=== PATIENT | male | born 1950 | race Caucasian/White ===

== ENCOUNTER 2017-09-21 16:38 | Inpatient (IN) | payer MEDICARE ==
[2017-09-21] MEDS ORDERED: SODIUM CHLORIDE 0.9% 1,000 ML IV STA (17:08)
[2017-09-21 17:43] LABS: Basophils # (A) 0.1 k/uL (0-0.2); Basophils % (A) 1 %; CH 36.4; CHCM 35.6; Eosinophils # (A) 0.1 k/uL (0-0.7); Eosinophils % (A) 1 %; HCT 42.2 % (39.0-53.0); HDW 2.39; HGB 14.6 gm/dL (13.0-17.5); Luc # (Auto) 0.16; Luc % (Auto) 2; Lymphocytes # (A) 1.5 k/uL (1.0-4.8); Lymphocytes % (A) 18 %; MCH 35.5 pg (25.0-35.0); MCHC 34.6 g/dL (31.0-37.0); MCV 102.5 fL (80.0-100.0); Mean Platelet Volume 8.5; Monocytes # (A) 0.8 k/uL (0-1.0); Monocytes % (A) 10 %; Neutrophils # (A) 5.5 k/uL (1.3-7.7); Neutrophils % (A) 69 %; RBC 4.12 m/uL (4.30-5.90); RDW 11.9 % (11.5-15.5); WBC 8.1 k/uL (3.8-10.6); WBC (Perox) 7.83
[2017-09-21 17:51] LABS: Partial Thromboplastin Time 24.6 sec (22.0-30.0); Prothrombin Time 10.4 sec (9.0-12.0)
[2017-09-21 18:00] LABS: ALT 139 U/L (21-72); AST 189 U/L (17-59); Alkaline Phosphatase 96 U/L (38-126); Amylase 67 U/L (30-110); Anion Gap 13 mmol/L; Blood Urea Nitrogen 14 mg/dL (9-20); Calcium 9.7 mg/dL (8.4-10.2); Carbon Dioxide 24 mmol/L (22-30); Chloride 91 mmol/L (98-107); Glucose 116 mg/dL (74-99); Magnesium 1.7 mg/dL (1.6-2.3); Non-African American GFR(MDRD) 50 (>60 ml/min/1.73 sqM); Potassium 4.2 mmol/L (3.5-5.1); Sodium 128 mmol/L (137-145); Total Bilirubin 1.6 mg/dL (0.2-1.3); Total Protein 6.7 g/dL (6.3-8.2)
[2017-09-21 18:03] LABS: Creatine Kinase 61 U/L (55-170)
--- NOTE | 2017-09-21 18:10 | XR ---
EXAMINATION TYPE: XR chest 2V DATE OF EXAM: 09/21/2017 COMPARISON: 05/09/2016 HISTORY: Weakness TECHNIQUE: Frontal and lateral views of the chest are obtained. FINDINGS: Heart and mediastinum are normal. Lungs are clear of consolidation. There are no hilar mas ses. There is spurring in the thoracic spine. There are sternal wires. IMPRESSION: No active cardiopulmonary disease. No change.
[2017-09-21 18:15] LABS: Creatine Kinase MB 1.7 ng/mL (0.0-2.4); Troponin I <0.012 ng/mL (0.000-0.034)
[2017-09-21] MEDS ORDERED: SODIUM CHLORIDE 0.9% 500 ML IV ONE (18:55)
--- NOTE | 2017-09-21 19:44 | ED ---
URI HPI - General Source: patient, RN notes reviewed Mode of arrival: wheelchair Limitations: no limitations <Jarrett Ahmadi - Last Filed: 09/21/17 20:23> <Arun Bernal - Last Filed: 09/21/17 21:17> - General Chief Complaint: Upper Respiratory Infection Stated Complaint: SOB Time Seen by Provider: 09/21/17 16:50 - History of Present Illness Initial Comments: 67-year-old male present emergency department with chief complaint of generalized weakness. Patient states he has not felt well over the last week. Patient states he has been sick with sinus congestion and slight cough. Patient states he's had a big decrease in appetite states that he has not been eating much other than drinking and sure today. Patient does admit to some alcohol drinking. Patient denies chest pain or shortness of breath at this time he does have some shortness breath other day. Patient states he's had prior cardiac history including triple bypass a few years ago by Dr. Schneider. Patient denies any headache, dizziness, focal weakness. He states that he can previous and he feels so weak. Patient denies any fever or chills. Patient is brought in by family secondary to his weakness. (Jarrett Ahmadi) - Related Data Home Medications Medication Instructions Recorded Confirmed Clopidogrel Bisulfate [Plavix] 75 mg PO Q48H 07/05/16 09/21/17 Aspirin EC [Ecotrin Low Dose] 81 mg PO DAILY 11/07/16 09/21/17 Atorvastatin [Lipitor] 40 mg PO HS 11/07/16 09/21/17 Lisinopril 40 mg PO DAILY 11/07/16 09/21/17 Allergies Allergy/AdvReac Type Severity Reaction Status Date / Time No Known Allergies Allergy Verified 09/21/17 16:54 Review of Systems ROS Other: All systems not noted in ROS Statement are negative. <Jarrett Ahmadi - Last Filed: 09/21/17 20:23> ROS Other: All systems not noted in ROS Statement are negative. <Arun Bernal - Last Filed: 09/21/17 21:17> ROS Statement: Those systems with pertinent positive or pertinent negative responses have been documented in the HPI. Past Medical History Past Medical History: Coronary Artery Disease (CAD), Deep Vein Thrombosis (DVT) , Hyperlipidemia, Hypertension, Vascular Disorder Additional Past Medical History / Comment(s): right leg DVT, PVD, sore on left leg, SIDE OF JIM History of Any Multi-Drug Resistant Organisms: None Reported Past Surgical History: Coronary Bypass/CABG, Heart Catheterization, Joint Replacement, Orthopedic Surgery Additional Past Surgical History / Comment(s): left knee replacement, left foot surgery, stent to right leg, CABG 12/2014, 4 bypass, aortogram, [facility] Past Anesthesia/Blood Transfusion Reactions: No Reported Reaction Past Psychological History: No Psychological Hx Reported, Depression Smoking Status: Current every day smoker Past Alcohol Use History: Daily Past Drug Use History: None Reported - Past Family History Father Family Medical History: Myocardial Infarction ([place]) Mother Family Medical History: No Reported History <Jarrett Ahmadi - Last Filed: 09/21/17 20:23> General Exam Limitations: no limitations General appearance: alert, in no apparent distress Head exam: Present: atraumatic, normocephalic, normal inspection Eye exam: Present: normal appearance, PERRL, EOMI. Absent: scleral icterus, conjunctival injection, periorbital swelling ENT exam: Present: normal exam, normal oropharynx, mucous membranes moist, TM's normal bilaterally, normal external ear exam Neck exam: Present: normal inspection, full ROM. Absent: tenderness, meningismus, lymphadenopathy Respiratory exam: Present: normal lung sounds bilaterally. Absent: respiratory distress, wheezes, rales, rhonchi, stridor Cardiovascular Exam: Present: regular rate, normal rhythm, normal heart sounds. Absent: systolic murmur, diastolic murmur, rubs, gallop, clicks GI/Abdominal exam: Present: soft, normal bowel sounds. Absent: distended, tenderness, guarding, rebound, rigid Neurological exam: Present: alert, oriented X3, CN II-XII intact, reflexes normal. Absent: motor sensory deficit Skin exam: Present: warm, dry, intact, normal color. Absent: rash <Jarrett Ahmadi - Last Filed: 09/21/17 20:23> Vital Signs 09/21/17 09/21/17 09/21/17 16:42 17:10 18:17 Temperature 98 F Pulse Rate 98 80 Respiratory 18 18 16 Rate Blood Pressure 113/76 139/74 O2 Sat by Pulse 100 100 Oximetry Medical Decision Making - Lab Data Result diagrams: 09/21/17 17:30 09/21/17 17:30 <Jarrett Ahmadi - Last Filed: 09/21/17 20:23> - Lab Data Result diagrams: 09/21/17 17:30 09/21/17 17:30 <Arun Bernal - Last Filed: 09/21/17 21:17> - Medical Decision Making 67-year-old male present emergency from for generalized weakness. Patient is dehydrated, has acute renal failure and is unsteady on his gait at this time. Patient needs to be admitted for IV hydration, recheck labs in the morning and reassessment of his gait. (Jarrett Ahmadi) 67 yo male admitted for generalized weakness, dehydration, acute kidney injury and hyponatremia. Multiple attempts are made to contact the patient's admitting physician, messages left on voicemail. Patient will be admitted to the service of Dr. Tan, currently awaiting callback.. (Arun Bernal) - Lab Data Lab Results 09/21/17 09/21/17 09/21/17 Range/Units 17:30 17:30 17:30 WBC 8.1 (3.8-10.6) k/uL RBC 4.12 L (4.30-5.90) m/uL Hgb 14.6 (13.0-17.5) gm/dL Hct 42.2 (39.0-53.0) % MCV 102.5 H (80.0-100.0) fL MCH 35.5 H (25.0-35.0) pg MCHC 34.6 (31.0-37.0) g/dL RDW 11.9 (11.5-15.5) % Plt Count 172 (150-450) k/uL Neutrophils % 69 % Lymphocytes % 18 % Monocytes % 10 % Eosinophils % 1 % Basophils % 1 % Neutrophils # 5.5 (1.3-7.7) k/uL Lymphocytes # 1.5 (1.0-4.8) k/uL Monocytes # 0.8 (0-1.0) k/uL Eosinophils # 0.1 (0-0.7) k/uL Basophils # 0.1 (0-0.2) k/uL PT (9.0-12.0) sec INR (<1.2) APTT (22.0-30.0) sec Sodium 128 L (137-145) mmol/L Potassium 4.2 (3.5-5.1) mmol/L Chloride 91 L (98-107) mmol/L Carbon Dioxide 24 (22-30) mmol/L Anion Gap 13 mmol/L BUN 14 (9-20) mg/dL Creatinine 1.42 H (0.66-1.25) mg/dL Est GFR (MDRD) Af Amer >60 (>60 ml/min/1.73 sqM) Est GFR (MDRD) Non-Af 50 (>60 ml/min/1.73 sqM) Glucose 116 H (74-99) mg/dL Calcium 9.7 (8.4-10.2) mg/dL Magnesium 1.7 (1.6-2.3) mg/dL Total Bilirubin 1.6 H (0.2-1.3) mg/dL AST 189 H (17-59) U/L ALT 139 H (21-72) U/L Alkaline Phosphatase 96 (38-126) U/L Total Creatine Kinase 61 (55-170) U/L CK-MB (CK-2) 1.7 (0.0-2.4) ng/mL CK-MB (CK-2) Rel Index 2.8 Troponin I <0.012 (0.000-0.034) ng/mL NT-Pro-B Natriuret Pep pg/mL Total Protein 6.7 (6.3-8.2) g/dL Albumin 3.9 (3.5-5.0) g/dL Amylase 67 (30-110) U/L Lipase 238 (23-300) U/L Urine Color Urine Appearance (Clear) Urine pH (5.0-8.0) Ur Specific [place] (1.001-1.035) Urine Protein (Negative) Urine Glucose (UA) (Negative) Urine Ketones (Negative) Urine Blood (Negative) Urine Nitrite (Negative) Urine Bilirubin (Negative) Urine Urobilinogen (<2.0) mg/dL Ur Leukocyte Esterase (Negative) 09/21/17 09/21/17 09/21/17 Range/Units 17:30 17:30 19:00 WBC (3.8-10.6) k/uL RBC (4.30-5.90) m/uL Hgb (13.0-17.5) gm/dL Hct (39.0-53.0) % MCV (80.0-100.0) fL MCH (25.0-35.0) pg MCHC (31.0-37.0) g/dL RDW (11.5-15.5) % Plt Count (150-450) k/uL Neutrophils % % Lymphocytes % % Monocytes % % Eosinophils % % Basophils % % Neutrophils # (1.3-7.7) k/uL Lymphocytes # (1.0-4.8) k/uL Monocytes # (0-1.0) k/uL Eosinophils # (0-0.7) k/uL Basophils # (0-0.2) k/uL PT 10.4 (9.0-12.0) sec INR 1.0 (<1.2) APTT 24.6 (22.0-30.0) sec Sodium (137-145) mmol/L Potassium (3.5-5.1) mmol/L Chloride (98-107) mmol/L Carbon Dioxide (22-30) mmol/L Anion Gap mmol/L BUN (9-20) mg/dL Creatinine (0.66-1.25) mg/dL Est GFR (MDRD) Af Amer (>60 ml/min/1.73 sqM) Est GFR (MDRD) Non-Af (>60 ml/min/1.73 sqM) Glucose (74-99) mg/dL Calcium (8.4-10.2) mg/dL Magnesium (1.6-2.3) mg/dL Total Bilirubin (0.2-1.3) mg/dL AST (17-59) U/L ALT (21-72) U/L Alkaline Phosphatase (38-126) U/L Total Creatine Kinase (55-170) U/L CK-MB (CK-2) (0.0-2.4) ng/mL CK-MB (CK-2) Rel Index Troponin I (0.000-0.034) ng/mL NT-Pro-B Natriuret Pep 174 pg/mL Total Protein (6.3-8.2) g/dL Albumin (3.5-5.0) g/dL Amylase (30-110) U/L Lipase (23-300) U/L Urine Color Yellow Urine Appearance Clear (Clear) Urine pH 5.5 (5.0-8.0) Ur Specific [place] 1.006 (1.001-1.035) Urine Protein Negative (Negative) Urine Glucose (UA) Negative (Negative) Urine Ketones Trace H (Negative) Urine Blood Negative (Negative) Urine Nitrite Negative (Negative) Urine Bilirubin Negative (Negative) Urine Urobilinogen 3.0 (<2.0) mg/dL Ur Leukocyte Esterase Negative (Negative) 09/21/17 19:43 EKG performed at 16:57 normal sinus rhythm with a rate of 83 MN interval 146 QRS 86 QT/QTC 394/462 (Jarrett Ahmadi) Disposition <Jarrett Ahmadi - Last Filed: 09/21/17 20:23> <Arun Bernal - Last Filed: 09/21/17 21:17> Clinical Impression: Weakness, Dehydration, Acute kidney injury, Unsteady gait Disposition: ADMITTED IP TO THIS [facility] Condition: Fair Referrals: Nolberto Tan MD [Primary Care Provider] - 1-2 days
[2017-09-21 19:52] LABS: Appearance,Urine Clear (Clear); Bilirubin,Urine Negative (Negative); Glucose,Urine (UA) Negative (Negative); Ketones,Urine Trace (Negative); Leukocyte Esterase,Urine Negative (Negative); Nitrite,Urine Negative (Negative); PH, Urine 5.5 (5.0-8.0); Protein,Urine Negative (Negative); Specific Gravity,Urine 1.006 (1.001-1.035); UA Billing (MACRO vs. MICRO) CHEM
[2017-09-21] MEDS ORDERED: LORazepam 2 MG/ML INJ IV PRN ×4 (20:25→20:26)
[2017-09-21] MEDS ORDERED: NALOXONE 0.4 MG/ML 1 ML VIAL IV PRN (20:25)
[2017-09-21] MEDS ORDERED: ONDANSETRON 4 MG/2 ML VIAL IVP PRN (20:25)
[2017-09-21] MEDS: SODIUM CHLORIDE 0.9% 1,000 ML IV SCH (20:57)
[2017-09-21] MEDS: THIAMINE 100 MG TAB PO SCH (22:04)
[2017-09-22 12:58] VITALS: BMI 25.0
[2017-09-22] MEDS: THIAMINE 100 MG TAB PO SCH ×2 (13:28→17:11)
[2017-09-22] MEDS: SODIUM CHLORIDE 0.9% 1,000 ML IV SCH ×2 (13:29→17:12)
--- NOTE | 2017-09-22 15:07 | HP ---
HISTORY AND PHYSICAL CHIEF COMPLAINT: Dehydration and prerenal azotemia with ataxia. HISTORY OF PRESENT ILLNESS: This is another admission for this 67-year-old white male. He presented to the emergency room with dehydration and unsteadiness. He does drink a significant amount of alcohol, and this is probably his problem. His liver enzymes are elevated. REVIEW OF SYSTEMS: He denies any chest pain, palpitations, focal neurologic deficits, syncope, etc. Past medical history, family history and personal and social histories reveal that he is on: 1. Hydralazine 25 mg twice a day. 2. Lisinopril 40 once a day. 3. Atorvastatin 40 mg at bedtime. 4. Aspirin 81 mg. The remainder of his history is unremarkable. He has not been in the office since the spring. PHYSICAL EXAMINATION: Blood pressure 152/80 with a pulse of 94, respirations of 46, and he is afebrile. In general, he appeared to be flushed. He did appear to be dehydrated. Head, ears, eyes, nose, mouth and throat were otherwise normal. Neck veins were not distended. The chest was clear. Breath sounds were diminished. Cardiac exam demonstrated sinus tachycardia. No murmurs or extra sounds. There was no S3 or S4. ABDOMEN: Soft, nontender, without any visceromegaly or masses. Bowel sounds are present. Extremities were normal. Neurologically he was intact. He was not tremulous. IMPRESSION: 1. Dehydration and ataxia. 2. Alcoholism. 3. Chronic obstructive pulmonary disease. 4. History of hypertension. PLAN: 1. Bed rest. 2. IV fluids. 3. Monitor vital signs and neurologic status. Closely watch for DTs. MMLADONNAL / NEMESION: [id number] /
--- NOTE | 2017-09-22 15:10 | PN ---
PROGRESS NOTE CHIEF COMPLAINT: Dehydration and alcoholism. HISTORY OF PRESENT ILLNESS: This gentleman is stable and he has had no further problems. He has had no headaches, dizziness, focal neurologic deficits, diplopia, etc. PHYSICAL EXAMINATION: CHEST: Clear. Cardiac exam is normal. The abdomen is soft, nontender. EXTREMITIES: Normal. IMPRESSION: 1. Dehydration. 2. Alcoholism. 3. Ataxia. PLAN: Continue with rehydration. He has not gone into DTs as of this time. MMODL / IJN: [id number] /
[2017-09-23] MEDS: SODIUM CHLORIDE 0.9% 1,000 ML IV SCH ×3 (03:51→21:30)
[2017-09-23 09:46] LABS: Basophils % (A) 1 %; CH 36.1; CHCM 34.2; Eosinophils # (A) 0.1 k/uL (0-0.7); Eosinophils % (A) 1 %; HCT 37.3 % (39.0-53.0); HDW 2.44; HGB 12.4 gm/dL (13.0-17.5); Luc # (Auto) 0.15; Luc % (Auto) 2; Lymphocytes # (A) 1.2 k/uL (1.0-4.8); Lymphocytes % (A) 17 %; MCH 35.2 pg (25.0-35.0); MCHC 33.2 g/dL (31.0-37.0); MCV 106.1 fL (80.0-100.0); Macrocytosis Slight; Mean Platelet Volume 8.9; Monocytes # (A) 0.7 k/uL (0-1.0); Monocytes % (A) 10 %; Neutrophils # (A) 4.7 k/uL (1.3-7.7); Neutrophils % (A) 69 %; RBC 3.52 m/uL (4.30-5.90); RDW 11.8 % (11.5-15.5); WBC 6.8 k/uL (3.8-10.6); WBC (Perox) 6.77
[2017-09-23 10:10] LABS: ALT 119 U/L (21-72); AST 140 U/L (17-59); Alkaline Phosphatase 77 U/L (38-126); Anion Gap 7 mmol/L; Blood Urea Nitrogen 6 mg/dL (9-20); Calcium 8.4 mg/dL (8.4-10.2); Carbon Dioxide 25 mmol/L (22-30); Chloride 99 mmol/L (98-107); Glucose 86 mg/dL (74-99); Non-African American GFR(MDRD) >60 (>60 ml/min/1.73 sqM); Potassium 3.8 mmol/L (3.5-5.1); Sodium 131 mmol/L (137-145); Total Bilirubin 1.3 mg/dL (0.2-1.3); Total Protein 5.5 g/dL (6.3-8.2)
[2017-09-23] MEDS: THIAMINE 100 MG TAB PO SCH ×2 (12:10→17:22)
[2017-09-24] MEDS: SODIUM CHLORIDE 0.9% 1,000 ML IV SCH (06:38)
[2017-09-24 08:17] VITALS: BP 112/93; PULSE 103; RESP 18; TEMP 98.3
--- NOTE | 2017-09-24 12:25 | CDI ---
In responding to this query, please exercise your independent professional judgment. The [facility] Coding Staff and Clinical Documentation Specialists appreciate your assistance in clarifying documentation, maintaining compliance with coding guidelines, accurately documenting patients condition and capturing severity of illness. The fact that a question is asked does not imply that any particular answer is desired or expected. Communication forms are a method of clarifying documentation and are not made part of the Legal Health Record. Thank you in advance for your clarification. Last Revision, September 2015 Costa Grey [address] [place] [address] Documentation Clarification Form Date: 09/24/2017 12:16:00 PM From: Nichol Barry CCS, CCDS Admit Date: 09/21/2017 9:15:00 PM Patient Name: Arun Recinos Visit Number: [id number] Discharge Date: Dr. Nolberto Tan: Patient presents with a BUN 14, now 6*. Admitting Creatinine 1.42^, improved to 0.70. GFR 50 - >60. History/Risk Factors: Cardiac history: CAD status post CABG; DVT, PVD w/stent in right leg, Hyperlipidemia, Hypertension. Clinical Indicators: Admit via ED c/o generalized weakness, ataxia, sinus congestion & slight cough, decreased appetite, drinking alcohol; elevated liver enzymes. Admit with Dehydration & acute renal failure per ED physician. Treatment: IV fluids, monitor for DTs. In order to capture the severity of condition, please clarify if the condition signifies: Acute renal failure o Please specify (if known): Cortical, Medullary, or Tubular Necrosis? Acute kidney injury Acute on chronic renal failure Chronic kidney disease (CKD) and please stage o Stage 1 GFR >90 o Stage 2 GFR 60-89 o Stage 3 GFR 30-59 o Stage 4 GFR 15-29 o Stage 5 GFR <15 o ESRD Unable to determine Other, specify Please document in your progress notes and discharge summary in order to capture severity of illness and risk of mortality. Include clinical findings that support your diagnosis. FYI: Press F11 to launch patient chart. [email or web address]
--- NOTE | 2017-09-24 18:12 | PN ---
PROGRESS NOTE DATE OF SERVICE: 09/23/17 CHIEF COMPLAINT: Dehydration and alcoholism. HISTORY OF PRESENT ILLNESS: This gentleman is doing better. Kidney functions improved. He has had no DTs. PHYSICAL EXAM: Chest is fairly clear. The cardiac exam is normal. The abdomen is soft, nontender. Hydration is improving. IMPRESSION: 1. Dehydration. 2. Prerenal azotemia. 3. Alcoholism. PLAN: Continue with rehydration, increase activity and he has not gone into DTs. He will probably be able to go home tomorrow. MMODL / IJN: [id number] /
--- NOTE | 2017-09-25 07:46 | MISC ---
MISCELLANOUS REPORT QUERY: Patient's BUN and creatinine were elevated due to acute kidney injury secondary to dehydration which would constitute prerenal azotemia. MMODL / IJN: [id number] /
--- NOTE | 2017-09-25 07:46 | DS ---
DISCHARGE SUMMARY CHIEF COMPLAINT: Dehydration, alcoholism and acute renal failure. HISTORY OF PRESENT ILLNESS AND PHYSICAL EXAM: Details of this man's history and physical can be found in the initial workup. LABORATORY STUDIES: While he was in the hospital, he had laboratory studies, details of which can be found in the laboratory section of his chart. COURSE IN HOSPITAL: After admission, he was placed in bedrest, started on intravenous fluids and rehydrated. BUN and creatinine improved. It is expected that he might go into DTs, but he did not. He was doing well and was stable and felt he could go home on the fifth and he will be seen in the office in 2 days. FINAL DIAGNOSIS: 1. Dehydration. 2. Prerenal azotemia. 3. Alcoholism. OPERATIONS: None. CONSULTATION: None. He is improved MMODL / NEMESION: [id number] /
== END 2017-09-24 12:36 | disposition home or self-care (01) | DRG 683 ==
LOC: EC 16:38 → 5MS5E 21:15
PROVIDERS: ADMIT Family Medicine; ATTEND Family Medicine
DX: N17.9 Acute kidney failure, unspecified (principal); E87.1 Hypo-osmolality and hyponatremia; J44.9 Chronic obstructive pulmonary disease, unspecified; I10 Essential (primary) hypertension; E86.0 Dehydration; F10.20 Alcohol dependence, uncomplicated; I25.10 Atherosclerotic heart disease of native coronary artery without angina pectoris; E78.5 Hyperlipidemia, unspecified; Z96.651 Presence of right artificial knee joint; F17.200 Nicotine dependence, unspecified, uncomplicated; Z82.49 Family history of ischemic heart disease and other diseases of the circulatory system; Z95.820 Peripheral vascular angioplasty status with implants and grafts; Z79.899 Other long term (current) drug therapy; Z95.1 Presence of aortocoronary bypass graft; Z79.82 Long term (current) use of aspirin; Z86.718 Personal history of other venous thrombosis and embolism
CPT/HCPCS: 36415; 71020; 80053; 81003; 82150; 82550; 82553; 83690; 83735; 83880; 84484; 85025; 85610; 85730; 93005; 94760; 96360; 96361; 99284

== ENCOUNTER 2018-07-22 21:27 | Inpatient (IN) | payer MEDICARE ==
[2018-07-22 21:41] LABS: Glucose,Whole Blood 103 mg/dL (75-99)
[2018-07-22] MEDS ORDERED: SODIUM CHLORIDE 0.9% 1,000 ML IV STA ×2 (22:00→22:50)
[2018-07-22] MEDS ORDERED: SODIUM CHLORIDE 0.9% 500 ML IV STA ×2 (22:00→22:50)
[2018-07-22 22:09] LABS: Basophils # (A) 0.1 k/uL (0-0.2); Basophils % (A) 1 %; Eosinophils % (A) 0 %; HCT 36.1 % (39.0-53.0); HGB 12.3 gm/dL (13.0-17.5); Lymphocytes # (A) 1.3 k/uL (1.0-4.8); Lymphocytes % (A) 14 %; MCH 35.4 pg (25.0-35.0); MCHC 33.9 g/dL (31.0-37.0); MCV 104.4 fL (80.0-100.0); Macrocytosis Slight; Mean Platelet Volume 7.6; Monocytes # (A) 0.8 k/uL (0-1.0); Monocytes % (A) 8 %; Neutrophils # (A) 7.2 k/uL (1.3-7.7); Neutrophils % (A) 74 %; Platelet Count 209 k/uL (150-450); RBC 3.46 m/uL (4.30-5.90); RDW 12.8 % (11.5-15.5); WBC 9.7 k/uL (3.8-10.6)
[2018-07-22 22:19] LABS: Appearance,Urine Clear (Clear); Bilirubin,Urine Negative (Negative); Blood,Urine Negative (Negative); Color,Urine Colorless; Glucose,Urine (UA) Negative (Negative); Ketones,Urine Negative (Negative); Leukocyte Esterase,Urine Negative (Negative); Nitrite,Urine Negative (Negative); PH, Urine 5.5 (5.0-8.0); Protein,Urine Negative (Negative); Specific Gravity,Urine 1.002 (1.001-1.035); Urobilinogen,Urine <2.0 mg/dL (<2.0)
[2018-07-22 22:19] LABS: Partial Thromboplastin Time 24.3 sec (22.0-30.0); Prothrombin Time 9.9 sec (9.0-12.0)
[2018-07-22 22:23] LABS: ALT 84 U/L (21-72); AST 63 U/L (17-59); Albumin 3.5 g/dL (3.5-5.0); Alkaline Phosphatase 67 U/L (38-126); Anion Gap 14 mmol/L; Blood Urea Nitrogen 9 mg/dL (9-20); Calcium 9.6 mg/dL (8.4-10.2); Carbon Dioxide 19 mmol/L (22-30); Chloride 90 mmol/L (98-107); Glucose 83 mg/dL (74-99); Magnesium 1.5 mg/dL (1.6-2.3); Phosphorus 3.5 mg/dL (2.5-4.5); Potassium 4.8 mmol/L (3.5-5.1); Sodium 123 mmol/L (137-145); Total Bilirubin 0.5 mg/dL (0.2-1.3); Total Protein 6.2 g/dL (6.3-8.2)
--- NOTE | 2018-07-22 22:25 | ED ---
General Adult HPI - General Chief complaint: Fall Stated complaint: fall Time Seen by Provider: 07/22/18 22:00 Source: patient, RN notes reviewed, old records reviewed Mode of arrival: ambulatory Limitations: no limitations - History of Present Illness Initial comments: This is a 68-year-old male the ER for evaluation status post fall fall secondary to weakness. Patient states for weak in his legs was unable to get up after falling. This [place] issue for patient before did happen twice today. Patient states he was outside doing yard work throughout the day, did not eat or drink, do not drink dinner. Does admit to alcohol use today. Denies any shortness of breath chest pain or abdominal pain. Denies any pain or traumatic injury from fall - Related Data Home Medications Medication Instructions Recorded Confirmed Clopidogrel Bisulfate [Plavix] 75 mg PO Q48H 07/05/16 09/21/17 Aspirin EC [Ecotrin Low Dose] 81 mg PO DAILY 11/07/16 09/21/17 Atorvastatin [Lipitor] 40 mg PO HS 11/07/16 09/21/17 Lisinopril 40 mg PO DAILY 11/07/16 09/21/17 Allergies Allergy/AdvReac Type Severity Reaction Status Date / Time No Known Allergies Allergy Verified 07/22/18 21:33 Review of Systems ROS Statement: Those systems with pertinent positive or pertinent negative responses have been documented in the HPI. ROS Other: All systems not noted in ROS Statement are negative. Past Medical History Past Medical History: Coronary Artery Disease (CAD), CVA/TIA, Deep Vein Thrombosis (DVT), Hyperlipidemia, Hypertension, Vascular Disorder Additional Past Medical History / Comment(s): right leg DVT, PVD, TIA 2015, HAD A NON HEALING WOUND LT LEG-HAD SKIN GRAFTING. History of Any Multi-Drug Resistant Organisms: None Reported Past Surgical History: Coronary Bypass/CABG, Heart Catheterization, Joint Replacement, Orthopedic Surgery Additional Past Surgical History / Comment(s): left knee replacement, left foot surgery, stent to right leg, CABG 12/2014, 4 bypass, aortogram, [facility], SKIN GRAFTING LT LEG Past Anesthesia/Blood Transfusion Reactions: No Reported Reaction Past Psychological History: No Psychological Hx Reported Smoking Status: Current every day smoker Past Alcohol Use History: Daily, Heavy Past Drug Use History: Marijuana - Past Family History Father Family Medical History: Myocardial Infarction ([place]) Mother Family Medical History: No Reported History General Exam - General Exam Comments Initial Comments: Diaphoretic Limitations: no limitations General appearance: alert, appears intoxicated, anxious Head exam: Present: atraumatic, normocephalic, normal inspection Eye exam: Present: normal appearance, PERRL, EOMI. Absent: scleral icterus, conjunctival injection, periorbital swelling ENT exam: Present: normal exam, mucous membranes moist Neck exam: Present: normal inspection. Absent: tenderness, meningismus, lymphadenopathy Respiratory exam: Present: normal lung sounds bilaterally. Absent: respiratory distress, wheezes, rales, rhonchi, stridor Cardiovascular Exam: Present: regular rate, normal rhythm, normal heart sounds. Absent: systolic murmur, diastolic murmur, rubs, gallop, clicks GI/Abdominal exam: Present: soft, normal bowel sounds. Absent: distended, tenderness, guarding, rebound, rigid Extremities exam: Present: normal inspection, full ROM, normal capillary refill. Absent: tenderness, pedal edema, joint swelling, calf tenderness Back exam: Present: normal inspection Neurological exam: Present: alert, oriented X3, CN II-XII intact Psychiatric exam: Present: normal affect, normal mood Skin exam: Present: warm, dry, intact, normal color. Absent: rash Course Vital Signs 07/22/18 07/22/18 21:30 22:48 Temperature 97.7 F Pulse Rate 83 88 Respiratory 18 18 Rate Blood Pressure 133/73 149/78 O2 Sat by Pulse 99 99 Oximetry - Reevaluation(s) Reevaluation #1: 07/22/18 23:10 Patient does admit to daily drinking occasional marijuana use EKG Findings - EKG Comments: EKG Findings:: EKG shows nsr rate of 82, IN 166, QRS 168, QTc 441 Medical Decision Making - Medical Decision Making 68 male the ER status post fall. Fall with inability to get up or ambulate. Patient is no traumatic injury from fall, severely dehydrated hyponatremia and weak. Patient be admitted for fluid resuscitation - Lab Data Result diagrams: 07/22/18 21:45 07/22/18 21:45 Lab Results 07/22/18 07/22/18 07/22/18 Range/Units 21:40 21:45 21:45 WBC 9.7 (3.8-10.6) k/uL RBC 3.46 L (4.30-5.90) m/uL Hgb 12.3 L (13.0-17.5) gm/dL Hct 36.1 L (39.0-53.0) % MCV 104.4 H (80.0-100.0) fL MCH 35.4 H (25.0-35.0) pg MCHC 33.9 (31.0-37.0) g/dL RDW 12.8 (11.5-15.5) % Plt Count 209 (150-450) k/uL Neutrophils % 74 % Lymphocytes % 14 % Monocytes % 8 % Eosinophils % 0 % Basophils % 1 % Neutrophils # 7.2 (1.3-7.7) k/uL Lymphocytes # 1.3 (1.0-4.8) k/uL Monocytes # 0.8 (0-1.0) k/uL Eosinophils # 0.0 (0-0.7) k/uL Basophils # 0.1 (0-0.2) k/uL Macrocytosis Slight PT (9.0-12.0) sec INR (<1.2) APTT (22.0-30.0) sec Sodium (137-145) mmol/L Potassium (3.5-5.1) mmol/L Chloride (98-107) mmol/L Carbon Dioxide (22-30) mmol/L Anion Gap mmol/L BUN (9-20) mg/dL Creatinine (0.66-1.25) mg/dL Est GFR (CKD-EPI)AfAm (>60 ml/min/1.73 sqM) Est GFR (CKD-EPI)NonAf (>60 ml/min/1.73 sqM) Glucose (74-99) mg/dL POC Glucose (mg/dL) 103 H (75-99) mg/dL POC Glu [employer]astics Spreading Machine Operator ID Fowler, Rafi Calcium (8.4-10.2) mg/dL Phosphorus (2.5-4.5) mg/dL Magnesium (1.6-2.3) mg/dL Total Bilirubin (0.2-1.3) mg/dL AST (17-59) U/L ALT (21-72) U/L Alkaline Phosphatase (38-126) U/L Total Creatine Kinase 130 (55-170) U/L CK-MB (CK-2) 1.9 (0.0-2.4) ng/mL CK-MB (CK-2) Rel Index 1.5 Troponin I 0.014 (0.000-0.034) ng/mL Total Protein (6.3-8.2) g/dL Albumin (3.5-5.0) g/dL TSH (0.465-4.680) mIU/L Urine Color Urine Appearance (Clear) Urine pH (5.0-8.0) Ur Specific [place] (1.001-1.035) Urine Protein (Negative) Urine Glucose (UA) (Negative) Urine Ketones (Negative) Urine Blood (Negative) Urine Nitrite (Negative) Urine Bilirubin (Negative) Urine Urobilinogen (<2.0) mg/dL Ur Leukocyte Esterase (Negative) 07/22/18 07/22/18 07/22/18 Range/Units 21:45 21:45 22:09 WBC (3.8-10.6) k/uL RBC (4.30-5.90) m/uL Hgb (13.0-17.5) gm/dL Hct (39.0-53.0) % MCV (80.0-100.0) fL MCH (25.0-35.0) pg MCHC (31.0-37.0) g/dL RDW (11.5-15.5) % Plt Count (150-450) k/uL Neutrophils % % Lymphocytes % % Monocytes % % Eosinophils % % Basophils % % Neutrophils # (1.3-7.7) k/uL Lymphocytes # (1.0-4.8) k/uL Monocytes # (0-1.0) k/uL Eosinophils # (0-0.7) k/uL Basophils # (0-0.2) k/uL Macrocytosis PT 9.9 (9.0-12.0) sec INR 1.0 (<1.2) APTT 24.3 (22.0-30.0) sec Sodium 123 L (137-145) mmol/L Potassium 4.8 (3.5-5.1) mmol/L Chloride 90 L (98-107) mmol/L Carbon Dioxide 19 L (22-30) mmol/L Anion Gap 14 mmol/L BUN 9 (9-20) mg/dL Creatinine 0.80 (0.66-1.25) mg/dL Est GFR (CKD-EPI)AfAm >90 (>60 ml/min/1.73 sqM) Est GFR (CKD-EPI)NonAf >90 (>60 ml/min/1.73 sqM) Glucose 83 (74-99) mg/dL POC Glucose (mg/dL) (75-99) mg/dL POC Glu Plastics Spreading Machine Operator ID Calcium 9.6 (8.4-10.2) mg/dL Phosphorus 3.5 (2.5-4.5) mg/dL Magnesium 1.5 L (1.6-2.3) mg/dL Total Bilirubin 0.5 (0.2-1.3) mg/dL AST 63 H (17-59) U/L ALT 84 H (21-72) U/L Alkaline Phosphatase 67 (38-126) U/L Total Creatine Kinase (55-170) U/L CK-MB (CK-2) (0.0-2.4) ng/mL CK-MB (CK-2) Rel Index Troponin I (0.000-0.034) ng/mL Total Protein 6.2 L (6.3-8.2) g/dL Albumin 3.5 (3.5-5.0) g/dL TSH 3.670 (0.465-4.680) mIU/L Urine Color Colorless Urine Appearance Clear (Clear) Urine pH 5.5 (5.0-8.0) Ur Specific [place] 1.002 (1.001-1.035) Urine Protein Negative (Negative) Urine Glucose (UA) Negative (Negative) Urine Ketones Negative (Negative) Urine Blood Negative (Negative) Urine Nitrite Negative (Negative) Urine Bilirubin Negative (Negative) Urine Urobilinogen <2.0 (<2.0) mg/dL Ur Leukocyte Esterase Negative (Negative) - Radiology Data Radiology results: report reviewed (CT brain C-spine chest x-ray pelvis x-ray x- ray bilateral wrist and elbow negative for traumatic injury), image reviewed Disposition Clinical Impression: Fall, Multiple skin tears, Weakness, Dehydration, Hyponatremia, Hypomagnesemia Disposition: ADMITTED IP TO THIS [facility] Condition: Fair Is patient prescribed a controlled substance at d/c from ED?: No Referrals: Nolberto Tan MD [Primary Care Provider] - 1-2 days
[2018-07-22 22:34] LABS: Creatine Kinase MB 1.9 ng/mL (0.0-2.4); Troponin I 0.014 ng/mL (0.000-0.034)
[2018-07-22] MEDS ORDERED: MAGNESIUM OXIDE 400 MG TAB PO STA (22:51)
--- NOTE | 2018-07-22 22:53 | CT ---
EXAMINATION TYPE: CT brain rudy braun DATE OF EXAM: 07/22/2018 COMPARISON: 05/09/[address] scan HISTORY: Fall. Headache. Neck pain CT DLP: 1342.3 mGycm Automated exposure control for dose reduction was used. TECHNIQUE: CT scan of the head and cervical spine are performed without contrast. FINDINGS: There is cerebral cortical atrophy. There is no mass effect nor midline shift. There is n o sign of intracranial hemorrhage. The calvarium is intact. Cervical vertebra have normal alignment. Posterior elements are intact. There is mild spurring of the endplates. Facet joints are intact. Skull base is intact. IMPRESSION: Cerebral atrophy. No acute intracranial abnormality. No change. Mild spondylotic changes in the cervical spine. No fracture.
--- NOTE | 2018-07-22 22:54 | XR ---
EXAMINATION TYPE: XR chest 2V DATE OF EXAM: 07/22/2018 COMPARISON: 09/21/2017 HISTORY: Chest pain TECHNIQUE: Frontal and lateral views of the chest are obtained. FINDINGS: There is no heart failure nor confluent pneumonic infiltrate. Costophrenic angles are miranda r. Heart size is normal. There are sternal wires. There are chest leads. Bony thorax is intact. IMPRESSION: No active cardiopulmonary disease. No change.
--- NOTE | 2018-07-22 22:55 | XR ---
EXAMINATION TYPE: XR pelvis AP view DATE OF EXAM: 07/22/2018 COMPARISON: NONE HISTORY: Fall. Lightheaded. TECHNIQUE: Single view FINDINGS: The pelvic ring is intact. Proximal femurs are intact. There is left iliac artery stent. Th ere is mild acetabular spurring. There is vascular calcification. IMPRESSION: No acute abnormality of the pelvis. No fracture.
[2018-07-22] MEDS ORDERED: LORazepam 2 MG/ML INJ IV PRN ×2 (23:07)
[2018-07-22] MEDS ORDERED: THIAMINE 100 MG/ML 2 ML VIAL IM STA (23:07)
--- NOTE | 2018-07-22 23:34 | XR ---
EXAMINATION TYPE: XR wrist complete BILATERAL DATE OF EXAM: 07/22/2018 COMPARISON: NONE HISTORY: Fall. Wrist pain TECHNIQUE: 4 views each wrist FINDINGS: There is mild vascular calcification. Carpal bones are intact. There is bilateral spurring of the first carpometacarpal joints. There are no erosions. I see no fracture nor dislocation. Metaca rpals are intact. 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 No fracture seen.
--- NOTE | 2018-07-22 23:35 | XR ---
EXAMINATION TYPE: XR elbow complete bilateral DATE OF EXAM: 07/22/2018 COMPARISON: NONE HISTORY: Falls. Elbow pain TECHNIQUE: 3 views each elbow FINDINGS: I see no fracture nor dislocation. There is narrowing of the right side radiohumeral joint space. There is no sign of joint effusion. Left elbow joint spaces are fairly normal. IMPRESSION: No fracture seen. There is some mild osteoarthritis in the right elbow.
[2018-07-23] MEDS: LORazepam 2 MG/ML INJ IV PRN ×2 (00:08→22:52)
[2018-07-23 01:08] VITALS: BMI 22.4
[2018-07-23] MEDS: ENOXAPARIN 40 MG/0.4 ML SYRINGE SQ SCH (09:17)
[2018-07-23] MEDS: THIAMINE 100 MG TAB PO SCH ×2 (12:07→16:51)
--- NOTE | 2018-07-23 18:42 | HP ---
HISTORY AND PHYSICAL CHIEF COMPLAINT: Syncope, dizziness, hyponatremia and fall. HISTORY OF PRESENT ILLNESS: This is another admission for this 68-year-old white male. Apparently he was out working in his yard and became dizzy and fell. He does drink a significant amount of alcohol and he does have hypertension. When he came to the emergency room, he was also hyponatremic. He was admitted for rehydration and rule out other possible etiologies. REVIEW OF SYSTEMS: He has had no focal neurologic deficits, confusion, chest pain, shortness of breath, orthopnea, PND, etc. PAST MEDICAL HISTORY, FAMILY HISTORY, PERSONAL AND SOCIAL HISTORY: Unremarkable otherwise. He is not allergic to anything. He is on: 1. Plavix 75 mg once a day. 2. Vitamin D. 3. Lisinopril 40 mg once a day. 4. Atorvastatin 40 mg at bedtime and. 5. Aspirin. He has a significant problem with PVOD and is going in for another procedure in a few weeks. He has also had open heart procedure in December of 2014. He continues to smoke. PHYSICAL EXAM: Blood pressure 98/50 with a pulse of 80, respirations of 18. He is afebrile. GENERAL: He appeared to be slightly dehydrated. Skin was dry. Lymph nodes not enlarged. Head, ears, eyes, nose, mouth, and throat were normal. Neck veins not distended. Carotids seem normal and the chest is clear. Cardiac is normal. The. Abdomen is soft and nontender and the extremities are normal. Neurologically, he seemed to be intact. IMPRESSION: 1. Syncope and fall. 2. Dehydration. 3. Hyponatremia. 4. Atherosclerotic cardiovascular disease. 5. Coronary artery disease. 6. Peripheral vascular occlusive disease. 7. Dehydration. 8. Hyponatremia. PLAN: 1. Bed rest. 2. IV fluids. 3. Correct electrolyte imbalance. MMODL / IJN: [id number] /
--- NOTE | 2018-07-23 18:48 | PN ---
PROGRESS NOTE DATE OF SERVICE: 07/23/2018 CHIEF COMPLAINT: Dehydration, hyponatremia and syncope. HISTORY OF PRESENT ILLNESS: This gentleman is doing fairly well, but his elbows are somewhat abraded and sore. PHYSICAL EXAM: Breath sounds are diminished due to his COPD. Cardiac is normal. Abdomen is soft, nontender. IMPRESSION: 1. Dizziness, lightheadedness, dehydration and fall. 2. Hyponatremia. 3. Chronic obstructive pulmonary disease. 4. Alcoholism. 5. Coronary artery disease. 6. Peripheral vascular occlusive disease. PLAN: Rehydrate and increase activity and probably home in a day or 2. MMODL / IJN: [id number] /
[2018-07-23 19:11] LABS: Potassium 5.3 mmol/L (3.5-5.1)
[2018-07-24 07:25] VITALS: BP 137/78; PULSE 74; RESP 19; TEMP 97.6
[2018-07-24 08:35] LABS: ALT 66 U/L (21-72); AST 57 U/L (17-59); Albumin 3.2 g/dL (3.5-5.0); Alkaline Phosphatase 64 U/L (38-126); Anion Gap 8 mmol/L; Blood Urea Nitrogen 5 mg/dL (9-20); Calcium 8.6 mg/dL (8.4-10.2); Carbon Dioxide 22 mmol/L (22-30); Chloride 100 mmol/L (98-107); Glucose 91 mg/dL (74-99); Potassium 4.4 mmol/L (3.5-5.1); Sodium 130 mmol/L (137-145); Total Bilirubin 0.9 mg/dL (0.2-1.3); Total Protein 5.8 g/dL (6.3-8.2)
[2018-07-24] MEDS: ENOXAPARIN 40 MG/0.4 ML SYRINGE SQ SCH (08:40)
[2018-07-24] MEDS ORDERED: LISINOPRIL 20 MG TAB PO SCH (09:00)
[2018-07-24] MEDS ORDERED: ASPIRIN 81 MG PO SCH (09:00)
[2018-07-24] MEDS ORDERED: CLOPIDOGREL 75 MG TAB PO SCH (09:00)
[2018-07-24] MEDS: THIAMINE 100 MG TAB PO SCH (11:31)
--- NOTE | 2018-07-24 17:41 | DS ---
DISCHARGE SUMMARY CHIEF COMPLAINT: Dizziness, lightheadedness, syncope and hyponatremia. HISTORY OF PRESENT ILLNESS AND PHYSICAL EXAM: Details of this man's history and physical can be found in the initial workup. LABORATORY STUDIES: While in the hospital, he had laboratory studies, details which can be found in the laboratory section of chart. COURSE IN HOSPITAL: After admission he was placed on bedrest started on intravenous fluids and rehydrated. Sodium came up to normal. He did well and was felt to go home on the 5th. He had surgery scheduled the next day of his leg. He will be seen in a week. FINAL DIAGNOSES: 1. Dehydration, syncope, hyponatremia. 2. Atherosclerotic cardiovascular disease. 3. Peripheral vascular occlusive disease. OPERATIONS: None. CONSULTATION: None. He is improved. MMODL / NEMESION: [id number] /
== END 2018-07-24 11:35 | disposition home or self-care (01) | DRG 641 ==
LOC: EC 21:27 → 5MS5E 23:09
PROVIDERS: ADMIT Family Medicine; ATTEND Family Medicine
DX: E87.1 Hypo-osmolality and hyponatremia (principal); E78.5 Hyperlipidemia, unspecified; E83.42 Hypomagnesemia; E86.0 Dehydration; F10.20 Alcohol dependence, uncomplicated; F17.200 Nicotine dependence, unspecified, uncomplicated; I10 Essential (primary) hypertension; I25.10 Atherosclerotic heart disease of native coronary artery without angina pectoris; I73.9 Peripheral vascular disease, unspecified; J44.9 Chronic obstructive pulmonary disease, unspecified; W19.XXXA Unspecified fall, initial encounter; T14.8XXA Other injury of unspecified body region, initial encounter; Z82.49 Family history of ischemic heart disease and other diseases of the circulatory system; Z86.718 Personal history of other venous thrombosis and embolism; Z86.73 Personal history of transient ischemic attack (TIA), and cerebral infarction without residual deficits; Z95.1 Presence of aortocoronary bypass graft; Z96.652 Presence of left artificial knee joint; Z95.828 Presence of other vascular implants and grafts; Z79.02 Long term (current) use of antithrombotics/antiplatelets; Z79.82 Long term (current) use of aspirin; Z79.899 Other long term (current) drug therapy; R55 Syncope and collapse
CPT/HCPCS: 36415; 70450; 71046; 72125; 72170; 80051; 80053; 80320; 81003; 82550; 82553; 83690; 83735; 84100; 84295; 84443; 84484; 85025; 85610; 85730; 87086; 93005; 96361; 96372; 96374; 99285

== ENCOUNTER 2018-09-15 21:29 | Inpatient (IN) | payer MEDICARE ==
--- NOTE | 2018-09-15 21:58 | ED ---
Psych HPI - General Chief Complaint: Psychiatric Symptoms Stated Complaint: Petition Time Seen by Provider: 09/15/18 21:39 Source: patient Mode of arrival: ambulatory - History of Present Illness Initial Comments: Patient is a 68-year-old male that presents to emergency department with police department for suicidal ideation. Police department states that they were called after the patient reported to his children that he was going to shoot himself in the head with his guns at the first of the month after he got paid. The family got there and took his guns away and then called police. Patient does admit to saying this and states that he is just tired of living and denies any physical pain. - Related Data Home Medications Medication Instructions Recorded Confirmed Clopidogrel Bisulfate [Plavix] 75 mg PO DAILY 07/05/16 07/23/18 Aspirin EC [Ecotrin Low Dose] 81 mg PO DAILY 11/07/16 07/23/18 Atorvastatin [Lipitor] 40 mg PO HS 11/07/16 07/23/18 Lisinopril 40 mg PO DAILY 11/07/16 07/23/18 Allergies Allergy/AdvReac Type Severity Reaction Status Date / Time No Known Allergies Allergy Verified 09/15/18 21:34 Review of Systems ROS Statement: Those systems with pertinent positive or pertinent negative responses have been documented in the HPI. Constitutional: Negative for chills, fatigue and fever. HENT: Negative for congestion. Respiratory: Negative for chest tightness, shortness of breath and wheezing. Negative for cough Cardiovascular: Negative for chest pain and palpitations. Gastrointestinal: Negative for abdominal pain. Negative for abdominal distention , diarrhea, nausea and vomiting. Genitourinary: Negative for dysuria. Musculoskeletal: Negative for back pain, neck pain and neck stiffness. Skin: Negative for color change. Neurological: Negative for dizziness, speech difficulty, weakness and light- headedness. Psychiatric/Behavioral: Negative for agitation and confusion. Negative for anxiety. Positive for suicidal ideation ROS Other: All systems not noted in ROS Statement are negative. Past Medical History Past Medical History: Coronary Artery Disease (CAD), CVA/TIA, Deep Vein Thrombosis (DVT), Hyperlipidemia, Hypertension, Vascular Disorder Additional Past Medical History / Comment(s): right leg DVT, PVD, TIA 2016, HAD A NON HEALING WOUND LT LEG-HAD SKIN GRAFTING.has no circulation left leg on Thursday 100 percent blocked from groin to mid doe tried to do cath and was unable to History of Any Multi-Drug Resistant Organisms: None Reported Past Surgical History: Coronary Bypass/CABG, Heart Catheterization, Joint Replacement, Orthopedic Surgery Additional Past Surgical History / Comment(s): left knee replacement, left foot surgery, stent to right leg, CABG 12/2014, 4 bypass, aortogram, WOUND CLINIC, SKIN GRAFTING LT LEG Past Anesthesia/Blood Transfusion Reactions: No Reported Reaction Past Psychological History: Anxiety, Depression Smoking Status: Current every day smoker Past Alcohol Use History: Daily, Heavy Past Drug Use History: Marijuana - Past Family History Father Family Medical History: Myocardial Infarction (CT) Mother Family Medical History: No Reported History General Exam - General Exam Comments Initial Comments: Constitutional: Pt is oriented to person, place, and time. Pt appears well- developed and well-nourished. No distress. HENT: Head: Normocephalic and atraumatic. Eyes: EOM are normal. Neck: Normal range of motion. Neck supple. Cardiovascular: Normal rate, regular rhythm, S1 normal, S2 normal and normal heart sounds. Exam reveals no gallop and no friction rub. No murmur heard. Pulmonary/Chest: Effort normal and breath sounds normal. No tachypnea and no bradypnea. No respiratory distress. No wheezes or rales noted. Abdominal: Soft. Bowel sounds are normal. Pt exhibits no shifting dullness, no distension, no pulsatile liver, no fluid wave, no abdominal bruit and no ascites. There is no tenderness. There is no rigidity, no rebound, no guarding, no tenderness at McBurney's point and negative De La Rosa's sign. Musculoskeletal: Normal range of motion. Neurological: Pt is alert and oriented to person, place, and time. No cranial nerve deficit. Skin: Skin is warm and dry. No rash noted. Pt is not diaphoretic. No erythema. No pallor. Psychiatric: Pt has a normal mood and affect. Pt behavior is normal. Positive for suicidal ideation. Limitations: no limitations Course Vital Signs 09/15/18 21:30 Temperature 98.1 F Pulse Rate 95 Respiratory 18 Rate Blood Pressure 128/78 O2 Sat by Pulse 98 Oximetry Medical Decision Making - Medical Decision Making Patient is noted to have an elevated alcohol level and will be sober at 2 AM. At that time, patient will be evaluated by psychiatric services. Patient has been resting in bed comfortably in no acute distress and showed no signs of aggression. However, he did and does continue to admit suicidal ideation. Case is being signed out to Dr. Zarco who will assume patient care. Disposition Clinical Impression: Suicidal ideation Referrals: Nolberto Tan MD [Primary Care Provider] - 1-2 days
[2018-09-16 01:09] LABS: Amphetamine Screen,Urine Not Detected (NotDetected); Barbiturate Screen,Urine Not Detected (NotDetected); Benzodiazepines Screen,Urine Not Detected (NotDetected); Cocaine Screen,Urine Not Detected (NotDetected); Methadone Screen, Urine Not Detected (NotDetected); Opiate Screen,Urine Not Detected (NotDetected); Oxycodone Screen, Urine Not Detected (NotDetected); Phencyclidine Screen,Urine Not Detected (NotDetected); Tricyclic Antidepressant,Urine Not Detected (NotDetected); Urn Cannabinoid Scrn Not Detected (NotDetected)
[2018-09-16 01:58] LABS: Appearance,Urine Clear (Clear); Bilirubin,Urine Negative (Negative); Blood,Urine Negative (Negative); Color,Urine Yellow; Glucose,Urine (UA) Negative (Negative); Ketones,Urine Negative (Negative); Leukocyte Esterase,Urine Negative (Negative); Nitrite,Urine Negative (Negative); PH, Urine 5.5 (5.0-8.0); Protein,Urine Negative (Negative); Specific Gravity,Urine 1.007 (1.001-1.035); Urobilinogen,Urine <2.0 mg/dL (<2.0)
[2018-09-16 02:09] LABS: Basophils # (A) 0.1 k/uL (0-0.2); Basophils % (A) 1 %; Eosinophils # (A) 0.1 k/uL (0-0.7); Eosinophils % (A) 2 %; HCT 46.1 % (39.0-53.0); HGB 15.7 gm/dL (13.0-17.5); Lymphocytes # (A) 2.9 k/uL (1.0-4.8); Lymphocytes % (A) 40 %; MCH 36.1 pg (25.0-35.0); MCV 106.2 fL (80.0-100.0); Macrocytosis Moderate; Mean Platelet Volume 7.8; Monocytes # (A) 0.6 k/uL (0-1.0); Monocytes % (A) 8 %; Neutrophils # (A) 3.4 k/uL (1.3-7.7); Neutrophils % (A) 47 %; Platelet Count 211 k/uL (150-450); RBC 4.35 m/uL (4.30-5.90); RDW 13.1 % (11.5-15.5); WBC 7.3 k/uL (3.8-10.6)
[2018-09-16 02:18] LABS: ALT 62 U/L (21-72); AST 82 U/L (17-59); Albumin 4.1 g/dL (3.5-5.0); Alkaline Phosphatase 70 U/L (38-126); Anion Gap 13 mmol/L; Blood Urea Nitrogen 6 mg/dL (9-20); Calcium 9.6 mg/dL (8.4-10.2); Carbon Dioxide 22 mmol/L (22-30); Chloride 98 mmol/L (98-107); Glucose 100 mg/dL (74-99); Potassium 4.5 mmol/L (3.5-5.1); Sodium 133 mmol/L (137-145); Total Bilirubin 0.8 mg/dL (0.2-1.3); Total Protein 7.2 g/dL (6.3-8.2)
[2018-09-16] MEDS ORDERED: chlordiazePOXIDE 25 MG CAP PO STA (02:54)
[2018-09-16] MEDS ORDERED: LISINOPRIL 20 MG TAB PO STA (07:24)
[2018-09-16] MEDS ORDERED: CLOPIDOGREL 75 MG TAB PO STA (07:24)
[2018-09-16] MEDS ORDERED: LISINOPRIL 20 MG TAB SCH (07:30)
[2018-09-16] MEDS ORDERED: MAGNESIUM HYDROXIDE 2,400 MG/10 ML CUP PO PRN (15:52)
[2018-09-16] MEDS ORDERED: MAG HYDROX/AL HYDROX/SIMETH 30 ML CUP PO PRN (15:52)
[2018-09-16] MEDS ORDERED: chlordiazePOXIDE 25 MG CAP PO PRN (15:56)
[2018-09-16 16:31] VITALS: BMI 20.6
[2018-09-16] MEDS: ATORVASTATIN 40 MG TAB PO SCH (20:12)
[2018-09-16] MEDS: ACETAMINOPHEN TAB 325 MG TAB PO PRN (21:19)
[2018-09-17] MEDS: LISINOPRIL 20 MG TAB PO SCH (08:42)
[2018-09-17] MEDS: CLOPIDOGREL 75 MG TAB PO SCH (08:42)
[2018-09-17] MEDS: ASPIRIN 81 MG PO SCH (08:42)
[2018-09-17 12:48] LABS: Hemoglobin A1C 5.2 % (4.0-6.0)
[2018-09-17] MEDS: ACETAMINOPHEN TAB 325 MG TAB PO PRN ×2 (13:42→19:51)
--- NOTE | 2018-09-17 15:21 | P.HP ---
Psychiatric H&P - . H&P Date: 09/17/18 History & Physical: Allergies Allergy/AdvReac Type Severity Reaction Status Date / Time No Known Allergies Allergy Verified 09/16/18 16:33 Vital Signs Temp 98.6 F 09/16/18 23:57 Pulse 119 H 09/17/18 08:40 Resp 20 09/17/18 08:40 BP 129/81 09/17/18 08:40 Pulse Ox 98 09/16/18 15:42 Intake & Output 09/16/18 09/17/18 09/17/18 18:59 06:59 18:59 Weight 63.304 kg Laboratory Last Values WBC 7.3 k/uL (3.8-10.6) 09/16/18 02:00 RBC 4.35 m/uL (4.30-5.90) 09/16/18 02:00 Hgb 15.7 gm/dL (13.0-17.5) 09/16/18 02:00 Hct 46.1 % (39.0-53.0) 09/16/18 02:00 MCV 106.2 fL (80.0-100.0) H 09/16/18 02:00 MCH 36.1 pg (25.0-35.0) H 09/16/18 02:00 MCHC 34.0 g/dL (31.0-37.0) 09/16/18 02:00 RDW 13.1 % (11.5-15.5) 09/16/18 02:00 Plt Count 211 k/uL (150-450) 09/16/18 02:00 Neutrophils % 47 % 09/16/18 02:00 Lymphocytes % 40 % 09/16/18 02:00 Monocytes % 8 % 09/16/18 02:00 Eosinophils % 2 % 09/16/18 02:00 Basophils % 1 % 09/16/18 02:00 Neutrophils # 3.4 k/uL (1.3-7.7) 09/16/18 02:00 Lymphocytes # 2.9 k/uL (1.0-4.8) 09/16/18 02:00 Monocytes # 0.6 k/uL (0-1.0) 09/16/18 02:00 Eosinophils # 0.1 k/uL (0-0.7) 09/16/18 02:00 Basophils # 0.1 k/uL (0-0.2) 09/16/18 02:00 Macrocytosis Moderate 09/16/18 02:00 Sodium 133 mmol/L (137-145) L 09/16/18 02:00 Potassium 4.5 mmol/L (3.5-5.1) 09/16/18 02:00 Chloride 98 mmol/L (98-107) 09/16/18 02:00 Carbon Dioxide 22 mmol/L (22-30) 09/16/18 02:00 Anion Gap 13 mmol/L 09/16/18 02:00 BUN 6 mg/dL (9-20) L 09/16/18 02:00 Creatinine 0.52 mg/dL (0.66-1.25) L 09/16/18 02:00 Est GFR (CKD-EPI)AfAm >90 (>60 ml/min/1.73 sqM) 09/16/18 02:00 Est GFR (CKD-EPI)NonAf >90 (>60 ml/min/1.73 sqM) 09/16/18 02:00 Glucose 100 mg/dL (74-99) H 09/16/18 02:[address] Glu mg/dL 103 09/16/18 02:00 Hemoglobin A1c 5.2 % (4.0-6.0) 09/16/18 02:00 Calcium 9.6 mg/dL (8.4-10.2) 09/16/18 02:00 Total Bilirubin 0.8 mg/dL (0.2-1.3) 09/16/18 02:00 AST 82 U/L (17-59) H 09/16/18 02:00 ALT 62 U/L (21-72) 09/16/18 02:00 Alkaline Phosphatase 70 U/L (38-126) 09/16/18 02:00 Total Protein 7.2 g/dL (6.3-8.2) 09/16/18 02:00 Albumin 4.1 g/dL (3.5-5.0) 09/16/18 02:00 Triglycerides 86 mg/dL (<150) 09/16/18 02:00 Cholesterol 140 mg/dL (<200) 09/16/18 02:00 LDL Cholesterol, Calc 16 mg/dL (0-99) 09/16/18 02:00 HDL Cholesterol 107 mg/dL (40-60) H 09/16/18 02:00 TSH 1.460 mIU/L (0.465-4.680) 09/16/18 02:00 Urine Color Yellow 09/16/18 00:26 Urine Appearance Clear (Clear) 09/16/18 00:26 Urine pH 5.5 (5.0-8.0) 09/16/18 00:26 Ur Specific [place] 1.007 (1.001-1.035) 09/16/18 00: Urine Protein Negative (Negative) 09/16/18: Urine Glucose (UA) Negative (Negative) 09/16/18: Urine Ketones Negative (Negative) 09/16/18: Urine Blood Negative (Negative) 09/16/18: Urine Nitrite Negative (Negative) 09/16/18: Urine Bilirubin Negative (Negative) 09/16/18 00: Urine Urobilinogen <2.0 mg/dL (<2.0) 09/16/18: Ur Leukocyte Esterase Negative (Negative) 09/16/18 00:26 Urine Opiates Screen Not Detected (NotDetected) 09/16/18 00:26 Ur Oxycodone Screen Not Detected (NotDetected) 09/16/18 00: Urine Methadone Screen Not Detected (NotDetected) 09/16/18 00:26 Ur Propoxyphene Screen Not Detected (NotDetected) 09/16/18 00:26 Ur Barbiturates Screen Not Detected (NotDetected) 09/16/18 00:26 U Tricyclic Antidepress Not Detected (NotDetected) 09/16/18 00:26 Ur Phencyclidine Scrn Not Detected (NotDetected) 09/16/18 00:26 Ur Amphetamines Screen Not Detected (NotDetected) 09/16/18 00:26 U Methamphetamines Scrn Not Detected (NotDetected) 09/16/18 00: U Benzodiazepines Scrn Not Detected (NotDetected) 09/16/18 00:26 Urine Cocaine Screen Not Detected (NotDetected) 09/16/18 00:26 U Marijuana (THC) Screen Not Detected (NotDetected) 09/16/18 00:26 Assessment and Plan Assessment: Initial Comments: Patient is a 68-year-old male that presents to emergency department with police department for suicidal ideation. Police department states that they were called after the patient reported to his children that he was going to shoot himself in the head with his guns at the first of the month after he got paid. The family got there and took his guns away and then called police. Patient does admit to saying this and states that he is just tired of living and denies any physical pain. He states that he usually drinks between 10 and 12 beers a day along with a pint of alcohol. He was at home when his daughter came over and they got into an argument and while intoxicated he stated that he wanted to jokingly! The son came over was removing guns when he got an altercation with his son in the patient called the police whereby they brought him into the hospital. His 5 years ago. She has COPD and was a smoker like he is now. He is retired due to medical disability and is likes and has enough money to survive the first 15 days the month and then has no money survive on the rest of the month. He states he had a roommate who is not alcoholic followed around drunk and he let him go on March. This person was renting a room in his house to help him maintain the bills. - Related Data Home Medications Medication Instructions Recorded Confirmed Clopidogrel Bisulfate [Plavix] 75 mg PO DAILY 07/05/16 07/23/18 Aspirin EC [Ecotrin Low Dose] 81 mg PO DAILY 11/07/16 07/23/18 Atorvastatin [Lipitor] 40 mg PO HS 11/07/16 07/23/18 Lisinopril 40 mg PO DAILY 11/07/16 07/23/18 Allergies Allergy/AdvReac Type Severity Reaction Status Date / Time No Known Allergies Allergy Verified 09/15/18 21:34 The patient presents alert, pleasant, and cooperative. There calmly seated without any agitated behavior. He reports that [his] mood is good. Affect is congruent and euthymic. [He] deny having any suicidal or homicidal ideation intent or plan. [He] denies any auditory or visual hallucinations. There is no evidence of any delusional thought content. [His] thought process is linear and goal-directed. [His] speech is fluent and nonpressured. [Is] memory and concentration is grossly intact for the purposes of this session. 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 Further workup on biopsychosocial history will continue tomorrow to further evaluate the need for antidepressant. When mentioned today he was resistant to taking any medications including Librium for withdrawal from alcohol. We'll monitor his vital signs regards to any withdrawal from alcohol. I did have a long discussion with him about smoking and alcohol use and light of that he has hypercholesterolemia with poor vascular in his lower extremity. When asked if they any other doctor asked him to stop smoking and he responded yes and I asked back do you think it's time to stop smoking and not drinking. He is in nina denial regarding his alcohol and nicotine use disorder which is severe. (1) EtOH dependence Current Visit: No Status: Chronic Priority: High Code(s): F10.20 - ALCOHOL DEPENDENCE, UNCOMPLICATED SNOMED Code(s): 43813739 Time with Patient: Greater than 30
[2018-09-17] MEDS: ATORVASTATIN 40 MG TAB PO SCH (19:52)
[2018-09-18 05:23] VITALS: TEMP 97.8
[2018-09-18] MEDS: CLOPIDOGREL 75 MG TAB PO SCH (08:20)
[2018-09-18] MEDS: ASPIRIN 81 MG PO SCH (08:20)
[2018-09-18 08:24] VITALS: RESP 22
[2018-09-18] MEDS: ACETAMINOPHEN TAB 325 MG TAB PO PRN (08:32)
[2018-09-18] MEDS: LISINOPRIL 20 MG TAB PO SCH (10:53)
[2018-09-18 10:54] VITALS: BP 126/70; PULSE 78
--- NOTE | 2018-09-18 15:29 | P.DS ---
Providers Date of admission: 09/16/18 15:34 Expected date of discharge: 09/18/18 Attending physician: Andrew Ruiz, DO Consults: 09/16/18 15:52 Consult Physician Routine Consulting Provider: Nolberto Tan Consult Reason/Comments: H&P for mental Health admission Do you want consulting provider notified?: Yes Primary care physician: Nolberto Tan - Discharge Diagnosis(es) (1) EtOH dependence Patient is a 68-year-old male that presents to emergency department with police department for suicidal ideation. Police department states that they were called after the patient reported to his children that he was going to shoot himself in the head with his guns at the first of the month after he got paid. The family got there and took his guns away and then called police. Patient does admit to saying this and states that he is just tired of living and denies any physical pain. He states that he usually drinks between 10 and 12 beers a day along with a pint of alcohol. He was at home when his daughter came over and they got into an argument and while intoxicated he stated that he wanted to jokingly! The son came over was removing guns when he got an altercation with his son in the patient called the police whereby they brought him into the hospital. His 5 years ago. She has COPD and was a smoker like he is now. He is retired due to medical disability and is likes and has enough money to survive the first 15 days the month and then has no money survive on the rest of the month. He states he had a roommate who is not alcoholic followed around drunk and he let him go on March. This person was renting a room in his house to help him maintain the bills. The patient presents alert, pleasant, and cooperative. There calmly seated without any agitated behavior. He reports that [his] mood is good. Affect is congruent and euthymic. [He] deny having any suicidal or homicidal ideation intent or plan. [He] denies any auditory or visual hallucinations. There is no evidence of any delusional thought content. [His] thought process is linear and goal-directed. [His] speech is fluent and nonpressured. [Is] memory and concentration is grossly intact for the purposes of this session. 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 When asked if they any other doctor asked him to stop smoking and he responded yes and I asked back do you think it's time to stop smoking and not drinking. He is in nina denial regarding his alcohol and nicotine use disorder which is severe. Discussed with daughter that if he states he is suicidal again to bring him on clinical certification and petition for involuntary hospitalization. I did discuss with the daughter that she needs to control her father's money and get an allowance. He is spending upward to $500 a month on beer alcohol and cigarettes. This would help his financial situation the second half of the month which she states he has no money for since she's been using it for substance use such as alcohol, nicotine, beer. Current Visit: No Status: Inactive Priority: High Patient Condition at Discharge: Stable Plan - Discharge Summary Discharge Rx Participant: No New Discharge Prescriptions: New Ergocalciferol [Vitamin D2 (DRISDOL)] 50,000 unit PO Q30D cap Continue Clopidogrel Bisulfate [Plavix] 75 mg PO DAILY Lisinopril 40 mg PO DAILY Atorvastatin [Lipitor] 40 mg PO HS Ergocalciferol [Vitamin D2 (DRISDOL)] 50,000 unit PO Q30D Discontinued Aspirin EC [Ecotrin Low Dose] 81 mg PO DAILY Discharge Medication List Clopidogrel Bisulfate [Plavix] 75 mg PO DAILY 07/05/16 [History] Atorvastatin [Lipitor] 40 mg PO HS 11/07/16 [History] Lisinopril 40 mg PO DAILY 11/07/16 [History] Ergocalciferol [Vitamin D2 (DRISDOL)] 50,000 unit PO Q30D 09/16/18 [History] Ergocalciferol [Vitamin D2 (DRISDOL)] 50,000 unit PO Q30D cap 09/18/18 [Rx] Follow up Appointment(s)/Referral(s): [facility] [Outside] - 09/24/18 7:30 pm (Nabeel Cheng Please arrive at 7:00pm to fill out forms ) Nolberto Tan MD [Primary Care Provider] - 1-2 days Patient Instructions/Handouts: How to Stop Smoking (GEN), Suicide Prevention ( GEN) Activity/Diet/Wound Care/Special Instructions: Activity and diet as tolerated. Avoid the use of street drugs and alcohol. Take all medications as prescribed. When you are in need of refills on your medications please contact your medical provider and/or outpatient psychiatrist to have this done. Please go to scheduled outpatient appointment for aftercare treatment. If symptoms return or become worse, call the crisis line at [phone] and/or go to the nearest emergency room for evaluation. Care Plan Goals (MU): He needs a follow-up with therapy stop smoking stop drinking beer stop drinking alcohol Discharge Disposition: HOME SELF-CARE
--- NOTE | 2018-09-19 18:15 | CONS ---
CONSULTATION CHIEF COMPLAINT: Depression, suicidal thoughts, hypertension, COPD and alcohol abuse. HISTORY OF PRESENT ILLNESS: This gentleman apparently was having an altercation with his daughter and told her that he was thinking about killing himself. She left, came back and took his guns out of the house and then called the police. He was brought in for psychiatric management. REVIEW OF SYSTEMS: He has had no other problems lately. He has had no change in the vision or the hearing, chest pain, shortness of breath, cough, hemoptysis, etc. Past medical history, family history, and personal and social histories reveal that he is not allergic to any medication. He is on clopidogrel 75 mg once a day, vitamin D, lisinopril 40 once a day, atorvastatin 40 once a day, low-dose aspirin once a day. 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 He continues to smoke and drink more than he should. PHYSICAL EXAMINATION: Blood pressure is 104/72 with a pulse of 72 and regular, respirations of 32, and he is afebrile. In general he appeared to be in no acute distress. Skin color was normal and the skin was warm and dry. Lymph nodes were not enlarged. Head, ears, eyes, nose, mouth and throat were normal. Neck veins were not distended. Thyroid was not enlarged. Chest was clear with decreased breath sounds. The cardiac exam was normal. The abdomen was soft, nontender. Extremities were normal. IMPRESSION: 1. Depression. 2. Expression of suicidal thoughts. 3. Chronic obstructive pulmonary disease. 4. Alcoholism. 5. Hypertension. RECOMMENDATIONS: None except to follow through with psychiatric management. MMODL / IJN: [id number] /
[2018-09-30] MEDS ORDERED: ERGOCALCIFEROL 50,000 UNIT CAP PO SCH (09:00)
== END 2018-09-18 16:07 | disposition home or self-care (01) | DRG 897 ==
LOC: EC 21:29 → 3MHU 09-16 15:34
PROVIDERS: ADMIT Psychiatry & Neurology Psychiatry; ATTEND Psychiatry & Neurology Psychiatry
DX: F10.24 Alcohol dependence with alcohol-induced mood disorder (principal); R45.851 Suicidal ideations; T51.0X1A Toxic effect of ethanol, accidental (unintentional), initial encounter; F10.229 Alcohol dependence with intoxication, unspecified; F10.239 Alcohol dependence with withdrawal, unspecified; E78.00 Pure hypercholesterolemia, unspecified; E78.5 Hyperlipidemia, unspecified; F17.200 Nicotine dependence, unspecified, uncomplicated; I10 Essential (primary) hypertension; I25.10 Atherosclerotic heart disease of native coronary artery without angina pectoris; I73.9 Peripheral vascular disease, unspecified; J44.9 Chronic obstructive pulmonary disease, unspecified; Z79.02 Long term (current) use of antithrombotics/antiplatelets; Z79.82 Long term (current) use of aspirin; Z79.899 Other long term (current) drug therapy; Z82.49 Family history of ischemic heart disease and other diseases of the circulatory system; Z86.718 Personal history of other venous thrombosis and embolism; Z86.73 Personal history of transient ischemic attack (TIA), and cerebral infarction without residual deficits; Z95.1 Presence of aortocoronary bypass graft; Z96.652 Presence of left artificial knee joint; Z71.6 Tobacco abuse counseling; Z71.41 Alcohol abuse counseling and surveillance of alcoholic
CPT/HCPCS: 36415; 80053; 80061; 80306; 81003; 82075; 83036; 84443; 85025; 99285

== ENCOUNTER 2019-08-31 17:32 | Emergency (ER) | payer MEDICARE ==
[2019-08-31] MEDS ORDERED: ACET/COD 300 MG/30 MG STARTER PACK 6 TAB BTL PO STA (18:13)
[2019-08-31] MEDS ORDERED: CEPHALEXIN 500MG STARTER PACK 4 CAP BTL PO STA (18:15)
--- NOTE | 2019-08-31 18:32 | ED ---
Fall HPI - General Chief Complaint: Fall Stated Complaint: Fall Time Seen by Provider: 08/31/19 18:03 Source: patient, family Mode of arrival: wheelchair - History of Present Illness Initial Comments: 69-year-old male patient presents to the emergency department today for evaluation of a wound on the left leg and lower back pain. Patient experienced a fall yesterday morning. Patient states that he was coming back from the bathroom when he lost his balance and fell landing on his buttocks. States that he had difficulty getting up and scraped his leg when getting back in the bed. Patient states he has been ambulatory since the fall. He is reporting pain to the coccyx region. He denies any pain radiating down his legs. Denies any loss of bowel or bladder control, or saddle anesthesia. He does have a wound to the left elbow as well. Denies any difficulty with range of motion or tenderness over the left elbow. He is unsure if he hit his head or passed out. He denies any current headache, blurred vision, or double vision. Denies any neck or upper back pain. Patient denies any chest pain, shortness of breath, dizziness, weakness, abdominal pain, nausea, vomiting, or difficulties with bowel movements or urination. - Related Data Home Medications Medication Instructions Recorded Confirmed Atorvastatin [Lipitor] 40 mg PO HS 11/07/16 08/31/19 Lisinopril 40 mg PO DAILY 11/07/16 08/31/19 Aspirin EC [Ecotrin Low Dose] 81 mg PO DAILY 08/31/19 08/31/19 Cholecalciferol [Vitamin D3 (25 1,000 unit PO DAILY 08/31/19 08/31/19 Mcg = 1000 Iu)] Previous Rx's Medication Instructions Recorded Cephalexin [Keflex] 500 mg PO Q6H #28 cap 08/31/19 Ibuprofen [Motrin] 600 mg PO Q8HR PRN #30 tab 08/31/19 SILVER sulfADIAZINE Cream 1 applic TOPICAL BID #30 gram 08/31/19 [Silvadene 1% Cream] Allergies Allergy/AdvReac Type Severity Reaction Status Date / Time No Known Allergies Allergy Verified 08/31/19 18:35 Review of Systems ROS Statement: Those systems with pertinent positive or pertinent negative responses have been documented in the HPI. ROS Other: All systems not noted in ROS Statement are negative. Past Medical History Past Medical History: Coronary Artery Disease (CAD), CVA/TIA, Deep Vein Thrombosis (DVT), Hyperlipidemia, Hypertension, Vascular Disorder Additional Past Medical History / Comment(s): right leg DVT, PVD, TIA 2015, HAD A NON HEALING WOUND LT LEG-HAD SKIN GRAFTING.has no circulation left leg on 100 percent blocked from groin to mid doe tried to do cath and was unable to History of Any Multi-Drug Resistant Organisms: None Reported Past Surgical History: Coronary Bypass/CABG, Heart Catheterization, Joint Replacement, Orthopedic Surgery Additional Past Surgical History / Comment(s): left knee replacement, left foot surgery, stent to right leg, CABG 12/2014, 4 bypass, aortogram, WOUND CLINIC, S KIN GRAFTING LT LEG Past Anesthesia/Blood Transfusion Reactions: No Reported Reaction Past Psychological History: Anxiety, Depression Smoking Status: Current every day smoker Past Alcohol Use History: Daily, Heavy Past Drug Use History: Marijuana - Past Family History Father Family Medical History: Myocardial Infarction ([place]) Mother Family Medical History: No Reported History General Exam Limitations: no limitations General appearance: alert, in no apparent distress, other (Physical well- developed, well-nourished adult male patient in no acute distress. Vital signs upon presentation are temperature 97.5F, pulse 102, respirations 18, blood pressure 99/60, pulse ox 96% on room air.) Eye exam: Present: normal appearance, PERRL, EOMI. Absent: scleral icterus, conjunctival injection, periorbital swelling ENT exam: Present: normal exam, normal oropharynx, mucous membranes moist Respiratory exam: Present: normal lung sounds bilaterally. Absent: respiratory distress, wheezes, rales, rhonchi, stridor Cardiovascular Exam: Present: regular rate, normal rhythm, normal heart sounds. Absent: systolic murmur, diastolic murmur, rubs, gallop, clicks GI/Abdominal exam: Present: soft, normal bowel sounds. Absent: distended, tenderness, guarding, rebound, rigid Extremities exam: Present: full ROM (Left elbow), normal capillary refill, other (Patient has abrasion noted to the left medial elbow. Skin is otherwise pink, warm, dry. Cap refills less than 3 seconds. Radial pulses 2+ and equal bilaterally. Patient has large deep abrasion noted to the left doe. There is mild surrounding erythema. No evidence for purulent drainage. Skin is otherwise pink, warm, dry. Cap refills less than 3 seconds. Pedal pulses are faint.). Absent: normal inspection, tenderness, pedal edema, joint swelling, calf tenderness Back exam: Present: normal inspection, vertebral tenderness (Lower lumbar and sacral tenderness) Neurological exam: Present: alert, oriented X3, CN II-XII intact Psychiatric exam: Present: normal affect, normal mood Skin exam: Present: warm, dry, intact, normal color. Absent: rash Course Vital Signs 08/31/19 08/31/19 08/31/19 17:48 18:28 19:47 Temperature 97.5 F L 98 F Pulse Rate 102 H 87 90 Respiratory 18 19 18 Rate Blood Pressure 99/60 103/62 119/93 O2 Sat by Pulse 96 100 98 Oximetry Medical Decision Making - Medical Decision Making 69-year-old male patient presented to the emergency department today for evaluation of a wound to the left leg and pain to his tailbone after experiencing a fall yesterday morning. Physical examination did reveal lower lumbar and sacral tenderness. Patient did have a large deep abrasion to the left doe. It is another small abrasion to the left elbow. Wounds were cleansed and dressed by nursing staff. X-ray of the lumbosacral spine did reveal compression fractures of T12, L1, and L4 with an indeterminate age. Given patient's area of tenderness or do feel L4 may be new. He'll be treated with pain medication. We'll start antibiotics for infection prevention to the leg wound. Patient is able to ambulate. We'll discharge home to follow-up with nutrition specialist for further evaluation of the compression fractures. He will be given a prescription for antibiotics and Silvadene cream to apply to the wound. He is also given a prescription for silver dressing has family requested. He'll be discharged to follow-up with his primary care physician for recheck in 1-2 days. Return parameters discussed in detail. He verbalizes understanding and agrees with this plan. - Radiology Data Radiology results: report reviewed, image reviewed X-ray of the lumbosacral spine was obtained. Report was reviewed in its entirety. Impression by Dr. Garcia shows mild age indeterminate loss of T12, L1, and L4 anteriorly. No comparisons available. Correlation for location of tenderness is recommended. Disposition Clinical Impression: Lumbar compression fracture, Acute low back pain, Abrasion of left lower extremity Disposition: HOME SELF-CARE Condition: Good Instructions (If sedation given, give patient instructions): Vertebral Compression Fracture (ED), Fall Prevention for Older Adults (ED), Abrasion (ED) Additional Instructions: Follow-up with the orthopedic document specialist for further evaluation. Take medications as directed. Perform meticulous wound care to prevent infection. Follow-up through primary care physician for recheck in 1-2 days. Return to the emergency department immediately for any new, worsening, or concerning symptoms. Prescriptions: Cephalexin [Keflex] 500 mg PO Q6H #28 cap Ibuprofen [Motrin] 600 mg PO Q8HR PRN #30 tab PRN Reason: Pain SILVER sulfADIAZINE Cream [Silvadene 1% Cream] 1 applic TOPICAL BID #30 gram Is patient prescribed a controlled substance at d/c from ED?: No Referrals: Nolberto Tan MD [Primary Care Provider] - 1-2 days Román Suazo DO [Doctor of Osteopathic Medicine] - 1-2 days Time of Disposition: 19:39
--- NOTE | 2019-08-31 18:48 | XR ---
EXAMINATION TYPE: XR lumbosacral spine min 4V DATE OF EXAM: 08/31/2019 CLINICAL HISTORY: Low back and tailbone pain after fall TECHNIQUE: 5 views of the lumbar spine. COMPARISON: None. FINDINGS: 5 lumbar type vertebral bodies. Alignment is anatomic. Mild age-indeterminate loss of T12, L1, and L4 anteriorly. Degenerative changes throughout the lumbar spine characterized by multilevel osteophyte formation and mild-moderate disc height loss at L5-S1. Facet degenerative changes also present. Aortoiliac vascular calcifications. Iliac vascular stents are present. IMPRESSION: Mild age-indeterminate loss of T12, L1, and L4 anteriorly. No comparisons available. Correlation for location of tenderness is recommended. If clinical management would change, MRI would assist in deter mining acuity/chronicity.
[2019-08-31 19:47] VITALS: BP 119/93; PULSE 90; RESP 18; TEMP 98
== END 2019-08-31 19:53 | disposition home or self-care (01) ==
LOC: EC 17:32
DX: M48.56XA Collapsed vertebra, not elsewhere classified, lumbar region, initial encounter for fracture (principal); S80.812A Abrasion, left lower leg, initial encounter; S50.312A Abrasion of left elbow, initial encounter; E78.5 Hyperlipidemia, unspecified; I10 Essential (primary) hypertension; I25.10 Atherosclerotic heart disease of native coronary artery without angina pectoris; F17.200 Nicotine dependence, unspecified, uncomplicated; Z79.82 Long term (current) use of aspirin; Z79.899 Other long term (current) drug therapy; Z86.718 Personal history of other venous thrombosis and embolism; Z86.73 Personal history of transient ischemic attack (TIA), and cerebral infarction without residual deficits; Z95.1 Presence of aortocoronary bypass graft; Z96.652 Presence of left artificial knee joint; W01.0XXA Fall on same level from slipping, tripping and stumbling without subsequent striking against object, initial encounter; Y93.89 Activity, other specified; Y92.002 Bathroom of unspecified non-institutional (private) residence as the place of occurrence of the external cause
CPT/HCPCS: 72110; 99283

== ENCOUNTER 2019-09-01 12:24 | Inpatient (IN) | payer MEDICARE ==
[2019-09-01 13:11] LABS: Basophils # (A) 0.1 k/uL (0-0.2); Basophils % (A) 1 %; Eosinophils % (A) 0 %; HCT 38.5 % (39.0-53.0); HGB 13.4 gm/dL (13.0-17.5); Lymphocytes # (A) 1.2 k/uL (1.0-4.8); Lymphocytes % (A) 10 %; MCH 36.7 pg (25.0-35.0); MCHC 34.7 g/dL (31.0-37.0); MCV 105.7 fL (80.0-100.0); Macrocytosis Slight; Mean Platelet Volume 6.8; Monocytes % (A) 8 %; Neutrophils # (A) 10.2 k/uL (1.3-7.7); Neutrophils % (A) 80 %; Platelet Count 204 k/uL (150-450); RBC 3.64 m/uL (4.30-5.90); RDW 12.8 % (11.5-15.5); WBC 12.7 k/uL (3.8-10.6)
[2019-09-01 13:17] LABS: ALT 56 U/L (21-72); AST 83 U/L (17-59); African American GFR (CKD) >90 (>60 ml/min/1.73 sqM); Albumin 2.6 g/dL (3.5-5.0); Alkaline Phosphatase 152 U/L (38-126); Anion Gap 9 mmol/L; Blood Urea Nitrogen 11 mg/dL (9-20); Calcium 8.3 mg/dL (8.4-10.2); Carbon Dioxide 25 mmol/L (22-30); Chloride 95 mmol/L (98-107); Creatine Kinase 565 U/L (55-170); Glucose 138 mg/dL (74-99); Potassium 4.5 mmol/L (3.5-5.1); Sodium 129 mmol/L (137-145); Total Bilirubin 2.8 mg/dL (0.2-1.3); Total Protein 5.7 g/dL (6.3-8.2)
--- NOTE | 2019-09-01 13:29 | XR ---
EXAMINATION TYPE: XR knee complete RT DATE OF EXAM: 09/01/2019 COMPARISON: None HISTORY: Fall, pain TECHNIQUE: 3 view right knee FINDINGS: There is mild narrowing of the medial lateral compartment joint spaces. Some minimal calcif ication is within the lateral meniscus and some mild calcifications within the medial meniscus. No ac lynn fracture of the knee is evident. No joint effusion is evident. Vascular calcification is noted. IMPRESSION: 1. Mild degenerative changes right knee.
--- NOTE | 2019-09-01 13:39 | XR ---
EXAMINATION TYPE: XR femur RT, XR Hip RT and AP Pelvis DATE OF EXAM: 09/01/2019 CLINICAL HISTORY: Right hip and leg pain after fall TECHNIQUE: Two views of the right femur are obtained. A single AP view of the pelvis is obtained. Tw o views of the right hip are obtained. COMPARISON: 07/22/2018 FINDINGS: There is a right subcapital femoral neck fracture with approximately 1.8 cm cephalad displa cement of the distal fracture fragment and minimal impaction. The remainder of the right femur is int act. Mild degenerative changes of the femoral acetabular joint. Vascular grafts noted. Moderate ather osclerosis. Moderate tricompartmental arthropathy of the right knee. Single view of the pelvis demonstrates no additional acute pelvic fracture. Diffuse osseous demineral ization is seen. Moderate degenerative changes of the left hip. IMPRESSION: Acute impacted mildly displaced fracture of the right femoral neck. Diffuse osseous demin eralization however no additional acute pelvic fracture is seen.
[2019-09-01] MEDS ORDERED: SODIUM CHLORIDE 0.9% 1,000 ML IV STA (13:52)
--- NOTE | 2019-09-01 14:11 | ED ---
Fall HPI - General Chief Complaint: Fall Stated Complaint: Fall Time Seen by Provider: 09/01/19 12:36 Source: patient Mode of arrival: EMS - History of Present Illness Initial Comments: Patient is a 69-year-old male, with past medical history of heart disease, DVT, hypertension, vascular disorder, presenting to the emergency department via EMS after falling last night. Patient was found by his daughter laying in his crotch and states he has been there since approximately 11 PM last night. Patient states he was at a gas station lost his balance and fell. 2 people helped him into his vehicle and he did trip home. However he was not able to get into his house secondary to right leg pain. Patient was in the ER yesterday after falling and sustaining a compression fracture of his lumbar spine. Patient was also started on antibiotics for an abrasion to his left lower leg. Patient is still having back pain but his biggest complaint today is his right hip and right leg pain. Patient did receive 7 of morphine in the EMS prior to arrival. Patient states he is comfortable right now. Patient denies fever, chills, nausea, vomiting. Patient has no other complaints at this time. Upon arrival to ER, Patient is slightly tachycardia at 118, rest of vital signs are normal. - Related Data Home Medications Medication Instructions Recorded Confirmed Atorvastatin [Lipitor] 40 mg PO HS 11/07/16 09/01/19 Lisinopril 40 mg PO DAILY 11/07/16 09/01/19 Aspirin EC [Ecotrin Low Dose] 81 mg PO DAILY 08/31/19 09/01/19 Cholecalciferol [Vitamin D3 (25 1,000 unit PO DAILY 08/31/19 09/01/19 Mcg = 1000 Iu)] Previous Rx's Medication Instructions Recorded Cephalexin [Keflex] 500 mg PO Q6H #28 cap 08/31/19 Ibuprofen [Motrin] 600 mg PO Q8HR PRN #30 tab 08/31/19 SILVER sulfADIAZINE Cream 1 applic TOPICAL BID #30 gram 08/31/19 [Silvadene 1% Cream] Allergies Allergy/AdvReac Type Severity Reaction Status Date / Time No Known Allergies Allergy Verified 09/01/19 13:35 Review of Systems ROS Statement: Those systems with pertinent positive or pertinent negative responses have been documented in the HPI. ROS Other: All systems not noted in ROS Statement are negative. Past Medical History Past Medical History: Coronary Artery Disease (CAD), CVA/TIA, Deep Vein Thrombosis (DVT), Hyperlipidemia, Hypertension, Vascular Disorder Additional Past Medical History / Comment(s): right leg DVT, PVD, TIA 2015, HAD A NON HEALING WOUND LT LEG-HAD SKIN GRAFTING.has no circulation left leg on 100 percent blocked from groin to mid doe tried to do cath and was unable to History of Any Multi-Drug Resistant Organisms: None Reported Past Surgical History: Coronary Bypass/CABG, Heart Catheterization, Joint Replacement, Orthopedic Surgery Additional Past Surgical History / Comment(s): left knee replacement, left foot surgery, stent to right leg, CABG 12/2014, 4 bypass, aortogram, WOUND CLINIC, SKIN GRAFTING LT LEG Past Anesthesia/Blood Transfusion Reactions: No Reported Reaction Past Psychological History: Anxiety, Depression Smoking Status: Current every day smoker Past Alcohol Use History: Daily, Heavy Past Drug Use History: Marijuana - Past Family History Father Family Medical History: Myocardial Infarction ([place]) Mother Family Medical History: No Reported History General Exam - General Exam Comments Initial Comments: GENERAL: Well-appearing, well-nourished and in mild distress secondary to pain. HEAD: Atraumatic, normocephalic. EYES: Pupils equal round and reactive to light, extraocular movements intact, sclera anicteric, conjunctiva are normal. ENT: TMs normal, nares patent, oropharynx clear without exudates. Moist mucous membranes. NECK: Normal range of motion, supple without lymphadenopathy or JVD. LUNGS: Breath sounds clear to auscultation bilaterally and equal. No wheezes rales or rhonchi. HEART: Tachycardia rate and rhythm without murmurs, rubs or gallops. ABDOMEN: Soft, nontender, normoactive bowel sounds. No guarding, no rebound. No masses appreciated. : Deferred EXTREMITIES: Severe pain with range of motion of the right hip. Mild pain of the right femur. No pain of the right knee. No clubbing or cyanosis. NEUROLOGICAL: Cranial nerves II through XII grossly intact. Normal speech. PSYCH: Normal mood, normal affect. SKIN: Warm, Dry, normal turgor, no rashes. Patient has multiple bruises from falling the last few days, abrasion to left lower leg, bruising to both knees, arms. Limitations: no limitations Course Vital Signs 10/14/19 10/14/19 10/14/19 12:28 14:00 15:00 Temperature 97.3 F L 97.9 F Pulse Rate 118 H 113 H 109 H Respiratory 20 18 18 Rate Blood Pressure 124/82 116/79 133/75 O2 Sat by Pulse 96 96 96 Oximetry Medical Decision Making - Medical Decision Making Patient is 69-year-old male presenting after falling last night a gas station and being found this morning by his daughter. Patient is complaining of right hip pain. X-rays reveal an acute right femoral neck fracture. Patient was given 7 of morphine in the EMS prior to arrival. Additional pain meds given that as needed for pain control as well as fluids for dehydration and elevated CK.. Orthopedics was consulted and patient will be admitted under Dr. Smith with medical clearance from Dr. Tan. Case discussed with Dr. Marc. Patient will be nothing by mouth after midnight. - Lab Data Result diagrams: 09/01/19 12:57 09/01/19 12:57 Lab Results 09/01/19 09/01/19 09/01/19 Range/Units 12:57 12:57 12:57 WBC 12.7 H (3.8-10.6) k/uL RBC 3.64 L (4.30-5.90) m/uL Hgb 13.4 (13.0-17.5) gm/dL Hct 38.5 L (39.0-53.0) % MCV 105.7 H (80.0-100.0) fL MCH 36.7 H (25.0-35.0) pg MCHC 34.7 (31.0-37.0) g/dL RDW 12.8 (11.5-15.5) % Plt Count 204 (150-450) k/uL Neutrophils % 80 % Lymphocytes % 10 % Monocytes % 8 % Eosinophils % 0 % Basophils % 1 % Neutrophils # 10.2 H (1.3-7.7) k/uL Lymphocytes # 1.2 (1.0-4.8) k/uL Monocytes # 1.0 (0-1.0) k/uL Eosinophils # 0.0 (0-0.7) k/uL Basophils # 0.1 (0-0.2) k/uL Macrocytosis Slight PT 12.2 H (9.0-12.0) sec INR 1.2 H (<1.2) Sodium 129 L (137-145) mmol/L Potassium 4.5 (3.5-5.1) mmol/L Chloride 95 L (98-107) mmol/L Carbon Dioxide 25 (22-30) mmol/L Anion Gap 9 mmol/L BUN 11 (9-20) mg/dL Creatinine 0.72 (0.66-1.25) mg/dL Est GFR (CKD-EPI)AfAm >90 (>60 ml/min/1.73 sqM) Est GFR (CKD-EPI)NonAf >90 (>60 ml/min/1.73 sqM) Glucose 138 H (74-99) mg/dL Calcium 8.3 L (8.4-10.2) mg/dL Total Bilirubin 2.8 H (0.2-1.3) mg/dL AST 83 H (17-59) U/L ALT 56 (21-72) U/L Alkaline Phosphatase 152 H (38-126) U/L Creatine Kinase 565 H (55-170) U/L Total Protein 5.7 L (6.3-8.2) g/dL Albumin 2.6 L (3.5-5.0) g/dL Disposition Clinical Impression: Fracture of femoral neck, right, Dehydration Disposition: ADMITTED IP TO THIS [facility] Condition: Good Is patient prescribed a controlled substance at d/c from ED?: No Decision Date: 09/01/19 Decision Time: 14:50
[2019-09-01] MEDS ORDERED: MORPHINE SULFATE 4 MG/ML SYRINGE IVP STA (14:33)
[2019-09-01] MEDS ORDERED: NALOXONE 0.4 MG/ML 1 ML VIAL IV PRN (14:50)
[2019-09-01] MEDS ORDERED: ACETAMINOPHEN TAB 325 MG TAB PO PRN (14:50)
[2019-09-01] MEDS ORDERED: ONDANSETRON 4 MG/2 ML VIAL IVP PRN (14:50)
[2019-09-01] MEDS: SODIUM CHLORIDE 0.9% 1,000 ML IV SCH (15:42)
--- NOTE | 2019-09-01 15:49 | CT ---
EXAMINATION TYPE: CT hip RT wo con DATE OF EXAM: 09/01/2019 COMPARISON: None HISTORY: Right hip fracture CT DLP: 430.5 mGycm Automated exposure control for dose reduction was used. FINDINGS: There appears to be partial fusion of the right sacroiliac joint. Femoral head articulates with the acetabulum. There is a subcapital fracture with mild diastases. No additional fractures evident. IMPRESSION: THERE IS A FRACTURE LINE EXTENDING FROM THE SUPERIOR SUBCAPITAL REGION TOWARDS THE DISTAL INFERIOR NE CK OF THE RIGHT HIP.
[2019-09-01 16:51] LABS: INR 1.2 (<1.2); Prothrombin Time 12.2 sec (9.0-12.0)
--- NOTE | 2019-09-01 17:24 | P.HPOR ---
History of Present Illness H&P Date: 09/01/19 Chief Complaint: Right femoral neck fracture Patient is a 69-year-old male who presented to [facility] on today after being found by his daughter on the garage floor. Patient apparently had a fall last night, he had driven to the gas station. He did have a fall at the gas station, he had multiple people help him back into his car. He was able to drive home, he then attempted to get out of a car and he was unable to, he slipped on the floor. Upon arrival, imaging and lab tests were done. Images of the right hip demonstrated right femoral neck fracture. Patient was apparently at the hospital yesterday after another slip and fall in his home. He had a skin tear on the left lower extremity. Patient's daughter is present at bedside. She notes that he's been more unstable on his feet over the last few years. Patient states that he doesn't use a walker or cane when ambulating. He does live at home alone. Has no other orthopedic complaints this time. Review of Systems Constitutional: Reports as per HPI Past Medical History Past Medical History: Coronary Artery Disease (CAD), CVA/TIA, Deep Vein Thrombosis (DVT), Hyperlipidemia, Hypertension, Vascular Disorder Additional Past Medical History / Comment(s): right leg DVT, PVD, TIA 2015, HAD A NON HEALING WOUND LT LEG-HAD SKIN GRAFTING.has no circulation left leg on 100 percent blocked from groin to mid doe tried to do cath and was unable to History of Any Multi-Drug Resistant Organisms: None Reported Past Surgical History: Coronary Bypass/CABG, Heart Catheterization, Joint Replacement, Orthopedic Surgery Additional Past Surgical History / Comment(s): left knee replacement, left foot surgery, stent to right leg, CABG 12/2014, 4 bypass, aortogram, WOUND CLINIC, SKIN GRAFTING LT LEG Past Anesthesia/Blood Transfusion Reactions: No Reported Reaction Past Psychological History: Anxiety, Depression Smoking Status: Current every day smoker Past Alcohol Use History: Daily, Heavy Past Drug Use History: Marijuana - Past Family History Father Family Medical History: Myocardial Infarction ([place]) Mother Family Medical History: No Reported History Medications and Allergies Home Medications Medication Instructions Recorded Confirmed Type Atorvastatin [Lipitor] 40 mg PO HS 11/07/16 09/01/19 History Lisinopril 40 mg PO DAILY 11/07/16 09/01/19 History Aspirin EC [Ecotrin Low Dose] 81 mg PO DAILY 08/31/19 09/01/19 History Cephalexin [Keflex] 500 mg PO Q6H #28 cap 08/31/19 09/01/19 Rx Cholecalciferol [Vitamin D3 (25 1,000 unit PO DAILY 08/31/19 09/01/19 History Mcg = 1000 Iu)] Ibuprofen [Motrin] 600 mg PO Q8HR PRN #30 tab 08/31/19 09/01/19 Rx SILVER sulfADIAZINE Cream 1 applic TOPICAL BID #30 gram 08/31/19 09/01/19 Rx [Silvadene 1% Cream] Allergies Allergy/AdvReac Type Severity Reaction Status Date / Time No Known Allergies Allergy Verified 09/01/19 13:35 Physical Examination Right lower extremity: No obvious open lesions or sores present throughout the extremity, no skin discoloration noted in the lower leg chronic vascular changes. Obvious s hortening and external rotation is noted of the leg Logroll maneuver reproduces significant discomfort. Calf is soft, no tenderness with palpation. No effusion present over the knee, tenderness with palpation. Sensation to light touch throughout the extremities intact. Skin is warm to touch. Left lower extremity: Bandage present over the left lower leg, this is with skin tears located. Will change dressing and assessed tomorrow. Results - Labs Labs: Abnormal Lab Results - Last 24 Hours (Table) 09/01/19 09/01/19 09/01/19 Range/Units 12:57 12:57 12:57 WBC 12.7 H (3.8-10.6) k/uL RBC 3.64 L (4.30-5.90) m/uL Hct 38.5 L (39.0-53.0) % MCV 105.7 H (80.0-100.0) fL MCH 36.7 H (25.0-35.0) pg Neutrophils # 10.2 H (1.3-7.7) k/uL PT 12.2 H (9.0-12.0) sec INR 1.2 H (<1.2) Sodium 129 L (137-145) mmol/L Chloride 95 L (98-107) mmol/L Glucose 138 H (74-99) mg/dL Calcium 8.3 L (8.4-10.2) mg/dL Total Bilirubin 2.8 H (0.2-1.3) mg/dL AST 83 H (17-59) U/L Alkaline Phosphatase 152 H (38-126) U/L Creatine Kinase 565 H (55-170) U/L Total Protein 5.7 L (6.3-8.2) g/dL Albumin 2.6 L (3.5-5.0) g/dL H & H 09/01/19 Range/Units 12:57 Hgb 13.4 (13.0-17.5) gm/dL Hct 38.5 L (39.0-53.0) % Coagulation 09/01/19 Range/Units 12:57 INR 1.2 H (<1.2) Result Diagrams: 09/01/19 12:57 09/01/19 12:57 - Diagnostic results Hip x-ray: report reviewed, image reviewed Hip CT: report reviewed, image reviewed Assessment and Plan Plan: Imaging: Multiple images of the pelvis and hip were obtained. Images do demonstrate a right femoral neck fracture. Assessment: 1. Displaced right femoral neck fracture 2. Status pos fall from standing 3. Multiple medical comorbidities Plan: I was able to discuss the case, including both physical exam findings and imaging studies may attending Dr. Malcolm. We would like to proceed with surgery, more specifically a hemiarthroplasty of the right hip on. 09/02/2019. I was able to discuss a few different surgical options with the patient at bedside to day, also his daughter. They're in good understanding would like to proceed. They were made aware that Dr. Malcolm will be available in the preop area for any further questions. Obtain consent Nothing by mouth after midnight Urinary catheter placement Pain control Nonweightbearing at this time GI and DVT prophylaxis, we'll begin oral agent after surgery Medical management/clearance Further recommendations to follow Time with Patient: Less than 30
[2019-09-01] MEDS: MORPHINE SULFATE 4 MG/ML SYRINGE IV PRN (21:22)
[2019-09-02 01:17] LABS: Appearance,Urine Cloudy (Clear); Bilirubin,Urine 1+ (Negative); Blood,Urine Negative (Negative); Color,Urine Light Brown; Glucose,Urine (UA) Negative (Negative); Hyaline Casts,Urine 8 /lpf (0-2); Ketones,Urine Negative (Negative); Leukocyte Esterase,Urine Negative (Negative); Mucus,Urine Few /hpf; Nitrite,Urine Negative (Negative); PH, Urine 5.5 (5.0-8.0); Protein,Urine Trace (Negative); RBC,Urine 1 /hpf (0-5)
[2019-09-02] MEDS: MORPHINE SULFATE 4 MG/ML SYRINGE IV PRN ×3 (04:29→22:20)
[2019-09-02] MEDS: SODIUM CHLORIDE 0.9% 1,000 ML IV SCH (06:08)
[2019-09-02 11:51] LABS: INR 1.2 (<1.2); Partial Thromboplastin Time 32.1 sec (22.0-30.0); Prothrombin Time 12.5 sec (9.0-12.0)
--- NOTE | 2019-09-02 13:13 | P.CRDCN ---
History of Present Illness History of present illness: This is a pleasant 69-year-old male past medical history significant for coronary artery disease s/p 4V bypass grafting with DE LA TORRE-LAD, SVG-diag, SVG- OM1 and SVG-PDA in 2014, hypertension, DVT in the past, dyslipidemia, chronic nicotine dependence, daily heavy alcohol use and marijuana use. He does not follow regularly with a drop wire operator since his bypass. We have been asked to see him in consultation for pre-operative evaluation. First on Sunday he suffered a fall causing a skin tear to the left lower extremity. The patient states he lost his balance and fell. He denies syncope, LOC or dizziness. He came to the ED and was sent home with antibiotics, wound dressing and advised to follow up with his PCP. Unfortunately later that day while at the [employer] station he had a similar episode. He states he was standing near his vehicle and he lost his balance. Bystanders assisted him up and he drove home. When he got home he was barely able to make it out of his vehicle and again fell to the ground. He was unable to get up and was found by his daughter the next morning. He was found to have a right hip fracture extending from the superior subcaptial region towards the distal inferior neck of the right hip. He is scheduled to undergo hemiarthroplasty this afternoon. He is seen and examined sitting up in his daughter at bedside. He complains of significant pain to the right lower extremity. He denies having any symptoms of chest discomfort, shortness of breath, dizziness or palpitations. His daughter is at the bedside and states in the past few years she has noticed a decline in his stability and lately his blood pressure has been on the low side of normal. There is no pre-op EKG or chest xray. Laboratory data reviewed, WBC 12.7, hemoglobin 13.4, platelets 204, sodium 129, potassium 4.5, creatinine 0.72, CK 565, alkaline phosphatase 152 and AST 83. Current daily cardiac medications include lisinopril 40 mg daily, atorvastatin 40 mg daily and aspirin 81 mg daily. Most recent echocardiogram obtained in 2016 reveals preserved LV systolic function with ejection fraction 55-60%, paradoxical discogenic septal motion consistent with postoperative status. At the time of my exam: CONSTITUTIONAL: Denies fever. Denies chills. EYES: Denies blurred vision. Denies vision changes. Denies eye pain. EARS, NOSE, MOUTH & THROAT: Denies headache. Denies sore throat. Denies ear pain. CARDIOVASCULAR: Denies chest pain. Denies shortness of breath. Denies orthopnea. Denies PND. Denies palpitations. RESPIRATORY: Denies cough. GASTROINTESTINAL: Denies abdominal pain. Denies diarrhea. Denies constipation. Denies nausea. Denies vomiting. MUSCULOSKELETAL: Complains of right hip discomfort. INTEGUMENTARY: Denies pruitis. Denies rash. NEUROLOGIC: Denies numbness. Denies tingling. Denies weakness. PSYCHIATRIC: Denies anxiety. Denies depression. ENDOCRINE: Denies fatigue. Denies weight change. Denies polydipsia. Denies polyurina. GENITOURINARY: Denies burning, hematuria or urgency with micturation. HEMATOLOGIC: Denies history of anemia. Denies bleeding. Blood pressure 97/61 heart rate 109 afebrile maintaining oxygen saturation on room air GENERAL: This is a 69-year-old male in no apparent distress at the time of my examination. HEENT: Head is atraumatic, normocephalic. Pupils are equal, round. Sclerae anicteric. Conjunctivae are clear. Mucous membranes of the mouth are moist. Neck is supple. There is no jugular venous distention. No carotid bruit is heard. LUNGS: Clear to auscultation no wheezes, rales or rhonchi. No chest wall tenderness is noted on palpation or with deep breathing. HEART: Regular rate and rhythm without murmurs, rubs or gallops. S1 and S2 heard. ABDOMEN: Soft, nontender. Bowel sounds are heard. No organomegaly noted. EXTREMITIES: No evidence of peripheral edema and no calf tenderness noted. VASCULAR: Radial and dorsalis pedis pulses palpated, no evidence of clubbing. NEUROLOGIC: Patient is awake, alert and oriented x3. ASSESSMENT Right hip fracture status post fall Hyponatremia Tachycardia, possibly secondary to pain clinically his heart rate is regular. No EKG> History of coronary artery disease status post bypass grafting 2014 Hypertension Dyslipidemia History of DVT Chronic nicotine dependence Daily heavy alcohol use PLAN Obtain 2D echocardiogram and doppler study to assess cardiac structure and funct ion. Check chest xray. Obtain baseline pre-op EKG. EKG reviewed, sinus mechanism with sinus arrhyt hmmia, PVC and right axis deviation. No acute ST or T-wave abnormalities. Hold lisinopril secondary to hypotension. Initiate on small dose of beta ricki, lopressor 25 mg BID. Patient is a moderate risk for surgical intervention secondary to co-morbid conditions, alcohol and tobacco use. There does not seem to be any absolute contraindications. Recommend cautious fluid administration. Nurse Practitioner note has been reviewed, I agree with a documented findings and plan of care. Patient was seen and examined. Past Medical History Past Medical History: Coronary Artery Disease (CAD), CVA/TIA, Deep Vein Thrombosis (DVT), Hyperlipidemia, Hypertension, Vascular Disorder Additional Past Medical History / Comment(s): right leg DVT, PVD, TIA 2015, HAD A NON HEALING WOUND LT LEG-HAD SKIN GRAFTING.has no circulation left leg on 100 percent blocked from groin to mid ode tried to do cath and was unable to History of Any Multi-Drug Resistant Organisms: None Reported Past Surgical History: Coronary Bypass/CABG, Heart Catheterization, Joint Replacement, Orthopedic Surgery Additional Past Surgical History / Comment(s): left knee replacement, left foot surgery, stent to right leg, CABG 12/2014, 4 bypass, aortogram, WOUND CLINIC, SKIN GRAFTING LT LEG Past Anesthesia/Blood Transfusion Reactions: No Reported Reaction Past Psychological History: Anxiety, Depression Smoking Status: Current every day smoker Past Alcohol Use History: Daily, Heavy Past Drug Use History: Marijuana - Past Family History Father Family Medical History: Myocardial Infarction ([place]) Mother Family Medical History: No Reported History Medications and Allergies Home Medications Medication Instructions Recorded Confirmed Type Atorvastatin [Lipitor] 40 mg PO HS 11/07/16 09/01/19 History Lisinopril 40 mg PO DAILY 11/07/16 09/01/19 History Aspirin EC [Ecotrin Low Dose] 81 mg PO DAILY 08/31/19 09/01/19 History Cephalexin [Keflex] 500 mg PO Q6H #28 cap 08/31/19 09/01/19 Rx Cholecalciferol [Vitamin D3 (25 1,000 unit PO DAILY 08/31/19 09/01/19 History Mcg = 1000 Iu)] Ibuprofen [Motrin] 600 mg PO Q8HR PRN #30 tab 08/31/19 09/01/19 Rx SILVER sulfADIAZINE Cream 1 applic TOPICAL BID #30 gram 08/31/19 09/01/19 Rx [Silvadene 1% Cream] Allergies Allergy/AdvReac Type Severity Reaction Status Date / Time No Known Allergies Allergy Verified 09/01/19 13:35 Physical Exam Vitals: Vital Signs Temp Pulse Pulse Resp BP BP Pulse Ox 09/02/19 12:37 98.1 F 109 H 18 97/61 92 L 09/02/19 10:19 84 16 09/02/19 07:34 98.1 F 84 16 93/63 90 L 09/02/19 05:00 98.4 F 104 H 16 101/73 93 L 09/01/19 21:20 98.4 F 98 16 104/68 98 09/01/19 16:04 98.9 F 112 H 18 145/70 96 09/01/19 15:00 97.9 F 109 H 18 133/75 96 09/01/19 14:00 113 H 18 116/79 96 Intake and Output 09/01/19 09/02/19 09/02/19 22:59 06:59 14:59 Intake Total 262.5 1190 Balance 262.5 1190 Intake: Intake, IV Titration 262.5 600 Amount Sodium Chloride 0.9% 1, 262.5 600 000 ml @ 75 mls/hr IV . [id number] [facility] Rx#:[id number] Oral 590 Other: Voiding Method Bedpan Bedpan Urinal Urinal Urinal # Voids 2 Results 09/01/19 12:57 09/01/19 12:57 Cardiac Enzymes 09/01/19 Range/Units 12:57 AST 83 H (17-59) U/L Coagulation 09/01/19 09/02/19 Range/Units 12:57 10:30 PT 12.2 H 12.5 H (9.0-12.0) sec APTT 32.1 H (22.0-30.0) sec CBC 09/01/19 Range/Units 12:57 WBC 12.7 H (3.8-10.6) k/uL RBC 3.64 L (4.30-5.90) m/uL Hgb 13.4 (13.0-17.5) gm/dL Hct 38.5 L (39.0-53.0) % Plt Count 204 (150-450) k/uL Comprehensive Metabolic Panel 09/01/19 Range/Units 12:57 Sodium 129 L (137-145) mmol/L Potassium 4.5 (3.5-5.1) mmol/L Chloride 95 L (98-107) mmol/L Carbon Dioxide 25 (22-30) mmol/L BUN 11 (9-20) mg/dL Creatinine 0.72 (0.66-1.25) mg/dL Glucose 138 H (74-99) mg/dL Calcium 8.3 L (8.4-10.2) mg/dL AST 83 H (17-59) U/L ALT 56 (21-72) U/L Alkaline Phosphatase 152 H (38-126) U/L Total Protein 5.7 L (6.3-8.2) g/dL Albumin 2.6 L (3.5-5.0) g/dL Current Medications Generic Name Dose Route Start Last Admin Trade Name Freq PRN Reason Stop Dose Admin Acetaminophen 650 mg 09/01/19 14:50 Tylenol Tab PO Q6HR PRN Mild Pain or Fever > 100.5 Sodium Chloride 1,000 mls @ 75 mls/hr 09/01/19 15:00 09/02/19 06:08 Saline 0.9% IV 75 mls/hr .[id number] ALDO Administration Morphine Sulfate 4 mg 09/01/19 14:50 09/02/19 09:15 Morphine Sulfate (Inj) IV 4 mg Q4HR PRN Administration Severe Pain Naloxone HCl 0.2 mg 09/01/19 14:50 Narcan IV Q2M PRN Opioid Reversal Ondansetron HCl 4 mg 09/01/19 14:50 Zofran IVP Q8HR PRN Nausea And Vomiting Tramadol HCl 50 mg 09/01/19 14:50 Ultram PO Q6H PRN Moderate Pain Intake and Output 09/01/19 09/02/19 09/02/19 22:59 06:59 14:59 Intake Total 262.5 1190 Balance 262.5 1190 Intake: Intake, IV Titration 262.5 600 Amount Sodium Chloride 0.9% 1, 262.5 600 000 ml @ 75 mls/hr IV . [id number] ALDO Rx#:[id number] Oral 590 Other: Voiding Method Bedpan Bedpan Urinal Urinal Urinal # Voids 2 09/01/19 12:57 09/01/19 12:57
[2019-09-02] MEDS: METOPROLOL TARTRATE 25 MG TAB PO SCH ×2 (13:44→20:59)
[2019-09-02] MEDS: traMADol 50 MG TAB PO PRN (13:47)
--- NOTE | 2019-09-02 13:49 | XR ---
EXAMINATION TYPE: XR chest 1V DATE OF EXAM: 09/02/2019 COMPARISON: Prior x-ray 07/22/2018 HISTORY: Preop TECHNIQUE: Single frontal view of the chest is obtained. FINDINGS: Patient is post median sternotomy. Prominent lung lines suggest underlying COPD. Mild arthr opathy noted within the shoulders. There is no focal air space opacity, pleural effusion, or pneumot horax seen. The cardiac silhouette size is within normal limits. The osseous structures are intact . Patient is rotated. Lung lines are low. Minimal subsegmental atelectatic changes or scarring at the lung bases. IMPRESSION: No acute process.
[2019-09-02] MEDS ORDERED: IV FLUID CONTINUATION 1,000 ML IV ONE (16:25)
[2019-09-02] MEDS ORDERED: PHENYLEPHRINE-0.9% NACL SYG 1 MG/10 ML SYRINGE ONE (17:40)
[2019-09-02] MEDS ORDERED: KETAMINE 10 MG/ML 20 ML VIAL ONE (17:40)
[2019-09-02] MEDS ORDERED: MIDAZOLAM 2 MG/2 ML VIAL ONE (17:40)
[2019-09-02] MEDS ORDERED: PROPOFOL 10 MG/ML 20 ML VIAL IV ONE (17:40)
[2019-09-02] MEDS ORDERED: LACTATED RINGERS 1,000 ML IV ONE (18:00)
[2019-09-02] MEDS ORDERED: SODIUM CHLORIDE 0.9% 50 ML with ceFAZolin 1,000 MG IV ONE ×2 (18:04)
[2019-09-02] MEDS ORDERED: MAGNESIUM HYDROXIDE 2,400 MG/10 ML CUP PO PRN (19:00)
--- NOTE | 2019-09-02 19:00 | ECHOF ---
Referral Reason: MEASUREMENTS -------- HEIGHT: 200.7 cm WEIGHT: 72.6 kg BP: RVIDd: 2.1 cm (< 3.3) IVSd: 1.0 cm (0.6 - 1.1) LVIDd: 2.9 cm (3.9 - 5.3) LVPWd: 1.2 cm (0.6 - 1.1) IVSs: 1.3 cm LVIDs: 1.7 cm LVPWs: 1.2 cm LAESV Index (A-L): 15.47 ml/m Ao Diam: 2.8 cm (2.0 - 3.7) AV Cusp: 1.8 cm (1.5 - 2.6) LA Diam: 3.2 cm (2.7 - 3.8) MV EXCURSION: 18.742 mm (> 18.000) MV EF SLOPE: 137 mm/s (70 - 150) EPSS: 1.1 cm MV E Aníbal: 0.63 m/s MV DecT: 162 ms MV A Aníbal: 0.75 m/s MV E/A Ratio: 0.84 RAP: 5.00 mmHg RVSP: 42.21 mmHg FINDINGS -------- Sinus rhythm. Resting tachycardia (HR>100bpm). This was a technically adequate study. Pt unable to turn due to hip fx. The left ventricular size is normal. There is mild concentric left ventricular hypertrophy. Overa ll left ventricular systolic function is normal with, an EF between 55 - 60 %. Right side appears enlarged. The left atrial size is normal. Normal LA size by volume 22+/-6 ml/m2. The right atrial size is normal. The aortic valve is trileaflet and appears structurally normal. The mitral valve is normal. There is trace mitral regurgitation. The tricuspid valve appears structurally normal. Trace tricuspid regurgitation present. Right lenora tricular systolic pressure is normal at < 35 mmHg. There is no pulmonic regurgitation present. The aortic root size is normal. IVC Not well visulized. Echo free space indicative of a pericardial fat pad. CONCLUSIONS -------- 1. Sinus rhythm. 2. Resting tachycardia (HR>100bpm). 3. This was a technically adequate study. 4. Pt unable to turn due to hip fx. 5. The left ventricular size is normal. 6. There is mild concentric left ventricular hypertrophy. 7. Overall left ventricular systolic function is normal with, an EF between 55 - 60 %. 8. Right side appears enlarged. 9. The left atrial size is normal. 10. Normal LA size by volume 22+/-6 ml/m2. 11. The right atrial size is normal. 12. The aortic valve is trileaflet and appears structurally normal. 13. The mitral valve is normal. 14. There is trace mitral regurgitation. 15. The tricuspid valve appears structurally normal. 16. Trace tricuspid regurgitation present. 17. Right ventricular systolic pressure is normal at < 35 mmHg. 18. There is no pulmonic regurgitation present. 19. The aortic root size is normal. 20. IVC Not well visulized. 21. Echo free space indicative of a pericardial fat pad. DIRECTOR STRATEGIC ACCOUNT MANAGEMENT: Kortney Marrero RDCS
--- NOTE | 2019-09-02 19:30 | P.OP ---
Date of Procedure: 09/02/19 Preoperative Diagnosis: Displaced right femoral neck fracture Postoperative Diagnosis: Same Procedure(s) Performed: Right hip hemiarthroplastypress-fit Implants: Depuy Corail size 12 standard collared press-fit femoral stem, 49 mm unipolar head -3 neck Anesthesia: spinal Surgeon: Diallo Malcolm Supervisor Finishing #1: Jese Andres Estimated Blood Loss (ml): 50 Pathology: other (Femoral head) Condition: stable Disposition: PACU Indications for Procedure: The patient is a 69-year-old male who is physiologically much older presents after falling injuring his right hip. Upon evaluation he was noted to have a displaced femoral neck fracture. A discussion of the risks and benefits of operative intervention was made with patient and his family. Operative options were discussed and he elected proceed with hemiarthroplasty. Specific risks of surgery to include infection, neurovascular injury, development of blood clots, possible instability, possible leg length discrepancy and need for subsequent procedures was discussed. Informed consent was obtained. Operative Findings: As below Description of Procedure: The patient was brought to the operating room, and after induction of spinal anesthesia was placed in the lateral decubitus position. The pelvis was stabilized perpendicular to the floor with a pegboard. Bony prominences were appropriately padded. The right lower extremity was prepped and draped in normal fashion. A longitudinal incision extending 12 cm was made centered over the greater trochanter extending superiorly to level ASIS and distally in line with the femoral shaft. The skin and subcutaneous tissues were divided sharply. Electrocautery was used for hemostasis. The fascia nita and gluteus eugene fascia was split in line with the skin incision. The muscle fibers were bluntly dissected proximally. A self-retaining retractor was placed. The anterior and posterior margins of the gluteus medius muscles identified and the anterior two thirds detached in the greater trochanter with electrocautery. The gluteus minimus tendon was identified and detached in a similar fashion. A T-shaped capsulotomy is performed. The capsular flaps were tagged with #2 Ethibond suture. The femoral neck fracture was then identified. A lower neck cut was made approximately 1 1/2 cm above the level of the lesser trochanter with a sagittal saw at a 45 angle. The head was extracted with a corkscrew. The acetabulum was inspected and no significant chondral injury was noted. Attention was then paid towards preparing the proximal femur. A box chisel was used to open the metaphyseal region. A canal finder was used to find the femoral canal. Sequential broaching was performed up to size 12 standard broach with the leg perpendicular to the floor in approximately 15 of anteversion. There was good rotational stability. A calcar mill was used to fashion the medial calcar. A standard neck along with a -3/49 mm trial unipolar head was placed. The hip was gently reduced. It was taken through range of motion and felt to be stable in flexion and extension with internal and external rotation. I felt there is adequate zoroastrianism of soft tissue tension. The hip was gently dislocated and the trial components were removed. The final size 12 collared femoral stem again as was inserted with the leg perpendicular floor in 15 of anteversion. Again there is good rotational stability. The -3 neck/49 mm unipolar head was gently impacted. The hip was gently reduced. It was again taken through range of motion felt to be stable. Pulsatile lavage was utilized. The capsular layer was closed with #2 Ethibond suture. The gluteus minimus and medius tendons were reattached the greater trochanter with #2 Ethibond sutures. There was minimal drainage at this point therefore a deep drain was not placed. The fascia nita and gluteus eugene fascia was closed with running #2 Ethibond suture. The subcu tissues were reapproximated with interrupted 2-0 Vicryl sutures. The skin was reapproximated with 3-0 subcuticular strata fix suture. Skin tape and adhesive was applied. The patient was awoken from sedation and transferred to the recovery room in good condition. Blood loss was estimated at 50 mL. No complications were incurred. Sponge and needle counts were correct at the end of the case.
--- NOTE | 2019-09-02 20:03 | XR ---
EXAMINATION TYPE: XR Hip Limited RT DATE OF EXAM: 09/02/2019 CLINICAL HISTORY: Right hip fracture. TECHNIQUE: Single AP portable view of right hip is obtained immediately postoperatively. COMPARISON: Right hip x-ray and CT from yesterday.. FINDINGS: Metallic hardware from right hip arthroplasty is seen and appears satisfactory in alignment and position. There is evidence of recent surgery with subcutaneous gas noted laterally. Incidenta l right iliac artery stent graft. IMPRESSION: Metallic hardware from right hip arthroplasty is satisfactory in position.
[2019-09-02] MEDS: SENNOSIDES-DOCUSATE SODIUM 1 EACH TAB PO SCH (20:56)
[2019-09-02] MEDS: HEPARIN SODIUM,PORCINE 5,000 UNIT/ML 1 ML VIAL SQ SCH (21:23)
[2019-09-03] MEDS ORDERED: MORPHINE SULFATE 4 MG/ML SYRINGE ONE (04:30)
[2019-09-03 08:45] LABS: Basophils % (A) 0 %; Eosinophils # (A) 0.1 k/uL (0-0.7); Eosinophils % (A) 1 %; HCT 37.1 % (39.0-53.0); HGB 12.6 gm/dL (13.0-17.5); Lymphocytes # (A) 1.7 k/uL (1.0-4.8); Lymphocytes % (A) 17 %; MCHC 34.1 g/dL (31.0-37.0); MCV 108.6 fL (80.0-100.0); Macrocytosis Moderate; Mean Platelet Volume 6.7; Monocytes # (A) 0.9 k/uL (0-1.0); Monocytes % (A) 9 %; Neutrophils # (A) 7.4 k/uL (1.3-7.7); Neutrophils % (A) 71 %; Platelet Count 211 k/uL (150-450); RBC 3.41 m/uL (4.30-5.90); RDW 12.7 % (11.5-15.5); WBC 10.4 k/uL (3.8-10.6)
[2019-09-03] MEDS: SODIUM CHLORIDE 0.9% 1,000 ML IV SCH ×3 (08:46→20:18)
[2019-09-03] MEDS ORDERED: THIAMINE 100 MG/ML 2 ML VIAL IM STA (09:22)
[2019-09-03] MEDS ORDERED: LORazepam 2 MG/ML INJ IV PRN ×3 (09:22)
[2019-09-03] MEDS: MORPHINE SULFATE 4 MG/ML SYRINGE IV PRN (09:37)
--- NOTE | 2019-09-03 09:51 | P.CONS ---
History of Present Illness - Reason for Consult Consult date: 09/03/19 Infected lesion left leg preop - History of Present Illness On this is a 69-year-old male presented to the hospital after multiple falls and found to have a right femoral neck fracture apparently from a slip and fall in his garage. He has had previous falls sustaining wound to the left pretibial area. P repeat apparently patient has been weak and falling for long period of time. Patient states he is lightheaded and dizzy when the falls occur. He denies any loss of consciousness. Patient is status post right hip arthroplasty completed on September [address] Malcolm. Patient is not with social work regarding subacute rehab and daughter will be contacted for plan. Patient has been afebrile, initial white count 12.7 repeat at 10.4, sodium 129, BUN 11 creatinine 0.72, blood sugar 138, CK 565, AST 83, ALT 56, alkaline phosphatase 152, total bilirubin 2.8. No cultures have been obtained. Chest x-ray shows no acute process. The patient does have history of smoking 1 pack per day since he was 16 years of age. He also has history of alcohol abuse and drinks 3 beers and a half pint of whiskey per day. His last alcohol intake was on Sunday. He also smokes marijuana on a daily basis. Patient also has [facility] under the care of Dr. Schneider for ulce ration on the left leg secondary to vascular occlusive disease. It appears the patient stopped coming [facility] in June 2016. Review of Systems Constitutional: Reports anorexia, Reports fatigue, Reports poor appetite, Reports weakness, Denies chills, Denies fever Eyes: denies blurred vision, denies pain Ears, nose, mouth and throat: Reports as per HPI, Reports vertigo, Denies dental pain, Denies dysphagia, Denies nasal congestion, Denies nasal discharge Cardiovascular: Reports lightheadedness, Denies decreased exercise tolerance, Denies dyspnea on exertion, Denies edema, Denies leg edema, Denies orthopnea, Denies palpitations, Denies shortness of breath, Denies syncope Respiratory: Denies cough, Denies cough with sputum, Denies dyspnea, Denies excessive sputum, Denies hemoptysis, Denies home oxygen, Denies respiratory infections, Denies wheezing Gastrointestinal: Reports loss of appetite, Denies abdominal pain, Denies diarrhea, Denies nausea, Denies vomiting Genitourinary: Reports urinary retention, Denies dysuria Musculoskeletal: Reports frequent falls, Reports gait dysfunction, Reports muscle weakness, Denies myalgias Musculoskeletal: right: hip pain Integumentary: Reports wounds, Denies pruritus, Denies rash Neurological: Reports gait dysfunction, Reports vertigo, Denies head injury, Denies seizures, Denies syncope Psychiatric: Denies anxiety, Denies depression Endocrine: Denies fatigue, Denies weight change Past Medical History Past Medical History: Coronary Artery Disease (CAD), CVA/TIA, Deep Vein Thrombosis (DVT), Hyperlipidemia, Hypertension, Vascular Disorder Additional Past Medical History / Comment(s): right leg DVT, PVD, TIA 2015, HAD A NON HEALING WOUND LT LEG-HAD SKIN GRAFTING.has no circulation left leg on 100 percent blocked from groin to mid doe tried to do cath and was unable to History of Any Multi-Drug Resistant Organisms: None Reported Past Surgical History: Coronary Bypass/CABG, Heart Catheterization, Joint Replacement, Orthopedic Surgery Additional Past Surgical History / Comment(s): left knee replacement, left foot surgery, stent to right leg, CABG 12/2014, 4 bypass, aortogram, [facility], SKIN GRAFTING LT LEG Past Anesthesia/Blood Transfusion Reactions: No Reported Reaction Past Psychological History: Anxiety, Depression Smoking Status: Current every day smoker Past Alcohol Use History: Daily, Heavy Additional Past Alcohol Use History / Comment(s): Patient is a smoker one pack per day since he was 16 years of age. He smokes marijuana on a daily basis. He uses alcohol and drinks 3 beers per day and half a pint of whiskey. He lives at home alone. No pets in the home. 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 No service. No recent travel. Past Drug Use History: Marijuana - Past Family History Father Family Medical History: Myocardial Infarction (MS) Mother Family Medical History: No Reported History Medications and Allergies Home Medications Medication Instructions Recorded Confirmed Type Atorvastatin [Lipitor] 40 mg PO HS 11/07/16 09/01/19 History Lisinopril 40 mg PO DAILY 11/07/16 09/01/19 History Aspirin EC [Ecotrin Low Dose] 81 mg PO DAILY 08/31/19 09/01/19 History Cephalexin [Keflex] 500 mg PO Q6H #28 cap 08/31/19 09/01/19 Rx Cholecalciferol [Vitamin D3 (25 1,000 unit PO DAILY 08/31/19 09/01/19 History Mcg = 1000 Iu)] Ibuprofen [Motrin] 600 mg PO Q8HR PRN #30 tab 08/31/19 09/01/19 Rx SILVER sulfADIAZINE Cream 1 applic TOPICAL BID #30 gram 08/31/19 09/01/19 Rx [Silvadene 1% Cream] Allergies Allergy/AdvReac Type Severity Reaction Status Date / Time No Known Allergies Allergy Verified 09/02/19 17:36 Physical Exam Vitals: Vital Signs Temp Pulse Pulse Resp BP Pulse Ox 09/03/19 08:18 97.8 F 109 H 24 114/73 91 L 09/02/19 20:55 90 98/65 98 09/02/19 20:40 83 100/61 96 09/02/19 20:15 99 97/58 97 09/02/19 20:00 97.5 F L 86 16 106/60 95 09/02/19 19:46 81 16 91/53 97 09/02/19 19:37 64 16 98/53 100 09/02/19 19:22 96.9 F L 79 16 96/54 99 09/02/19 16:26 98.9 F 86 16 106/61 94 L 09/02/19 12:37 98.1 F 109 H 18 97/61 92 L 09/02/19 10:19 84 16 Intake and Output 09/02/19 09/03/19 09/03/19 22:59 06:59 14:59 Intake Total 1550 Output Total 50 Balance 1500 Intake: IV 1550 Output: Estimated Blood Loss 50 Other: Voiding Method Urinal Gen: This is a 69-year-old male. He is resting in bed and appears to be uncomfortable secondary to pain to the right hip HEENT: Head is atraumatic, normocephalic. Pupils equal, round. Sclerae is anicteric. NECK: Supple. No JVD. No lymphadenopathy. No thyromegaly. LUNGS: Clear to auscultation. No wheezes or rhonchi. No intercostal retractions. HEART: Regular rate and rhythm. No murmur. Tachycardic. ABDOMEN: Soft. Bowel sounds are present. No masses. No tenderness. Visible veins across the abdomen. EXTREMITIES: No pedal edema. No calf tenderness. Dorsalis pedis 1+ bilaterally. Right hip has a large dressing in place with no breakthrough drainage or bleeding. Patient has a large ulcer to the left pretibial area that appears to be a shearing-type injury. No active leading. No surrounding erythema or edema. No foul odor. Wound was present on admission. NEUROLOGICAL: Patient is awake, alert and oriented x3. Cranial nerves 2 through 12 are grossly intact. Results Results: Laboratory Results WBC 10.4 k/uL (3.8-10.6) 09/03/19 07:53 RBC 3.41 m/uL (4.30-5.90) L 09/03/19 07:53 Hgb 12.6 gm/dL (13.0-17.5) L 09/03/19 07:53 Hct 37.1 % (39.0-53.0) L 09/03/19 07:53 MCV 108.6 fL (80.0-100.0) H 09/03/19 07:53 MCH 37.0 pg (25.0-35.0) H 09/03/19 07:53 MCHC 34.1 g/dL (31.0-37.0) 09/03/19 07:53 RDW 12.7 % (11.5-15.5) 09/03/19 07:53 Plt Count 211 k/uL (150-450) 09/03/19 07:53 Neutrophils % 71 % 09/03/19 07:53 Lymphocytes % 17 % 09/03/19 07:53 Monocytes % 9 % 09/03/19 07:53 Eosinophils % 1 % 09/03/19 07:53 Basophils % 0 % 09/03/19 07:53 Neutrophils # 7.4 k/uL (1.3-7.7) 09/03/19 07:53 Lymphocytes # 1.7 k/uL (1.0-4.8) 09/03/19 07:53 Monocytes # 0.9 k/uL (0-1.0) 09/03/19 07:53 Eosinophils # 0.1 k/uL (0-0.7) 09/03/19 07:53 Basophils # 0.0 k/uL (0-0.2) 09/03/19 07:53 Macrocytosis Moderate 09/03/19 07:53 PT 12.5 sec (9.0-12.0) H 09/02/19 10:30 INR 1.2 (<1.2) H 09/02/19 10:30 APTT 32.1 sec (22.0-30.0) H 09/02/19 10:30 Sodium 129 mmol/L (137-145) L 09/01/19 12:57 Potassium 4.5 mmol/L (3.5-5.1) 09/01/19 12:57 Chloride 95 mmol/L (98-107) L 09/01/19 12:57 Carbon Dioxide 25 mmol/L (22-30) 09/01/19 12:57 Anion Gap 9 mmol/L 09/01/19 12:57 BUN 11 mg/dL (9-20) 09/01/19 12:57 Creatinine 0.72 mg/dL (0.66-1.25) 09/01/19 12:57 Est GFR (CKD-EPI)AfAm >90 (>60 ml/min/1.73 sqM) 09/01/19 12:57 Est GFR (CKD-EPI)NonAf >90 (>60 ml/min/1.73 sqM) 09/01/19 12:57 Glucose 138 mg/dL (74-99) H 09/01/19 12:57 Calcium 8.3 mg/dL (8.4-10.2) L 09/01/19 12:57 Total Bilirubin 2.8 mg/dL (0.2-1.3) H 09/01/19 12:57 AST 83 U/L (17-59) H 09/01/19 12:57 ALT 56 U/L (21-72) 09/01/19 12:57 Alkaline Phosphatase 152 U/L (38-126) H 09/01/19 12:57 Creatine Kinase 565 U/L (55-170) H 09/01/19 12:57 Total Protein 5.7 g/dL (6.3-8.2) L 09/01/19 12:57 Albumin 2.6 g/dL (3.5-5.0) L 09/01/19 12:57 Urine Color Light Brown 09/02/19 00:11 Urine Appearance Cloudy (Clear) 09/02/19 00:11 Urine pH 5.5 (5.0-8.0) 09/02/19 00:11 Ur Specific [place] 1.020 (1.001-1.035) 09/02/19 00:11 Urine Protein Trace (Negative) H 09/02/19 00:11 Urine Glucose (UA) Negative (Negative) 09/02/19 00:11 Urine Ketones Negative (Negative) 09/02/19 00:11 Urine Blood Negative (Negative) 09/02/19 00:11 Urine Nitrite Negative (Negative) 09/02/19 00:11 Urine Bilirubin 1+ (Negative) H 09/02/19 00:11 Urine Urobilinogen 6.0 mg/dL (<2.0) 09/02/19 00:11 Ur Leukocyte Esterase Negative (Negative) 09/02/19 00:11 Urine RBC 1 /hpf (0-5) 09/02/19 00:11 Urine WBC 2 /hpf (0-5) 09/02/19 00:11 Hyaline Casts 8 /lpf (0-2) H 09/02/19 00:11 Urine Mucus Few /hpf (None) H 09/02/19 00:11 CBC & Chem 7: 09/03/19 07:53 09/01/19 12:57 Labs: Abnormal Lab Results - Last 24 Hours (Table) 09/02/19 09/03/19 Range/Units 10:30 07:53 RBC 3.41 L (4.30-5.90) m/uL Hgb 12.6 L (13.0-17.5) gm/dL Hct 37.1 L (39.0-53.0) % MCV 108.6 H (80.0-100.0) fL MCH 37.0 H (25.0-35.0) pg PT 12.5 H (9.0-12.0) sec INR 1.2 H (<1.2) APTT 32.1 H (22.0-30.0) sec Assessment and Plan Plan: This is a 69-year-old male presented to the hospital after a fall finding a right femoral neck fracture status post right hip arthroplasty completed yesterday. He has cardiology and medicine on consult as well. Patient has large wound to the left pretibial area with no clear signs of infection but of concern due to surgical intervention to the right hip. Wound care will be addressed. Patient does have significant history for vascular occlusive disease, tobacco use and dependence, alcohol abuse and marijuana use. We will add in CIWA protocol and nicotine patch. Social work is developing plan with patient and his daughter regarding subacute rehab. Continue supportive care. Further recommendations as patient progresses. The above dictated assessment and findings were discussed with Dr. Callahan. The impression and plan of care have been directed as dictated. Yecenia Porter nurse practitioner acting as scribe for Dr. Callahan.
[2019-09-03] MEDS: HEPARIN SODIUM,PORCINE 5,000 UNIT/ML 1 ML VIAL SQ SCH ×2 (10:16→21:36)
[2019-09-03] MEDS: METOPROLOL TARTRATE 25 MG TAB PO SCH ×2 (10:17→21:35)
[2019-09-03] MEDS: HYDROcodone/APAP 5-325MG 1 EACH TAB PO PRN ×2 (11:19→17:06)
[2019-09-03] MEDS: NICOTINE 21MG/24HR PATCH TRANSDERM SCH (11:20)
--- NOTE | 2019-09-03 11:22 | P.PN ---
Subjective Progress Note Date: 09/03/19 Principal diagnosis: Status post right hip hemiarthroplasty Patient evaluated at bedside today, he is resting comfortably. He notes difficulty with ambulating at this time. Therapy was only able to get into the edge of the bed. Denies any chest pain or shortness of breath. Objective - Vital Signs Vital signs: Vital Signs Temp 97.8 F 09/03/19 08:18 Pulse 109 H 09/03/19 08:18 Resp 24 09/03/19 08:18 BP 114/73 09/03/19 08:18 Pulse Ox 91 L 09/03/19 08:18 Intake & Output 09/02/19 09/03/19 09/03/19 18:59 06:59 18:59 Intake Total 2090 100 Output Total 50 Balance 2090 50 Intake: IV 1450 100 Intake, IV Titration 640 Amount Sodium Chloride 0.9% 1, 640 000 ml @ 75 mls/hr IV . [id number] [facility] Rx#:[id number] Output: Estimated Blood Loss 50 Other: Voiding Method Urinal Urinal # Voids 2 - Exam Right lower extremity: Incision is clean, dry, and intact. The exofin fusion tape is in good condition. There is minimal soft tissue swelling and ecchymosis surrounding the medial and lateral aspects of the incision. Calf is soft, no tenderness with palpation. Plantar flexion, dorsiflexion, EHL, FHL are intact. Sensory exam to light touch throughout the extremity is intact, dorsal pedis pulses 2+. - Labs CBC & Chem 7: 09/03/19 07:53 09/01/19 12:57 Labs: Abnormal Lab Results - Last 24 Hours (Table) 09/02/19 09/03/19 Range/Units 10:30 07:53 RBC 3.41 L (4.30-5.90) m/uL Hgb 12.6 L (13.0-17.5) gm/dL Hct 37.1 L (39.0-53.0) % MCV 108.6 H (80.0-100.0) fL MCH 37.0 H (25.0-35.0) pg PT 12.5 H (9.0-12.0) sec INR 1.2 H (<1.2) APTT 32.1 H (22.0-30.0) sec Assessment and Plan Plan: Assessment: Postoperative day #1 status post right hip hemiarthroplasty Plan: Pain control Weight-bear as tolerated with walker GI and DVT prophylaxis, continue current medication Other medical office scheduler recommendations Plan her discharge to rehab in the next day or 2 Time with Patient: Less than 30
--- NOTE | 2019-09-03 12:04 | P.PN ---
Subjective This is a pleasant 69-year-old male past medical history significant for coronary artery disease s/p 4V bypass grafting with [facility] [place] [facility]-LAD, SVG-diag, SVG- OM1 and SVG-PDA in 2014, hypertension, DVT in the past, dyslipidemia, chronic nicotine dependence, daily heavy alcohol use and marijuana use. He does not follow regularly with a digester operator since his bypass. We have been asked to see him in consultation for pre-operative evaluation. First on Sunday he suffered a fall causing a skin tear to the left lower extremity. The patient states he lost his balance and fell. He denies syncope, LOC or dizziness. He came to the ED and was sent home with antibiotics, wound dressing and advised to follow up with his PCP. Unfortunately later that day while at the gas station he had a similar episode. He states he was standing near his vehicle and he lost his balance. Bystanders assisted him up and he drove home. When he got home he was barely a ble to make it out of his vehicle and again fell to the ground. He was unable to get up and was found by his daughter the next morning. He was found to have a right hip fracture extending from the superior subcaptial region towards the distal inferior neck of the right hip. He is scheduled to undergo hemiarthroplasty this afternoon. He is seen and examined sitting up in his daughter at bedside. He complains of significant pain to the right lower extremity. He denies having any symptoms of chest discomfort, shortness of breath, dizziness or palpitations. His daughter is at the bedside and states in the past few years she has noticed a decline in his stability and lately his blood pressure has been on the low side of normal. There is no pre-op EKG or chest xray. Laboratory data reviewed, WBC 12.7, hemoglobin 13.4, platelets 204, sodium 129, potassium 4.5, creatinine 0.72, CK 565, alkaline phosphatase 152 and AST 83. Current daily cardiac medications include lisinopril 40 mg daily, at orvastatin 40 mg daily and aspirin 81 mg daily. Most recent echocardiogram obtained in 2016 reveals preserved LV systolic function with ejection fraction 55-60%, paradoxical discogenic septal motion consistent with postoperative status. 09/03/2019 Pt is seen and examined sitting up in bed in no acute distress. He is complaining of pain to the right hip, leg and lower back. He denies chest pain, shortness of breath, dizziness or palpitations. He seems mildly agitated and is speaking aggressively to the student nurse. Blood pressure 114/73 heart rate 109 afebrile and maintaining oxygen saturation on room air. Laboratory data reviewed, WBC 10.4, hgb 12.6, plt 211. Currently maintained on lopressor 25 mg BID GENERAL: This is a 69-year-old male in no apparent distress at the time of my examination. HEENT: Head is atraumatic, normocephalic. Pupils are equal, round. Sclerae anicteric. Conjunctivae are clear. Mucous membranes of the mouth are moist. Neck is supple. There is no jugular venous distention. No carotid bruit is heard. LUNGS: Clear to auscultation no wheezes, rales or rhonchi. No chest wall tenderness is noted on palpation or with deep breathing. HEART: Regular rate and rhythm without murmurs, rubs or gallops. S1 and S2 heard. EXTREMITIES: No evidence of peripheral edema and no calf tenderness noted. ASSESSMENT Right hip fracture status post fall POD #1 right hip hemiarthroplasty Hyponatremia Tachycardia, possibly secondary to pain clinically his heart rate is regular. No EKG> History of coronary artery disease status post bypass grafting 2014 Hypertension Dyslipidemia History of DVT Chronic nicotine dependence Daily heavy alcohol use PLAN Continue current medical regimen. REsume aspirin. Follow up with Dr. Garcia in 2 weeks. We will follow as needed, please call with further questions or concerns. Nurse Practitioner note has been reviewed, I agree with a documented findings and plan of care. Patient was seen and examined. Objective - Vital Signs Vital signs: Vital Signs Temp 97.8 F 09/03/19 08:18 Pulse 70 09/03/19 11:00 Resp 22 09/03/19 11:00 BP 114/73 09/03/19 08:18 Pulse Ox 91 L 09/03/19 08:18 Intake & Output 09/02/19 09/03/19 09/03/19 18:59 06:59 18:59 Intake Total 0 100 Output Total 50 Balance 2089 50 Intake: IV 1450 100 Intake, IV Titration 640 Amount Sodium Chloride 0.9% 1, 640 000 ml @ 75 mls/hr IV . [id number] [facility] Rx#:[id number] Output: Estimated Blood Loss 50 Other: Voiding Method Urinal Urinal # Voids 2 - Labs CBC & Chem 7: 09/03/19 07:53 09/01/19 12:57 Labs: Abnormal Lab Results - Last 24 Hours (Table) 09/03/19 Range/Units 07:53 RBC 3.41 L (4.30-5.90) m/uL Hgb 12.6 L (13.0-17.5) gm/dL Hct 37.1 L (39.0-53.0) % MCV 108.6 H (80.0-100.0) fL MCH 37.0 H (25.0-35.0) pg
--- NOTE | 2019-09-03 12:33 | HP ---
HISTORY AND PHYSICAL CHIEF COMPLAINT: Fracture of the right hip. HISTORY OF PRESENT ILLNESS: This is another admission for this 69-year-old white male alcoholic. Apparently, he fell, but he does not know how. He came to the emergency room where he has a right femoral neck fracture. He is also intoxicated. He has an infected abrasion on the left doe as well. The patient has problems with peripheral vascular occlusive disease and hyperlipidemia. REVIEW OF SYSTEMS: He has had no recent blackouts, seizures, melena, hematochezia, hematemesis, DTs, diabetes, renal failure, etc. He is not complaining of any discomfort in his feet. He is not allergic to any medication. He is on lovastatin, lisinopril, aspirin, and Keflex by history. He does smoke and drinks heavily every day. PHYSICAL EXAMINATION: His blood pressure 124/68, pulse 107, respirations 20. He is afebrile. GENERAL: He appeared to be in no acute distress. Skin was dry. He had alcohol odor associated with his breath. Head, ears, eyes, nose, mouth, and throat were normal. Neck veins not distended. Chest demonstrated poor breath sounds with rales and rhonchi bilaterally. Cardiac exam demonstrated what sounded like sinus tachycardia. There are no murmurs or extra sounds. Abdomen is slightly protuberant, soft, nontender. Liver was enlarged about 2 inches below the costal margin. Extremities demonstrated infected abrasion on the left doe and pulses were very poor in both feet. Neurologically, he seemed to be intact. IMPRESSION: 1. Fracture of the right hip. 2. Infected abrasion or lesion on the left doe. 3. PVOD. 4. Chronic obstructive pulmonary disease. 5. Alcoholism. PLAN: 1. Bed rest. 2. IV fluids. 3. Echocardiogram. 4. Consult with Infectious Disease to cover the patient with antibiotics before his surgery. 5. Consult Orthopedics. 6. Consult with Cardiology for preop evaluation. MMODL / IJN: [id number] /
--- NOTE | 2019-09-03 15:09 | PN ---
PROGRESS NOTE DATE OF SERVICE: 09/02/2019 CHIEF COMPLAINT: Fracture of the right hip and alcoholism. HISTORY OF PRESENT ILLNESS: This gentleman seems to be fairly stable at this time. I am concerned about his alcohol consumption and he will likely go into DTs. He drinks admittedly at least half a pint a day along with several cans of beer. He will be put on CIWA protocol. He also has an area on his left doe which is infected and this should be evaluated by Infectious Disease and preop antibiotics administered to help guard against infection in his right hip postoperatively. PHYSICAL EXAMINATION: He seems awake, alert, and oriented this time. He is not tremulous. Head, ears, eyes, nose, mouth, and throat are normal. He does not have diplopia or strabismus. His chest is clear. The cardiac exam is normal and the abdomen is soft, nontender. He has a fairly superficially infected area on the left doe. Pulses are extremely poor in both legs. IMPRESSION: 1. Fracture of the right hip. 2. Alcoholism. 3. Impending delirium tremens. 4. Infected ulcerated area on the left doe. 5. PVOD. PLAN: Continue preop for surgery. I am recommending a Cardiology consult as well as Infectious Disease. MMODL / IJN: [id number] /
--- NOTE | 2019-09-03 15:15 | PN ---
PROGRESS NOTE CHIEF COMPLAINT: Fracture right hip. HISTORY OF PRESENT ILLNESS: This gentleman is doing well postoperatively. He has not had any evidence of DTs so far. He seems oriented. He has no diplopia. PHYSICAL EXAMINATION: His chest is clear and the cardiac exam is normal. The abdomen is soft, nontender. There is no strabismus. The right hip dressing is dry. IMPRESSION: 1. Status post right hip ORIF. 2. Alcoholism. 3. Chronic obstructive pulmonary disease. 4. PVOD. PLAN: No change in program and he seems to be doing well so far. Discharge plan will be an issue considering his alcoholism. MMODL / IJN: [id number] /
[2019-09-03] MEDS: THIAMINE 100 MG TAB PO SCH (17:06)
--- NOTE | 2019-09-03 20:27 | P.CON ---
Consult Note - . Consult date: 09/03/19 Assessment/Plan:: On this is a 69-year-old male presented to the hospital after multiple falls and found to have a right femoral neck fracture apparently from a slip and fall in his garage. He has had previous falls sustaining wound to the left pretibial area. P repeat apparently patient has been weak and falling for long period of time. Patient states he is lightheaded and dizzy when the falls occur. He denies any loss of consciousness. Patient is status post right hip arthroplasty completed on September [address] Malcolm. Patient is not with social work regarding subacute rehab and daughter will be contacted for plan. Patient has been afebrile, initial white count 12.7 repeat at 10.4, sodium 129, BUN 11 creatinine 0.72, blood sugar 138, CK 565, AST 83, ALT 56, alkaline phosphatase 152, total bilirubin 2.8. No cultures have been obtained. Chest x-ray shows no acute process. The patient does have history of smoking 1 pack per day since he was 16 years of age. He also has history of alcohol abuse and drinks 3 beers and a half pint of whiskey per day. His last alcohol intake was on Sunday. He also smokes marijuana on a daily basis. Patient also [facility] under the care of Dr. 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 It appears the patient stopped coming to the [facility] in June 2016. Please see the consult note as dictated by nurse practitioner Maurisio Yecenia Porter. 61-year-old male who has had multiple falls he barely had a fall in his garage into his leg was seen in the emergency center went home and apparently he then suffered another fall which point in time he suffered the right femoral neck fracture requiring the intramedullary nailing performed yesterday evening. His of the patient has many medical troubles he is a chronic tobacco user is also a chronic alcohol user a daily basis. CIWA protocol has been put into place. The patient is awake and alert but withdrawn it is not a good historian. Relates that his pain however is under good control. The ulceration left leg is evaluated is a full-thickness ulceration with some slough the base. There is cleansed with saline and the calcium alginate silver dressing is applied to the area was with saline over with ABD pad and the rolled gauze to keep in place. The site does not appear to be infected. Silver dressing will be a topical antimicrobial that should help with the bioburden. The patient does have significant peripheral vascular disease and certainly is at risk of nonhealing of this ulceration. Optimization is occurring in that he is no longer smoking and nicotine patches been utilized. Protein supplementation is being utilized to try to improve his protein level and a multivitamin is utilized also. After discharge would be happy to follow him in the wound healing Center. I agree with evaluation, assessment and plan this dictated by nurse practitioner Mrs. Yecenia Porter.
[2019-09-03] MEDS: SENNOSIDES-DOCUSATE SODIUM 1 EACH TAB PO SCH (21:35)
[2019-09-04] MEDS: HYDROcodone/APAP 5-325MG 1 EACH TAB PO PRN ×2 (08:47→15:24)
[2019-09-04] MEDS: ASPIRIN 81 MG PO SCH (10:23)
[2019-09-04] MEDS: MULTIVITAMINS, THERA 1 EACH TAB PO SCH (10:24)
[2019-09-04] MEDS: METOPROLOL TARTRATE 25 MG TAB PO SCH ×2 (10:24→20:39)
[2019-09-04] MEDS: NICOTINE 21MG/24HR PATCH TRANSDERM SCH (10:24)
[2019-09-04] MEDS: THIAMINE 100 MG TAB PO SCH ×2 (10:24→18:07)
--- NOTE | 2019-09-04 10:39 | P.CON ---
Consult Note - . Consult date: 09/04/19 Assessment/Plan:: This is a 69-year-old male who is being seen by wound care for a nonhealing ulceration to the left pretibial due to a fall. The patient sustained a fall prior to hospitalization and was found to have a right femoral neck fracture. Patient states that he has been feeling weaker and has been falling more frequently over a long period time. Patient has a history of EtOH abuse. Patient states that he was lightheaded and dizzy prior to the fall. He denies any loss of consciousness. Patient is status post right hip arthroplasty completed on September [address] Thomas. Posterior tibial ulceration has adherent Slough noted throughout the wound bed, wound is approximately 7 x4 x 0.1 cm. Patient did have collagen silver on the site. The patient does have significant peripheral vascular disease and is certainly at risk for nonhealing of the ulceration. Patient is a current smoker. Patient's past medical history is significant for a nonhealing ulceration to the left leg with skin grafting. Patient was scheduled to have a cath done however there was 100% blockage from the groin to the midshin. Patient also has a history of coronary artery disease, CVA, deep vein thrombosis, hyperlipidemia, hypertension, coronary bypass surgery in 2015. Review of systems: Integumentary: Reports nonhealing ulceration to the left doe, incision to the right hip, multiple bruising over her body Physical exam: Integumentary: See HPI Assessment/plan: 1. Nonhealing ulceration with fatty layer exposure nonpressure component. Apply Santyl to the site daily, saline moistened gauze, dry gauze and rolled gauze to secure. Consult to nutrition. Discussed with patient the importance of following up and wound care for continuation of treatment plan. 2. Peripheral vascular disease. 3. EtOH abuse. Protein supplementation to improve his protein level and a multivitamin. Thank you for the consult please contact the wound care center with any questions. DNP note has been reviewed and discussed with Dr. Schneider and the impression and plan of care has been directed as dictated.
[2019-09-04] MEDS: HEPARIN SODIUM,PORCINE 5,000 UNIT/ML 1 ML VIAL SQ SCH ×2 (10:41→20:39)
--- NOTE | 2019-09-04 11:18 | P.PN ---
Subjective Progress Note Date: 09/04/19 Principal diagnosis: Status post right hip hemiarthroplasty Patient evaluated at bedside today, he is resting comfortably. Denies any chest pain or shortness of breath. Objective - Vital Signs Vital signs: Vital Signs Temp 97.4 F L 09/04/19 07:45 Pulse 104 H 09/04/19 09:42 Resp 18 09/04/19 09:42 BP 151/80 09/04/19 07:45 Pulse Ox 93 L 09/04/19 07:45 Intake & Output 09/03/19 09/04/19 09/04/19 18:59 06:59 18:59 Intake Total 1500 1440 Balance 1500 1440 Intake: Intake, IV Titration 650 900 Amount Sodium Chloride 0.9% 1, 900 000 ml @ 75 mls/hr IV . [id number] [facility] Rx#:[id number] Sodium Chloride 0.9% 50 600 ml @ 0 mls/hr IV .STK-MED ONE with ceFAZolin 1,000 mg Rx#:[id number] ceFAZolin 2 gm In Sodium 50 Chloride 0.9% 50 ml @ 100 mls/hr IVPB Q8HR [facility] Rx# :[id number] Oral 850 540 Other: Voiding Method Urinal Urinal Urinal Incontinent # Voids 3 2 # Bowel Movements 1 - Exam Right lower extremity: Incision is clean, dry, and intact. The exofin fusion tape is in good condition. There is minimal soft tissue swelling and ecchymosis surrounding the medial and lateral aspects of the incision. Calf is soft, no tenderness with palpation. Plantar flexion, dorsiflexion, EHL, FHL are intact. Sensory exam to light touch throughout the extremity is intact, dorsal pedis pulses 2+. - Labs CBC & Chem 7: 09/03/19 07:53 09/01/19 12:57 Assessment and Plan Plan: Assessment: Postoperative day #2 status post right hip hemiarthroplasty Plan: Pain control Weight-bear as tolerated with walker GI and DVT prophylaxis, continue current medication Other hospitalist medical director recommendations Admission will be changed to internal medicine We'll continue to follow patient during inpatient stay Time with Patient: Less than 30
[2019-09-04] MEDS: SODIUM CHLORIDE 0.9% 1,000 ML IV SCH (12:58)
[2019-09-04] MEDS: COLLAGENASE 250 UNIT/GM OINTMENT 30 GM TUBE TOPICAL SCH (13:42)
--- NOTE | 2019-09-04 17:13 | PN ---
PROGRESS NOTE CHIEF COMPLAINT: Status post right hip fracture, DTs. HISTORY OF PRESENT ILLNESS: This gentleman is going into DTs. He is agitated and confused. He has not had any seizures. PHYSICAL EXAM: Cardiac exam is normal. Chest is clear. Abdomen is soft, nontender. He has been complaining of shortness of breath. IMPRESSION: 1. Status post ORIF of the right hip. 2. Alcoholism. 3. Delirium tremens. 4. Shortness of breath. PLAN: 1. Continue with CIWA protocol. 2. Continue to monitor his neurologic status and laboratory findings until he is cleared his delirium. MMODL / IJN: [id number] /
[2019-09-04] MEDS: SENNOSIDES-DOCUSATE SODIUM 1 EACH TAB PO SCH (20:39)
[2019-09-05] MEDS: THIAMINE 100 MG TAB PO SCH ×2 (08:20→16:52)
[2019-09-05] MEDS: MULTIVITAMINS, THERA 1 EACH TAB PO SCH (08:20)
[2019-09-05] MEDS: NICOTINE 21MG/24HR PATCH TRANSDERM SCH (08:20)
[2019-09-05] MEDS: HEPARIN SODIUM,PORCINE 5,000 UNIT/ML 1 ML VIAL SQ SCH ×2 (08:20→21:42)
[2019-09-05] MEDS: ASPIRIN 81 MG PO SCH (08:20)
[2019-09-05] MEDS: METOPROLOL TARTRATE 25 MG TAB PO SCH ×2 (08:20→21:42)
[2019-09-05] MEDS: HYDROcodone/APAP 5-325MG 1 EACH TAB PO PRN (08:32)
[2019-09-05] MEDS: COLLAGENASE 250 UNIT/GM OINTMENT 30 GM TUBE TOPICAL SCH (10:07)
--- NOTE | 2019-09-05 10:34 | P.PN ---
Subjective Progress Note Date: 09/05/19 Principal diagnosis: Status post right hip hemiarthroplasty Patient evaluated at bedside today, he is resting comfortably. Denies any chest pain or shortness of breath. Objective - Vital Signs Vital signs: Vital Signs Temp 97.6 F 09/05/19 04:45 Pulse 95 09/05/19 04:45 Resp 20 09/05/19 04:45 BP 130/85 09/05/19 04:45 Pulse Ox 92 L 09/05/19 04:45 Intake & Output 09/04/19 09/05/19 09/05/19 18:59 06:59 18:59 Intake Total 160 300 Balance 160 300 Intake: Intake, IV Titration 160 Amount Sodium Chloride 0.9% 1, 160 000 ml @ 20 mls/hr IV . Q24H [facility] Rx#:[id number] Oral 300 Other: Voiding Method Urinal Urinal Incontinent # Voids 1 # Bowel Movements 1 2 - Exam Right lower extremity: Incision is clean, dry, and intact. The exofin fusion tape is in good condition. There is minimal soft tissue swelling and ecchymosis surrounding the medial and lateral aspects of the incision. Calf is soft, no tenderness with palpation. Plantar flexion, dorsiflexion, EHL, FHL are intact. Sensory exam to light touch throughout the extremity is intact, dorsal pedis pulses 2+. - Labs CBC & Chem 7: 09/03/19 07:53 09/01/19 12:57 Assessment and Plan Plan: Assessment: Postoperative day #3 status post right hip hemiarthroplasty Plan: Pain control Weight-bear as tolerated with walker GI and DVT prophylaxis, continue current medication Other medical practice assistant recommendations Orthopedically stable, signing of patient. Contact [facility] for any questions Time with Patient: Less than 30
[2019-09-05 11:28] LABS: Basophils % (A) 0 %; Eosinophils % (A) 0 %; Lymphocytes # (A) 1.1 k/uL (1.0-4.8); Lymphocytes % (A) 9 %; MCH 36.7 pg (25.0-35.0); MCHC 32.5 g/dL (31.0-37.0); Macrocytosis Marked; Monocytes # (A) 0.9 k/uL (0-1.0); Monocytes % (A) 8 %; Neutrophils # (A) 9.4 k/uL (1.3-7.7); Neutrophils % (A) 80 %; Platelet Count 178 k/uL (150-450); RBC 3.28 m/uL (4.30-5.90); WBC 11.8 k/uL (3.8-10.6)
[2019-09-05] MEDS: SODIUM CHLORIDE 0.9% 1,000 ML IV SCH (13:33)
--- NOTE | 2019-09-05 14:10 | PN ---
PROGRESS NOTE CHIEF COMPLAINT: Status post right hip fracture, alcoholism and DTs. HISTORY OF PRESENT ILLNESS: This gentleman seems to be doing fairly well and seems reasonably well oriented. He will be going to a [facility] once he leaves. PHYSICAL EXAMINATION: Vital signs are normal and he is afebrile. Chest is clear. Cardiac exam is normal. Abdomen is soft and nontender. The left leg is being dressed. IMPRESSION: 1. Fracture of the right hip. 2. Chronic alcoholism. 3. Delirium tremens. 4. Infected wound to the left doe. 5. Postop ORIF of the right hip. 6. PVOD. PLAN: Continue current management until he is stable enough to be discharged to the [facility]. MMLADONNAL / IJN: [id number] /
--- NOTE | 2019-09-05 21:35 | P.PN ---
Subjective Progress Note Date: 09/05/19 On this is a 69-year-old male presented to the hospital after multiple falls and found to have a right femoral neck fracture apparently from a slip and fall in his garage. He has had previous falls sustaining wound to the left pretibial area. P repeat apparently patient has been weak and falling for long period of time. Patient states he is lightheaded and dizzy when the falls occur. He denies any loss of consciousness. Patient is status post right hip arthroplasty completed on September [address] Malcolm. Patient is not with social work regarding subacute rehab and daughter will be contacted for plan. Patient has been afebrile, initial white count 12.7 repeat at 10.4, sodium 129, BUN 11 creatinine 0.72, blood sugar 138, CK 565, AST 83, ALT 56, alkaline phosphatase 152, total bilirubin 2.8. No cultures have been obtained. Chest x-ray shows no acute process. The patient does have history of smoking 1 pack per day since he was 16 years of age. He also has history of alcohol abuse and drinks 3 beers and a half pint of whiskey per day. His last alcohol intake was on Sunday. He also smokes marijuana on a daily basis. Patient also has [facility] 2015 under the care of Dr. 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 It appears the patient stopped coming to the [facility] in June 2016 09/05/2019 the patient relates that he's feeling better. He feels stronger. The wound is not hurting and finds wound care to have helped with the discomfort. He is not having fevers or chills his appetite has improved. Objective - Vital Signs Vital signs: Vital Signs Temp 98.6 F 09/05/19 13:02 Pulse 90 09/05/19 13:25 Resp 18 09/05/19 13:25 BP 122/83 09/05/19 13:02 Pulse Ox 93 L 09/05/19 16:37 Intake & Output 09/05/19 09/05/19 09/06/19 06:59 18:59 06:59 Intake Total 700 Balance 700 Intake: Intake, IV Titration 400 Amount Sodium Chloride 0.9% 50 400 ml @ 0 mls/hr IV .STK-MED ONE with ceFAZolin 1,000 mg Rx#:[id number] Oral 300 Other: Voiding Method Urinal Urinal # Voids 1 # Bowel Movements 1 2 # Emeses 1 - Exam Gen: This is a 69-year-old male. He is resting in bed and appears to be uncomfortable secondary to pain to the right hip HEENT: Head is atraumatic, normocephalic. Pupils equal, round. Sclerae is anicteric. NECK: Supple. No JVD. No lymphadenopathy. No thyromegaly. LUNGS: Clear to auscultation. No wheezes or rhonchi. No intercostal retract ions. HEART: Regular rate and rhythm. No murmur. Tachycardic. ABDOMEN: Soft. Bowel sounds are present. No masses. No tenderness. Visible veins across the abdomen. EXTREMITIES: No pedal edema. No calf tenderness. Dorsalis pedis 1+ bilaterally. Right hip has a large dressing in place with no breakthrough drainage or bleeding. Patient has a large ulcer to the left pretibial area that appears to be a shearing-type injury. No active leading. No surrounding erythema or edema. No foul odor. Wound was present on admission. And today with the local wound care is showing improvement and is less tender. NEUROLOGICAL: Patient is awake, alert and oriented x3 - Labs CBC & Chem 7: 09/05/19 10:01 09/01/19 12:57 Labs: Abnormal Lab Results - Last 24 Hours (Table) 09/05/19 Range/Units 10:01 WBC 11.8 H (3.8-10.6) k/uL RBC 3.28 L (4.30-5.90) m/uL Hgb 12.0 L (13.0-17.5) gm/dL Hct 37.0 L (39.0-53.0) % MCV 113.0 H (80.0-100.0) fL MCH 36.7 H (25.0-35.0) pg Neutrophils # 9.4 H (1.3-7.7) k/uL Macrocytosis Marked A Laboratory Results WBC 11.8 k/uL (3.8-10.6) H 09/05/19 10:01 RBC 3.28 m/uL (4.30-5.90) L 09/05/19 10:01 Hgb 12.0 gm/dL (13.0-17.5) L 09/05/19 10:01 Hct 37.0 % (39.0-53.0) L 09/05/19 10:01 MCV 113.0 fL (80.0-100.0) H 09/05/19 10:01 MCH 36.7 pg (25.0-35.0) H 09/05/19 10:01 MCHC 32.5 g/dL (31.0-37.0) 09/05/19 10:01 RDW 13.0 % (11.5-15.5) 09/05/19 10:01 Plt Count 178 k/uL (150-450) 09/05/19 10:01 Neutrophils % 80 % 09/05/19 10:01 Lymphocytes % 9 % 09/05/19 10:01 Monocytes % 8 % 09/05/19 10:01 Eosinophils % 0 % 09/05/19 10:01 Basophils % 0 % 09/05/19 10:01 Neutrophils # 9.4 k/uL (1.3-7.7) H 09/05/19 10:01 Lymphocytes # 1.1 k/uL (1.0-4.8) 09/05/19 10:01 Monocytes # 0.9 k/uL (0-1.0) 09/05/19 10:01 Eosinophils # 0.0 k/uL (0-0.7) 09/05/19 10:01 Basophils # 0.0 k/uL (0-0.2) 09/05/19 10:01 Macrocytosis Marked A 09/05/19 10:01 PT 12.5 sec (9.0-12.0) H 09/02/19 10:30 INR 1.2 (<1.2) H 09/02/19 10:30 APTT 32.1 sec (22.0-30.0) H 09/02/19 10:30 Sodium 129 mmol/L (137-145) L 09/01/19 12:57 Potassium 4.5 mmol/L (3.5-5.1) 09/01/19 12:57 Chloride 95 mmol/L (98-107) L 09/01/19 12:57 Carbon Dioxide 25 mmol/L (22-30) 09/01/19 12:57 Anion Gap 9 mmol/L 09/01/19 12:57 BUN 11 mg/dL (9-20) 09/01/19 12:57 Creatinine 0.72 mg/dL (0.66-1.25) 09/01/19 12:57 Est GFR (CKD-EPI)AfAm >90 (>60 ml/min/1.73 sqM) 09/01/19 12:57 Est GFR (CKD-EPI)NonAf >90 (>60 ml/min/1.73 sqM) 09/01/19 12:57 Glucose 138 mg/dL (74-99) H 09/01/19 12:57 Calcium 8.3 mg/dL (8.4-10.2) L 09/01/19 12:57 Total Bilirubin 2.8 mg/dL (0.2-1.3) H 09/01/19 12:57 AST 83 U/L (17-59) H 09/01/19 12:57 ALT 56 U/L (21-72) 09/01/19 12:57 Alkaline Phosphatase 152 U/L (38-126) H 09/01/19 12:57 Creatine Kinase 565 U/L (55-170) H 09/01/19 12:57 Total Protein 5.7 g/dL (6.3-8.2) L 09/01/19 12:57 Albumin 2.6 g/dL (3.5-5.0) L 09/01/19 12:57 Urine Color Light Brown 09/02/19 00:11 Urine Appearance Cloudy (Clear) 09/02/19 00:11 Urine pH 5.5 (5.0-8.0) 09/02/19 00:11 Ur Specific [place] 1.020 (1.001-1.035) 09/02/19 00:11 Urine Protein Trace (Negative) H 09/02/19 00:11 Urine Glucose (UA) Negative (Negative) 09/02/19 00:11 Urine Ketones Negative (Negative) 09/02/19 00:11 Urine Blood Negative (Negative) 09/02/19 00:11 Urine Nitrite Negative (Negative) 09/02/19 00:11 Urine Bilirubin 1+ (Negative) H 09/02/19 00:11 Urine Urobilinogen 6.0 mg/dL (<2.0) 09/02/19 00:11 Ur Leukocyte Esterase Negative (Negative) 09/02/19 00:11 Urine RBC 1 /hpf (0-5) 09/02/19 00:11 Urine WBC 2 /hpf (0-5) 09/02/19 00:11 Hyaline Casts 8 /lpf (0-2) H 09/02/19 00:11 Urine Mucus Few /hpf (None) H 09/02/19 00:11 Assessment and Plan (1) Fracture of femoral neck, right Current Visit: Yes Status: Acute Code(s): S72.001A - FRACTURE OF UNSP PART OF NECK OF RIGHT FEMUR, INIT SNOMED Code(s): 9612998 (2) Abrasion of left lower extremity Narrative/Plan: 69-year-old male who has had multiple falls he barely had a fall in his garage into his leg was seen in the emergency center went home and apparently he then suffered another fall which point in time he suffered the right femoral neck fracture requiring the intramedullary nailing performed yesterday evening. His of the patient has many medical troubles he is a chronic tobacco user is also a chronic alcohol user a daily basis. CIWA protocol has been put into place. The patient is awake and alert but withdrawn it is not a good historian. Relates that his pain however is under good control. The ulceration left leg is evaluated is a full-thickness ulceration with some slough the base. There is cleansed with saline and the calcium alginate silver dressing is applied to the area was with saline over with ABD pad and the rolled gauze to keep in place. The site does not appear to be infected. Silver dressing will be a topical antimicrobial that should help with the bioburden. The patient does have significant peripheral vascular disease and certainly is at risk of nonhealing of this ulceration. Optimization is occurring in that he is no longer smoking and nicotine patches been utilized. Protein supplementation is being utilized to try to improve his protein level and a multivitamin is utilized also. After discharge would be happy to follow him in the wound healing Center. 09/05/2019 the patient is starting to feel somewhat better. His discomfort from the right hip fracture is improving in the wound is feeling better. Tolerating care well. Tolerating the nicotine patch. Appetite is slightly improved withou t nausea or diarrhea. No fevers or chills. The topical antimicrobial silver dressing is utilized at this time. Current Visit: No Status: Acute Code(s): S80.812A - ABRASION, LEFT LOWER LEG, INITIAL ENCOUNTER SNOMED Code(s): 133108381 (3) Alcohol use disorder, moderate, dependence Current Visit: No Status: Acute Code(s): F10.20 - ALCOHOL DEPENDENCE, UNCOMPLICATED SNOMED Code(s): 497157128
[2019-09-05] MEDS: SENNOSIDES-DOCUSATE SODIUM 1 EACH TAB PO SCH (21:42)
[2019-09-06] MEDS: MORPHINE SULFATE 4 MG/ML SYRINGE IV PRN (09:32)
[2019-09-06] MEDS: METOPROLOL TARTRATE 25 MG TAB PO SCH ×2 (09:33→20:11)
[2019-09-06] MEDS: ASPIRIN 81 MG PO SCH (09:33)
[2019-09-06] MEDS: THIAMINE 100 MG TAB PO SCH ×2 (09:33→17:28)
[2019-09-06] MEDS: NICOTINE 21MG/24HR PATCH TRANSDERM SCH (09:33)
[2019-09-06] MEDS: MULTIVITAMINS, THERA 1 EACH TAB PO SCH (09:33)
[2019-09-06] MEDS: HEPARIN SODIUM,PORCINE 5,000 UNIT/ML 1 ML VIAL SQ SCH ×2 (09:33→20:12)
[2019-09-06] MEDS: COLLAGENASE 250 UNIT/GM OINTMENT 30 GM TUBE TOPICAL SCH (09:39)
[2019-09-06] MEDS ORDERED: SENNOSIDES-DOCUSATE SODIUM 1 EACH TAB PO PRN (12:47)
[2019-09-06] MEDS ORDERED: LOPERAMIDE 2 MG CAP PO PRN (12:49)
[2019-09-06] MEDS ORDERED: TEMAZEPAM 7.5 MG CAP PO PRN (12:50)
[2019-09-06] MEDS: HYDROcodone/APAP 5-325MG 1 EACH TAB PO PRN (12:59)
--- NOTE | 2019-09-06 14:05 | PN ---
PROGRESS NOTE I am covering for Dr. Tan. DATE OF SERVICE: 09/06/2019 HISTORY OF PRESENT ILLNESS: This 69-year-old gentleman who was admitted after right hip fracture is slated to go to rehab. The patient is complaining of some diarrhea. The patient was also seen by Orthopedic Surgery as well as Infectious Disease and Cardiology as well. The patient also has some abrasion of the left lower extremity and alcohol abuse disorder with moderate dependency. The labs showed WBC 11.8, hemoglobin 12.9 with marked macrocytosis. Past medical history reviewed. REVIEW OF SYSTEMS: CARDIOVASCULAR SYSTEM: No angina, palpitations. RESPIRATORY SYSTEM: As mentioned earlier. GI: As mentioned earlier. : No dysuria or retention. MUSCULOSKELETAL: As mentioned earlier. CURRENT MEDICATIONS: Reviewed. They include: 1. Tylenol 650 q.6 p.r.n. 2. [place] 5 mg q.6 p.r.n. 3. Aspirin 81 mg daily. 4. Santyl 1 application daily. 5. Heparin. 6. Imodium p.r.n. 7. Ativan. 8. Lopressor. 9. Multivitamins. 10.Narcan. 11.Habitrol. 12.Senokot-S. 13.Restoril. 14.Ultram. PHYSICAL EXAMINATION: Patient is alert, oriented x2. Pulse 94, blood pressure 122/79, respiration 18, temperature 97.3, pulse ox 90% on room air. HEENT: Conjunctivae normal. NECK: No jugular venous distention. CARDIOVASCULAR SYSTEM: S1, S2 muffled. RESPIRATORY SYSTEM: Breath sounds diminished at the bases. A few scattered rhonchi. No crackles. ABDOMEN: Soft, non-tender. LEGS: Status post surgery. NERVOUS SYSTEM: No focal deficit. LABS: WBC 11.8, hemoglobin 12 and MCV 113. ASSESSMENT: 1. Acute right hip fracture, status post right hip hemiarthroplasty, press-fit. 2. Chronic alcoholism. 3. Acute delirium tremens. 4. Infected wound of the left doe. 5. Anemia. 6. Increased mean corpuscular volume. 7. Possible alcoholic hepatitis, present on admission. 8. Diarrhea, for evaluation. RECOMMENDATIONS AND DISCUSSION: I recommend to continue current medications, continue with the monitoring, symptomatic treatment. I recommend C difficile evaluation. If negative, recommend Imodium p.r.n. Closely follow with multiple consultants. Continue with the PT/OT evaluation. Orthopedic followup and ECF rehab on Sunday. Dr. Tan will follow on Sunday. MMODL / IJN: [id number] /
[2019-09-06] MEDS: SODIUM CHLORIDE 0.9% 1,000 ML IV SCH (17:45)
[2019-09-07] MEDS: COLLAGENASE 250 UNIT/GM OINTMENT 30 GM TUBE TOPICAL SCH (08:09)
[2019-09-07 08:17] LABS: Basophils % (A) 0 %; Eosinophils # (A) 0.1 k/uL (0-0.7); Eosinophils % (A) 1 %; HCT 39.5 % (39.0-53.0); HGB 13.3 gm/dL (13.0-17.5); Lymphocytes # (A) 1.6 k/uL (1.0-4.8); Lymphocytes % (A) 15 %; MCH 36.2 pg (25.0-35.0); MCHC 33.7 g/dL (31.0-37.0); Macrocytosis Moderate; Mean Platelet Volume 6.8; Monocytes # (A) 0.8 k/uL (0-1.0); Monocytes % (A) 7 %; Neutrophils # (A) 7.9 k/uL (1.3-7.7); Neutrophils % (A) 74 %; Platelet Count 218 k/uL (150-450); RBC 3.67 m/uL (4.30-5.90); RDW 13.3 % (11.5-15.5); WBC 10.7 k/uL (3.8-10.6)
[2019-09-07] MEDS: MULTIVITAMINS, THERA 1 EACH TAB PO SCH (08:18)
[2019-09-07] MEDS: HYDROcodone/APAP 5-325MG 1 EACH TAB PO PRN ×2 (08:18→17:32)
[2019-09-07] MEDS: THIAMINE 100 MG TAB PO SCH ×2 (08:19→17:29)
[2019-09-07] MEDS: NICOTINE 21MG/24HR PATCH TRANSDERM SCH (08:19)
[2019-09-07] MEDS: ASPIRIN 81 MG PO SCH (08:19)
[2019-09-07] MEDS: HEPARIN SODIUM,PORCINE 5,000 UNIT/ML 1 ML VIAL SQ SCH ×2 (08:19→20:27)
[2019-09-07] MEDS: METOPROLOL TARTRATE 25 MG TAB PO SCH ×2 (08:20→20:26)
[2019-09-07 08:35] LABS: MCV 107.6 fL (80.0-100.0)
[2019-09-07] MEDS: SODIUM CHLORIDE 0.9% 1,000 ML IV SCH (11:40)
[2019-09-07] MEDS: traMADol 50 MG TAB PO PRN ×2 (11:42→20:27)
--- NOTE | 2019-09-07 12:38 | PN ---
PROGRESS NOTE CHIEF COMPLAINT: Status post right hip fracture. HISTORY OF PRESENT ILLNESS: This gentleman is fairly stable, but the relative insists that he is quite confused. He is not complaining of any headache and there is no history of head trauma. REVIEW OF SYSTEMS: He has states that he is doing well. He seems to be oriented. Sensory motor exam Is normal and gaze is conjugate. Chest is clear. Cardiac exam is normal. Abdomen is soft nontender and dressing on the left leg is dry as well as on the right hip. IMPRESSION: 1. Fracture right hip. 2. Alcoholism. 3. Delirium tremens. 4. Mental status changes. PLAN: 1. CT with and without contrast as requested by the daughter. 2. Ensure 3 times a day. 3. Await discharge planning to senior care. LUIS ANTONIO / NEMESION: [id number] /
--- NOTE | 2019-09-07 13:54 | CT ---
EXAMINATION TYPE: CT brain wo/w con DATE OF EXAM: 09/07/2019 COMPARISON: Previous study dated 07/22/2018. HISTORY: Confusion CT DLP: 2108.4 mGycm Automated exposure control for dose reduction was used. FINDINGS: There are generalized changes of sulcal prominence and ventriculomegaly, compatible with atrophic sandra nge. There is diffuse periventricular white matter lucency, compatible with small vessel ischemic sandra nge. There is no acute focal lesion, mass effect or midline shift identified. I do not see evidence o f intracranial blood. Visualized portions of the paranasal sinuses and mastoids are clear. The bony calvarium is intact. IMPRESSION: 1. NO ACUTE INTRACRANIAL ABNORMALITY. 2. DEGENERATIVE CHANGE.
[2019-09-08] MEDS: ASPIRIN 81 MG PO SCH (07:39)
[2019-09-08] MEDS: METOPROLOL TARTRATE 25 MG TAB PO SCH ×2 (07:39→20:58)
[2019-09-08] MEDS: NICOTINE 21MG/24HR PATCH TRANSDERM SCH (07:39)
[2019-09-08] MEDS: THIAMINE 100 MG TAB PO SCH ×2 (07:40→18:14)
[2019-09-08] MEDS: HEPARIN SODIUM,PORCINE 5,000 UNIT/ML 1 ML VIAL SQ SCH ×2 (07:40→20:58)
[2019-09-08] MEDS: MULTIVITAMINS, THERA 1 EACH TAB PO SCH (07:40)
[2019-09-08] MEDS: SODIUM CHLORIDE 0.9% 1,000 ML IV SCH (07:41)
--- NOTE | 2019-09-08 12:16 | PN ---
PROGRESS NOTE CHIEF COMPLAINT: Fracture of the right hip, alcoholism and confusion. HISTORY OF PRESENT ILLNESS: This gentleman seems to be doing fairly well, but the family members state that he is still confused. They requested a CT of the head and this was done and demonstrated no abnormalities. PHYSICAL EXAMINATION: Breath sounds are good on both sides. The cardiac exam is normal. The abdomen is soft, nontender. IMPRESSION: 1. Fracture of the right hip. 2. Cellulitis and infected wound the left doe. 3. Alcoholism. 4. Chronic obstructive pulmonary disease. 5. Encephalopathy. PLAN: No change in program and he can probably go to the snf today or tomorrow. MMODL / IJN: [id number] /
[2019-09-08] MEDS: COLLAGENASE 250 UNIT/GM OINTMENT 30 GM TUBE TOPICAL SCH (13:04)
[2019-09-08] MEDS: traMADol 50 MG TAB PO PRN (13:13)
[2019-09-08 14:06] VITALS: BMI 23.6
--- NOTE | 2019-09-08 16:33 | CDI ---
Documentation Clarification Form Date: 09/08/2019 4:14:39 PM From: Yaima Avina RN CCDS Admit Date: 09/01/2019 2:54:00 PM Patient Name: Arun Recinos Visit Number: [id number] Discharge Date: ATTENTION: The Clinical Documentation Specialists (CDI) and [facility] Coding Staff appreciate your assistance in clarifying documentation. Please respond to the clarification below the line at the bottom and electronically sign. The CDI & [facility] Coding staff will review the response and follow-up if needed. Please note: Queries are made part of the Legal Health Record. If you have any questions, please contact the author of this message via ITS. Dr. Nolberto Tan Encephalopathy is documented in your progress note 09/08/2019 History/Risk Factors: 69-year-old male presents to the ED after a fall with right femoral neck fracture. Medical History CAD, CVA, DVT, HTN , Vascular disorder Clinical Indicators: Per Internal Medicine Progress note Dr. Aggarwal 09/06/2019 possible alcoholic hepatitis, present on admission. Labs: Wbc 10.7; Neutrophils # 7.9; CT Brain: No acute intracranial abnormality Treatment: CT of the Brain In your professional opinion, can you please clarify the specific type of Encephalopathy, if known? Metabolic Encephalopathy possible due to Toxic Encephalopathy possible due to Hepatic Encephalopathy possible due to alcoholic hepatitis Other, please specify Unable to determine (Last Revision: February 2018) MTDD
[2019-09-09] MEDS: HYDROcodone/APAP 5-325MG 1 EACH TAB PO PRN ×3 (08:40→21:09)
[2019-09-09] MEDS: THIAMINE 100 MG TAB PO SCH ×2 (08:53→17:48)
[2019-09-09] MEDS: ASPIRIN 81 MG PO SCH (09:15)
[2019-09-09] MEDS: METOPROLOL TARTRATE 25 MG TAB PO SCH ×2 (09:16→21:09)
[2019-09-09] MEDS: HEPARIN SODIUM,PORCINE 5,000 UNIT/ML 1 ML VIAL SQ SCH ×2 (09:16→21:09)
[2019-09-09] MEDS: MULTIVITAMINS, THERA 1 EACH TAB PO SCH (09:17)
[2019-09-09] MEDS: NICOTINE 21MG/24HR PATCH TRANSDERM SCH (09:18)
[2019-09-09] MEDS: COLLAGENASE 250 UNIT/GM OINTMENT 30 GM TUBE TOPICAL SCH (09:37)
[2019-09-09] MEDS: SODIUM CHLORIDE 0.9% 1,000 ML IV SCH (12:01)
--- NOTE | 2019-09-09 13:09 | DS ---
DISCHARGE SUMMARY DATE OF SERVICE: 09/09/2019 CHIEF COMPLAINT: Fracture right hip. HISTORY OF PRESENT ILLNESS AND PHYSICAL EXAM: Details of this man's history and physical can be found in the initial workup. COURSE IN HOSPITAL: After admission, he was placed on bedrest, started on intravenous fluids. Because of his DTs and an infection on his left doe, it was recommended that his surgery be postponed. However, he went ahead and had an uneventful ORIF of the right hip. Postoperatively, he did go into DTs. This has subsequently subsided. He gradually became more awake and alert. However, it was clear that he was not going to be able to recover at home alone and that he would likely start drinking again. Arrangements were made for him to go to [facility] and he was to be transferred there on 09/09/2019. FINAL DIAGNOSES: 1. Fracture of the right hip. 2. Infected abrasions and cellulitis of the left doe. 3. Chronic alcoholism. 4. Delirium tremens. OPERATIONS: ORIF of the right hip. CONSULTATIONS: Cardiology. He is improved. MMODL / IJN: [id number] /
--- NOTE | 2019-09-09 21:55 | P.PN ---
Subjective Progress Note Date: 09/09/19 On this is a 69-year-old male presented to the hospital after multiple falls and found to have a right femoral neck fracture apparently from a slip and fall in his garage. He has had previous falls sustaining wound to the left pretibial area. P repeat apparently patient has been weak and falling for long period of time. Patient states he is lightheaded and dizzy when the falls occur. He denies any loss of consciousness. Patient is status post right hip arthroplasty completed on September [address] Malcolm. Patient is not with social work regarding subacute rehab and daughter will be contacted for plan. Patient has been afebrile, initial white count 12.7 repeat at 10.4, sodium 129, BUN 11 creatinine 0.72, blood sugar 138, CK 565, AST 83, ALT 56, alkaline phosphatase 152, total bilirubin 2.8. No cultures have been obtained. Chest x-ray shows no acute process. The patient does have history of smoking 1 pack per day since he was 16 years of age. He also has history of alcohol abuse and drinks 3 beers and a half pint of whiskey per day. His last alcohol intake was on Sunday. He also smokes marijuana on a daily basis. Patient also [facility] 2015 under the care of Dr. 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 It appears the patient stopped coming [facility] in June 2016 09/05/2019 the patient relates that he's feeling better. He feels stronger. The wound is not hurting and finds wound care to have helped with the discomfort. He is not having fevers or chills his appetite has improved. 09/09/2019 the patient is starting to feel better his pain is better controlled and is tolerating local wound care which is with the Aquacel silver dressing being changed every Sunday. He is denying fevers or chills and his appetite has improved he is eating without nausea or emesis. Objective - Vital Signs Vital signs: Vital Signs Temp 97.8 F 09/09/19 11:36 Pulse 91 09/09/19 11:36 Resp 18 09/09/19 11:36 BP 119/67 09/09/19 11:36 Pulse Ox 91 L 09/09/19 11:36 Intake & Output 09/09/19 09/09/19 09/10/19 06:59 18:59 06:59 Intake Total 600 840 600 Output Total 300 2 301 Balance 300 838 299 Intake: Intake, IV Titration 120 Amount Sodium Chloride 0.9% 1, 120 000 ml @ 20 mls/hr IV . Q24H [facility] Rx#:[id number] Oral 480 840 600 Output: Urine 300 300 Stool 2 1 Other: Voiding Method Bedpan Bedpan Urinal Urinal Diaper Incontinent # Voids 1 2 2 - Exam Gen: This is a 69-year-old male. He is resting in bed and appears to be uncomfortable secondary to pain to the right hip HEENT: Head is atraumatic, normocephalic. Pupils equal, round. Sclerae is anicteric. NECK: Supple. No JVD. No lymphadenopathy. No thyromegaly. LUNGS: Clear to auscultation. No wheezes or rhonchi. No intercostal retractions. HEART: Regular rate and rhythm. No murmur. Tachycardic. ABDOMEN: Soft. Bowel sounds are present. No masses. No tenderness. Visible veins across the abdomen. EXTREMITIES: No pedal edema. No calf tenderness. Dorsalis pedis 1+ b ilaterally. Right hip has a large dressing in place with no breakthrough drainage or bleeding. Patient has a large ulcer to the left pretibial area that appears to be a shearing-type injury. There is no bleeding at the site. No surrounding erythema or edema. No foul odor. Wound was present on admission. And today with the local wound care is showing improvement and is less tender. NEUROLOGICAL: Patient is awake, alert and oriented x3 - Labs CBC & Chem 7: 09/07/19 07:30 09/01/19 12:57 Labs: Laboratory Results WBC 10.7 k/uL (3.8-10.6) H 09/07/19 07:30 RBC 3.67 m/uL (4.30-5.90) L 09/07/19 07:30 Hgb 13.3 gm/dL (13.0-17.5) 09/07/19 07:30 Hct 39.5 % (39.0-53.0) 09/07/19 07:30 MCV 107.6 fL (80.0-100.0) H D 09/07/19 07:30 MCH 36.2 pg (25.0-35.0) H 09/07/19 07:30 MCHC 33.7 g/dL (31.0-37.0) 09/07/19 07:30 RDW 13.3 % (11.5-15.5) 09/07/19 07:30 Plt Count 218 k/uL (150-450) 09/07/19 07:30 Neutrophils % 74 % 09/07/19 07:30 Lymphocytes % 15 % 09/07/19 07:30 Monocytes % 7 % 09/07/19 07:30 Eosinophils % 1 % 09/07/19 07:30 Basophils % 0 % 09/07/19 07:30 Neutrophils # 7.9 k/uL (1.3-7.7) H 09/07/19 07:30 Lymphocytes # 1.6 k/uL (1.0-4.8) 09/07/19 07:30 Monocytes # 0.8 k/uL (0-1.0) 09/07/19 07:30 Eosinophils # 0.1 k/uL (0-0.7) 09/07/19 07:30 Basophils # 0.0 k/uL (0-0.2) 09/07/19 07:30 Macrocytosis Moderate 09/07/19 07:30 PT 12.5 sec (9.0-12.0) H 09/02/19 10:30 INR 1.2 (<1.2) H 09/02/19 10:30 APTT 32.1 sec (22.0-30.0) H 09/02/19 10:30 Sodium 129 mmol/L (137-145) L 09/01/19 12:57 Potassium 4.5 mmol/L (3.5-5.1) 09/01/19 12:57 Chloride 95 mmol/L (98-107) L 09/01/19 12:57 Carbon Dioxide 25 mmol/L (22-30) 09/01/19 12:57 Anion Gap 9 mmol/L 09/01/19 12:57 BUN 11 mg/dL (9-20) 09/01/19 12:57 Creatinine 0.72 mg/dL (0.66-1.25) 09/01/19 12:57 Est GFR (CKD-EPI)AfAm >90 (>60 ml/min/1.73 sqM) 09/01/19 12:57 Est GFR (CKD-EPI)NonAf >90 (>60 ml/min/1.73 sqM) 09/01/19 12:57 Glucose 138 mg/dL (74-99) H 09/01/19 12:57 Calcium 8.3 mg/dL (8.4-10.2) L 09/01/19 12:57 Total Bilirubin 2.8 mg/dL (0.2-1.3) H 09/01/19 12:57 AST 83 U/L (17-59) H 09/01/19 12:57 ALT 56 U/L (21-72) 09/01/19 12:57 Alkaline Phosphatase 152 U/L (38-126) H 09/01/19 12:57 Creatine Kinase 565 U/L (55-170) H 09/01/19 12:57 Total Protein 5.7 g/dL (6.3-8.2) L 09/01/19 12:57 Albumin 2.6 g/dL (3.5-5.0) L 09/01/19 12:57 Urine Color Light Brown 09/02/19 00:11 Urine Appearance Cloudy (Clear) 09/02/19 00:11 Urine pH 5.5 (5.0-8.0) 09/02/19 00:11 Ur Specific [place] 1.020 (1.001-1.035) 09/02/19 00:11 Urine Protein Trace (Negative) H 09/02/19 00:11 Urine Glucose (UA) Negative (Negative) 09/02/19 00:11 Urine Ketones Negative (Negative) 09/02/19 00:11 Urine Blood Negative (Negative) 09/02/19 00:11 Urine Nitrite Negative (Negative) 09/02/19 00:11 Urine Bilirubin 1+ (Negative) H 09/02/19 00:11 Urine Urobilinogen 6.0 mg/dL (<2.0) 09/02/19 00:11 Ur Leukocyte Esterase Negative (Negative) 09/02/19 00:11 Urine RBC 1 /hpf (0-5) 09/02/19 00:11 Urine WBC 2 /hpf (0-5) 09/02/19 00:11 Hyaline Casts 8 /lpf (0-2) H 09/02/19 00:11 Urine Mucus Few /hpf (None) H 09/02/19 00:11 Assessment and Plan (1) Fracture of femoral neck, right Current Visit: Yes Status: Acute Code(s): S72.001A - FRACTURE OF UNSP PART OF NECK OF RIGHT FEMUR, INIT SNOMED Code(s): 3485688 (2) Abrasion of left lower extremity Narrative/Plan: 69-year-old male who has had multiple falls he barely had a fall in his garage into his leg was seen in the emergency center went home and apparently he then suffered another fall which point in time he suffered the right femoral neck fracture requiring the intramedullary nailing performed yesterday evening. His of the patient has many medical troubles he is a chronic tobacco user is also a chronic alcohol user a daily basis. CIWA protocol has been put into place. The patient is awake and alert but withdrawn it is not a good historian. Relates that his pain however is under good control. The ulceration left leg is evaluated is a full-thickness ulceration with some slough the base. There is c leansed with saline and the calcium alginate silver dressing is applied to the area was with saline over with ABD pad and the rolled gauze to keep in place. The site does not appear to be infected. Silver dressing will be a topical antimicrobial that should help with the bioburden. The patient does have significant peripheral vascular disease and certainly is at risk of nonhealing of this ulceration. Optimization is occurring in that he is no longer smoking and nicotine patches been utilized. Protein supplementation is being utilized to try to improve his protein level and a multivitamin is utilized also. After discharge would be happy to follow him in the wound healing Center. 09/05/2019 the patient is starting to feel somewhat better. His discomfort from the right hip fracture is improving in the wound is feeling better. Tolerating care well. Tolerating the nicotine patch. Appetite is slightly improved without nausea or diarrhea. No fevers or chills. The topical antimicrobial silver dressing is utilized at this time. 09/15/2019 H and has had further improvement. He's done well with the nicotine patch. Local care with the antimicrobial silver dressing is helping. His evidence of any extensive infection and no need for antibiotic therapy. The silver dressing reduce his bioburden and enhance his healing. If his discharge soon as possible he could always see us in the wound healing Center. Current Visit: No Status: Acute Code(s): S80.812A - ABRASION, LEFT LOWER LEG, INITIAL ENCOUNTER SNOMED Code(s): 222788213 (3) Alcohol use disorder, moderate, dependence Current Visit: No Status: Acute Code(s): F10.20 - ALCOHOL DEPENDENCE, UNCOMPLICATED SNOMED Code(s): 025243079
[2019-09-10] MEDS: HEPARIN SODIUM,PORCINE 5,000 UNIT/ML 1 ML VIAL SQ SCH (09:34)
[2019-09-10] MEDS: THIAMINE 100 MG TAB PO SCH (09:34)
[2019-09-10] MEDS: ASPIRIN 81 MG PO SCH (09:34)
[2019-09-10] MEDS: METOPROLOL TARTRATE 25 MG TAB PO SCH (09:35)
[2019-09-10] MEDS: MULTIVITAMINS, THERA 1 EACH TAB PO SCH (09:35)
[2019-09-10] MEDS: COLLAGENASE 250 UNIT/GM OINTMENT 30 GM TUBE TOPICAL SCH (09:35)
[2019-09-10] MEDS: HYDROcodone/APAP 5-325MG 1 EACH TAB PO PRN (09:35)
[2019-09-10] MEDS: SODIUM CHLORIDE 0.9% 1,000 ML IV SCH (09:36)
[2019-09-10] MEDS: NICOTINE 21MG/24HR PATCH TRANSDERM SCH (09:48)
--- NOTE | 2019-09-10 11:52 | PN ---
PROGRESS NOTE DATE OF SERVICE: 09/10/2019 Patient is still in the hospital. He was [facility] to have [facility] to the [facility] yesterday. PHYSICAL EXAMINATION: He is awake and alert and there has been no interval change. He should be discharged today. MMIZAIAH / NEMESION: [id number] /
[2019-09-10 12:20] VITALS: BP 105/69; PULSE 93; RESP 16; TEMP 97.8
--- NOTE | 2019-09-22 10:09 | CDI ---
Documentation Clarification Form Date: 09/08/2019 4:14:39 PM From: Yaima Avina RN CCDS Admit Date: 09/01/2019 2:54:00 PM Patient Name: Arun Recinos Visit Number: [id number] Discharge Date: ATTENTION: The Clinical Documentation Specialists (CDI) and [facility] Coding Staff appreciate your assistance in clarifying documentation. Please respond to the clarification below the line at the bottom and electronically sign. The CDI & [facility] Coding staff will review the response and follow-up if needed. Please note: Queries are made part of the Legal Health Record. If you have any questions, please contact the author of this message via ITS. Dr. Nolberto Tan Encephalopathy is documented in your progress note 09/08/2019 History/Risk Factors: 69-year-old male presents to the ED after a fall with right femoral neck fracture. Medical History CAD, CVA, DVT, HTN , Vascular disorder Clinical Indicators: Per Internal Medicine Progress note Dr. Aggarwal 09/06/2019 possible alcoholic hepatitis, present on admission. Labs: Wbc 10.7; Neutrophils # 7.9; CT Brain: No acute intracranial abnormality Treatment: CT of the Brain In your professional opinion, can you please clarify the specific type of Encephalopathy, if known? Metabolic Encephalopathy possible due to Toxic Encephalopathy possible due to Hepatic Encephalopathy possible due to alcoholic hepatitis Other, please specify Unable to determine (Last Revision: February 2018) MTDD
--- NOTE | 2019-09-29 07:57 | CDI ---
Documentation Clarification Form Date: 09/08/2019 4:14:39 PM From: Yaima Avina RN CCDS Admit Date: 09/01/2019 2:54:00 PM Patient Name: Arun Recinos Visit Number: [id number] Discharge Date: ATTENTION: The Clinical Documentation Specialists (CDI) and [facility] Coding Staff appreciate your assistance in clarifying documentation. Please respond to the clarification below the line at the bottom and electronically sign. The CDI & [facility] Coding staff will review the response and follow-up if needed. Please note: Queries are made part of the Legal Health Record. If you have any questions, please contact the author of this message via ITS. Dr. Nolberto Tan Encephalopathy is documented in your progress note 09/08/2019 History/Risk Factors: 69-year-old male presents to the ED after a fall with right femoral neck fracture. Medical History CAD, CVA, DVT, HTN , Vascular disorder Clinical Indicators: Per Internal Medicine Progress note Dr. Aggarwal 09/06/2019 possible alcoholic hepatitis, present on admission. Labs: Wbc 10.7; Neutrophils # 7.9; CT Brain: No acute intracranial abnormality Treatment: CT of the Brain In your professional opinion, can you please clarify the specific type of Encephalopathy, if known? Metabolic Encephalopathy possible due to Toxic Encephalopathy possible due to Hepatic Encephalopathy possible due to alcoholic hepatitis Other, please specify Unable to determine (Last Revision: February 2018) MTDD
--- NOTE | 2019-09-29 10:43 | MISC ---
MISCELLANOUS REPORT Metabolic encephalopathy due to alcoholism and delirium tremens. MMODL / IJN: [id number] /
== END 2019-09-10 14:41 | DRG 469 ==
LOC: EC 12:24 → 3NMEDONC 14:54
PROVIDERS: ADMIT Family Medicine; ATTEND Family Medicine
PROC: 0SRR0JA Replacement of Right Hip Joint, Femoral Surface with Synthetic Substitute, Uncemented, Open Approach (ICD-10-PCS; principal; 2019-09-02 17:40)
DX: S72.011A Unspecified intracapsular fracture of right femur, initial encounter for closed fracture (principal); G93.41 Metabolic encephalopathy; L03.116 Cellulitis of left lower limb; L97.822 Non-pressure chronic ulcer of other part of left lower leg with fat layer exposed; I70.92 Chronic total occlusion of artery of the extremities; E87.1 Hypo-osmolality and hyponatremia; F10.231 Alcohol dependence with withdrawal delirium; W18.30XA Fall on same level, unspecified, initial encounter; Z91.81 History of falling; R29.6 Repeated falls; I70.248 Atherosclerosis of native arteries of left leg with ulceration of other part of lower leg; D64.9 Anemia, unspecified; D75.89 Other specified diseases of blood and blood-forming organs; E78.5 Hyperlipidemia, unspecified; E86.0 Dehydration; F10.229 Alcohol dependence with intoxication, unspecified; F17.210 Nicotine dependence, cigarettes, uncomplicated; Z60.2 Problems related to living alone; F32.9 Major depressive disorder, single episode, unspecified; F41.9 Anxiety disorder, unspecified; I10 Essential (primary) hypertension; I25.10 Atherosclerotic heart disease of native coronary artery without angina pectoris; J44.9 Chronic obstructive pulmonary disease, unspecified; Y92.015 Private garage of single-family (private) house as the place of occurrence of the external cause; Z79.82 Long term (current) use of aspirin; Z79.899 Other long term (current) drug therapy; Z82.49 Family history of ischemic heart disease and other diseases of the circulatory system; Z86.718 Personal history of other venous thrombosis and embolism; Z86.73 Personal history of transient ischemic attack (TIA), and cerebral infarction without residual deficits; Z95.1 Presence of aortocoronary bypass graft; Z96.652 Presence of left artificial knee joint; R33.9 Retention of urine, unspecified; R26.9 Unspecified abnormalities of gait and mobility; Z95.828 Presence of other vascular implants and grafts
CPT/HCPCS: 36415; 70470; 71045; 72110; 73501; 73502; 80053; 81001; 82550; 85025; 85610; 85730; 88305; 88311; 93005; 93306; 94760; 96361; 96374; 99283; 99285

== ENCOUNTER 2019-09-27 18:29 | Emergency (ER) | payer MEDICARE ==
[2019-09-27 18:43] VITALS: RESP 18
--- NOTE | 2019-09-27 18:47 | ED ---
Abdominal Pain HPI - General Chief Complaint: Abdominal Pain Stated Complaint: Constipation Time Seen by Provider: 09/27/19 18:35 Source: patient, EMS Mode of arrival: EMS Limitations: no limitations - History of Present Illness Initial Comments: Patient is a 69-year-old male presenting to the emergency department with a chief complaint of constipation. Patient reports he had a recent hip replacement and was given narcotic medication afterwards. Patient reports recently he was transferred to an assisted living facility after his hip replacement. Patient reports he has not had a bowel movement for about 7 days but he is not eating a lot. Patient does report abdominal distention. He denies any nausea vomiting or abdominal pain. Patient denies any urinary symptoms. he denies taking any medications to alleviate symptoms. Patient reports he was not discharged with stool softeners after his hip replacement. Patient is requesting an enema. Patient denies shortness of breath, cough, chest pain, chest tightness, chest palpitations or hemoptysis. - Related Data Home Medications Medication Instructions Recorded Confirmed Aspirin EC [Ecotrin Low Dose] 81 mg PO DAILY 08/31/19 09/27/19 Furosemide [Lasix] 20 mg PO DAILY 09/27/19 09/27/19 Hydrocodone/Acetaminophen [[place] 1 - 2 tab PO Q6HR PRN 09/27/19 09/27/19 5-325] Ibuprofen [Motrin Ib] 600 mg PO Q8H PRN 09/27/19 09/27/19 Thiamine [Vitamin B-1] 100 mg PO BID 09/27/19 09/27/19 Previous Rx's Medication Instructions Recorded Metoprolol Tartrate [Lopressor] 25 mg PO BID #60 tab 09/09/19 Allergies Allergy/AdvReac Type Severity Reaction Status Date / Time No Known Allergies Allergy Verified 09/27/19 19:02 Review of Systems ROS Statement: Those systems with pertinent positive or pertinent negative responses have been documented in the HPI. ROS Other: All systems not noted in ROS Statement are negative. Past Medical History Past Medical History: Coronary Artery Disease (CAD), CVA/TIA, Deep Vein Thrombosis (DVT), Hyperlipidemia, Hypertension, Vascular Disorder Additional Past Medical History / Comment(s): right leg DVT, PVD, TIA 2015, HAD A NON HEALING WOUND LT LEG-HAD SKIN GRAFTING.has no circulation left leg on 100 percent blocked from groin to mid doe tried to do cath and was unable to History of Any Multi-Drug Resistant Organisms: None Reported Past Surgical History: Coronary Bypass/CABG, Heart Catheterization, Joint Replacement, Orthopedic Surgery Additional Past Surgical History / Comment(s): left knee replacement, left foot surgery, stent to right leg, CABG 12/2014, 4 bypass, aortogram, [facility], SKIN GRAFTING LT LEG Past Anesthesia/Blood Transfusion Reactions: No Reported Reaction Past Psychological History: Anxiety, Depression Smoking Status: Current every day smoker Past Alcohol Use History: Daily, Heavy Past Drug Use History: Marijuana - Past Family History Father Family Medical History: Myocardial Infarction ([place]) Mother Family Medical History: No Reported History General Exam Limitations: no limitations General appearance: alert, in no apparent distress Head exam: Present: atraumatic, normocephalic, normal inspection Eye exam: Present: normal appearance Pupils: Present: normal accommodation ENT exam: Present: normal exam, normal oropharynx, mucous membranes moist, TM's normal bilaterally, normal external ear exam Neck exam: Present: normal inspection, full ROM Respiratory exam: Present: normal lung sounds bilaterally Cardiovascular Exam: Present: regular rate, normal rhythm, normal heart sounds GI/Abdominal exam: Present: distended, normal bowel sounds. Absent: tenderness, guarding, rebound, rigid Extremities exam: Present: normal inspection (Surgery right hip), normal capillary refill, pedal edema (Bilateral lower extremity), other. Absent: calf tenderness (Negative Homans bilaterally) Back exam: Present: normal inspection, full ROM Neurological exam: Present: alert, oriented X3 Psychiatric exam: Present: normal affect, normal mood Skin exam: Present: warm, intact, normal color Course Vital Signs 09/27/19 09/27/19 09/27/19 18:32 21:07 21:35 Temperature 98.0 F 98.3 F Pulse Rate 100 78 79 Respiratory 18 18 18 Rate Blood Pressure 123/86 120/74 122/74 O2 Sat by Pulse 98 98 98 Oximetry Medical Decision Making - Medical Decision Making Patient is 69-year-old male presenting to emergency Department with a chief complaint of constipation. Patient has not had a bowel movement in 7 days. KUB is indicative of mild to moderate stool burden with no signs of obstruction. Patient given soapsuds enema and he was able to have a small bowel movement. There is a mild decrease in abdominal distention. Patient prescribed 30 days' worth of stool softeners. Strict return parameters were thoroughly discussed the patient is understanding and agreeable. Case discussed with physician. Disposition Clinical Impression: Constipation Disposition: HOME SELF-CARE Condition: Stable Instructions (If sedation given, give patient instructions): Constipation (DC), High Fiber Diet (ED) Additional Instructions: Please eat a high-fiber diet. Please take prescribed medication as directed. Please follow up with primary care. Please return to emergency department if symptoms worsen. Is patient prescribed a controlled substance at d/c from ED?: No Referrals: Nolberto Tan MD [Primary Care Provider] - 1-2 days Time of Disposition: 20:59
--- NOTE | 2019-09-27 19:04 | XR ---
EXAMINATION TYPE: XR KUB DATE OF EXAM: 09/27/2019 COMPARISON: NONE HISTORY: Constipation TECHNIQUE: 2 views upright FINDINGS: There is no sign of intestinal obstruction or pneumoperitoneum. Fecal pattern is normal. Th ere are sternal wires. There is slight blunting of the costophrenic angles. There are no pathologic c alcifications over the kidneys. There is a right hip prosthesis. IMPRESSION: Nonacute abdomen. No significant constipation. There is some pleural reaction and atelec tasis at the lung bases.
--- NOTE | 2019-09-27 20:07 | MISC ---
MISCELLANOUS REPORT Toxic encephalopathy due to overdose. MMODL / IJN: [id number] /
[2019-09-27 22:03] VITALS: BP 122/74; PULSE 79; TEMP 98.3
== END 2019-09-27 21:36 | disposition home or self-care (01) ==
LOC: EC 18:29
DX: K59.00 Constipation, unspecified (principal); I25.10 Atherosclerotic heart disease of native coronary artery without angina pectoris; I10 Essential (primary) hypertension; E78.5 Hyperlipidemia, unspecified; F41.9 Anxiety disorder, unspecified; F32.9 Major depressive disorder, single episode, unspecified; I73.9 Peripheral vascular disease, unspecified; F17.200 Nicotine dependence, unspecified, uncomplicated; Z79.82 Long term (current) use of aspirin; Z79.899 Other long term (current) drug therapy; Z95.1 Presence of aortocoronary bypass graft; Z96.652 Presence of left artificial knee joint; Z96.649 Presence of unspecified artificial hip joint; Z86.73 Personal history of transient ischemic attack (TIA), and cerebral infarction without residual deficits; Z86.718 Personal history of other venous thrombosis and embolism
CPT/HCPCS: 74018; 99284

== ENCOUNTER 2019-10-13 14:30 | Inpatient (IN) | payer MEDICARE, OTHER ==
[2019-10-13 15:35] LABS: Basophils # (A) 0.4 k/uL (0-0.2); Basophils % (A) 4 %; Eosinophils # (A) 0.1 k/uL (0-0.7); Eosinophils % (A) 1 %; HCT 45.1 % (39.0-53.0); HGB 14.6 gm/dL (13.0-17.5); Lymphocytes # (A) 2.5 k/uL (1.0-4.8); Lymphocytes % (A) 20 %; MCH 31.7 pg (25.0-35.0); MCHC 32.3 g/dL (31.0-37.0); Mean Platelet Volume 7.5; Monocytes % (A) 8 %; Neutrophils % (A) 65 %; Platelet Count 365 k/uL (150-450); RBC 4.59 m/uL (4.30-5.90); RDW 12.7 % (11.5-15.5); WBC 12.2 k/uL (3.8-10.6)
[2019-10-13 15:43] LABS: MCV 98.3 fL (80.0-100.0)
[2019-10-13 15:46] LABS: ALT 23 U/L (21-72); AST 35 U/L (17-59); African American GFR (CKD) >90 (>60 ml/min/1.73 sqM); Albumin 2.7 g/dL (3.5-5.0); Alkaline Phosphatase 122 U/L (38-126); Anion Gap 10 mmol/L; Blood Urea Nitrogen 5 mg/dL (9-20); Calcium 8.5 mg/dL (8.4-10.2); Carbon Dioxide 25 mmol/L (22-30); Chloride 98 mmol/L (98-107); Glucose 128 mg/dL (74-99); Non-African American GFR(CKD) >90 (>60 ml/min/1.73 sqM); Potassium 4.3 mmol/L (3.5-5.1); Sodium 133 mmol/L (137-145); Total Bilirubin 1.5 mg/dL (0.2-1.3)
[2019-10-13 15:47] LABS: INR 1.1 (<1.2); Partial Thromboplastin Time 25.8 sec (22.0-30.0); Prothrombin Time 11.7 sec (9.0-12.0)
[2019-10-13 16:02] LABS: Ammonia <9 umol/L (<30)
[2019-10-13 16:05] LABS: Lactic Acid, Venous 3.8 mmol/L (0.7-2.0)
[2019-10-13] MEDS ORDERED: SODIUM CHLORIDE 0.9% 1,000 ML IV ONE (16:08)
--- NOTE | 2019-10-13 16:38 | ED ---
General Adult HPI - General Chief complaint: Syncope Stated complaint: near syncope Time Seen by Provider: 10/13/19 14:35 Source: patient, EMS Mode of arrival: EMS Limitations: no limitations - History of Present Illness Initial comments: The patient is a 69-year-old male who presents to the emergency department accompanied by his daughter. Daughter provides the history. The patient was recently hospitalized after a fall he sustained while intoxicated. He did have a right hip fracture which was replaced. The patient then went to rehab and was just discharged from the [facility] on Sunday. He states that since the patient has been home he has had difficulty getting around. 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 She states that he's had confusion since prior to his hospitalization however it seems to be getting worse. She denies any new falls. Today the patient was in bed when he reported the sensation as if he was going to pass out. He told his home care nurse who got hold of the patient's daughter was at work. She came home and states that his breathing seemed more labored than normal. The patient is reporting to right hip pain. He is confused and asking his daughter questions such as "when am I going to have my surgery." The remainder of the HPI is limited because the patient's current confused state - Related Data Home Medications Medication Instructions Recorded Confirmed Aspirin EC [Ecotrin Low Dose] 81 mg PO DAILY 08/31/19 10/13/19 Thiamine [Vitamin B-1] 100 mg PO BID 09/27/19 10/13/19 Previous Rx's Medication Instructions Recorded Metoprolol Tartrate [Lopressor] 25 mg PO BID #60 tab 09/09/19 Amoxic-Pot Clav 875-125Mg 1 tab PO Q12HR #10 tablet 10/17/19 [Augmentin 875-125] Famotidine [Pepcid] 20 mg PO BID tab 10/17/19 Furosemide [Lasix] 40 mg PO DAILY #0 10/17/19 Lactulose [Cephulac] 30 gm PO DAILY #30 ml 10/17/19 Spironolactone [Aldactone] 50 mg PO DAILY #30 tab 10/17/19 Allergies Allergy/AdvReac Type Severity Reaction Status Date / Time No Known Allergies Allergy Verified 10/13/19 16:41 Review of Systems ROS Statement: Those systems with pertinent positive or pertinent negative responses have been documented in the HPI. ROS Other: All systems not noted in ROS Statement are negative. Past Medical History Past Medical History: Coronary Artery Disease (CAD), CVA/TIA, Deep Vein Thrombosis (DVT), Hyperlipidemia, Hypertension, Vascular Disorder Additional Past Medical History / Comment(s): right leg DVT, PVD, TIA 2015, HAD A NON HEALING WOUND LT LEG-HAD SKIN GRAFTING.has no circulation left leg on 100 percent blocked from groin to mid doe tried to do cath and was unable to History of Any Multi-Drug Resistant Organisms: None Reported Past Surgical History: Coronary Bypass/CABG, Heart Catheterization, Joint Replacement, Orthopedic Surgery Additional Past Surgical History / Comment(s): left knee replacement, left foot surgery, stent to right leg, CABG 12/2014, 4 bypass, aortogram, WOUND CLINIC, SKIN GRAFTING LT LEG Past Anesthesia/Blood Transfusion Reactions: No Reported Reaction Past Psychological History: Anxiety, Depression Smoking Status: Current every day smoker Past Alcohol Use History: Daily, Heavy Past Drug Use History: Marijuana - Past Family History Father Family Medical History: Myocardial Infarction ([place]) Mother Family Medical History: No Reported History General Exam Limitations: altered mental status General appearance: alert, in no apparent distress Head exam: Present: atraumatic, normocephalic Eye exam: Present: normal appearance, PERRL, EOMI ENT exam: Present: normal exam Neck exam: Present: normal inspection. Absent: tenderness, meningismus Respiratory exam: Present: normal lung sounds bilaterally, wheezes, rales, accessory muscle use. Absent: respiratory distress, rhonchi Cardiovascular Exam: Present: normal rhythm, tachycardia GI/Abdominal exam: Present: soft, distended, other (fluid wave). Absent: tenderness, guarding, rebound, rigid Extremities exam: Present: tenderness (to palpation of the right hip) Back exam: Present: normal inspection Neurological exam: Present: alert, other (oriented x2. Follows commands. Moves all extremies. No ataxia noted. ) Skin exam: Present: warm, dry, other (open ulcer left heel. Surrounding cellulitis) Course Vital Signs 10/13/19 10/13/19 10/13/19 14:35 17:30 18:07 Temperature 97.5 F L Pulse Rate 111 H 101 H 78 Respiratory 20 Rate Blood Pressure 113/89 116/92 O2 Sat by Pulse 97 Oximetry 10/13/19 10/13/1910/13/19 18:21 18:30 19:00 Temperature Pulse Rate 80 106 H 103 H Respiratory Rate Blood Pressure 136/88 140/80 O2 Sat by Pulse 95 Oximetry EKG Findings - EKG Comments: EKG Findings:: EKG demonstrates a sinus tachycardia with a ventricular rate of 111. ME interval 122. QRS 92. QTC of 446. There is ST depressions in lead V2V3, 1 and aVL. There is Q-wave in the inferior leads. This is compared to patient's previous EKG in the ST depression is new. Procedures - [place] Protocol (Time Out) Nurse: Sharlene Talamantes Medical Decision Making - Medical Decision Making Upon arrival the patient was placed into room 8. A thorough history and physical exam is performed. The patient is noted to be tachycardic with an increased work of breathing. I did perform a DuoNeb breathing treatment. Peripheral IV is established. I recommended laboratory studies which demonstrated a white blood cell count of 12.2. D-dimer is elevated at 3.99. Coags are normal. CMP shows a sodium of 133, bilirubin of 1.5. Ammonia is less than 9 and first troponin is negative. Urinalysis is clean. Serum alcohol less than 10. I did CT the patient's head and cervical spine which demonstrates no acute intracranial process. Moderate diffuse atrophy. Mild spondylitic changes in the cervical spine. because of the patient's elevated d-dimer I did perform a set chest CT which demonstrates no evidence of PE. Moderate abdominal ascites an irregular small liver suggestive of cirrhosis. There is a right lower lobe consolidation and atelectasis. I performed a right hip x-ray because the patient's reported increased pain which demonstrates no acute abnormality to the right hip. I did start the patient on Zosyn and Vanco. He was given a 1 L fluid bolus followed by 75 mL per hour. He has not received any pain me dication since Sunday and therefore I do order pain medication for the patient. I discussed this with the patient's daughter who agreed to hospital admission. The patient was then transported to floor - Lab Data Result diagrams: 10/15/19 10:58 10/17/19 09:52 Lab Results 10/13/19 10/13/19 10/13/19 Range/Units 14:45 14:45 14:45 WBC 12.2 H (3.8-10.6) k/uL RBC 4.59 (4.30-5.90) m/uL Hgb 14.6 (13.0-17.5) gm/dL Hct 45.1 (39.0-53.0) % MCV 98.3 D (80.0-100.0) fL MCH 31.7 (25.0-35.0) pg MCHC 32.3 (31.0-37.0) g/dL RDW 12.7 (11.5-15.5) % Plt Count 365 (150-450) k/uL Neutrophils % 65 % Lymphocytes % 20 % Monocytes % 8 % Eosinophils % 1 % Basophils % 4 % Neutrophils # 8.0 H (1.3-7.7) k/uL Lymphocytes # 2.5 (1.0-4.8) k/uL Monocytes # 1.0 (0-1.0) k/uL Eosinophils # 0.1 (0-0.7) k/uL Basophils # 0.4 H (0-0.2) k/uL PT 11.7 (9.0-12.0) sec INR 1.1 (<1.2) APTT 25.8 (22.0-30.0) sec D-Dimer (<0.60) mg/L FEU Sodium 133 L (137-145) mmol/L Potassium 4.3 (3.5-5.1) mmol/L Chloride 98 (98-107) mmol/L Carbon Dioxide 25 (22-30) mmol/L Anion Gap 10 mmol/L BUN 5 L (9-20) mg/dL Creatinine 0.64 L (0.66-1.25) mg/dL Est GFR (CKD-EPI)AfAm >90 (>60 ml/min/1.73 sqM) Est GFR (CKD-EPI)NonAf >90 (>60 ml/min/1.73 sqM) Glucose 128 H (74-99) mg/dL Lactic Ac Sepsis Rflx Plasma Lactic Acid Taurus (0.7-2.0) mmol/L Calcium 8.5 (8.4-10.2) mg/dL Total Bilirubin 1.5 H (0.2-1.3) mg/dL AST 35 (17-59) U/L ALT 23 (21-72) U/L Alkaline Phosphatase 122 (38-126) U/L Ammonia (<30) umol/L Troponin I (0.000-0.034) ng/mL Total Protein 6.0 L (6.3-8.2) g/dL Albumin 2.7 L (3.5-5.0) g/dL Urine Color Urine Appearance (Clear) Urine pH (5.0-8.0) Ur Specific Merriman (1.001-1.035) Urine Protein (Negative) Urine Glucose (UA) (Negative) Urine Ketones (Negative) Urine Blood (Negative) Urine Nitrite (Negative) Urine Bilirubin (Negative) Urine Urobilinogen (<2.0) mg/dL Ur Leukocyte Esterase (Negative) Urine RBC (0-5) /hpf Urine WBC (0-5) /hpf Ur Squamous Epith Cells (0-4) /hpf Amorphous Sediment (None) /hpf Urine Mucus (None) /hpf 10/13/19 10/13/19 10/13/19 Range/Units 14:45 15:49 15:49 WBC (3.8-10.6) k/uL RBC (4.30-5.90) m/uL Hgb (13.0-17.5) gm/dL Hct (39.0-53.0) % MCV (80.0-100.0) fL MCH (25.0-35.0) pg MCHC (31.0-37.0) g/dL RDW (11.5-15.5) % Plt Count (150-450) k/uL Neutrophils % % Lymphocytes % % Monocytes % % Eosinophils % % Basophils % % Neutrophils # (1.3-7.7) k/uL Lymphocytes # (1.0-4.8) k/uL Monocytes # (0-1.0) k/uL Eosinophils # (0-0.7) k/uL Basophils # (0-0.2) k/uL PT (9.0-12.0) sec INR (<1.2) APTT (22.0-30.0) sec D-Dimer 3.99 H (<0.60) mg/L FEU Sodium (137-145) mmol/L Potassium (3.5-5.1) mmol/L Chloride (98-107) mmol/L Carbon Dioxide (22-30) mmol/L Anion Gap mmol/L BUN (9-20) mg/dL Creatinine (0.66-1.25) mg/dL Est GFR (CKD-EPI)AfAm (>60 ml/min/1.73 sqM) Est GFR (CKD-EPI)NonAf (>60 ml/min/1.73 sqM) Glucose (74-99) mg/dL Lactic Ac Sepsis Rflx Plasma Lactic Acid Taurus 3.8 H* (0.7-2.0) mmol/L Calcium (8.4-10.2) mg/dL Total Bilirubin (0.2-1.3) mg/dL AST (17-59) U/L ALT (21-72) U/L Alkaline Phosphatase (38-126) U/L Ammonia <9 (<30) umol/L Troponin I 0.013 (0.000-0.034) ng/mL Total Protein (6.3-8.2) g/dL Albumin (3.5-5.0) g/dL Urine Color Urine Appearance (Clear) Urine pH (5.0-8.0) Ur Specific Merriman (1.001-1.035) Urine Protein (Negative) Urine Glucose (UA) (Negative) Urine Ketones (Negative) Urine Blood (Negative) Urine Nitrite (Negative) Urine Bilirubin (Negative) Urine Urobilinogen (<2.0) mg/dL Ur Leukocyte Esterase (Negative) Urine RBC (0-5) /hpf Urine WBC (0-5) /hpf Ur Squamous Epith Cells (0-4) /hpf Amorphous Sediment (None) /hpf Urine Mucus (None) /hpf 10/13/19 10/13/19 Range/Units 16:06 17:02 WBC (3.8-10.6) k/uL RBC (4.30-5.90) m/uL Hgb (13.0-17.5) gm/dL Hct (39.0-53.0) % MCV (80.0-100.0) fL MCH (25.0-35.0) pg MCHC (31.0-37.0) g/dL RDW (11.5-15.5) % Plt Count (150-450) k/uL Neutrophils % % Lymphocytes % % Monocytes % % Eosinophils % % Basophils % % Neutrophils # (1.3-7.7) k/uL Lymphocytes # (1.0-4.8) k/uL Monocytes # (0-1.0) k/uL Eosinophils # (0-0.7) k/uL Basophils # (0-0.2) k/uL PT (9.0-12.0) sec INR (<1.2) APTT (22.0-30.0) sec D-Dimer (<0.60) mg/L FEU Sodium (137-145) mmol/L Potassium (3.5-5.1) mmol/L Chloride (98-107) mmol/L Carbon Dioxide (22-30) mmol/L Anion Gap mmol/L BUN (9-20) mg/dL Creatinine (0.66-1.25) mg/dL Est GFR (CKD-EPI)AfAm (>60 ml/min/1.73 sqM) Est GFR (CKD-EPI)NonAf (>60 ml/min/1.73 sqM) Glucose (74-99) mg/dL Lactic Ac Sepsis Rflx Y Plasma Lactic Acid Taurus (0.7-2.0) mmol/L Calcium (8.4-10.2) mg/dL Total Bilirubin (0.2-1.3) mg/dL AST (17-59) U/L ALT (21-72) U/L Alkaline Phosphatase (38-126) U/L Ammonia (<30) umol/L Troponin I (0.000-0.034) ng/mL Total Protein (6.3-8.2) g/dL Albumin (3.5-5.0) g/dL Urine Color Yellow Urine Appearance Cloudy (Clear) Urine pH 7.5 (5.0-8.0) Ur Specific Merriman 1.012 (1.001-1.035) Urine Protein Negative (Negative) Urine Glucose (UA) Negative (Negative) Urine Ketones Negative (Negative) Urine Blood Negative (Negative) Urine Nitrite Negative (Negative) Urine Bilirubin Negative (Negative) Urine Urobilinogen <2.0 (<2.0) mg/dL Ur Leukocyte Esterase Negative (Negative) Urine RBC <1 (0-5) /hpf Urine WBC 2 (0-5) /hpf Ur Squamous Epith Cells <1 (0-4) /hpf Amorphous Sediment Rare H (None) /hpf Urine Mucus Rare H (None) /hpf Disposition Clinical Impression: Acute respiratory insufficiency, HCAP (healthcare-associated pneumonia), Encephalopathy Disposition: ADMITTED IP TO THIS [facility] Condition: Serious Is patient prescribed a controlled substance at d/c from ED?: No Decision to Admit Reason: Admit from EC Decision Date: 10/13/19 Decision Time: 17:39
--- NOTE | 2019-10-13 16:49 | XR ---
EXAMINATION TYPE: XR Hip RT and AP Pelvis DATE OF EXAM: 10/13/2019 COMPARISON: 09/02/2019 HISTORY: Hip pain TECHNIQUE: A single AP view of the pelvis is obtained. Two views of the right hip are obtained. FINDINGS: There is a right hip prosthesis. Pelvic ring appears intact. I see no fracture nor dislocat ion. There is vascular calcification. There iliac artery stents. Sacroiliac joints are intact. IMPRESSION: No acute abnormality of the right hip. No fracture seen. No change.
--- NOTE | 2019-10-13 17:00 | CT ---
EXAMINATION TYPE: CT chest angio for PE DATE OF EXAM: 10/13/2019 COMPARISON: 07/03/2016 HISTORY: Post OP Hip replacement 1 month. Confusion and weakness. CT DLP: 478.7 mGycm Automated exposure control for dose reduction was used. CONTRAST: CT Chest for pulmonary embolism performed with with IV Contrast, patient injected with 100 mL of Isov ue 370. FINDINGS: There are 3-D post processed images. There is moderate right pleural effusion and right lower lobe consolidation and atelectasis. There is minimal atelectasis left lung base. Heart size is normal. There are a few mediastinal lymph nodes up to 1 cm. There are no hilar masses. There is normal contrast opacification of the pulmonary arteries . There are no filling defects. Thoracic aorta is intact. There is moderate ascites. Liver is somewhat small suggestive of cirrhosis. There is spondylotic change in the thoracic spine. IMPRESSION: No evidence of pulmonary embolism. Moderate abdominal ascites and irregular small liver suggestive of cirrhosis. Ascites and pleural fluid and right lower lobe consolidation and atelectasis are new compared to old exam.
--- NOTE | 2019-10-13 17:02 | CT ---
EXAMINATION TYPE: CT brain rudy braun DATE OF EXAM: 10/13/2019 COMPARISON: 07/22/2018 HISTORY: Post OP Hip replacement 1 month. Confusion and weakness. CT DLP: 1797.2 mGycm Automated exposure control for dose reduction was used. TECHNIQUE: CT scan of the head and cervical spine are performed without contrast. FINDINGS: There is moderate diffuse atrophy. There is no mass effect nor midline shift. There is no sign of intracranial hemorrhage. The calvarium is intact. Cervical vertebra have normal alignment. There is mild hypertrophic facet arthropathy. Posterior karuk ents are intact. Skull base is intact. There is no evidence of a fracture. I see no bony destructive process. IMPRESSION: Moderate diffuse atrophy. No acute intracranial abnormality. No change. Mild spondylotic changes in the cervical spine. No fracture.
--- NOTE | 2019-10-13 17:06 | XR ---
EXAMINATION TYPE: XR chest 2V DATE OF EXAM: 10/13/2019 COMPARISON: 09/02/2019 HISTORY: Hip pain chest pain. Syncope. TECHNIQUE: Frontal and lateral views of the chest are obtained. FINDINGS: There is blunting right costophrenic angle. There is some mild airspace infiltrate right l ower lobe. There are sternal wires. Left lung is clear. There is no heart failure. IMPRESSION: Compared to last exam there is new right small pleural effusion and right lower lobe inf iltrate. No heart failure seen.
[2019-10-13 17:07] LABS: Amorphous Sediment,Urine Rare /hpf; Appearance,Urine Cloudy (Clear); Bilirubin,Urine Negative (Negative); Blood,Urine Negative (Negative); Color,Urine Yellow; Glucose,Urine (UA) Negative (Negative); Ketones,Urine Negative (Negative); Leukocyte Esterase,Urine Negative (Negative); Mucus,Urine Rare /hpf; Nitrite,Urine Negative (Negative); PH, Urine 7.5 (5.0-8.0); Protein,Urine Negative (Negative); RBC,Urine <1 /hpf (0-5); Specific Gravity,Urine 1.012 (1.001-1.035); Squamous Epithelial Cell,Urine <1 /hpf (0-4); Urobilinogen,Urine <2.0 mg/dL (<2.0); WBC,Urine 2 /hpf (0-5)
[2019-10-13] MEDS ORDERED: VANCOMYCIN 1,500 MG in SODIUM CHLORIDE 0.9% 250 ML IVPB STA (17:08)
[2019-10-13] MEDS ORDERED: IPRATROPIUM-ALBUTEROL 3 ML NEB INHALATION STA (17:38)
[2019-10-13] MEDS ORDERED: NALOXONE 0.4 MG/ML 1 ML VIAL IV PRN (17:41)
[2019-10-13] MEDS ORDERED: HYDROcodone/APAP 5-325MG 1 EACH TAB PO PRN (17:42)
[2019-10-13] MEDS ORDERED: PIPERACILLIN-TAZOBACTAM 3.375 GM in SODIUM CHLORIDE 0.9% 100 ML IVPB SCH (18:30)
[2019-10-13] MEDS: SODIUM CHLORIDE 0.9% 1,000 ML IV SCH (18:54)
[2019-10-13] MEDS: METOPROLOL TARTRATE 25 MG TAB PO SCH (20:33)
[2019-10-13] MEDS: THIAMINE 100 MG TAB PO SCH (20:33)
[2019-10-14] MEDS ORDERED: HYDROcodone/APAP 5-325MG 1 EACH TAB ONE (00:20)
[2019-10-14] MEDS ORDERED: IPRATROPIUM-ALBUTEROL 3 ML NEB ONE (00:20)
[2019-10-14] MEDS: IPRATROPIUM-ALBUTEROL 3 ML NEB INHALATION SCH ×6 (05:32→20:32)
[2019-10-14] MEDS: PIPERACILLIN-TAZOBACTAM 3.375 GM in SODIUM CHLORIDE 0.9% 100 ML IVPB SCH ×3 (05:33→18:04)
[2019-10-14] MEDS: SODIUM CHLORIDE 0.9% 1,000 ML IV SCH ×2 (05:34→20:23)
[2019-10-14 06:27] LABS: Basophils # (A) 0.1 k/uL (0-0.2); Basophils % (A) 1 %; Eosinophils # (A) 0.1 k/uL (0-0.7); Eosinophils % (A) 1 %; HCT 38.7 % (39.0-53.0); HGB 12.6 gm/dL (13.0-17.5); Lymphocytes # (A) 1.9 k/uL (1.0-4.8); Lymphocytes % (A) 19 %; MCH 32.2 pg (25.0-35.0); MCHC 32.5 g/dL (31.0-37.0); Monocytes # (A) 0.8 k/uL (0-1.0); Monocytes % (A) 8 %; Neutrophils # (A) 7.3 k/uL (1.3-7.7); Neutrophils % (A) 70 %; Platelet Count 305 k/uL (150-450); RDW 12.7 % (11.5-15.5); WBC 10.4 k/uL (3.8-10.6)
[2019-10-14 06:29] LABS: African American GFR (CKD) >90 (>60 ml/min/1.73 sqM); Anion Gap 6 mmol/L; Blood Urea Nitrogen 7 mg/dL (9-20); Carbon Dioxide 25 mmol/L (22-30); Chloride 103 mmol/L (98-107); Glucose 97 mg/dL (74-99); Non-African American GFR(CKD) >90 (>60 ml/min/1.73 sqM); Potassium 3.8 mmol/L (3.5-5.1); Sodium 134 mmol/L (137-145)
[2019-10-14] MEDS: DOCUSATE 100 MG CAP PO SCH (09:14)
[2019-10-14] MEDS: METOPROLOL TARTRATE 25 MG TAB PO SCH ×2 (09:14→20:21)
[2019-10-14] MEDS: ASPIRIN 81 MG PO SCH (09:15)
[2019-10-14] MEDS: THIAMINE 100 MG TAB PO SCH ×2 (09:15→20:21)
--- NOTE | 2019-10-14 12:21 | PN ---
PROGRESS NOTE CHIEF COMPLAINT: Fever, shortness of breath, failure to thrive and alcoholism. HISTORY OF PRESENT ILLNESS: This gentleman seems stable. He seems alert. He is not complaining of any pain. PHYSICAL EXAMINATION: Chest demonstrates poor breath sounds with wheezes, rales and rhonchi scattered throughout. Cardiac exam demonstrates sinus tachycardia. The abdomen was protuberant and firm with ascites. Extremities were normal with the left leg being dressed. IMPRESSION: 1. Right lower lobe pneumonitis. 2. Chronic alcoholism. 3. Cirrhosis. 4. Ascites. 5. Recent fracture right hip. 6. Infected abrasion of the left doe. PLAN: 1. Local wound care. 2. Updrafts, IV fluids and antibiotics. 3. Physical therapy. 4. Discharge planning. 5. DNR. 6. Aldactazide orally. MMODL / IJN: [id number] /
--- NOTE | 2019-10-14 12:27 | HP ---
HISTORY AND PHYSICAL CHIEF COMPLAINT: Respiratory failure, bronchopneumonia, cirrhosis and failure to thrive with general debility. HISTORY OF PRESENT ILLNESS: This is another admission for this 69-year-old white male. He was admitted recently for alcoholism, fall with fracture of the right hip and wound infection of the left doe with cellulitis. He just was discharged from the longterm. Apparently, he is not doing well at home. His daughter brought him in. He is weak and unable to get about. In the emergency room, he was still very short of breath. Was found to have a bout of a right lower lobe pneumonia. The daughter feels that he cannot manage independently. He is probably developing an alcoholic encephalopathy. REVIEW OF SYSTEMS: He denies any focal neurologic deficits, change in vision or hearing, chest pain, palpitations, nausea, vomiting, hematemesis, melena, hematochezia, jaundice, and abdominal pain, etc. He does have abdominal distention. He has had no history of renal failure, dysuria, frequency, urgency, incontinence, etc. PAST MEDICAL HISTORY, FAMILY HISTORY, PERSONAL AND SOCIAL HISTORIES: Are all otherwise unchanged from his recent admitting and discharge summaries. He is apparently not drinking at home. PHYSICAL EXAMINATION: Blood pressure is 108/64 with a pulse of 107, regular, respirations of 36 and temperature 99. GENERAL: He appeared to be chronically ill. SKIN: Color seemed to be normal. The head, ears, eyes, nose, mouth, and throat were normal and pupils equal, round. Gaze was conjugate. NECK: Veins are not distended. Carotids normal. Chest demonstrated increased AP diameter with poor breath sounds bilaterally with scattered rales and rhonchi. There is some wheezing on expiration. Cardiac exam demonstrated tachycardia, but no murmurs or extra sounds. The abdomen is slightly protuberant and we suspect there was ascites. Bowel sounds present. Extremities: Normal except for the dressing on the left lower leg. Neurologically, she is to be intact. IMPRESSION: 1. Right lower lobe pneumonitis. 2. Chronic alcoholism. 3. Cirrhosis. 4. General debility. 5. Failure to thrive. 6. 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 PLAN: 1. Bed rest. 2. IV fluids. 3. IV antibiotics. 4. Updrafts. 5. Physical therapy consult. 6. Discharge planning. 7. Patient wants to be a NO CODE. MMODL / IJN: [id number] /
[2019-10-14] MEDS: SPIRONOLACTONE-HCTZ 25-25MG 1 EACH TAB PO SCH ×2 (12:33→20:21)
[2019-10-14 14:21] LABS: INR 1.2 (<1.2); Partial Thromboplastin Time 27.7 sec (22.0-30.0); Prothrombin Time 12.4 sec (9.0-12.0)
--- NOTE | 2019-10-14 14:45 | P.CON ---
Consult Note - . Consult date: 10/14/19 Assessment/Plan:: This is a 69-year-old male who is known to the wound care center with nonhealing ulcerations to the left anterior lower leg and the left calcaneus. The ulceration to the left anterior lower leg occurred after the patient suffe red a fall due to EtOH. The area has been treated with collagen. Also suffered a hip fracture due to a second fall. And developed a pressor ulceration to the left calcaneus. The left anterior lower extremity ulceration is caused by trauma, it measures approximately 9 x 92.2 x 0.1 cm. With fat layer exposure. There is no tunneling or undermining. The left calcaneus ulceration is due to pressure injury it measures approximately 3.9 x 4.1 x 0.1 cm. At that later exposure. There is no tunneling or undermining. Review of systems: Integumentary: Reports ulcerations, no new lesions, no pruritus, no ecchymosis Physical exam: Integumentary: See HPI Assessment/plan: 1. 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 Apply collagen, saline moistened gauze, dry gauze, rolled gauze and Tubigrip. Change Sunday. Continue with outpatient wound care when discharged.. 2. Pressure ulceration of left heel stage II. Apply honey alginate, saline was gauze, dry gauze, rolled gauze. Change Sunday. Continue with outpatient wound care when discharged. Continue with offloading utilize foam boots. Thank you for the consultation. Any questions please contact the wound care center. DNP note has been reviewed and discussed with Dr. Schneider and the impression and plan of care has been directed as dictated.
[2019-10-15] MEDS: IPRATROPIUM-ALBUTEROL 3 ML NEB INHALATION SCH ×6 (01:45→19:47)
[2019-10-15] MEDS: PIPERACILLIN-TAZOBACTAM 3.375 GM in SODIUM CHLORIDE 0.9% 100 ML IVPB SCH ×3 (02:52→17:29)
[2019-10-15] MEDS: THIAMINE 100 MG TAB PO SCH ×2 (07:57→20:22)
[2019-10-15] MEDS: METOPROLOL TARTRATE 25 MG TAB PO SCH ×2 (07:57→20:21)
[2019-10-15] MEDS: SPIRONOLACTONE-HCTZ 25-25MG 1 EACH TAB PO SCH ×2 (07:57→20:22)
[2019-10-15] MEDS: IBUPROFEN 600 MG TAB PO PRN (07:57)
[2019-10-15] MEDS: ASPIRIN 81 MG PO SCH (07:57)
[2019-10-15] MEDS: SODIUM CHLORIDE 0.9% 1,000 ML IV SCH ×2 (07:57→23:24)
[2019-10-15] MEDS: DOCUSATE 100 MG CAP PO SCH (07:57)
[2019-10-15 11:31] LABS: ALT 22 U/L (21-72); AST 26 U/L (17-59); African American GFR (CKD) >90 (>60 ml/min/1.73 sqM); Albumin 2.1 g/dL (3.5-5.0); Alkaline Phosphatase 91 U/L (38-126); Anion Gap 6 mmol/L; Blood Urea Nitrogen 6 mg/dL (9-20); Carbon Dioxide 26 mmol/L (22-30); Chloride 99 mmol/L (98-107); Glucose 149 mg/dL (74-99); Non-African American GFR(CKD) >90 (>60 ml/min/1.73 sqM); Potassium 3.7 mmol/L (3.5-5.1); Sodium 131 mmol/L (137-145); Total Protein 4.9 g/dL (6.3-8.2)
[2019-10-15 11:45] LABS: Basophils # (A) 0.1 k/uL (0-0.2); Basophils % (A) 1 %; Eosinophils # (A) 0.1 k/uL (0-0.7); Eosinophils % (A) 1 %; HCT 39.2 % (39.0-53.0); HGB 12.6 gm/dL (13.0-17.5); Lymphocytes # (A) 1.7 k/uL (1.0-4.8); Lymphocytes % (A) 16 %; MCH 31.5 pg (25.0-35.0); MCHC 32.2 g/dL (31.0-37.0); MCV 97.8 fL (80.0-100.0); Mean Platelet Volume 7.1; Monocytes # (A) 0.8 k/uL (0-1.0); Monocytes % (A) 8 %; Neutrophils # (A) 7.8 k/uL (1.3-7.7); Neutrophils % (A) 73 %; Platelet Count 320 k/uL (150-450); RBC 4.01 m/uL (4.30-5.90); RDW 12.7 % (11.5-15.5); WBC 10.8 k/uL (3.8-10.6)
--- NOTE | 2019-10-15 12:32 | PN ---
PROGRESS NOTE CHIEF COMPLAINT: Respiratory failure, pneumonitis and alcoholism. HISTORY OF PRESENT ILLNESS: This gentleman is doing fairly well. His temperature has been down. Vital signs are normal. He would like to go home. REVIEW OF SYSTEMS: He has no other complaints. PHYSICAL EXAMINATION: Chest is quite clear. Cardiac exam is normal. Abdomen is slightly protuberant, soft and nontender. There are no masses or visceromegaly. Extremities are normal except for the left leg and heel. IMPRESSION: 1. Pneumonitis. 2. Alcoholism. 3. Cirrhosis. 4. Infected abrasion of the left doe. PLAN: Continue with management. He would like to go home, but the daughter is being very demanding and wants a "ultrasound of the liver and liver studies:", or she will change doctors. He is also being assessed by discharge planning. MMODL / IJN: [id number] /
--- NOTE | 2019-10-15 14:06 | US ---
EXAMINATION TYPE: US liver DATE OF EXAM: 10/15/2019 COMPARISON: CTA chest 2 days ago. CLINICAL HISTORY: Liver cirrhosis . ABN CT EXAM MEASUREMENTS: Liver Length: 11.4 cm Gallbladder Wall: 1.0 cm CBD: 0.5 cm Right Kidney: 10.8 x 4.6 x 5.4 cm Pancreas: not visualized due to midline bowel gas Liver: surrounded by fluid Gallbladder: thickened wall, no stones seen Evidence for sonographic De La Rosa's sign: No CBD: wnl Right Kidney: No hydronephrosis or masses seen Patient has a broken hip and is unable to roll on side. Suboptimal due to body habitus and patient's inability to move due to hip fracture for ideal imaging. Pancreas suboptimally evaluated on ultrasound shows mild generalized atrophy on CT. Visualized liver is markedly heterogeneously hyperechoic with surrounding ascites. No intrahepatic ductal dilatation. Evaluation for focal masses suboptimal due to the heterogeneity. Moderate Ascites is present also in the right lower quadrant. Gallbladder has thickened wall without intraluminal gallstones may be prod uct of underlying liver disease. IMPRESSION: Confirmation of cirrhotic liver and surrounding ascites extending into the right lower qu adrant
--- NOTE | 2019-10-15 15:32 | XR ---
EXAMINATION TYPE: XR chest 2V DATE OF EXAM: 10/15/2019 COMPARISON: Prior chest x-ray 10/13/[address] 10/13/2019 HISTORY: COPD, abnormal chest x-ray TECHNIQUE: Frontal and lateral views of the chest are obtained. FINDINGS: Persistent abnormal increased density at the right lung base is noted. No evident pneumoth orax. Lesion is post median sternotomy. Cardiomediastinal silhouette, pulmonary vascularity and capo are stable. There are overlying cardiac leads. Left lung is well aerated. Prominent lung volume is co nsistent with underlying COPD, there is emphysema. There is thoracic spondylosis. IMPRESSION: Probable right lower lobe atelectasis versus pneumonia and associated effusion.
--- NOTE | 2019-10-15 15:39 | US ---
EXAMINATION TYPE: US paracentesis abd w/image DATE OF EXAM: 10/15/2019 COMPARISON: NONE HISTORY: Ascites. PROCEDURE: Maximal barrier technique was utilized. The skin overlying a suitable pocket of fluid was localized with ultrasound and the overlying skin was prepped and draped. Ultrasound was utilized with sterile technique. Lidocaine was used for local anesthesia and a skin hitesh made with a scalpel. Catheter was advanced under direct ultrasound guidance into a suitable pocket of fluid and approximately 3.5 liter s of serous fluid were removed. Catheter was withdrawn and hemostasis achieved. There is no immedia te complication; the patient is discharged in stable condition. IMPRESSION: STATUS POST ULTRASOUND GUIDED PARACENTESIS FOR PALLIATION OF ASCITES. THIS PROCEDURE WA S PERFORMED BY THE UNDERSIGNED. Specimen sent for laboratory analysis.
[2019-10-15 16:16] LABS: Appearance,BF Hazy; Color,BF Yellow; Nucleated Cells, Body Fluid 198 /uL
[2019-10-15 16:17] LABS: RBC, Body Fluid 20 /uL
[2019-10-15 16:18] LABS: Mononuclear WBC,Body Fluid 91 %; Polynuclear WBC,Body Fluid 9 %; Total Cells Counted,Body Fluid 100
[2019-10-15 20:01] LABS: Hepatitis A Antibody IgM Non-Reactive (Non-Reactive); Hepatitis B Core IgM Non-Reactive (Non-Reactive); Hepatitis B Surface Antigen Non-Reactive (Non-Reactive); Hepatitis C IgG Antibody Non-Reactive (Non-Reactive)
[2019-10-15] MEDS ORDERED: IPRATROPIUM-ALBUTEROL 3 ML NEB INHALATION PRN (20:16)
[2019-10-16 00:16] LABS: Total Protein, Body Fluid 530 mg/dL
[2019-10-16] MEDS: PIPERACILLIN-TAZOBACTAM 3.375 GM in SODIUM CHLORIDE 0.9% 100 ML IVPB SCH ×3 (02:02→19:24)
[2019-10-16 07:59] LABS: Albumin 2.2 g/dL (3.5-5.0); Bilirubin, Delta 0.5 mg/dL (0.0-0.2); Bilirubin,Unconjugated 0.4 mg/dL (0.0-1.1); Total Bilirubin 0.9 mg/dL (0.2-1.3); Total Protein 4.9 g/dL (6.3-8.2)
[2019-10-16] MEDS: IPRATROPIUM-ALBUTEROL 3 ML NEB INHALATION SCH ×4 (08:15→20:33)
[2019-10-16] MEDS: IBUPROFEN 600 MG TAB PO PRN (08:42)
[2019-10-16] MEDS: SPIRONOLACTONE-HCTZ 25-25MG 1 EACH TAB PO SCH (08:42)
[2019-10-16] MEDS: ASPIRIN 81 MG PO SCH (08:42)
[2019-10-16] MEDS: DOCUSATE 100 MG CAP PO SCH (08:42)
[2019-10-16] MEDS: METOPROLOL TARTRATE 25 MG TAB PO SCH ×2 (08:42→19:28)
[2019-10-16] MEDS: THIAMINE 100 MG TAB PO SCH ×2 (08:42→19:28)
[2019-10-16] MEDS: FUROSEMIDE 10 MG/ML 4 ML VIAL IV SCH (10:59)
--- NOTE | 2019-10-16 11:01 | P.CONS ---
History of Present Illness - Reason for Consult Consult date: 10/15/19 Liver cirrhosis Requesting physician: Nolberto Tan - Chief Complaint Weakness - History of Present Illness 69-year-old male with a medical history significant for alcohol abuse with recent fall and fracture of the right hip when he was intoxicated who presents from his rehab facility due to decreased strength and mobility. Of note history has been taken in discussion with the patient, on review of the EMR and in discussion with the medical team. They're concerned since the patient's discharge from the hospital of decreased strength and mobility, with the patient also been concerned about having the sensation of having to pass out patient has also been confused since discharge. The patient has an extensive history of alcohol abuse reporting drinking 8 beers and a pint of whiskey daily for 30 years. On presentation to the hospital computed tomography scan was significant for a moderate amount of ascites with an irregular appearing liver with ultraso und also showing a cirrhotic liver with surrounding ascites. Laboratory evaluation significant for WBC 10.8, hemoglobin 12.6, platelet count 320,000 with an INR of 1.1, total bilirubin 1, alkaline phosphate 91, AST 26 and ALT 22 with an ammonia less than 9. Review of Systems REVIEW OF SYSTEMS: CONSTITUTIONAL: Denies any fevers, chills, weight change but does report fatigue. CARDIOVASCULAR: Denies any chest pain, palpitations high or low blood pressures RESPIRATORY: Denies any shortness of breath, hemoptysis or cough. GENITOURINARY: No dysuria or hematuria. MUSCULOSKELETAL: No weakness reported. SKIN: Denies any new rashes or lesions, jaundice or pallor. PSYCHIATRIC: Denies any depression or anxiety. NEUROLOGY: Denies headache, denies any new focal deficits. EARS/NOSE/THROAT: No recent hearing change, congestion, nasal discharge or sore throat. EYES: No pain in eyes, discharge or change in vision. GASTROINTESTINAL: As per HPI. Past Medical History Past Medical History: Coronary Artery Disease (CAD), CVA/TIA, Deep Vein Thrombosis (DVT), Hyperlipidemia, Hypertension, Vascular Disorder Additional Past Medical History / Comment(s): right leg DVT, PVD, TIA 2016, HAD A NON HEALING WOUND LT LEG-HAD SKIN GRAFTING.has no circulation left leg on 100 percent blocked from groin to mid doe tried to do cath and was unable to History of Any Multi-Drug Resistant Organisms: None Reported Past Surgical History: Coronary Bypass/CABG, Heart Catheterization, Joint Replacement, Orthopedic Surgery Additional Past Surgical History / Comment(s): left knee replacement, left foot surgery, stent to right leg, CABG 12/2014, 4 bypass, aortogram, WOUND CLINIC, SKIN GRAFTING LT LEG Past Anesthesia/Blood Transfusion Reactions: No Reported Reaction Past Psychological History: Anxiety, Depression Smoking Status: Current every day smoker Past Alcohol Use History: Daily, Heavy Past Drug Use History: Marijuana - Past Family History Father Family Medical History: Myocardial Infarction ([place]) Mother Family Medical History: No Reported History Medications and Allergies Home Medications Medication Instructions Recorded Confirmed Type Aspirin EC [Ecotrin Low Dose] 81 mg PO DAILY 08/31/19 10/13/19 History Metoprolol Tartrate [Lopressor] 25 mg PO BID #60 tab 09/09/19 10/13/19 Rx Furosemide [Lasix] 20 mg PO DAILY 09/27/19 10/13/19 History Hydrocodone/Acetaminophen [[place] 1 - 2 tab PO Q6HR PRN 09/27/19 10/13/19 History 5-325] Ibuprofen [Motrin Ib] 600 mg PO Q8H PRN 09/27/19 10/13/19 History Thiamine [Vitamin B-1] 100 mg PO BID 09/27/19 10/13/19 History Docusate [Colace] 100 mg PO DAILY #30 capsule 09/28/19 10/13/19 Rx Allergies Allergy/AdvReac Type Severity Reaction Status Date / Time No Known Allergies Allergy Verified 10/13/19 16:41 Physical Exam Vitals: Vital Signs Temp Pulse Pulse Resp BP Pulse Ox 10/15/19 08:00 98.0 F 106 H 20 148/79 92 L 10/15/19 07:18 74 10/15/19 07:10 76 10/15/19 03:06 96 18 10/15/19 03:04 98.7 F 96 18 134/68 92 L 10/14/19 23:25 94 19 10/14/19 23:24 98.6 F 94 19 146/81 94 L 10/14/19 20:00 98.8 F 104 H 18 104/62 95 10/14/19 16:33 86 10/14/19 16:24 89 10/14/19 16:00 98.4 F 90 20 139/76 Intake and Output 10/14/19 10/15/19 10/15/19 22:59 06:59 14:59 Intake Total 180 120 Output Total 300 350 Balance -120 -350 120 Intake: Oral 180 120 Output: Urine 300 350 Other: Voiding Method Urinal Urinal # Voids 1 1 1 # Bowel Movements 1 Weight 51 kg On physical examination, patient appears comfortable in no apparent distress. HEAD: Normocephalic, atraumatic. EYES: No scleral icterus. No conjunctival injection. MOUTH: No lesions, tongue midline. NECK: Trachea midline, no gross abnormalities. CHEST: Decreased air entry in all lung hayden. HEART: S1-S2 appreciated. ABDOMEN: Soft, distended with positive fluid wave. Bowel sounds are positive. No organomegaly. No guarding or rigidity. EXTREMITIES: No pedal edema. SKIN: No rashes, no jaundice. NEUROLOGIC: Alert and oriented x3, no asterixis noted. No focal deficits. Results CBC & Chem 7: 10/15/19 10:58 10/15/19 10:58 Labs: Abnormal Lab Results - Last 24 Hours (Table) 10/14/19 10/15/19 10/15/19 Range/Units 13:20 10:58 10:58 WBC 10.8 H (3.8-10.6) k/uL RBC 4.01 L (4.30-5.90) m/uL Hgb 12.6 L (13.0-17.5) gm/dL Neutrophils # 7.8 H (1.3-7.7) k/uL PT 12.4 H (9.0-12.0) sec INR 1.2 H (<1.2) Sodium 131 L (137-145) mmol/L BUN 6 L (9-20) mg/dL Creatinine 0.64 L (0.66-1.25) mg/dL Glucose 149 H (74-99) mg/dL Calcium 8.0 L (8.4-10.2) mg/dL Total Protein 4.9 L (6.3-8.2) g/dL Albumin 2.1 L (3.5-5.0) g/dL US - abdomen: report reviewed (Ultrasound abdomen was cirrhotic appearing liver with ascites noted) Assessment and Plan (1) Alcoholic cirrhosis of liver with ascites Narrative/Plan: 69-year-old male with multiple medical comorbidities including a 30 year history of alcohol abuse who presented to the hospital due to weakness, decreased ambulation and confusion after recent discharge from the hospital. Patient's imaging including ultrasound with liver and CT angiography showed a cirrhotic appearing liver with ascites. Fluid studies are also consistent with liver source of his ascites. Patient's history is consistent with alcoholic cirrhosis with ascites. Current Visit: Yes Status: Acute Code(s): K70.31 - ALCOHOLIC CIRRHOSIS OF LIVER WITH ASCITES SNOMED Code(s): 537515554 (2) Encephalopathy Narrative/Plan: Likely multifactorial given chronic alcohol use and alcoholic encephalopathy, there are no acute signs including asterixis or elevation of ammonia to suggest hepatic encephalopathy however will initiate lactulose therapy empirically to see if there is any improvement and mentation. Current Visit: Yes Status: Acute Code(s): G93.40 - ENCEPHALOPATHY, UNSPECIFIED SNOMED Code(s): 43444927 Plan: Supportive care Okay for sodium restricted diet Patient is on Aldactone therapy, will add Lasix daily Ultrasound abdomen and CT angiography reviewed Lactulose daily added, we'll titrate to 2-3 bowel movements daily Alcohol abstinence Thank you for allowing us to participate in the care of the patient we will continue to follow
[2019-10-16] MEDS: LACTULOSE 20 GM/30 ML CUP PO SCH (13:01)
--- NOTE | 2019-10-16 13:08 | P.PN ---
Subjective is admitted for pneumonia but patient is on Zosyn for that. Patient also has alcoholic cirrhosis patient on IV Lasix at this time because of IV Lasix have dyspnea had upper thighs and Aldactone will be continued. Patient had a paracentesis with removal of 3.5 L of fluid patient is significantly less ascites at this time. Patient probably can be discharged to subacute rehabilitation tomorrow. Constitutional: Denied any fatigue denied any fever. Cardio vascular: denied any chest pain, palpitations Gastrointestinal denied any nausea vomiting Pulmonary: Denied any shortness of breath cough Neurologic denied any new focal deficits All inpatient medications were reviewed and appropriate changes in these medications as dictated in the interval history and assessment and plan. Objective - Vital Signs Vital signs: Vital Signs Temp 98.0 F 10/16/19 10:36 Pulse 100 10/16/19 12:00 Resp 20 10/16/19 12:00 BP 117/71 10/16/19 12:00 Pulse Ox 97 10/16/19 12:00 Intake & Output 10/15/19 10/16/19 10/16/19 18:59 06:59 18:59 Intake Total 120 1090 240 Output Total 300 900 700 Balance -180 190 -460 Weight 69 kg Intake: Intake, IV Titration 850 Amount Piperacillin-Tazobactam 3 100 .375 gm In Sodium Chloride 0.9% 100 ml @ 25 mls/hr IVPB Q8H ALDO Rx#: [id number] Sodium Chloride 0.9% 1, 750 000 ml @ 75 mls/hr IV . [id number] ALDO Rx#:[id number] Oral 120 240 240 Output: Urine 300 900 700 Other: Voiding Method Urinal # Voids 1 1 # Bowel Movements 1 - Exam PHYSICAL EXAMINATION: GENERAL: The patient is alert and oriented x3, not in any acute distress. Well developed, well nourished. HEENT: Pupils are round and equally reacting to light. EOMI. No scleral icterus. No conjunctival pallor. Normocephalic, atraumatic. No pharyngeal erythema. No thyromegaly. CARDIOVASCULAR: S1 and S2 present. No murmurs, rubs, or gallops. PULMONARY: Chest is clear to auscultation, no wheezing or crackles. ABDOMEN: Soft, nontender, nondistended, normoactive bowel sounds. No palpable organomegaly. MUSCULOSKELETAL: No joint swelling or deformity. EXTREMITIES: No cyanosis, clubbing, or pedal edema. NEUROLOGICAL: Gross neurological examination did not reveal any focal deficits. SKIN: No rashes. - Labs CBC & Chem 7: 10/15/19 10:58 10/15/19 10:58 Labs: Abnormal Lab Results - Last 24 Hours (Table) 10/16/19 Range/Units 06:51 Delta Bilirubin 0.5 H (0.0-0.2) mg/dL Total Protein 4.9 L (6.3-8.2) g/dL Albumin 2.2 L (3.5-5.0) g/dL Assessment and Plan Plan: -pneumonia, required continuous Zosyn -Alcoholism and cirrhosis continue with the diuretic therapy as mentioned above. -Superficial ulcerations for which patient is local wound care. -coronary artery disease -history of DVT in the past -Hyperlipidemia - hypertension -Peripheral vascular disease
[2019-10-16] MEDS: FAMOTIDINE 20 MG TAB PO SCH (19:28)
[2019-10-17] MEDS: PIPERACILLIN-TAZOBACTAM 3.375 GM in SODIUM CHLORIDE 0.9% 100 ML IVPB SCH ×2 (02:27→10:46)
[2019-10-17] MEDS: IPRATROPIUM-ALBUTEROL 3 ML NEB INHALATION SCH ×2 (08:45→12:06)
[2019-10-17] MEDS ORDERED: SPIRONOLACTONE 25 MG TAB PO SCH (09:00)
[2019-10-17 09:09] VITALS: TEMP 98.3
[2019-10-17] MEDS: ASPIRIN 81 MG PO SCH (09:21)
[2019-10-17] MEDS: METOPROLOL TARTRATE 25 MG TAB PO SCH (09:21)
[2019-10-17] MEDS: FAMOTIDINE 20 MG TAB PO SCH (09:21)
[2019-10-17] MEDS: THIAMINE 100 MG TAB PO SCH (09:21)
[2019-10-17] MEDS: FUROSEMIDE 10 MG/ML 4 ML VIAL IV SCH (09:21)
[2019-10-17] MEDS: LACTULOSE 20 GM/30 ML CUP PO SCH (09:22)
--- NOTE | 2019-10-17 10:08 | P.DS ---
Providers Date of admission: 10/13/19 17:41 Attending physician: Nolberto Tan Consults: 10/15/19 10:21 Consult Physician Routine Consulting Provider: Jenelle Cazares Consult Reason/Comments: Liver cirrhosis Do you want consulting provider notified?: Yes Primary care physician: Nolberto Tan Hospital Course: patient is admitted for pneumonia possible aspiration and is on Zosyn for that. Patient also has alcoholic cirrhosis patient on IV Lasix at this time because of IV Lasix have dyspnea had upper thighs and Aldactone will be continued. Patient had a paracentesis with removal of 3.5 L of fluid patient is significantly less ascites at this time. Patient probably can be discharged to subacute rehabilitation tomorrow. 10/17/2019 No overnight events patient is being discharged to subacute rehabilitation today PHYSICAL EXAMINATION: GENERAL: The patient is alert and oriented x3, not in any acute distress. Well developed, well nourished. HEENT: Pupils are round and equally reacting to light. EOMI. No scleral icterus. No conjunctival pallor. Normocephalic, atraumatic. No pharyngeal erythema. No thyromegaly. CARDIOVASCULAR: S1 and S2 present. No murmurs, rubs, or gallops. PULMONARY: Chest is clear to auscultation, no wheezing or crackles. ABDOMEN: Soft, mildly distended no significant ascites MUSCULOSKELETAL: No joint swelling or deformity. EXTREMITIES: No cyanosis, clubbing, or pedal edema. NEUROLOGICAL: Gross neurological examination did not reveal any focal deficits. SKIN: No rashes. Assessment and Plan Plan: -pneumonia, we discharged on Augmentin -Alcoholism and cirrhosis continue with the diuretic therapy as mentioned above. -Superficial ulcerations for which patient is local wound care. -coronary artery disease -history of DVT in the past -Hyperlipidemia - hypertension -Peripheral vascular disease Patient Condition at Discharge: Serious Plan - Discharge Summary Discharge Rx Participant: No New Discharge Prescriptions: New Spironolactone [Aldactone] 50 mg PO DAILY #30 tab Famotidine [Pepcid] 20 mg PO BID tab Amoxic-Pot Clav 875-125Mg [Augmentin 875-125] 1 tab PO Q12HR #10 tablet Lactulose [Cephulac] 30 gm PO DAILY #30 ml Continue Aspirin EC [Ecotrin Low Dose] 81 mg PO DAILY Metoprolol Tartrate [Lopressor] 25 mg PO BID #60 tab Thiamine [Vitamin B-1] 100 mg PO BID Changed Furosemide [Lasix] 40 mg PO DAILY #0 Discontinued Ibuprofen [Motrin Ib] 600 mg PO Q8H PRN PRN Reason: Pain Hydrocodone/Acetaminophen [[place] 5-325] 1 - 2 tab PO Q6HR PRN PRN Reason: Pain Docusate [Colace] 100 mg PO DAILY #30 capsule Discharge Medication List Aspirin EC [Ecotrin Low Dose] 81 mg PO DAILY 08/31/19 [History] Metoprolol Tartrate [Lopressor] 25 mg PO BID #60 tab 09/09/19 [Rx] Thiamine [Vitamin B-1] 100 mg PO BID 09/27/19 [History] Amoxic-Pot Clav 875-125Mg [Augmentin 875-125] 1 tab PO Q12HR #10 tablet 10/17/19 [Rx] Famotidine [Pepcid] 20 mg PO BID tab 10/17/19 [Rx] Furosemide [Lasix] 40 mg PO DAILY #0 10/17/19 [Rx] Lactulose [Cephulac] 30 gm PO DAILY #30 ml 10/17/19 [Rx] Spironolactone [Aldactone] 50 mg PO DAILY #30 tab 10/17/19 [Rx] Follow up Appointment(s)/Referral(s): Nolberto Tan MD [Primary Care Provider] - 1-2 days Activity/Diet/Wound Care/Special Instructions: [facility] Discharge Disposition: TRANSFER TO SNF/F
[2019-10-17 10:30] LABS: African American GFR (CKD) >90 (>60 ml/min/1.73 sqM); Anion Gap 8 mmol/L; Blood Urea Nitrogen 8 mg/dL (9-20); Calcium 8.6 mg/dL (8.4-10.2); Carbon Dioxide 30 mmol/L (22-30); Chloride 93 mmol/L (98-107); Glucose 122 mg/dL (74-99); Non-African American GFR(CKD) >90 (>60 ml/min/1.73 sqM); Potassium 3.7 mmol/L (3.5-5.1); Sodium 131 mmol/L (137-145)
[2019-10-17 10:57] VITALS: BP 112/78; RESP 16
[2019-10-17 11:19] LABS: Albumin, Fluid Source Ascites
[2019-10-17 12:19] VITALS: PULSE 96
[2019-10-17 12:36] VITALS: BMI 21.7
[2019-10-17 17:55] LABS: Hepatitis A Antibody IgM Non-Reactive (Non-Reactive); Hepatitis B Core IgM Non-Reactive (Non-Reactive); Hepatitis B Surface Antigen Non-Reactive (Non-Reactive); Hepatitis C IgG Antibody Non-Reactive (Non-Reactive)
--- NOTE | 2019-10-21 08:26 | DS ---
DISCHARGE SUMMARY DATE OF ADMISSION: 10/13/2019. DATE OF DISCHARGE: 10/17/2019 CHIEF COMPLAINT: Cirrhosis, alcoholism, confusion and infected lesion on the left chin. HISTORY OF PRESENT ILLNESS AND PHYSICAL EXAM: Details of this man's history and physical can be found in the initial workup. LABORATORY STUDIES: While he was in a hospital he had laboratory studies, details of which can be found in the laboratory section of his chart. COURSE IN HOSPITAL: After admission, he was placed on bedrest, started on intravenous fluids and worked up for his confusion. Abnormal labs and laboratory studies were addressed. While he was in a hospital, determination was made that he would have to go to a long-term care facility. He had been in [facility] for rehab and had gone home, but he could not manage even with the help of his daughter. As he was stabilized, arrangements were made for him to be transferred to [facility] and he was released on 10/17. FINAL DIAGNOSES: 1. Chronic alcoholism. 2. Alcoholic encephalopathy. 3. Cirrhosis. 4. Status post ORIF of right hip. 5. 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 OPERATIONS: None. CONSULTATIONS: None. He is improved. MMODL / IJN: [id number] /
--- NOTE | 2019-10-23 13:02 | CDI ---
Documentation Clarification Form Date: 10/23/2019 12:48:56 PM From: Catherine Diana Phone: If you have a question about this query, please contact Moni Mayfield Senior Reactor Operator at [phone] between 8am and 5pm. Admit Date: 10/13/2019 5:41:00 PM Patient Name: Arun Recinos Visit Number: [id number] Discharge Date: 10/17/2019 2:44:00 PM ATTENTION: The Clinical Documentation Specialists (CDI) and [facility] Coding Staff appreciate your assistance in clarifying documentation. Please respond to the clarification below the line at the bottom and electronically sign. The CDI & [facility] Coding staff will review the response and follow-up if needed. Please note: Queries are made part of the Legal Health Record. If you have any questions, please contact the author of this message via ITS. Dr. Nolberto Tan DCS from 10/[address] Antonio documents: " Patient admitted for pneumonia, possible aspiration and is on Zosyn for that. This diagnosis is not carried to DCS 10/20. Please clarify did patient have possible aspiration pneumonia or was this ruled out. History/Risk Factors: documented pneumonia, alcoholic cirrhosis with ascites, alc encephalopathy, previous fx hip from fall, traumatic cellulitis left leg, left Stage II heel ulcer Vital signs: 97.5 F, 111 bpm, 113/89, 20 97 RA WBC/Left shift:12.2 X-ray:RLL infiltrate Treatment: Zosyn In order to capture the severity of condition, please clarify if the condition signifies and you are treating for: Aspiration Pneumonia, identify if: Due to solids or liquids Due to anesthesia during L/D Due to anesthesia during puerperium Bacterial Pneumonia, specify causal organism (if known) Gram Negative Pneumonia Due to Strep ?Due to Staph ?Due to [facility] Acquired Pneumonia/Pneumonia, unspecified Other, please specify Unable to determine MTDD
--- NOTE | 2019-10-23 13:15 | CDI ---
Documentation Clarification Form Date: 10/23/2019 1:04:12 PM From: Catherine Diana Phone: If you have a question about this query, please contact Moni Mayfield Predatory Game Hunter at [phone] between 8am and 5pm. Admit Date: 10/13/2019 5:41:00 PM Patient Name: Arun Recinos Visit Number: [id number] Discharge Date: 10/17/2019 2:44:00 PM ATTENTION: The Clinical Documentation Specialists (CDI) and [facility] Coding Staff appreciate your assistance in clarifying documentation. Please respond to the clarification below the line at the bottom and electronically sign. The CDI & [facility] Coding staff will review the response and follow-up if needed. Please note: Queries are made part of the Legal Health Record. If you have any questions, please contact the author of this message via ITS. Dr. Nolberto Tan H and P and 10/15 PN document CHIEF COMPLAINT: Respiratory failure History/Risk Factors:Patient with pneumonia and alcoholism Tobacco use: postivie Vital signs:97.5 F, 111 bpm, 20, 113/89 97% RA Treatment: Zosyn for pneumonia, bedrest Breathing tx Updrafts In your professional opinion, can you please clarify type of respiratory failure: Acute Respiratory Failure Acute on Chronic Respiratory Failure Chronic Respiratory Failure Acute Respiratory Distress Acute Respiratory Insufficiency Other Diagnosis, please specify Unable to determine Specificity: If known, further specify (if known): With hypercapnia? (pCO2 >50 and pH <7.35) With hypoxia? (pO2 <60 mm Hg or SpO2 <91% on room air) MTDD
--- NOTE | 2019-10-27 18:58 | MISC ---
MISCELLANOUS REPORT Question is about the pneumonitis: Unable to determine. MMODL / IJN: [id number] /
--- NOTE | 2019-10-28 08:41 | MISC ---
MISCELLANOUS REPORT This is regarding his respiratory failure, other diagnosis is exacerbation chronic obstructive pulmonary disease. MMODL / IJN: [id number] /
== END 2019-10-17 14:44 | DRG 193 ==
LOC: EC 14:30 → 3SCARD 17:41
PROVIDERS: ADMIT Family Medicine; ATTEND Family Medicine
PROC: 0W9G3ZZ Drainage of Peritoneal Cavity, Percutaneous Approach (ICD-10-PCS; principal; 2019-10-15)
DX: J18.9 Pneumonia, unspecified organism (principal); J96.90 Respiratory failure, unspecified, unspecified whether with hypoxia or hypercapnia; J98.11 Atelectasis; L03.116 Cellulitis of left lower limb; L97.822 Non-pressure chronic ulcer of other part of left lower leg with fat layer exposed; J44.0 Chronic obstructive pulmonary disease with (acute) lower respiratory infection; J44.1 Chronic obstructive pulmonary disease with (acute) exacerbation; K70.31 Alcoholic cirrhosis of liver with ascites; L89.622 Pressure ulcer of left heel, stage 2; E78.5 Hyperlipidemia, unspecified; F10.20 Alcohol dependence, uncomplicated; F17.210 Nicotine dependence, cigarettes, uncomplicated; G31.2 Degeneration of nervous system due to alcohol; I10 Essential (primary) hypertension; I25.10 Atherosclerotic heart disease of native coronary artery without angina pectoris; I73.9 Peripheral vascular disease, unspecified; R62.7 Adult failure to thrive; S72.001D Fracture of unspecified part of neck of right femur, subsequent encounter for closed fracture with routine healing; W18.30XD Fall on same level, unspecified, subsequent encounter; Z79.82 Long term (current) use of aspirin; Z79.899 Other long term (current) drug therapy; Z82.49 Family history of ischemic heart disease and other diseases of the circulatory system; Z86.718 Personal history of other venous thrombosis and embolism; Z86.73 Personal history of transient ischemic attack (TIA), and cerebral infarction without residual deficits; Z95.1 Presence of aortocoronary bypass graft; Z96.652 Presence of left artificial knee joint; Y95 Nosocomial condition
CPT/HCPCS: 36415; 49083; 70450; 71046; 71275; 72125; 73502; 76705; 80048; 80053; 80074; 80076; 80320; 81001; 82042; 82140; 83605; 84157; 84484; 85025; 85379; 85610; 85730; 89050; 93005; 94640; 94760; 96360; 99285

== ENCOUNTER 2019-11-09 13:07 | Inpatient (IN) | payer MEDICARE, OTHER ==
--- NOTE | 2019-11-09 14:47 | ED ---
Fall HPI - General Chief Complaint: Fall Stated Complaint: Fall at home last night Time Seen by Provider: 11/09/19 13:29 Source: patient, RN notes reviewed Mode of arrival: wheelchair Limitations: physical limitation - History of Present Illness Initial Comments: 69-year-old male presents emergency Department chief complaint of a fall. Patient was recently discharged from [facility]. Family is concerned that his unable take care of himself. Patient did have visiting nurse that presented today who would not evaluate him secondary to the fall. Patient states that his walker got caught and he tripped falling on his right side. He has right-sided rib injury, pain. Patient denies any head injury no loss conscious. Patient has an infection of his left heel he's been advised to not weight-bear on this. Patient states that he tries to walk on his toes but states that he can't because it hurts. Patient also has infection on his left anterior doe. Patient denies neck pain, back pain, abdominal discomfort. Patient also has had recent pelvic fracture. - Related Data Home Medications Medication Instructions Recorded Confirmed Aspirin EC [Ecotrin Low Dose] 81 mg PO DAILY 08/31/19 10/13/19 Thiamine [Vitamin B-1] 100 mg PO BID 09/27/19 10/13/19 Previous Rx's Medication Instructions Recorded Metoprolol Tartrate [Lopressor] 25 mg PO BID #60 tab 09/09/19 Amoxic-Pot Clav 875-125Mg 1 tab PO Q12HR #10 tablet 10/17/19 [Augmentin 875-125] Famotidine [Pepcid] 20 mg PO BID tab 10/17/19 Furosemide [Lasix] 40 mg PO DAILY #0 10/17/19 Lactulose [Cephulac] 30 gm PO DAILY #30 ml 10/17/19 Spironolactone [Aldactone] 50 mg PO DAILY #30 tab 10/17/19 Allergies Allergy/AdvReac Type Severity Reaction Status Date / Time No Known Allergies Allergy Verified 11/09/19 13:27 Review of Systems ROS Statement: Those systems with pertinent positive or pertinent negative responses have been documented in the HPI. ROS Other: All systems not noted in ROS Statement are negative. Past Medical History Past Medical History: Coronary Artery Disease (CAD), CVA/TIA, Deep Vein Thrombosis (DVT), Hyperlipidemia, Hypertension, Vascular Disorder Additional Past Medical History / Comment(s): right leg DVT, PVD, TIA 2016, HAD A NON HEALING WOUND LT LEG-HAD SKIN GRAFTING.has no circulation left leg on 100 percent blocked from groin to mid doe tried to do cath and was unable to, alcoholism History of Any Multi-Drug Resistant Organisms: None Reported Past Surgical History: Coronary Bypass/CABG, Heart Catheterization, Joint Replacement, Orthopedic Surgery Additional Past Surgical History / Comment(s): left knee replacement, left foot surgery, stent to right leg, CABG 12/2014, 4 bypass, aortogram, WOUND CLINIC, SKIN GRAFTING LT LEG Past Anesthesia/Blood Transfusion Reactions: No Reported Reaction Past Psychological History: Anxiety, Depression Smoking Status: Current every day smoker Past Alcohol Use History: None Reported Past Drug Use History: Marijuana - Past Family History Father Family Medical History: Myocardial Infarction ([place]) Mother Family Medical History: No Reported History General Exam Limitations: physical limitation General appearance: alert, in no apparent distress Head exam: Present: atraumatic, normocephalic, normal inspection ENT exam: Present: normal exam, normal oropharynx, mucous membranes moist Neck exam: Present: normal inspection, full ROM. Absent: tenderness, meningismus, lymphadenopathy Respiratory exam: Present: normal lung sounds bilaterally, chest wall tenderness. Absent: respiratory distress, wheezes, rales, rhonchi, stridor Cardiovascular Exam: Present: regular rate, normal rhythm, normal heart sounds. Absent: systolic murmur, diastolic murmur, rubs, gallop, clicks GI/Abdominal exam: Present: soft, normal bowel sounds. Absent: distended, te nderness, guarding, rebound, rigid Neurological exam: Present: alert, oriented X3, CN II-XII intact Skin exam: Present: warm, dry, intact, normal color. Absent: rash Course Vital Signs 11/09/19 11/09/19 11/09/19 13:24 13:36 15:15 Temperature 97.5 F L 97.7 F 97.5 F L Pulse Rate 105 H 88 97 Respiratory 18 16 16 Rate Blood Pressure 161/109 165/102 137/103 O2 Sat by Pulse 99 99 99 Oximetry Medical Decision Making - Medical Decision Making Patient will be admitted to Dr. Sandoval for trauma, multiple rib fractures, patient consult to medicine, pain control and incentive spirometry. Disposition Clinical Impression: Fall, Multiple fractures of ribs of right side, Foot ulceration, Unable to ambulate Disposition: ADMITTED IP TO THIS [facility] Condition: Fair Referrals: Nolberto Tan MD [Primary Care Provider] - 1-2 days
--- NOTE | 2019-11-09 14:49 | XR ---
EXAMINATION TYPE: XR calcaneus 2V LT DATE OF EXAM: 11/09/2019 COMPARISON: NONE HISTORY: Nonhealing wound. TECHNIQUE: 2 views calcaneus. FINDINGS: Osseous structures are demineralized. Lucency consistent with soft tissue injury or wound o madelin posterior-inferior aspect calcaneus is present. No suspicious adjacent cortical destruction or pe riosteal reaction to suggest acute osteomyelitis. Some vascular calcification is present. Boehler's a ngle is maintained. IMPRESSION: As above.
--- NOTE | 2019-11-09 14:51 | XR ---
EXAMINATION TYPE: XR ribs RT w pa chest xray DATE OF EXAM: 11/09/2019 COMPARISON: Chest x-ray October 15, 2019. HISTORY: Chest and right-sided rib pain after fall injury. TECHNIQUE: Single frontal view of chest as well as frontal and oblique images of the right-sided ribs . FINDINGS: Overlying sternal wires are redemonstrated. Lungs remain clear without pleural effusion or pneumothorax seen bilaterally. Cardiac blood size appears within normal limits. Osseous structures ar e demineralized. Dedicated images of right-sided ribs show no acute displaced fractures. Linear lucency consistent wit h acute nondisplaced fracture posterior lateral right ninth rib is noted on one image. Similar findin gs are present on posterior lateral right 10th rib. IMPRESSION: 1. No acute cardiopulmonary process. Interval resolution of right basilar opacity. 2. Possible new acute nondisplaced fractures involving the right posterior lateral ninth and 10th rib s. Correlate clinically with point tenderness at this level.
[2019-11-09] MEDS ORDERED: HYDROcodone/APAP 5-325MG 1 EACH TAB PO STA (15:13)
[2019-11-09] MEDS ORDERED: ONDANSETRON 4 MG/2 ML VIAL IVP PRN (15:55)
[2019-11-09] MEDS ORDERED: NALOXONE 0.4 MG/ML 1 ML VIAL IV PRN (15:55)
[2019-11-09] MEDS ORDERED: LORazepam 0.5 MG TAB PO PRN (15:57)
[2019-11-09] MEDS: SODIUM CHLORIDE 0.9% 1,000 ML IV SCH (16:15)
[2019-11-09 16:28] LABS: Basophils # (A) 0.3 k/uL (0-0.2); Basophils % (A) 2 %; Eosinophils # (A) 0.2 k/uL (0-0.7); Eosinophils % (A) 1 %; HCT 43.9 % (39.0-53.0); Lymphocytes # (A) 2.7 k/uL (1.0-4.8); Lymphocytes % (A) 19 %; MCH 31.5 pg (25.0-35.0); MCHC 34.3 g/dL (31.0-37.0); Mean Platelet Volume 7.8; Monocytes % (A) 7 %; Neutrophils # (A) 9.5 k/uL (1.3-7.7); Neutrophils % (A) 68 %; Platelet Count 292 k/uL (150-450); RBC 4.78 m/uL (4.30-5.90); RDW 13.8 % (11.5-15.5)
[2019-11-09 16:29] LABS: MCV 91.8 fL (80.0-100.0)
[2019-11-09] MEDS: LABETALOL 5 MG/ML VIAL MDV IVP STA ×2 (16:31→16:32)
[2019-11-09 16:42] LABS: Chloride 88 mmol/L (98-107)
[2019-11-09 16:44] LABS: ALT 21 U/L (4-49); AST 34 U/L (17-59); African American GFR (CKD) >90 (>60 ml/min/1.73 sqM); Albumin 3.3 g/dL (3.5-5.0); Alkaline Phosphatase 116 U/L (38-126); Anion Gap 10 mmol/L; Blood Urea Nitrogen 9 mg/dL (9-20); Calcium 9.2 mg/dL (8.4-10.2); Carbon Dioxide 24 mmol/L (22-30); Glucose 120 mg/dL (74-99); Non-African American GFR(CKD) >90 (>60 ml/min/1.73 sqM); Sodium 122 mmol/L (137-145); Total Bilirubin 1.2 mg/dL (0.2-1.3); Total Protein 6.6 g/dL (6.3-8.2)
--- NOTE | 2019-11-09 17:08 | XR ---
EXAMINATION TYPE: XR pelvis AP view DATE OF EXAM: 11/09/2019 CLINICAL HISTORY: Pain after fall injury. TECHNIQUE: A single AP view of the pelvis is obtained. COMPARISON: Pelvic and right hip x-rays October 13, 2019. FINDINGS: There is no acute fracture/dislocation evident in the pelvis. Lucency from overlying bowel gas makes evaluation of sacroiliac joints suboptimal. There are metallic stent grafts in the iliac a rtery branches bilaterally redemonstrated. Metallic hardware right hip arthroplasty redemonstrated an d stable in position. Mild/moderate narrowing and spurring left hip joint redemonstrated and stable. Pubic symphysis is intact. IMPRESSION: There is no acute fracture or dislocation in the pelvis.
[2019-11-09] MEDS: HYDROmorphone 0.5 MG/0.5 ML SYRINGE IVP PRN (17:20)
[2019-11-09 17:26] LABS: Appearance,Urine Clear (Clear); Bilirubin,Urine Negative (Negative); Blood,Urine Negative (Negative); Color,Urine Yellow; Glucose,Urine (UA) Negative (Negative); Ketones,Urine Negative (Negative); Leukocyte Esterase,Urine Negative (Negative); Nitrite,Urine Negative (Negative); PH, Urine 6.5 (5.0-8.0); Protein,Urine Negative (Negative); Specific Gravity,Urine 1.011 (1.001-1.035); Urobilinogen,Urine <2.0 mg/dL (<2.0)
[2019-11-09] MEDS ORDERED: ACETAMINOPHEN TAB 325 MG TAB PO PRN (19:05)
[2019-11-09] MEDS ORDERED: MELATONIN 1 MG TAB PO PRN (19:05)
[2019-11-09] MEDS: HYDROcodone/APAP 5-325MG 1 EACH TAB PO PRN (19:35)
[2019-11-09] MEDS: PANTOPRAZOLE 40 MG TABLET PO SCH (19:40)
[2019-11-09] MEDS: METOPROLOL TARTRATE 25 MG TAB PO SCH (21:09)
[2019-11-10] MEDS: HYDROmorphone 1 MG/ML 1 ML SYRINGE IVP PRN ×5 (02:46→22:48)
[2019-11-10] MEDS: SODIUM CHLORIDE 0.9% 1,000 ML IV SCH ×2 (05:35→16:44)
[2019-11-10] MEDS: SPIRONOLACTONE 25 MG TAB PO SCH (08:05)
[2019-11-10] MEDS: PANTOPRAZOLE 40 MG TABLET PO SCH ×2 (08:05→16:42)
[2019-11-10] MEDS: FUROSEMIDE 40 MG TAB PO SCH (08:05)
[2019-11-10] MEDS: METOPROLOL TARTRATE 25 MG TAB PO SCH ×2 (08:05→21:41)
[2019-11-10] MEDS: LACTULOSE 20 GM/30 ML CUP PO SCH (08:05)
[2019-11-10] MEDS: THIAMINE 100 MG TAB PO SCH (08:05)
[2019-11-10] MEDS: ASPIRIN 81 MG PO SCH (08:05)
[2019-11-10] MEDS: MAGNESIUM OXIDE 400 MG TAB PO SCH (08:05)
[2019-11-10 08:34] LABS: Basophils # (A) 0.1 k/uL (0-0.2); Basophils % (A) 1 %; Eosinophils # (A) 0.2 k/uL (0-0.7); Eosinophils % (A) 2 %; HCT 44.2 % (39.0-53.0); HGB 14.6 gm/dL (13.0-17.5); Lymphocytes # (A) 2.3 k/uL (1.0-4.8); Lymphocytes % (A) 20 %; MCH 31.9 pg (25.0-35.0); MCHC 33.2 g/dL (31.0-37.0); MCV 96.1 fL (80.0-100.0); Mean Platelet Volume 7.9; Monocytes # (A) 0.9 k/uL (0-1.0); Monocytes % (A) 8 %; Neutrophils # (A) 7.4 k/uL (1.3-7.7); Neutrophils % (A) 67 %; Platelet Count 249 k/uL (150-450); RBC 4.59 m/uL (4.30-5.90); WBC 11.1 k/uL (3.8-10.6)
[2019-11-10 10:20] LABS: African American GFR (CKD) >90 (>60 ml/min/1.73 sqM); Anion Gap 8 mmol/L; Blood Urea Nitrogen 7 mg/dL (9-20); Calcium 9.1 mg/dL (8.4-10.2); Carbon Dioxide 26 mmol/L (22-30); Chloride 95 mmol/L (98-107); Glucose 93 mg/dL (74-99); Non-African American GFR(CKD) >90 (>60 ml/min/1.73 sqM); Potassium 5.6 mmol/L (3.5-5.1); Sodium 129 mmol/L (137-145)
--- NOTE | 2019-11-10 12:30 | XR ---
EXAMINATION TYPE: XR chest 2V DATE OF EXAM: 11/10/2019 COMPARISON: Prior chest x-ray 11/09/2019 HISTORY: Chest trauma, shortness of breath TECHNIQUE: Frontal and lateral views of the chest are obtained. FINDINGS: There is no focal air space opacity, pleural effusion, or pneumothorax seen. The cardiac silhouette size is within normal limits. The osseous structures are intact. Patient is post median sternotomy. Lung volumes are low and the patient is rotated. There are coronary artery calcifications . IMPRESSION: No acute cardiopulmonary process.
[2019-11-10 13:57] VITALS: BMI 19.2
--- NOTE | 2019-11-10 16:21 | P.GSCN ---
<Lynn Perez - Last Filed: 11/10/19 15:55> History of Present Illness Consult date: 11/10/19 Reason for Consult: Nonhealing necrotic ulcer of left heel History of present illness: The patient is 69-year-old white male with multiple comorbidities including coronary artery disease, peripheral arterial disease, history of CVA, history of DVT, and multiple falls. We have been asked to see the patient regarding a left heel nonhealing ulcer with necrotic tissue. Patient also has a left anterior lower extremity ulcer. The patient was recently discharged from [facility] and lives at home alone where he sustained a fall, thus was brought into the emergency room. He was found to have two fractured ribs on the right. The patient states he smokes about a half a pack of cigarettes a day and has a history of alcohol use. He has been going to the wound care center for treatment on both wounds. The patient reports he has seen Dr. Meraz through [facility] for peripheral vascular disease in the past. Last time seeing him approximately 2 years ago. He reports he has had a stent in the right lower extremity but unable to stent the left lower extremity. He is supposed to be offloading any pressure to the left heel, but reports he has been unable to walk on the toes due to pain. Review of Systems 14 point review of systems completed and pertinent positives and negatives are documented in the HPI Past Medical History Past Medical History: Coronary Artery Disease (CAD), CVA/TIA, Deep Vein Thrombosis (DVT), Hyperlipidemia, Hypertension, Vascular Disorder Additional Past Medical History / Comment(s): right leg DVT, PVD, TIA 2015, HAD A NON HEALING WOUND LT LEG-HAD SKIN GRAFTING.has no circulation left leg on 100 percent blocked from groin to mid doe tried to do cath and was unable to, alcoholism History of Any Multi-Drug Resistant Organisms: None Reported Past Surgical History: Coronary Bypass/CABG, Heart Catheterization, Joint Replacement, Orthopedic Surgery Additional Past Surgical History / Comment(s): left knee replacement, left foot surgery, stent to right leg, CABG 12/2014, 4 bypass, aortogram, WOUND CLINIC, SKIN GRAFTING LT LEG Past Anesthesia/Blood Transfusion Reactions: No Reported Reaction Past Psychological History: Anxiety, Depression Smoking Status: Current every day smoker Past Alcohol Use History: None Reported Additional Past Alcohol Use History / Comment(s): Patient is a smoker one pack per day since he was 16 years of age. He smokes marijuana on a daily basis. He uses alcohol and drinks 3 beers per day and half a pint of whiskey. He lives at home alone. No pets in the home. 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 No recent travel. Past Drug Use History: Marijuana - Past Family History Father Family Medical History: Myocardial Infarction ([place]) Mother Family Medical History: No Reported History Medications and Allergies Home Medications Medication Instructions Recorded Confirmed Type Aspirin EC [Ecotrin Low Dose] 81 mg PO DAILY 08/31/19 11/09/19 History Metoprolol Tartrate [Lopressor] 25 mg PO BID #60 tab 09/09/19 11/09/19 Rx Thiamine [Vitamin B-1] 100 mg PO DAILY 09/27/19 11/09/19 History Furosemide [Lasix] 40 mg PO DAILY #0 10/17/19 11/09/19 Rx Lactulose [Cephulac] 30 gm PO DAILY #30 ml 10/17/19 11/09/19 Rx Acetaminophen Tab [Tylenol Tab] 650 mg PO Q6H PRN 11/09/19 11/09/19 History Magnesium Oxide [Mag-Ox] 400 mg PO DAILY 11/09/19 11/09/19 History Melatonin 1 mg PO HS PRN 11/09/19 11/09/19 History Pantoprazole Sodium [Protonix] 40 mg PO BID 11/09/19 11/09/19 History Spironolactone 100 mg PO DAILY 11/09/19 11/09/19 History Allergies Allergy/AdvReac Type Severity Reaction Status Date / Time No Known Allergies Allergy Verified 11/09/19 16:40 Surgical - Exam Vital Signs Temp Pulse Resp BP Pulse Ox 97.5 F L 105 H 18 161/109 99 11/09/19 13:24 11/09/19 13:24 11/09/19 13:24 11/09/19 13:24 11/09/19 13:24 General appearance: The patient is alert, oriented, in no acute distress. HET: Head is normocephalic and atraumatic. Heart: S1 S2. Regular rate and rhythm. Lungs: No crackles or wheezes are heard. Extremities: Bilateral lower extremities cool to the touch, no edema. Capillary refill greater than 5 secs. Right lower extremity with multiphasic popliteal signal, with no PT or DP Doppler signal. Left lower extremity with bi-phasic popliteal and PT signal, no DP signal. Left anterior lower extremity chronic ulcer. Pressure ulcer of the left heel, with necrotic tissue measuring 5.5 cm x 4 cm. Motor sensory intact bilaterally. Neurological: No focal deficits. Strength and sensation are grossly intact. Results - Labs 11/10/19 07:37 11/10/19 07:37 Abnormal Lab Results - Last 24 Hours (Table) 11/09/19 11/09/19 11/10/19 Range/Units 16:02 16:02 07:37 WBC 14.0 H 11.1 H (3.8-10.6) k/uL Neutrophils # 9.5 H (1.3-7.7) k/uL Basophils # 0.3 H (0-0.2) k/uL Sodium 122 L (137-145) mmol/L Potassium (3.5-5.1) mmol/L Chloride 88 L (98-107) mmol/L BUN (9-20) mg/dL Creatinine 0.49 L (0.66-1.25) mg/dL Glucose 120 H (74-99) mg/dL Plasma Lactic Acid Taurus (0.7-2.0) mmol/L Albumin 3.3 L (3.5-5.0) g/dL 11/10/19 11/10/19 11/10/19 Range/Units 07:37 07:37 12:32 WBC (3.8-10.6) k/uL Neutrophils # (1.3-7.7) k/uL Basophils # (0-0.2) k/uL Sodium 129 L (137-145) mmol/L Potassium 5.6 H (3.5-5.1) mmol/L Chloride 95 L (98-107) mmol/L BUN 7 L (9-20) mg/dL Creatinine 0.45 L (0.66-1.25) mg/dL Glucose (74-99) mg/dL Plasma Lactic Acid Taurus 2.3 H* 2.2 H* (0.7-2.0) mmol/L Albumin (3.5-5.0) g/dL Diabetes panel 11/09/19 11/10/19 Range/Units 16:02 07:37 Sodium 122 L 129 L (137-145) mmol/L Potassium 5.0 5.6 H (3.5-5.1) mmol/L Chloride 88 L 95 L (98-107) mmol/L Carbon Dioxide 24 26 (22-30) mmol/L BUN 9 7 L (9-20) mg/dL Creatinine 0.49 L 0.45 L (0.66-1.25) mg/dL Glucose 120 H 93 (74-99) mg/dL Calcium 9.2 9.1 (8.4-10.2) mg/dL AST 34 (17-59) U/L ALT 21 (4-49) U/L Alkaline Phosphatase 116 (38-126) U/L Total Protein 6.6 (6.3-8.2) g/dL Albumin 3.3 L (3.5-5.0) g/dL Calcium panel 11/09/19 11/10/19 Range/Units 16:02 07:37 Calcium 9.2 9.1 (8.4-10.2) mg/dL Albumin 3.3 L (3.5-5.0) g/dL Pituitary panel 11/09/19 11/10/19 Range/Units 16:02 07:37 Sodium 122 L 129 L (137-145) mmol/L Potassium 5.0 5.6 H (3.5-5.1) mmol/L Chloride 88 L 95 L (98-107) mmol/L Carbon Dioxide 24 26 (22-30) mmol/L BUN 9 7 L (9-20) mg/dL Creatinine 0.49 L 0.45 L (0.66-1.25) mg/dL Glucose 120 H 93 (74-99) mg/dL Calcium 9.2 9.1 (8.4-10.2) mg/dL Adrenal panel 11/09/19 11/10/19 Range/Units 16:02 07:37 Sodium 122 L 129 L (137-145) mmol/L Potassium 5.0 5.6 H (3.5-5.1) mmol/L Chloride 88 L 95 L (98-107) mmol/L Carbon Dioxide 24 26 (22-30) mmol/L BUN 9 7 L (9-20) mg/dL Creatinine 0.49 L 0.45 L (0.66-1.25) mg/dL Glucose 120 H 93 (74-99) mg/dL Calcium 9.2 9.1 (8.4-10.2) mg/dL Total Bilirubin 1.2 (0.2-1.3) mg/dL AST 34 (17-59) U/L ALT 21 (4-49) U/L Alkaline Phosphatase 116 (38-126) U/L Total Protein 6.6 (6.3-8.2) g/dL Albumin 3.3 L (3.5-5.0) g/dL Assessment and Plan Assessment: Pressure ulceration of the left heel, necrotic 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 Meraz Multiple falls, right rib fractures Coronary arterial disease History of CVA History of DVT Tobacco abuse Plan: Discussed patient with Dr. Olguin. Patient would like to follow-up with Dr. Meraz through [facility] regarding any vascular intervention. Continue wound care treatments. Await further evaluation and recommendations per Dr. Olguin. Thank you for this consultation and allowing us to participate in the care of this patient during his hospital stay. The above dictated assessment and findings were discussed with her Clau. The i mpression and plan of care have been directed as dictated. <Hellen Olguin - Last Filed: 11/11/19 13:52> Surgical - Exam Vital Signs Temp Pulse Resp BP Pulse Ox 97.5 F L 105 H 18 161/109 99 11/09/19 13:24 11/09/19 13:24 11/09/19 13:24 11/09/19 13:24 11/09/19 13:24 Results - Labs 11/11/19 08:27 11/11/19 08:27 Abnormal Lab Results - Last 24 Hours (Table) 11/10/19 11/11/19 11/11/19 Range/Units 12:32 08:27 08:27 WBC 10.9 H (3.8-10.6) k/uL Sodium 128 L (137-145) mmol/L Chloride 96 L (98-107) mmol/L Creatinine 0.45 L (0.66-1.25) mg/dL Glucose 137 H (74-99) mg/dL Plasma Lactic Acid Taurus 2.2 H* (0.7-2.0) mmol/L Diabetes panel 11/11/19 Range/Units 08:27 Sodium 128 L (137-145) mmol/L Potassium 4.4 (3.5-5.1) mmol/L Chloride 96 L (98-107) mmol/L Carbon Dioxide 23 (22-30) mmol/L BUN 9 (9-20) mg/dL Creatinine 0.45 L (0.66-1.25) mg/dL Glucose 137 H (74-99) mg/dL Calcium 8.8 (8.4-10.2) mg/dL Calcium panel 11/11/19 Range/Units 08:27 Calcium 8.8 (8.4-10.2) mg/dL Pituitary panel 11/11/19 Range/Units 08:27 Sodium 128 L (137-145) mmol/L Potassium 4.4 (3.5-5.1) mmol/L Chloride 96 L (98-107) mmol/L Carbon Dioxide 23 (22-30) mmol/L BUN 9 (9-20) mg/dL Creatinine 0.45 L (0.66-1.25) mg/dL Glucose 137 H (74-99) mg/dL Calcium 8.8 (8.4-10.2) mg/dL Adrenal panel 11/11/19 Range/Units 08:27 Sodium 128 L (137-145) mmol/L Potassium 4.4 (3.5-5.1) mmol/L Chloride 96 L (98-107) mmol/L Carbon Dioxide 23 (22-30) mmol/L BUN 9 (9-20) mg/dL Creatinine 0.45 L (0.66-1.25) mg/dL Glucose 137 H (74-99) mg/dL Calcium 8.8 (8.4-10.2) mg/dL Assessment and Plan Plan: Patient seen and examined. Discussed with nurse practitioner and son was at the bedside. At this point as the patient is in the hospital, we will go forth with an ultrasound of his bilateral lower extremities with ABIs. He has a strong palpable right femoral pulse, a weakly palpable left femoral pulse. Nonpalpable pedal pulses. On his left doe there is a wound that looks like it has good granulation tissue and is fairly superficial. He has a heel wound that is unsuitable necrotic base. No evidence of significant boggy tissue or purulent drainage At this time he continues to have chronic wounds of his left lower extremity and likely severe aortoiliac and peripheral arterial disease. At this point no vascular surgical need for emergent intervention. We will initiate testing but patient can be discharged from a vascular standpoint for outpatient follow-up. He may choose to follow up with us or Dr. Meraz as he sees fit. If he stays, may consider unroofing the heel wound with placement of a wound VAC, but no urgency.
[2019-11-10] MEDS: HYDROmorphone 0.5 MG/0.5 ML SYRINGE IVP PRN (19:12)
[2019-11-10] MEDS: HYDROcodone/APAP 5-325MG 1 EACH TAB PO PRN (21:41)
--- NOTE | 2019-11-10 23:55 | CONS ---
CONSULTATION DATE OF SERVICE: 11/10/2019 REASON FOR CONSULTATION: Left heel and left leg wound. HISTORY OF PRESENT ILLNESS: The patient is a 69-year-old male with a past medical history significant for coronary artery disease, peripheral arterial disease, CVA, and DVT. The patient has a history of a chronic nonhealing wound to the left heel area which apparently the patient says started from his last hospital hospitalization. The patient has been admitted to the hospital this admission after the patient had a fall and was found to have a fractured rib on the right side. The patient was noted to have a wound on his left leg as well as to the heel area, for which Infectious Disease has been consulted for further recommendation. The patient currently does have some dull aching pain to the left heel wound area with an intensity of about 3-4 out of 10 and no radiation. The patient is not clear what exact treatment he has been getting for his left heel area. However, there is no swelling, redness. He did have some drainage. He has not been on antibiotic in the recent past. Since admission to the hospital, the patient has been afebrile. White count was mildly elevated at 11.1. Electrolyte are slightly elevated as well. No cultures have been done. He did have x-rays of his calcaneus which show soft tissue injury. No suspicious adjacent cortical destruction or periosteal reaction to suggest acute osteomyelitis. REVIEW OF SYSTEMS: Positive points have been mentioned in the HPI. Rest of the systems are negative. PAST MEDICAL HISTORY: 1. Coronary artery disease. 2. CVA, TIA. 3. DVT. 4. Hyperlipidemia. 5. Hypertension. PAST SURGICAL HISTORY: 1. Coronary artery bypass grafting. 2. Heart catheterization. 3. Left knee replacement. 4. Left foot surgery. 5. Skin graft to the right leg. SOCIAL HISTORY: The patient is currently an everyday smoker; smokes about a pack a day. Denies drinking or drug use. FAMILY HISTORY: Father with history of IN. ALLERGIES: NO KNOWN DRUG ALLERGIES. CURRENT MEDICATIONS: 1. Tylenol. 2. [place]. 3. Aspirin. 4. Lasix. 5. Dilaudid. 6. Lactulose. 7. Ativan. 8. Mag oxide. 9. Melatonin. 10.Lopressor. 11.Narcan. 12.Zofran. 13.Protonix. PHYSICAL EXAMINATION: Blood pressure is 144/91 with a pulse of 76, temperature 96.5. He is 96% on room air. General description is an elderly male up in the chair in no distress. No tachypnea or accessory muscle of respiration use. HEENT examination shows no pallor or scleral icterus. Oral mucosa membrane is dry. No pharyngeal erythema or thrush. NECK: Trachea is central. No thyromegaly. LUNGS: Unlabored breathing. Decreased breath sounds at the bases. No wheeze or crackle. HEART: Regular rate and rhythm. ABDOMEN: Soft. No tenderness. No guarding or rigidity. EXTREMITIES: Left leg did have a wound. The wound looks clean with good granulation tissue. No surrounding swelling or redness or any drainage. Left heel did have a necrotic wound and unstageable pressure ulcer, but there were no signs of any surrounding inflammatory changes or any foul-smelling drainage. Neurologically the patient is awake, alert, oriented x3. Mood and affect normal. LABS/IMAGING: Hemoglobin is 14.6, white count 11.1. BUN of 7, creatinine 0.45. Elevated lactic acid as mentioned above. X-rays with right-sided rib fracture. X-rays of the calcaneus did not show any evidence of periosteal changes. DIAGNOSTIC IMPRESSION AND PLAN: 1. Patient with left heel unstageable pressure ulcer, currently with no evidence of any secondary cellulitis in this patient with no fever or elevated white count. Will recommend local wound care. 2. Left leg wound looks clean with no evidence of any secondary cellulitis or any slough tissue. Local wound care. PLAN: 1. Await surgical evaluation and debridement of the left heel wound. If any evidence of purulence, deep culture should be obtained. 2. Aquacel Silver dressing to the left leg wound to be changed q.48 hours. 3. We will hold on any systemic antibiotic therapy at this point. 4. Keep the left heel off pressure. 5. Will follow up on clinical condition to further adjust medication if needed. Thank you for this consultation. Will follow this patient along with you. MMODL / IJN: [id number] / MTDD
[2019-11-11] MEDS: HYDROmorphone 1 MG/ML 1 ML SYRINGE IVP PRN ×3 (04:39→11:41)
[2019-11-11] MEDS: SPIRONOLACTONE 25 MG TAB PO SCH (07:46)
[2019-11-11] MEDS: MAGNESIUM OXIDE 400 MG TAB PO SCH (07:46)
[2019-11-11] MEDS: LACTULOSE 20 GM/30 ML CUP PO SCH (07:46)
[2019-11-11] MEDS: THIAMINE 100 MG TAB PO SCH (07:47)
[2019-11-11] MEDS: METOPROLOL TARTRATE 25 MG TAB PO SCH ×2 (07:47→21:31)
[2019-11-11] MEDS: ASPIRIN 81 MG PO SCH (07:47)
[2019-11-11] MEDS: FUROSEMIDE 40 MG TAB PO SCH (07:47)
[2019-11-11] MEDS: PANTOPRAZOLE 40 MG TABLET PO SCH ×2 (07:47→17:33)
[2019-11-11] MEDS: SODIUM CHLORIDE 0.9% 1,000 ML IV SCH ×2 (07:57→22:29)
--- NOTE | 2019-11-11 08:21 | P.GSHP ---
History of Present Illness H&P Date: 11/10/19 Chief Complaint: fall this is a 69-year-old male who apparently fell while using his walker. Patient fell on his right side. Patient's complaints of significant pain in his right chest. He denies any significant abdominal pain Past Medical History Past Medical History: Coronary Artery Disease (CAD), CVA/TIA, Deep Vein Thrombosis (DVT), Hyperlipidemia, Hypertension, Vascular Disorder Additional Past Medical History / Comment(s): right leg DVT, PVD, TIA 2015, HAD A NON HEALING WOUND LT LEG-HAD SKIN GRAFTING.has no circulation left leg on 100 percent blocked from groin to mid doe tried to do cath and was unable to, alcoholism History of Any Multi-Drug Resistant Organisms: None Reported Past Surgical History: Coronary Bypass/CABG, Heart Catheterization, Joint Replacement, Orthopedic Surgery Additional Past Surgical History / Comment(s): left knee replacement, left foot surgery, stent to right leg, CABG 12/2014, 4 bypass, aortogram, WOUND CLINIC, SKIN GRAFTING LT LEG Past Anesthesia/Blood Transfusion Reactions: No Reported Reaction Past Psychological History: Anxiety, Depression Smoking Status: Current every day smoker Past Alcohol Use History: None Reported Additional Past Alcohol Use History / Comment(s): Patient is a smoker one pack per day since he was 16 years of age. He smokes marijuana on a daily basis. He uses alcohol and drinks 3 beers per day and half a pint of whiskey. He lives at home alone. No pets in the home. 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 No recent travel. Past Drug Use History: Marijuana - Past Family History Father Family Medical History: Myocardial Infarction ([place]) Mother Family Medical History: No Reported History Medications and Allergies Home Medications Medication Instructions Recorded Confirmed Type Aspirin EC [Ecotrin Low Dose] 81 mg PO DAILY 08/31/19 11/09/19 History Metoprolol Tartrate [Lopressor] 25 mg PO BID #60 tab 09/09/19 11/09/19 Rx Thiamine [Vitamin B-1] 100 mg PO DAILY 09/27/19 11/09/19 History Furosemide [Lasix] 40 mg PO DAILY #0 10/17/19 11/09/19 Rx Lactulose [Cephulac] 30 gm PO DAILY #30 ml 10/17/19 11/09/19 Rx Acetaminophen Tab [Tylenol Tab] 650 mg PO Q6H PRN 11/09/19 11/09/19 History Magnesium Oxide [Mag-Ox] 400 mg PO DAILY 11/09/19 11/09/19 History Melatonin 1 mg PO HS PRN 11/09/19 11/09/19 History Pantoprazole Sodium [Protonix] 40 mg PO BID 11/09/19 11/09/19 History Spironolactone 100 mg PO DAILY 11/09/19 11/09/19 History Allergies Allergy/AdvReac Type Severity Reaction Status Date / Time No Known Allergies Allergy Verified 11/09/19 16:40 Surgical - Exam Vital Signs Temp Pulse Resp BP Pulse Ox 97.5 F L 105 H 18 161/109 99 11/09/19 13:24 11/09/19 13:24 11/09/19 13:24 11/09/19 13:24 11/09/19 13:24 - General well developed - Eyes PERRL - ENT normal pinna - Neck no masses - Respiratory right-sided rib pain normal expansion - Abdomen Abdomen: soft, non tender - Integumentary chronic right foot ulcer Results - Labs 11/10/19 07:37 11/10/19 07:37 Abnormal Lab Results - Last 24 Hours (Table) 11/10/19 11/10/19 11/10/19 Range/Units 07:37 07:37 07:37 WBC 11.1 H (3.8-10.6) k/uL Sodium 129 L (137-145) mmol/L Potassium 5.6 H (3.5-5.1) mmol/L Chloride 95 L (98-107) mmol/L BUN 7 L (9-20) mg/dL Creatinine 0.45 L (0.66-1.25) mg/dL Plasma Lactic Acid Taurus 2.3 H* (0.7-2.0) mmol/L 11/10/19 Range/Units 12:32 WBC (3.8-10.6) k/uL Sodium (137-145) mmol/L Potassium (3.5-5.1) mmol/L Chloride (98-107) mmol/L BUN (9-20) mg/dL Creatinine (0.66-1.25) mg/dL Plasma Lactic Acid Taurus 2.2 H* (0.7-2.0) mmol/L Diabetes panel 11/10/19 Range/Units 07:37 Sodium 129 L (137-145) mmol/L Potassium 5.6 H (3.5-5.1) mmol/L Chloride 95 L (98-107) mmol/L Carbon Dioxide 26 (22-30) mmol/L BUN 7 L (9-20) mg/dL Creatinine 0.45 L (0.66-1.25) mg/dL Glucose 93 (74-99) mg/dL Calcium 9.1 (8.4-10.2) mg/dL Calcium panel 11/10/19 Range/Units 07:37 Calcium 9.1 (8.4-10.2) mg/dL Pituitary panel 11/10/19 Range/Units 07:37 Sodium 129 L (137-145) mmol/L Potassium 5.6 H (3.5-5.1) mmol/L Chloride 95 L (98-107) mmol/L Carbon Dioxide 26 (22-30) mmol/L BUN 7 L (9-20) mg/dL Creatinine 0.45 L (0.66-1.25) mg/dL Glucose 93 (74-99) mg/dL Calcium 9.1 (8.4-10.2) mg/dL Adrenal panel 11/10/19 Range/Units 07:37 Sodium 129 L (137-145) mmol/L Potassium 5.6 H (3.5-5.1) mmol/L Chloride 95 L (98-107) mmol/L Carbon Dioxide 26 (22-30) mmol/L BUN 7 L (9-20) mg/dL Creatinine 0.45 L (0.66-1.25) mg/dL Glucose 93 (74-99) mg/dL Calcium 9.1 (8.4-10.2) mg/dL - Imaging Abdominal x-ray: report reviewed (right rib ninth and 10th fracture) Assessment and Plan Assessment: rigmultiple rib fractures, severe pain. Patient will be admitted to hospital for pain control and pulmonary toilet.
[2019-11-11 09:21] LABS: African American GFR (CKD) >90 (>60 ml/min/1.73 sqM); Anion Gap 9 mmol/L; Blood Urea Nitrogen 9 mg/dL (9-20); Calcium 8.8 mg/dL (8.4-10.2); Carbon Dioxide 23 mmol/L (22-30); Chloride 96 mmol/L (98-107); Glucose 137 mg/dL (74-99); Non-African American GFR(CKD) >90 (>60 ml/min/1.73 sqM); Potassium 4.4 mmol/L (3.5-5.1); Sodium 128 mmol/L (137-145)
[2019-11-11 09:30] LABS: HCT 41.5 % (39.0-53.0); HGB 14.2 gm/dL (13.0-17.5); MCH 32.2 pg (25.0-35.0); MCHC 34.2 g/dL (31.0-37.0); MCV 94.3 fL (80.0-100.0); Mean Platelet Volume 8.1; Platelet Count 243 k/uL (150-450); RDW 13.9 % (11.5-15.5); WBC 10.9 k/uL (3.8-10.6)
[2019-11-11] MEDS ORDERED: KETOROLAC 30 MG/ML 1 ML VIAL IVP PRN (09:40)
--- NOTE | 2019-11-11 12:00 | P.PN ---
Subjective Progress Note Date: 11/11/19 CHIEF COMPLAINT: Fall HISTORY OF PRESENT ILLNESS: Patient is admitted to the hospital secondary to a fall. Patient examined this morning at the bedside with Dr. Sandoval. Patient denies abdominal pain. Denies nausea or vomiting. Patient reports pain secondary to rib fractures that is worse with deep inspiration. Vital signs stable. He is afebrile. PHYSICAL EXAM: VITAL SIGNS: Reviewed. GENERAL: Well-developed in no acute distress. HEENT: No sclera icterus. Extraocular movements grossly intact. Moist buccal mucosa. Head is atraumatic, normocephalic. ABDOMEN: Soft. Nondistended. Nontender. NEUROLOGIC: Alert and oriented. Cranial nerves II through XII grossly intact. ASSESSMENT: 1. Trauma, status post fall 2. Acute nondisplaced fractures involving the right posterior lateral ninth and 10th ribs 3. Left heel unstageable pressure ulcer 4. Chronic left leg wound, hx of peripheral arterial disease PLAN: -Continue wound care per Dr. Muniz -Await further recommendations from vascular surgery -Continue diet as tolerated -Pain control -Incentive spirometer -Discharge per medicine when stable. Likely will require ECF. Social work following. Nurse practitioner note has been reviewed by physician. Signing provider agrees with the documented findings, assessment, and plan of care. Objective - Vital Signs Vital signs: Vital Signs Temp 96.8 F L 11/11/19 05:00 Pulse 82 11/11/19 05:00 Resp 18 11/11/19 05:00 BP 147/84 11/11/19 05:00 Pulse Ox 95 11/11/19 05:00 Intake & Output 11/10/19 11/11/19 11/11/19 18:59 06:59 18:59 Intake Total 1031 850 531 Output Total 200 300 Balance 831 850 231 Weight 58.967 kg Intake: Oral 1031 850 531 Output: Urine 200 300 Other: Voiding Method Urinal Urinal Urinal # Voids 2 2 # Bowel Movements 0 0 - Labs CBC & Chem 7: 11/11/19 08:27 11/11/19 08:27 Labs: Abnormal Lab Results - Last 24 Hours (Table) 11/10/19 11/11/19 11/11/19 Range/Units 12:32 08:27 08:27 WBC 10.9 H (3.8-10.6) k/uL Sodium 128 L (137-145) mmol/L Chloride 96 L (98-107) mmol/L Creatinine 0.45 L (0.66-1.25) mg/dL Glucose 137 H (74-99) mg/dL Plasma Lactic Acid [place]aurus 2.2 H* (0.7-2.0) mmol/L
--- NOTE | 2019-11-11 16:50 | PN ---
PROGRESS NOTE DATE OF SERVICE: 11/11/2019 REASON FOR FOLLOWUP: 1. Left heel pressure ulcer. 2. Left leg wound. INTERVAL HISTORY: The patient is currently afebrile. The patient has been breathing comfortably. Denies having any chest pain or any cough. No nausea, vomiting or any worsening pain to the left leg area. PHYSICAL EXAMINATION: Blood pressure 147/84 with a pulse of 82, temperature 96.8. He is 95% on room air. General description is an elderly male up in the bed in no distress. RESPIRATORY SYSTEM: Unlabored breathing. Clear to auscultation anteriorly. HEART: S1, S2. Regular rate and rhythm. ABDOMEN: Soft. No tenderness. Left leg and heel wounds are currently dressed up. No obvious drainage on the dressing. LABS: Creatinine 0.45, white count 10.9. DIAGNOSTIC IMPRESSION AND PLAN: 1. Patient with a left heel unstageable pressure ulcer in this patient admitted to hospital with fall and rib fracture. Awaiting surgical debridement and possible deep culture. Local care to continue with a dry protective dressing. Keep the area off pressure. 2. Left leg wound. No evidence of any cellulitis. Local care to continue with an Aquacel Silver dressing and monitor his clinical course closely. MMODL / IJN: [id number] /
[2019-11-11] MEDS: HYDROcodone/APAP 5-325MG 1 EACH TAB PO PRN ×2 (17:33→21:31)
[2019-11-12] MEDS: HYDROcodone/APAP 5-325MG 1 EACH TAB PO PRN ×4 (03:08→21:06)
[2019-11-12] MEDS: METOPROLOL TARTRATE 25 MG TAB PO SCH ×2 (07:21→21:06)
[2019-11-12] MEDS: PANTOPRAZOLE 40 MG TABLET PO SCH ×2 (07:21→17:00)
[2019-11-12] MEDS: MAGNESIUM OXIDE 400 MG TAB PO SCH (07:21)
[2019-11-12] MEDS: SPIRONOLACTONE 25 MG TAB PO SCH (07:22)
[2019-11-12] MEDS: LACTULOSE 20 GM/30 ML CUP PO SCH (07:22)
[2019-11-12] MEDS: FUROSEMIDE 40 MG TAB PO SCH (07:22)
[2019-11-12] MEDS: ASPIRIN 81 MG PO SCH (07:22)
[2019-11-12] MEDS: THIAMINE 100 MG TAB PO SCH (07:31)
--- NOTE | 2019-11-12 09:53 | P.PN ---
Subjective Progress Note Date: 11/12/19 CHIEF COMPLAINT: Fall HISTORY OF PRESENT ILLNESS: Patient is admitted to the hospital secondary to a fall. Patient examined this morning at the bedside with Dr. Sandoval. Patient denies abdominal pain. Denies nausea or vomiting. Patient continues to report pain. He is receiving Dilaudid, [place], and Toradol. Vital signs stable. He is afebrile. PHYSICAL EXAM: VITAL SIGNS: Reviewed. GENERAL: Well-developed in no acute distress. HEENT: No sclera icterus. Extraocular movements grossly intact. Moist buccal mucosa. Head is atraumatic, normocephalic. ABDOMEN: Soft. Nondistended. Nontender. NEUROLOGIC: Alert and oriented. Cranial nerves II through XII grossly intact. ASSESSMENT: 1. Trauma, status post fall 2. Acute nondisplaced fractures involving the right posterior lateral ninth and 10th ribs 3. Left heel unstageable pressure ulcer 4. Chronic left leg wound, hx of peripheral arterial disease PLAN: -Continue wound care per Dr. Muniz -Continue diet as tolerated -Pain control -Incentive spirometer -No surgical intervention from a general surgery standpoint -Discharge per medicine when stable. Likely will require ECF. Social work following. Nurse practitioner note has been reviewed by physician. Signing provider agrees with the documented findings, assessment, and plan of care. Objective - Vital Signs Vital signs: Vital Signs Temp 98.0 F 11/12/19 05:51 Pulse 82 11/12/19 05:51 Resp 16 11/12/19 05:51 BP 153/84 11/12/19 05:51 Pulse Ox 93 L 11/12/19 05:51 Intake & Output 11/11/19 11/12/19 11/12/19 18:59 06:59 18:59 Intake Total 1611 Output Total 1251 725 Balance 360 -725 Intake: Oral 1611 Output: Urine 1250 725 Stool 1 Other: Voiding Method Urinal Urinal # Voids 3 # Bowel Movements 0 - Labs CBC & Chem 7: 11/11/19 08:27 11/11/19 08:27
[2019-11-12] MEDS: SODIUM CHLORIDE 0.9% 1,000 ML IV SCH ×2 (12:02→23:14)
[2019-11-12 21:45] VITALS: RESP 20
--- NOTE | 2019-11-12 21:56 | PN ---
PROGRESS NOTE DATE OF SERVICE: 11/12/2019. REASON FOR FOLLOWUP: 1. Left heel unstageable pressure ulcer. 2. Left leg wound. INTERVAL HISTORY: The patient is currently afebrile. Patient has been complaining of pain to the ribcage area. The patient did have a fall and fracture . The patient denies having any shortness of breath or cough. No abdominal pain. No pain to the left heel area. PHYSICAL EXAMINATION: Blood pressure 153/84 with a pulse of 82. Temperature 98. He is 93% on room air. General description is an elderly male lying in bed in no distress. Respiratory system: Unlabored breathing. Clear to auscultation anteriorly. Heart S1, S2. Regular rate and rhythm. ABDOMEN: Soft, no tenderness. Left heel wound is currently dressed up. Minimal drainage on the dressing. LABS: No new labs have been obtained today. DIAGNOSTIC IMPRESSION AND PLAN: 1. Patient with left heel unstageable pressure ulcer, awaiting surgery debridement and possible deep culture. Local care to continue with dry protective dressing and keep the area off the pressure. 2. Left leg wound, currently no cellulitis. Local wound care with Aquacel Silver dressing and keep the area off the pressure. MMODL / IJN: [id number] / ITZ
--- NOTE | 2019-11-12 22:02 | PN ---
PROGRESS NOTE DATE OF SERVICE: 11/10/2019. CHIEF COMPLAINT: Multiple rib fractures. HISTORY OF PRESENT ILLNESS: This gentleman is doing fairly well. He is in a lot of pain but reasonably comfortable. PHYSICAL EXAMINATION: He is not in DTs. Chest is clear. Cardiac exam is normal. Abdomen is soft and nontender. Extremities are unchanged. IMPRESSION: 1. Status post multiple left-sided rib fractures. 2. Alcoholism. 3. Ulcer of the left doe. 4. Necrotic heel ulcer of the left heel. RECOMMENDATIONS: No change in program at this time. MMODL / IJN: [id number] /
--- NOTE | 2019-11-12 22:08 | PN ---
PROGRESS NOTE DATE OF SERVICE: 11/12/2019 CHIEF COMPLAINT: Fall with rib fractures. HISTORY OF PRESENT ILLNESS: This gentleman is not moving around a great deal due to the pain. He has had no shortness of breath or fever. He has not had DTs develop. PHYSICAL EXAMINATION: Breath sounds are heard on both sides and the cardiac exam is normal. Abdomen is soft, nontender. Extremities are normal except the left leg and foot findings. IMPRESSION: 1. Fall with multiple left rib fractures. 2. Necrotic ulcer on the bottom of the left heel. 3. Slowly healing ulcer of the left doe. PLAN: Continue current program. MMODL / IJN: [id number] /
--- NOTE | 2019-11-12 22:11 | PN ---
PROGRESS NOTE DATE OF SERVICE: 11/11/2019. CHIEF COMPLAINT: Rib fractures. HISTORY OF PRESENT ILLNESS: This gentleman is still in a great deal of pain and he is not moving about much at all. He is not particularly short of breath and he is not febrile. PHYSICAL EXAMINATION: He is splinting. Breath sounds are diminished on the left. Cardiac exam is normal. Abdomen is soft, nontender. IMPRESSION: 1. Rib fractures, left-sided. 2. Chronic obstructive pulmonary disease. 3. Alcoholism. PLAN: Slowly progress activity and work on where he will go after the hospitalization. MMODL / IJN: [id number] /
--- NOTE | 2019-11-12 22:17 | CONS ---
CONSULTATION CHIEF COMPLAINT: Fall with multiple rib fractures. HISTORY OF PRESENT ILLNESS: This is another recent admission for this 69-year-old white male alcoholic. He was in a shelter for a period of time. He apparently fell at home. He states he got his feet tangled up in something. He denies drinking. He presented to the emergency room with multiple rib fractures. He was admitted for observation. REVIEW OF SYSTEMS: He is not having any shortness of breath, hemoptysis, etc. He is complaining of a lot of pain. Past medical history, family history personal and social history can all be found in his recent admitting and discharge summaries as well as his admitting summary. PHYSICAL EXAMINATION: Blood pressure is 123/74 with a pulse of 76, respirations were 32. In general he appeared to be older than his stated age. Skin color is normal. Skin was dry. Lymph nodes were not enlarged. Head, ears, eyes, nose, mouth, and throat were normal except for dry mucous membranes. Neck was supple. Chest demonstrated good breath sounds bilaterally. Cardiac exam demonstrated sinus rhythm and no murmurs or extra sounds. Abdomen was soft and nontender. Extremities revealed the slowly healing infected ulcer on the left doe and a necrotic decubitus on the back of the left heel. Neurologically, he seemed to be intact. IMPRESSION: 1. Multiple left-sided rib fractures after fall. 2. Chronic alcoholism. 3. Malnutrition. 4. Chronic obstructive pulmonary disease. 5. Slowly infected ulcer on the left doe. 6. 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 RECOMMENDATIONS: None at this time. We do not know if he has been drinking and is a possible risk for DTs. MMODL / IJN: [id number] /
[2019-11-13] MEDS: HYDROcodone/APAP 5-325MG 1 EACH TAB PO PRN ×2 (00:58→10:53)
[2019-11-13 05:52] VITALS: BP 166/83; PULSE 68; TEMP 97.8
[2019-11-13] MEDS: SPIRONOLACTONE 25 MG TAB PO SCH (07:15)
[2019-11-13] MEDS: LACTULOSE 20 GM/30 ML CUP PO SCH (07:15)
[2019-11-13] MEDS: THIAMINE 100 MG TAB PO SCH (07:16)
[2019-11-13] MEDS: ASPIRIN 81 MG PO SCH (07:16)
[2019-11-13] MEDS: FUROSEMIDE 40 MG TAB PO SCH (07:16)
[2019-11-13] MEDS: MAGNESIUM OXIDE 400 MG TAB PO SCH (07:16)
[2019-11-13] MEDS: METOPROLOL TARTRATE 25 MG TAB PO SCH (07:16)
[2019-11-13] MEDS: PANTOPRAZOLE 40 MG TABLET PO SCH (07:16)
--- NOTE | 2019-11-13 11:19 | P.PN ---
Subjective Progress Note Date: 11/13/19 Patient was seen and examined at the bedside. Overall no issues. He had his FELA ultrasounds performed yesterday.On the right his FELA is 0.4 to, on the left is 0.51. He has evidence of significant infrapopliteal disease on the right and femoral popliteal and infrapopliteal disease on the left. Multilevel pressures were not performed Objective - Vital Signs Vital signs: Vital Signs Temp 97.8 F 11/13/19 04:00 Pulse 68 11/13/19 04:00 Resp 20 11/13/19 04:00 BP 166/83 11/13/19 04:00 Pulse Ox 97 11/13/19 04:00 Intake & Output 11/12/19 11/13/19 11/13/19 18:59 06:59 18:59 Intake Total 500 Balance 500 Intake: Oral 500 Other: Voiding Method Urinal Urinal Urinal # Voids 4 3 # Bowel Movements 1 - Exam No acute distress. Resting comfortably HEENT normocephalic, atraumatic, excellent motion intact Heart regular Lungs clear Abdomen soft, nontender nondistended Left heel wound necrotic area, no erythema or induration. - Additional findings Additional findings: Procedure: Sharp excisional debridement left heel wound, to muscle. Resultant wound measuring 5 x 4.5 x 0.3 cm, deep tissue cultures Preprocedure diagnosis left heel wound, peripheral arterial disease Post procedure diagnosis same Procedure The left heel was prepped and draped in usual sterile fashion. A preprocedure timeout was performed, all parties were in agreement. Utilizing a scalpel and pickups the overlying necrotic tissue was excised sharply. This is done down to the level of muscle. The tissue underneath there was an area of small pocket of purulence. This was cultured. The area was then sharply debrided with a scalpel to relatively healthy appearing tissue. No significant bogginess or drainage otherwise. Sterile dressing with silver placed. The patient tolerated the procedure well. - Labs CBC & Chem 7: 11/11/19 08:27 11/11/19 08:27 Assessment and Plan Assessment: #1 left heel wound, unstageable, now status post debridement #2 left anterior calf wound #3 severe peripheral arterial disease, previous interventions per Dr. Meraz #4 history of multiple falls with rib fractures Plan: At this point all findings appear chronic in nature. No further need for hospitalization from a vascular surgical standpoint. We can follow-up outpatient for further revascularization attempts. He may choose to follow up with Dr. Meraz. Continue local wound care and antibiotics as decided by i nfectious disease. No vascular intervention planned at this time.
[2019-11-13] MEDS: SODIUM CHLORIDE 0.9% 1,000 ML IV SCH (13:42)
--- NOTE | 2019-11-13 14:35 | PN ---
PROGRESS NOTE DATE OF SERVICE: 11/13/2019 REASON FOR FOLLOWUP: 1. Left heel unstageable pressure ulcer. 2. Left leg wound. INTERVAL HISTORY: The patient is currently afebrile. The patient has been breathing comfortably. He denies having any shortness of breath or cough. There has been on the right side of the chest. No nausea, no vomiting. No abdominal pain, no diarrhea. PHYSICAL EXAMINATION: Blood pressure is 166/83, pulse of 68, temperature 97.8. He is 97% on room air. General description is an elderly male, lying in bed in no distress. RESPIRATORY SYSTEM: Unlabored breathing, clear to auscultation anteriorly. HEART: S1, S2. Regular rate and rhythm. ABDOMEN: Soft, no tenderness. Left heel did have unstageable pressure ulcer with the no surrounding redness was noticed. Left leg wound looks clean. LABS: No new labs have been obtained today. DIAGNOSTIC IMPRESSION AND PLAN: 1. Patient with left heel unstageable pressure ulcer with surgical debridement, no need for any systemic antibiotic as clinically patient low for underlying secondary infection. 2. Left leg wound. Local care with dry Aquacel dressing, keep the area off the pressure. MMODL / IJN: [id number] /
--- NOTE | 2019-11-13 15:17 | DS ---
DISCHARGE SUMMARY CHIEF COMPLAINT: Fall with left-sided rib fractures. HISTORY OF PRESENT ILLNESS AND PHYSICAL EXAM: Details of this man's history and physical can be found in the initial workup. LABORATORY STUDIES: While he was in a hospital, he had laboratory studies, details of which can be found in the laboratory section of his chart. COURSE IN HOSPITAL: After admission, he was placed on bedrest, started on intravenous fluids and was given analgesics. He was in a significant amount of pain and it was recommended he go back to a skilled nursing for rehab and arrangements were made for him to go to [place] on 11/13. FINAL DIAGNOSES: 1. Left-sided rib fractures. 2. Chronic alcoholism. 3. Chronic obstructive pulmonary disease. 4. Necrotic ulcer in the bottom of the left heel. 5. Slowly healing ulcer in the left doe. OPERATIONS: None. CONSULTATIONS: Surgery. He is improved. MMIZAIAH / OWEN: [id number] /
--- NOTE | 2019-11-17 10:22 | CDI ---
Documentation Clarification Form Date: 11/17/19 From: Sharlene Short Phone: If you have a question about this query, please contact Moni Mayfield, Bridge [employer] at [phone] between 8am and 5pm. Admit Date: 11/09/19 Discharge Date:11/13/19 Patient Name: Arun Recinos Visit Number: [id number] ATTENTION: The Clinical Documentation Specialists (CDI) and [facility] Coding Staff appreciate your assistance in clarifying documentation. Please respond to the clarification below the line at the bottom and electronically sign. The CDI & [facility] Coding staff will review the response and follow-up if needed. Please note: Queries are made part of the Legal Health Record. If you have any questions, please contact the author of this message via ITS. Dear Dr. Nolberto Tan Malnutrition has been documented in your 11/12 consult note. History/Risk Factors: COPD, depression, chronic alcoholism, pressure ulcer left heel Clinical Indicators: Underweight, decreased BMI Labs: Total Protein 6.6, albumin 3.3 Current BMI: 19.2 Insufficient energy intake: Fair energy intake (25 - 50%) Weight Loss: Current weight 130 lbs, recent admit (10/17) weight 147 lbs. Loss of subcutaneous fat: Not documented Loss of muscle mass: Not documented Fluid accumulation: No edema Decreased hand stone polisher strength: Strength grossly intact per Dr. Olguin's consult note. Treatment: Dietary Consult: Underweight Supplements: Ensure Enlive & Phil nutrition powder In your professional opinion, can you please clarify if these findings signify one of the following conditions? Underweight Mild Protein-Calorie Malnutrition Moderate Protein-Calorie Malnutrition Severe Protein-Calorie Malnutrition Malnutrition, unspecified Malnutrition following GI surgery Other condition, please specify Unable to determine MTDD
--- NOTE | 2019-11-18 10:31 | P.ARTDOP ---
Arterial Doppler LOWER EXTREMITY ARTERIAL DOPPLER: DATE OF SERVICE: 11/12/2019 Reason for study: Left lower leg ulcer. Doppler waveforms: Multiphasic at the femoral level. Atypical at the popliteal. Monophasic below the popliteal. Flat line digital level.. Pulse volume recording: []. Pressure gradients: Above the ankle bilaterally. Ankle-brachial indices: 0.42 on the right and 0.51 on the left. Toe pressures: [] on the right, [] on the left Impression: Severe bilateral femoral popliteal occlusive disease. Consider vascular surgical consultation..
--- NOTE | 2019-11-21 09:11 | MISC ---
MISCELLANOUS REPORT QUERY: Mild protein calorie malnutrition. MMODL / IJN: [id number] /
--- NOTE | 2019-11-29 15:21 | MISC ---
MISCELLANOUS REPORT Malnutrition. Rate of condition: Chronic alcoholism. MMODL / IJN: [id number] /
--- NOTE | 2019-12-05 17:50 | MISC ---
MISCELLANOUS REPORT Mild protein-calorie malnutrition. Other condition: Chronic alcoholism. MMODL / IJN: [id number] /
== END 2019-11-13 17:29 | DRG 982 ==
LOC: EC 13:07 → 5NMEDONC 15:49 → 6NMEDSUR 17:36
PROVIDERS: ADMIT Family Medicine; ATTEND Family Medicine
PROC: 0KBW0ZZ Excision of Left Foot Muscle, Open Approach (ICD-10-PCS; principal; 2019-11-09)
DX: S22.41XA Multiple fractures of ribs, right side, initial encounter for closed fracture (principal); L97.829 Non-pressure chronic ulcer of other part of left lower leg with unspecified severity; E44.1 Mild protein-calorie malnutrition; Z68.1 Body mass index [BMI] 19.9 or less, adult; L89.620 Pressure ulcer of left heel, unstageable; E78.5 Hyperlipidemia, unspecified; F10.20 Alcohol dependence, uncomplicated; F17.210 Nicotine dependence, cigarettes, uncomplicated; F32.9 Major depressive disorder, single episode, unspecified; F41.9 Anxiety disorder, unspecified; I10 Essential (primary) hypertension; I25.10 Atherosclerotic heart disease of native coronary artery without angina pectoris; I73.9 Peripheral vascular disease, unspecified; J44.9 Chronic obstructive pulmonary disease, unspecified; R29.6 Repeated falls; Z79.82 Long term (current) use of aspirin; Z79.899 Other long term (current) drug therapy; Z86.718 Personal history of other venous thrombosis and embolism; Z86.73 Personal history of transient ischemic attack (TIA), and cerebral infarction without residual deficits; Z95.1 Presence of aortocoronary bypass graft; Z96.652 Presence of left artificial knee joint; Z82.49 Family history of ischemic heart disease and other diseases of the circulatory system; W01.0XXA Fall on same level from slipping, tripping and stumbling without subsequent striking against object, initial encounter; Y92.009 Unspecified place in unspecified non-institutional (private) residence as the place of occurrence of the external cause
CPT/HCPCS: 71046; 72170; 80048; 80053; 81003; 83605; 85025; 85027; 87070; 87075; 87077; 87186; 87205; 93922; 93923; 96374; 96375; 99285

== ENCOUNTER 2019-12-18 07:51 | Day surgery (SDC) | payer MEDICARE ==
[2019-12-17 09:31] VITALS: BMI 19.2
[~2019-12-18 07:51] MED LIST: ALPRAZolam 0.25 MG TAB PO PRN; ASPIRIN 325 MG TAB PO ONE; SODIUM CHLORIDE 0.9% 1,000 ML in EMPTY BAG 1 BAG IV ONE
[2019-12-18 08:17] VITALS: TEMP 95.9
[2019-12-18] MEDS ORDERED: LIDOCAINE 1% INJ 10MG/ML (20 ML MDV) SQ ONE (09:05)
[2019-12-18] MEDS ORDERED: MIDAZOLAM 2 MG/2 ML VIAL IV ONE (09:06)
[2019-12-18] MEDS: fentaNYL (PF) 50 MCG/ML 2 ML AMP IV ONE ×2 (09:06→09:34)
[2019-12-18] MEDS ORDERED: HEPARIN SODIUM 1,000 UN/ML (10ML VL) IV ONE (09:17)
[2019-12-18] MEDS ORDERED: IOPAMIDOL-250 100ML BTL INTRAARTER ONE (09:42)
[2019-12-18] MEDS ORDERED: HYDROcodone/APAP 5-325MG 1 EACH TAB PO PRN (10:31)
--- NOTE | 2019-12-18 10:43 | P.OP ---
Date of Procedure: 12/18/19 Description of Procedure: Preoperative diagnosis: [Meli 5 Peripheral arterial occlusive disease, femoral occlusive disease, abnormal ABIs,] Postoperative diagnosis: Same Procedure: [Ultrasound-guided right common femoral artery access Right iliofemoral angiogram Aortogram with runoffs Selective left lower extremity angiogram, second-order Percutaneous transluminal balloon angioplasty 7 x 20, stent 8 x 20 of the right external iliac Moderate conscious sedation 40 minutes] Surgeon: Hellen Olguin D.O. EBL: []Minimal IV fluids: [See records] Urine output: [Not measured] Drains: [None] Complications: [None immediately apparent] Condition: [Stable to recovery] Operative indication and findings: The patient is a 69-year-old male with a recent history of a knee replacement and subsequent pressure ulcer to his left heel. This has continued to be nonhealing. He underwent recent ABIs revealing [0.42 on the right, 0.51 on the left with evidence of significant femoral popliteal occlusive disease. He presents today for an angiogram. Angiographic findings: The aorta is diffusely diseased with areas of calcifications but no significant stenoses, bilateral renal arteries are patent without any evidence of disease. On the right the common iliac artery is patent without evidence of disease, the internal iliac is patent without evidence of significant disease. The external iliac, just proximally to the previously placed stent there is a dissection flap and calcification causing approximate 80% stenosis. The right common femoral artery is patent with minimal disease. The profunda is patent without evidence of disease. The superficial femoral artery is chronically occluded at its takeoff. Artery remains occluded all the way to the peroneal and posterior tibial arteries, no evidence of patent TP trunk on the right. There is two-vessel runoff at the ankle On the left the common, external and internal iliac are patent, there are stents previously placed in the left external iliac. No evidence of significant disease. The common femoral artery is patent without significant disease. The profunda is patent without significant disease. The superficial femoral artery is occluded at its takeoff. The artery remains occluded through the popliteal artery, there is reconstitution of the tibial peroneal trunk which continues down into the peroneal artery, the posterior tibial reconstitutes and then retrograde fills back to the tibial peroneal trunk. There is 2 vessel runoff to the ankle. The dorsalis pedis appears patent] Procedure in detail: [The patient was taken to the special suite and placed in supine position. The bilateral groins were prepped and draped in usual sterile fashion. A preprocedure timeout was performed, all parties were in agreement. The ultrasound was utilized, the right common femoral artery was identified. The skin overlying was anesthetized 1% lidocaine plain. Using a multipurpose needle the artery was accessed with return of pulsatile blood. A J-wire was advanced but there was some minimal resistance at the level of the distal external iliac prior to the previously placed stent. The sheath was placed and a iliofemoral angiogram was performed with the findings as above. A Glidewire was used to traverse the areas of narrowing and dissection from previous, a catheter was in place in the aorta and imaging was performed. Due to the prosthetic in the left knee as well as poor flow, an RBI catheter was used to go up and over and placed into the external iliac. A hand injection was performed revealing the findings as above for the left lower extremity. That point the wire was removed back into and placed into the aorta. The catheter was removed. An 8 x 20 ever Flex open cell stent was placed over the area of the dissection just proximally to the previous stent. This is then postdilated with a 7 x 20 balloon. Catheters wires removed. The sheath was removed and pressure was held until hemostasis was adequate.] Disposition: The patient will need a femoral to tibial peroneal trunk bypass on the left with CryoVein in efforts to heal his wounds Plan - Discharge Summary Discharge Rx Participant: No New Discharge Prescriptions: No Action Aspirin EC [Ecotrin Low Dose] 81 mg PO DAILY Metoprolol Tartrate [Lopressor] 25 mg PO BID #60 tab Furosemide [Lasix] 40 mg PO DAILY #0 Melatonin 1 mg PO HS PRN PRN Reason: Insomnia Spironolactone 100 mg PO DAILY Acetaminophen Tab [Tylenol] 650 mg PO Q6H PRN PRN Reason: Pain Pantoprazole Sodium [Protonix] 40 mg PO BID Lactulose [Cephulac] 45 ml PO DAILY Prostat Supplement 30 ml PO HS Discharge Medication List Aspirin EC [Ecotrin Low Dose] 81 mg PO DAILY 08/31/19 [History] Metoprolol Tartrate [Lopressor] 25 mg PO BID #60 tab 09/09/19 [Rx] Furosemide [Lasix] 40 mg PO DAILY #0 10/17/19 [Rx] Acetaminophen Tab [Tylenol] 650 mg PO Q6H PRN 11/09/19 [History] Melatonin 1 mg PO HS PRN 11/09/19 [History] Pantoprazole Sodium [Protonix] 40 mg PO BID 11/09/19 [History] Spironolactone 100 mg PO DAILY 11/09/19 [History] Lactulose [Cephulac] 45 ml PO DAILY 12/17/19 [History] Prostat Supplement 30 ml PO HS 12/17/19 [History]
[2019-12-18] MEDS ORDERED: SODIUM CHLORIDE 0.9% 1,000 ML IV SCH (10:45)
[2019-12-18 11:28] VITALS: RESP 16
--- NOTE | 2019-12-18 11:37 | IR ---
Fluoroscopy HISTORY: Pain in left leg 3.4 minutes fluoroscopy time supplied to the referring clinician. 307 intraoperative C-arm images do cument the procedure. See dictated report from vascular surgery.
[2019-12-18 14:22] VITALS: PULSE 81
[2019-12-18 16:01] VITALS: BP 119/73
== END 2019-12-18 16:08 ==
LOC: CATHCVL 07:51
PROVIDERS: ATTEND Surgery
DX: I70.203 Unspecified atherosclerosis of native arteries of extremities, bilateral legs (principal); L89.629 Pressure ulcer of left heel, unspecified stage; I10 Essential (primary) hypertension; I25.10 Atherosclerotic heart disease of native coronary artery without angina pectoris; F41.9 Anxiety disorder, unspecified; J44.9 Chronic obstructive pulmonary disease, unspecified; I82.409 Acute embolism and thrombosis of unspecified deep veins of unspecified lower extremity; F32.9 Major depressive disorder, single episode, unspecified; G93.40 Encephalopathy, unspecified; K21.9 Gastro-esophageal reflux disease without esophagitis; M25.559 Pain in unspecified hip; M25.869 Other specified joint disorders, unspecified knee; M62.81 Muscle weakness (generalized); F17.200 Nicotine dependence, unspecified, uncomplicated; I70.0 Atherosclerosis of aorta; Z95.820 Peripheral vascular angioplasty status with implants and grafts; Z79.899 Other long term (current) drug therapy; Z79.82 Long term (current) use of aspirin; Z87.01 Personal history of pneumonia (recurrent); Z86.73 Personal history of transient ischemic attack (TIA), and cerebral infarction without residual deficits; Z98.890 Other specified postprocedural states; Z82.5 Family history of asthma and other chronic lower respiratory diseases; Z82.49 Family history of ischemic heart disease and other diseases of the circulatory system; Z83.49 Family history of other endocrine, nutritional and metabolic diseases
CPT/HCPCS: 36200; 36246; 37221; 75625; 75716; C1769 ×5; C1894; C1725; C1876; J2250; J2001; J3010; J1644; Q9966

== ENCOUNTER → 2020-02-04 | Outpatient (CLI) | payer MEDICARE ==
[2020-02-04 11:53] LABS: Basophils # (A) 0.1 k/uL (0-0.2); Basophils % (A) 0 %; Eosinophils # (A) 0.1 k/uL (0-0.7); Eosinophils % (A) 0 %; HCT 44.5 % (39.0-53.0); HGB 14.8 gm/dL (13.0-17.5); Lymphocytes % (A) 17 %; MCH 31.8 pg (25.0-35.0); MCHC 33.1 g/dL (31.0-37.0); Mean Platelet Volume 7.6; Monocytes # (A) 1.3 k/uL (0-1.0); Monocytes % (A) 7 %; Neutrophils # (A) 12.2 k/uL (1.3-7.7); Neutrophils % (A) 72 %; Platelet Count 480 k/uL (150-450); RBC 4.64 m/uL (4.30-5.90); RDW 13.8 % (11.5-15.5)
[2020-02-04 12:17] LABS: African American GFR (CKD) >90 (>60 ml/min/1.73 sqM); Anion Gap 10 mmol/L; Blood Urea Nitrogen 26 mg/dL (9-20); Carbon Dioxide 29 mmol/L (22-30); Chloride 91 mmol/L (98-107); Non-African American GFR(CKD) >90 (>60 ml/min/1.73 sqM); Potassium 4.7 mmol/L (3.5-5.1); Sodium 130 mmol/L (137-145)
== END | disposition home or self-care (01) ==
LOC: LABPAT 11:18
PROVIDERS: ATTEND Surgery
DX: Z01.818 Encounter for other preprocedural examination (principal); M87.877 Other osteonecrosis, right toe(s)
CPT/HCPCS: 36415; 80051; 82565; 84520; 85025

== ENCOUNTER 2020-03-16 07:30 | Inpatient (IN) | payer MEDICARE ==
[2020-03-11 14:33] VITALS: BMI 19.2
[2020-03-16] MEDS ORDERED: MORPHINE SULFATE 2 MG/ML SYRINGE IV PRN (09:30)
[2020-03-16] MEDS ORDERED: LIDOCAINE 1% (10MG/ML) FOR IV START INTRADERMA PRN (09:30)
[2020-03-16] MEDS ORDERED: DEXAMETHASONE SOD PHOSPHATE 10 MG/ML 1 ML VIAL IV ONE (09:30)
[2020-03-16] MEDS ORDERED: ONDANSETRON 4 MG/2 ML VIAL IVP ONE (09:30)
[2020-03-16] MEDS ORDERED: ONDANSETRON 4 MG/2 ML VIAL IVP PRN (09:30)
[2020-03-16] MEDS: LACTATED RINGERS 1,000 ML IV SCH ×2 (10:13→11:28)
[2020-03-16 10:26] LABS: Basophils # (A) 0.1 k/uL (0-0.2); Basophils % (A) 1 %; Eosinophils # (A) 0.3 k/uL (0-0.7); Eosinophils % (A) 2 %; HCT 39.1 % (39.0-53.0); Lymphocytes # (A) 2.6 k/uL (1.0-4.8); Lymphocytes % (A) 22 %; MCH 32.2 pg (25.0-35.0); MCV 97.6 fL (80.0-100.0); Mean Platelet Volume 7.8; Monocytes # (A) 0.8 k/uL (0-1.0); Monocytes % (A) 7 %; Neutrophils # (A) 7.9 k/uL (1.3-7.7); Neutrophils % (A) 67 %; Platelet Count 431 k/uL (150-450); RBC 4.01 m/uL (4.30-5.90); RDW 13.6 % (11.5-15.5); WBC 11.8 k/uL (3.8-10.6)
[2020-03-16 10:31] LABS: HGB 12.9 gm/dL (13.0-17.5)
[2020-03-16 10:36] LABS: African American GFR (CKD) >90 (>60 ml/min/1.73 sqM); Anion Gap 6 mmol/L; Blood Urea Nitrogen 6 mg/dL (9-20); Calcium 8.9 mg/dL (8.4-10.2); Carbon Dioxide 33 mmol/L (22-30); Chloride 95 mmol/L (98-107); Glucose 95 mg/dL (74-99); Non-African American GFR(CKD) >90 (>60 ml/min/1.73 sqM); Potassium 4.1 mmol/L (3.5-5.1); Sodium 134 mmol/L (137-145)
[2020-03-16] MEDS ORDERED: MIDAZOLAM 2 MG/2 ML VIAL IVP ONE (10:45)
[2020-03-16] MEDS ORDERED: fentaNYL (PF) 50 MCG/ML 2 ML AMP IVP ONE (10:46)
[2020-03-16] MEDS ORDERED: LIDOCAINE 1% INJ 10MG/ML (20 ML MDV) ONE (11:25)
[2020-03-16] MEDS ORDERED: PHENYLEPHRINE-0.9% NACL SYG 1 MG/10 ML SYRINGE ONE (11:25)
[2020-03-16] MEDS ORDERED: HEPARIN SODIUM,PORCINE 10,000 UNIT/ML 1 ML VIAL ONE (11:25)
[2020-03-16] MEDS ORDERED: PROPOFOL 10 MG/ML 20 ML VIAL IV ONE ×2 (11:25)
[2020-03-16] MEDS ORDERED: fentaNYL (PF) 50 MCG/ML 2 ML AMP ONE (11:25)
[2020-03-16] MEDS ORDERED: NEOSTIGMINE 1 MG/ML 10 ML VIAL ONE (11:25)
[2020-03-16] MEDS ORDERED: ROCURONIUM BROMIDE 10 MG/ML 5 ML VIAL IV ONE (11:25)
[2020-03-16] MEDS ORDERED: ePHEDrine SULFATE/0.9% NACL/PF 50 MG/5 ML SYRINGE IV ONE (11:25)
[2020-03-16] MEDS ORDERED: GLYCOPYRROLATE 0.2 MG/ML 2 ML VIAL ONE (11:25)
[2020-03-16] MEDS ORDERED: HEPARIN SODIUM IV ONE ×2 (12:06)
[2020-03-16] MEDS ORDERED: LACTATED RINGERS IV ONE ×2 (12:06)
[2020-03-16] MEDS ORDERED: HEPARIN SODIUM,PORCINE 10,000 UNIT in SODIUM CHLORIDE 0.9% 1,000 ML IRRIGATION ONE (12:06)
[2020-03-16] MEDS ORDERED: THROMBIN (BOVINE) 5,000 UNIT VIAL TOPICAL ONE ×2 (12:23)
[2020-03-16] MEDS ORDERED: GELATIN SPONGE,ABSORB (LARGE) 1 EACH SPONGE TOPICAL ONE (12:23)
[2020-03-16] MEDS ORDERED: LACTATED RINGERS 1,000 ML IV ONE (13:00)
[2020-03-16] MEDS ORDERED: HYDROcodone/APAP 5-325MG 1 EACH TAB PO PRN (14:56)
--- NOTE | 2020-03-16 14:56 | P.OP ---
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 He has wounds on both of his feet and recently underwent a right femoral to posterior tibial artery bypass. He presents today for bypass in the left side for his nonhealing heel wound. Risks and benefits were discussed including but not limited to bleeding, infection, limb last, heart attack, poor wound healing and . He seemingly understood and was willing to proceed] Procedure in detail: [The patient was taken to the operative suite and placed in supine position. He was intubated. A Olguin catheter was inserted. The abdomen and left lower extremity were prepped and draped in usual sterile fashion. A preprocedure timeout was performed, all parties are in agreement. An oblique incision was made in the left groin with the scalpel it was deepened through the subcutaneous tissues with electrocautery. Encountered lymphatics were ligated and divided. The femoral sheath was opened sharply. The common femoral artery was dissected free circumferentially. The dissection was extended proximally to the level of the inguinal ligament and distally to include the superficial femoral artery and the profunda femoris arteries. There encircled with vessel loops. Attention was then turned towards the below-knee incision. It was made distal to the medial condyle and deepened through the fascia. The popliteal artery was identified and encircled. It was followed distally to the tibial peroneal trunk. It was circumferentially dissected and vessel loops were placed. A tunneler was then passed into the subcutaneous plane the patient was heparinized. ACT is were followed. The femoral artery was opened after adequate heparinization and the previously prepared CryoVein was anastomosed with a 6-0 Prolene. The vein was then marked and passed to the tunnel. Is found be adequately flowing and pulsatile. The tibial peroneal trunk anastomosis was created with 7-0 Prolene. Prior to completion of the anastomosis was flushed. At this point all anastomoses were completed and flow was resumed through the bypass graft. A Doppler was utilized to confirm multiphasic flow distally to the anastomosis as well as at the posterior tibial artery. There the wounds were then copiously irrigated with saline solution. Hemostasis was controlled with interrupted sutures of 6-0 Prolene. The femoral sheath was reapproximated with interrupted sutures of 3-0 Vicryl. The subcu tissue was reprepped with 3-0 Vicryl. The skin was reapproximated with running 4-0 Monocryl. At the below-knee incision, the popliteal fascia was reapproximated with 3-0 Vicryl. The subcutaneous tissues were reapproximated with 3-0 Vicryl and the skin with running 4-0 Monocryl in subcu fashion. Incisional wound VAC dressings were placed and wet-to-dry dressing was placed at theheel. The patient was allowed to awaken from anesthesia and transported to PACU in stable condition having tolerated his procedure well.]
[2020-03-16] MEDS ORDERED: PROMETHAZINE 25 MG TAB PO PRN (14:59)
[2020-03-16] MEDS ORDERED: MELATONIN 3 MG TABLET PO PRN (14:59)
[2020-03-16] MEDS ORDERED: ACETAMINOPHEN TAB 325 MG TAB PO PRN (14:59)
[2020-03-16] MEDS ORDERED: HYDROmorphone 0.5 MG/0.5 ML SYRINGE IVP ONE (15:02)
[2020-03-16 16:43] LABS: HCT 40.9 % (39.0-53.0); HGB 12.8 gm/dL (13.0-17.5); Hypochromasia Moderate; MCH 32.1 pg (25.0-35.0); MCHC 31.3 g/dL (31.0-37.0); MCV 102.4 fL (80.0-100.0); Macrocytosis Slight; Mean Platelet Volume 7.8; Platelet Count 410 k/uL (150-450); RBC 3.99 m/uL (4.30-5.90); RDW 13.5 % (11.5-15.5); WBC 15.5 k/uL (3.8-10.6)
[2020-03-16] MEDS: SODIUM CHLORIDE 0.9% 1,000 ML IV SCH (17:51)
[2020-03-16] MEDS: MORPHINE SULFATE 2 MG/ML SYRINGE IVP PRN (20:23)
[2020-03-16] MEDS ORDERED: ATORVASTATIN 40 MG TAB PO SCH (21:00)
[2020-03-16] MEDS: PANTOPRAZOLE 40 MG TABLET PO SCH (21:02)
[2020-03-16] MEDS: METOPROLOL TARTRATE 25 MG TAB PO SCH (21:02)
[2020-03-17] MEDS: SODIUM CHLORIDE 0.9% 1,000 ML IV SCH (03:17)
[2020-03-17] MEDS: MORPHINE SULFATE 2 MG/ML SYRINGE IVP PRN ×3 (04:42→11:22)
[2020-03-17 04:44] LABS: HCT 30.8 % (39.0-53.0); Hypochromasia Slight; MCHC 32.6 g/dL (31.0-37.0); MCV 101.1 fL (80.0-100.0); Macrocytosis Slight; Mean Platelet Volume 7.8; Platelet Count 351 k/uL (150-450); RBC 3.04 m/uL (4.30-5.90); RDW 13.6 % (11.5-15.5); WBC 14.5 k/uL (3.8-10.6)
[2020-03-17 06:03] LABS: African American GFR (CKD) >90 (>60 ml/min/1.73 sqM); Anion Gap 5 mmol/L; Blood Urea Nitrogen 8 mg/dL (9-20); Calcium 8.4 mg/dL (8.4-10.2); Carbon Dioxide 25 mmol/L (22-30); Chloride 103 mmol/L (98-107); Glucose 125 mg/dL (74-99); Non-African American GFR(CKD) >90 (>60 ml/min/1.73 sqM); Potassium 5.3 mmol/L (3.5-5.1); Sodium 133 mmol/L (137-145)
[2020-03-17] MEDS ORDERED: ASPIRIN 81 MG PO SCH (09:00)
[2020-03-17] MEDS ORDERED: DOCUSATE 100 MG CAP PO SCH (09:00)
[2020-03-17] MEDS ORDERED: FUROSEMIDE 40 MG TAB PO SCH (09:00)
[2020-03-17] MEDS ORDERED: LACTULOSE 20 GM/30 ML CUP PO SCH (09:00)
--- NOTE | 2020-03-17 09:26 | P.DS ---
Providers Date of admission: 03/16/20 09:05 Expected date of discharge: 03/17/20 Attending physician: Hellen Olguin DO Consults: 03/16/20 15:01 Consult Physician Routine Consulting Provider: Nolberto Tan Consult Reason/Comments: post op bypass, pad, htn Do you want consulting provider notified?: Yes Primary care physician: Stated None Hospital Course: The patient is a 69-year-old male seen for follow-up from left femoral to tibial bypass yesterday. He underwent surgery with CryoVein and tolerated the procedure well. He was recovered overnight in the ICU without any incident. He complains only of pain in his left heel at this time. HEENT is no cephalic atraumatic, excellent motion intact. Heart is regular at this time. Lungs are clear bilaterally. Abdomen soft, nontender nondistended. Incisions are covered with incisional wound VAC. There is some swelling to the bypass tunnel with ecchymosis. There is a strong multiphasic signal at the PT with a weak monophasic signal at the left DP. His graft in his right femoral tibial bypass is patent and palpable. The wounds are dressed. He continues to have a Olguin catheter in at this time. Discussed with regarding that if he maintained adequate urine output it may be removed this morning. He is tolerating a diet. We'll have physical therapy work with him and get him up out of the chair. Hopefully he will be discharged back to [facility] later today versus tomorrow Procedures: Left femoral to TP trunk bypass with cryovein Patient Condition at Discharge: Stable Plan - Discharge Summary Discharge Rx Participant: No New Discharge Prescriptions: No Action Aspirin EC [Ecotrin Low Dose] 81 mg PO DAILY Metoprolol Tartrate [Lopressor] 25 mg PO BID #60 tab Melatonin 3 mg PO HS PRN PRN Reason: Insomnia Acetaminophen Tab [Tylenol] 650 mg PO Q6H PRN PRN Reason: Pain Pantoprazole Sodium [Protonix] 40 mg PO BID Lactulose [Cephulac] 45 ml PO DAILY Furosemide [Lasix] 40 mg PO DAILY Atorvastatin [Lipitor] 40 mg PO HS Clopidogrel [Plavix] 75 mg PO DAILY #30 tab traMADol HCL [Ultram] 50 mg PO Q6HR PRN #12 tab PRN Reason: Pain Clindamycin [Cleocin] 300 mg PO Q8H #84 cap Promethazine HCl 12.5 mg PO DIRECTED PRN PRN Reason: Nausea Discharge Medication List Aspirin EC [Ecotrin Low Dose] 81 mg PO DAILY 08/31/19 [History] Metoprolol Tartrate [Lopressor] 25 mg PO BID #60 tab 09/09/19 [Rx] Acetaminophen Tab [Tylenol] 650 mg PO Q6H PRN 11/09/19 [History] Melatonin 3 mg PO HS PRN 11/09/19 [History] Pantoprazole Sodium [Protonix] 40 mg PO BID 11/09/19 [History] Lactulose [Cephulac] 45 ml PO DAILY 12/17/19 [History] Atorvastatin [Lipitor] 40 mg PO HS 02/05/20 [History] Furosemide [Lasix] 40 mg PO DAILY 02/05/20 [History] Clindamycin [Cleocin] 300 mg PO Q8H #84 cap 02/12/20 [Rx] Clopidogrel [Plavix] 75 mg PO DAILY #30 tab 02/12/20 [Rx] traMADol HCL [Ultram] 50 mg PO Q6HR PRN #12 tab 02/12/20 [Rx] Promethazine HCl 12.5 mg PO DIRECTED PRN 03/11/20 [History] Follow up Appointment(s)/Referral(s): Hellen Olguin DO [STAFF PHYSICIAN] - 1 Week Activity/Diet/Wound Care/Special Instructions: Resume wound VAC on the left heel as previous. Continue previous orders of daily dressing changes to the right lateral foot. Continue wound care at [facility]. Continue offloading boots in the bilateral lower extremities well in bed and in a wheelchair. Physical therapy to evaluate and treat. Discharge Disposition: TRANSFER TO SNF/ECF
[2020-03-17] MEDS: PANTOPRAZOLE 40 MG TABLET PO SCH (10:09)
[2020-03-17] MEDS: METOPROLOL TARTRATE 25 MG TAB PO SCH (10:09)
[2020-03-17 13:02] VITALS: BP 113/92; PULSE 78; RESP 16; TEMP 97.5
--- NOTE | 2020-03-17 14:58 | CDI ---
Documentation Clarification Form Date: 03/17/2020 02:46:42 PM From: Maryam Houston RN, CCDS Admit Date: 03/16/2020 09:05:00 AM Patient Name: Arun Recinos Visit Number: [id number] ATTENTION: The Clinical Documentation Specialists (CDI) and [facility] Coding Staff appreciate your assistance in clarifying documentation. Please respond to the clarification below the line at the bottom and electronically sign. The CDI & [facility] Coding staff will review the response and follow-up if needed. Please note: Queries are made part of the Legal Health Record. If you have any questions, please contact the author of this message via ITS. Dr. Hellen Olguin This patient was screened for coronavirus pre-operatively; Coronavirus status must be documented on all patients. Please provide documentation regarding screening result. 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
--- NOTE | 2020-03-17 17:26 | PN ---
PROGRESS NOTE CHIEF COMPLAINT: Status post vascular procedure. HISTORY OF PRESENT ILLNESS: This gentleman is doing well. He is having no pain or any problems. It is expected that he will go back to the longterm today. PHYSICAL EXAMINATION: Vital signs are normal. He is afebrile. Color is good. Neck veins are not distended. Chest is clear and cardiac exam is normal. Abdomen is soft. Extremities are both warm into the feet. IMPRESSION: 1. PVOD. 2. Hypertension. 3. COPD. 4. CAD, status post CBG. 5. Alcoholism. PLAN: Probably go back to [facility] today. MMODL / IJN: [id number] /
--- NOTE | 2020-03-17 21:56 | CONS ---
CONSULTATION CHIEF COMPLAINT: PVOD. HISTORY OF PRESENT ILLNESS: This gentleman was brought in from [facility] for an elective revascularization of the left leg. Since he has been in the [facility], he has been doing well. Of course, he is not smoking or drinking. REVIEW OF SYSTEMS: He has had no headaches, neurologic problems, difficulty with vision or hearing, chest pain, shortness of breath, palpitations, orthopnea, PND, syncope, abdominal pain, nausea, vomiting, hematemesis, melena, hematochezia, jaundice, hepatitis, dysuria, frequency, urgency, etc. Past medical history, family history, and personal and social histories are essentially unchanged from his recent discharge summary and can otherwise be found in his admitting note. He has had multiple medical problems related to his lifestyle, including coronary artery bypass graft, previous TIA, management for COPD, episodes of acute alcohol intoxication with DTs, etc. PHYSICAL EXAMINATION: Blood pressure is 127/80 with a pulse 72, respirations of 15. He is afebrile. In general he appeared to be well developed, well nourished, and in no acute distress. Skin color was normal and he looks healthier than when he left the hospital. Head, ears, eyes, nose, mouth and throat were normal. Neck veins were not distended. Chest was clear. There were no rales or rhonchi. Cardiac exam demonstrated sinus rhythm and no murmurs or extra sounds. Abdomen was soft and nontender. Extremities were normal. Neurological he was intact. IMPRESSION: 1. Peripheral vascular occlusive disease. 2. Coronary artery disease. 3. Chronic obstructive pulmonary disease. 4. Chronic alcoholism. 5. Hyperlipidemia. RECOMMENDATIONS: None at this time. MMODL / IJN: [id number] /
== END 2020-03-17 15:56 | DRG 254 ==
LOC: 2ORMAIN 09:05 → 2SICU 15:01
PROVIDERS: ADMIT Surgery; ATTEND Surgery
PROC: 041 Lower Arteries, Bypass (ICD-10-PCS; principal; 2020-03-16 10:45)
DX: I70.244 Atherosclerosis of native arteries of left leg with ulceration of heel and midfoot (principal); L97.429 Non-pressure chronic ulcer of left heel and midfoot with unspecified severity; E78.5 Hyperlipidemia, unspecified; F10.20 Alcohol dependence, uncomplicated; I10 Essential (primary) hypertension; I25.10 Atherosclerotic heart disease of native coronary artery without angina pectoris; J44.9 Chronic obstructive pulmonary disease, unspecified; F17.200 Nicotine dependence, unspecified, uncomplicated; F41.9 Anxiety disorder, unspecified; F32.9 Major depressive disorder, single episode, unspecified; K21.9 Gastro-esophageal reflux disease without esophagitis; Z11.59 Encounter for screening for other viral diseases; Z79.82 Long term (current) use of aspirin; Z79.899 Other long term (current) drug therapy; Z86.73 Personal history of transient ischemic attack (TIA), and cerebral infarction without residual deficits; Z86.718 Personal history of other venous thrombosis and embolism; Z87.01 Personal history of pneumonia (recurrent); Z82.49 Family history of ischemic heart disease and other diseases of the circulatory system; Z83.6 Family history of other diseases of the respiratory system
CPT/HCPCS: 80048; 85025; 85027; 86850; 86900; 86901; 87635

== ENCOUNTER → 2021-01-26 | Outpatient (CLI) | payer MEDICARE, OTHER | END | disposition home or self-care (01) | LOC: LABWHC1 12:08 | PROVIDERS: ATTEND Nurse Practitioner Family | DX: I70.235 Atherosclerosis of native arteries of right leg with ulceration of other part of foot (principal); L97.516 Non-pressure chronic ulcer of other part of right foot with bone involvement without evidence of necrosis | CPT/HCPCS: 36415; 84134 ==

== ENCOUNTER → 2021-02-21 | Outpatient (CLI) | payer MEDICARE, OTHER ==
--- NOTE | 2021-02-21 11:12 | XR ---
EXAMINATION TYPE: XR Hip Complete RT DATE OF EXAM: 02/21/2021 COMPARISON: NONE HISTORY: Chronic right hip pain TECHNIQUE: 2 views submitted FINDINGS: Postsurgical changes. Vascular calcifications. No acute fracture. No dislocation. Vascular stent are noted. Hypertrophic change of the lateral margin of the acetabulum. IMPRESSION: 1. Postoperative changes
== END | disposition home or self-care (01) ==
LOC: RADXRMAIN 10:48
PROVIDERS: ATTEND Nurse Practitioner Family
DX: M25.551 Pain in right hip (principal)
CPT/HCPCS: 73502

== ENCOUNTER 2021-02-24 17:50 | Inpatient (IN) | payer MEDICARE, OTHER ==
[2021-02-24 19:32] LABS: Basophils # (A) 0.1 k/uL (0-0.2); Basophils % (A) 0 %; Eosinophils # (A) 0.1 k/uL (0-0.7); Eosinophils % (A) 1 %; HCT 35.7 % (39.0-53.0); HGB 12.8 gm/dL (13.0-17.5); Lymphocytes # (A) 1.2 k/uL (1.0-4.8); Lymphocytes % (A) 9 %; MCH 33.9 pg (25.0-35.0); MCHC 35.9 g/dL (31.0-37.0); MCV 94.4 fL (80.0-100.0); Mean Platelet Volume 7.7; Monocytes # (A) 1.1 k/uL (0-1.0); Monocytes % (A) 8 %; Neutrophils # (A) 10.1 k/uL (1.3-7.7); Neutrophils % (A) 78 %; Platelet Count 249 k/uL (150-450); RBC 3.78 m/uL (4.30-5.90); RDW 13.5 % (11.5-15.5)
[2021-02-24 19:44] LABS: Calcium 8.9 mg/dL (8.4-10.2); INR 1.2 (<1.2); Partial Thromboplastin Time 39.1 sec (22.0-30.0); Potassium 4.6 mmol/L (3.5-5.1); Prothrombin Time 12.6 sec (9.0-12.0); Total Bilirubin 0.9 mg/dL (0.2-1.3); Total Protein 5.9 g/dL (6.3-8.2)
--- NOTE | 2021-02-24 20:12 | XR ---
EXAMINATION TYPE: XR chest 2V DATE OF EXAM: 02/24/2021 COMPARISON: 06/07/2020. HISTORY: Altered mental status. TECHNIQUE: Frontal and lateral views of the chest are obtained. FINDINGS: There is no focal air space opacity, pleural effusion, or pneumothorax seen. The cardiac silhouette size is within normal limits. Stable median sternotomy. The osseous structures are intac t. IMPRESSION: No acute cardiopulmonary process.
[2021-02-24] MEDS ORDERED: NALOXONE 0.4 MG/ML 1 ML VIAL IV PRN (21:38)
--- NOTE | 2021-02-24 21:38 | CT ---
EXAM: CT brain wo con CLINICAL HISTORY: Altered mental status. COMPARISON: 10/13/2019. TECHNIQUE: Contiguous axial noncontrast images of the brain were obtained. Coronal and sagittal refor mats were generated and reviewed. Automated dose control was used for this exam. FINDINGS: There is no evidence for intracranial hemorrhage, mass effect or midline shift. There is moderate par enchymal volume loss and mild white matter disease. Ventricular size and configuration is within normal limits for degree of parenchymal volume. The paranasal sinuses are clear. The mastoid air cells are clear. No evidence for calvarial fracture. IMPRESSION: No acute intracranial abnormality.
--- NOTE | 2021-02-24 21:38 | ED ---
Weakness HPI - General Chief complaint: Weakness Stated complaint: Weakness Time Seen by Provider: 02/24/21 17:55 Source: patient Mode of arrival: ambulatory Limitations: no limitations - History of Present Illness Initial comments: Patient is a 70-year-old male with multiple medical conditions who brought into the emergency department accompanied by his daughter. She states that for the past week the patient has had increasing weakness. He has been more confused with slurred speech. Daughter states that he has not been his normal self for the past several days. He does have a history of TIA. The patient denies any unilateral numbness or weakness. No headaches. Does admit to visual changes. When questioning the patient about his symptoms he states he "just feels like crap" he denies any chest pain or shortness of breath. No abdominal pain. He denies any fevers or chills. No sick contacts with similar symptoms. No other alleviating, precipitating or modifying factors - Related Data Home Medications Medication Instructions Recorded Confirmed Aspirin EC [Ecotrin Low Dose] 81 mg PO DAILY@0700 08/31/19 02/24/21 Acetaminophen Tab [Tylenol] 650 mg PO Q6H PRN 11/09/19 02/24/21 Pantoprazole Sodium [Protonix] 40 mg PO DAILY 11/09/19 02/24/21 Atorvastatin [Lipitor] 40 mg PO HS 02/05/20 02/24/21 Furosemide [Lasix] 40 mg PO DAILY@0700 02/05/20 02/24/21 Melatonin 3 mg PO HS PRN 06/01/20 02/24/21 Metoprolol Tartrate [Lopressor] 25 mg PO BID 06/01/20 02/24/21 Spironolactone 100 mg PO DAILY 06/01/20 02/24/21 Mirtazapine [Remeron] 15 mg PO HS 02/24/21 02/24/21 Rivaroxaban [Xarelto] 2.5 mg PO BID 02/24/21 02/24/21 traMADol HCL [Ultram] 50 mg PO DAILY PRN 02/24/21 02/24/21 Allergies Allergy/AdvReac Type Severity Reaction Status Date / Time No Known Allergies Allergy Verified 02/24/21 17:54 Review of Systems ROS Statement: Those systems with pertinent positive or pertinent negative responses have been documented in the HPI. ROS Other: All systems not noted in ROS Statement are negative. Past Medical History Past Medical History: Coronary Artery Disease (CAD), CVA/TIA, Deep Vein Thrombosis (DVT), Hyperlipidemia, Hypertension, Vascular Disorder Additional Past Medical History / Comment(s): right leg DVT, PVD, TIA 2015, HAD A NON HEALING WOUND LT LEG-HAD SKIN GRAFTING.has no circulation left leg on 100 percent blocked from groin to mid doe tried to do cath and was unable to, alcoholism History of Any Multi-Drug Resistant Organisms: MRSA Date of last positivie culture/infection: 01/05/21 MDRO Source:: RIGHT Foot Past Surgical History: Coronary Bypass/CABG, Heart Catheterization, Joint Replacement, Orthopedic Surgery Additional Past Surgical History / Comment(s): left knee replacement, left foot surgery, stent to right leg, CABG 12/2014, 4 bypass, aortogram, WOUND CLINIC, SKIN GRAFTING LT LEG, right hip replacement, left leg above knee amputation Past Anesthesia/Blood Transfusion Reactions: No Reported Reaction Additional Past Anesthesia/Blood Transfusion Reaction / Comment(s): DAUGHTER- PONV Past Psychological History: Anxiety, Depression Smoking Status: Current every day smoker Past Alcohol Use History: None Reported Past Drug Use History: None Reported - Past Family History Father Family Medical History: Myocardial Infarction (MA) Additional Family Medical History / Comment(s): Father of a MA in his 70s. Mother Family Medical History: No Reported History Additional Family Medical History / Comment(s): Mother in her 70s. She was obese. General Exam Limitations: no limitations General appearance: alert, in no apparent distress Head exam: Present: atraumatic, normocephalic, normal inspection Eye exam: Present: normal appearance, PERRL, EOMI. Absent: scleral icterus, conjunctival injection, periorbital swelling ENT exam: Present: normal exam, mucous membranes moist Neck exam: Present: normal inspection. Absent: tenderness, meningismus, lymphadenopathy Respiratory exam: Present: normal lung sounds bilaterally. Absent: respiratory distress, wheezes, rales, rhonchi, stridor Cardiovascular Exam: Present: regular rate, normal rhythm, normal heart sounds. Absent: systolic murmur, diastolic murmur, rubs, gallop, clicks GI/Abdominal exam: Present: soft, normal bowel sounds. Absent: distended, ten derness, guarding, rebound, rigid Extremities exam: Present: other (left AKA. Bandage right foot. 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 ). Absent: tenderness, pedal edema, joint swelling, calf tenderness Back exam: Present: normal inspection Neurological exam: Present: alert, oriented X3, CN II-XII intact, other (no slurred speech. Face is symmetric. Tongue is midline. Speech is clear) Psychiatric exam: Present: normal affect, normal mood Skin exam: Present: warm, dry, intact, normal color. Absent: rash Course Vital Signs 02/24/21 02/24/21 02/24/21 17:55 19:47 22:49 Temperature 97.4 F L Pulse Rate 67 67 60 Pulse Rate [ Pulse Oximetery ] Respiratory 18 18 15 Rate Blood Pressure 125/73 124/73 116/65 O2 Sat by Pulse 100 98 100 Oximetry 02/25/21 02/25/21 02/25/21 01:00 06:00 09:40 Temperature 97.9 F Pulse Rate 66 90 Pulse Rate [ 78 Pulse Oximetery ] Respiratory 18 18 22 Rate Blood Pressure 120/66 124/86 O2 Sat by Pulse 96 96 96 Oximetry EKG Findings - EKG Comments: EKG Findings:: EKG demonstrates normal sinus rhythm with ventricular rate of 69. NV interval 158. QRS 80. QTC of 469. J-point elevation in the inferior leads. Inverted T waves in 1, aVL as well as V2 and V3. Morphology is similar to previous EKG Medical Decision Making - Medical Decision Making Upon arrival the patient is placed into room 12. Thorough history and physical exam was performed. Laboratory studies are conducted and the patient went for CT of his brain. Laboratory studies reveal a white count of 13. A sodium is 123. Covid not detected. CT of the brain demonstrates no acute process. Chest x-ray demonstrates no acute cart opponent process. Patient was started on normal saline at 130s cc per hour. Did recommend hospitalization for which patient did agree to. Spoke with Dorothy who agreed to admit the patient. Patient is currently awaiting a bed on the floor - Lab Data Result diagrams: 02/25/21 04:35 02/25/21 04:35 Lab Results 02/24/21 02/24/21 02/24/21 Range/Units 19:23 19:23 19:23 WBC 13.0 H (3.8-10.6) k/uL RBC 3.78 L (4.30-5.90) m/uL Hgb 12.8 L (13.0-17.5) gm/dL Hct 35.7 L (39.0-53.0) % MCV 94.4 (80.0-100.0) fL MCH 33.9 (25.0-35.0) pg MCHC 35.9 (31.0-37.0) g/dL RDW 13.5 (11.5-15.5) % Plt Count 249 (150-450) k/uL MPV 7.7 Neutrophils % 78 % Lymphocytes % 9 % Monocytes % 8 % Eosinophils % 1 % Basophils % 0 % Neutrophils # 10.1 H (1.3-7.7) k/uL Lymphocytes # 1.2 (1.0-4.8) k/uL Monocytes # 1.1 H (0-1.0) k/uL Eosinophils # 0.1 (0-0.7) k/uL Basophils # 0.1 (0-0.2) k/uL PT 12.6 H (9.0-12.0) sec INR 1.2 H (<1.2) APTT 39.1 H (22.0-30.0) sec Sodium 123 L (137-145) mmol/L Potassium 4.6 (3.5-5.1) mmol/L Chloride 87 L (98-107) mmol/L Carbon Dioxide 24 (22-30) mmol/L Anion Gap 12 mmol/L BUN 25 H (9-20) mg/dL Creatinine 1.00 (0.66-1.25) mg/dL Est GFR (CKD-EPI)AfAm 88 (>60 ml/min/1.73 sqM) Est GFR (CKD-EPI)NonAf 77 (>60 ml/min/1.73 sqM) Glucose 126 H (74-99) mg/dL Calcium 8.9 (8.4-10.2) mg/dL Total Bilirubin 0.9 (0.2-1.3) mg/dL AST 26 (17-59) U/L ALT 12 (4-49) U/L Alkaline Phosphatase 150 H (38-126) U/L Ammonia (<30) umol/L Creatine Kinase 49 L (55-170) U/L Troponin I (0.000-0.034) ng/mL Total Protein 5.9 L (6.3-8.2) g/dL Albumin 3.0 L (3.5-5.0) g/dL Coronavirus (PCR) (Not Detectd) 02/24/21 02/24/21 02/24/21 Range/Units 19:23 19:23 19:30 WBC (3.8-10.6) k/uL RBC (4.30-5.90) m/uL Hgb (13.0-17.5) gm/dL Hct (39.0-53.0) % MCV (80.0-100.0) fL MCH (25.0-35.0) pg MCHC (31.0-37.0) g/dL RDW (11.5-15.5) % Plt Count (150-450) k/uL MPV Neutrophils % % Lymphocytes % % Monocytes % % Eosinophils % % Basophils % % Neutrophils # (1.3-7.7) k/uL Lymphocytes # (1.0-4.8) k/uL Monocytes # (0-1.0) k/uL Eosinophils # (0-0.7) k/uL Basophils # (0-0.2) k/uL PT (9.0-12.0) sec INR (<1.2) APTT (22.0-30.0) sec Sodium (137-145) mmol/L Potassium (3.5-5.1) mmol/L Chloride (98-107) mmol/L Carbon Dioxide (22-30) mmol/L Anion Gap mmol/L BUN (9-20) mg/dL Creatinine (0.66-1.25) mg/dL Est GFR (CKD-EPI)AfAm (>60 ml/min/1.73 sqM) Est GFR (CKD-EPI)NonAf (>60 ml/min/1.73 sqM) Glucose (74-99) mg/dL Calcium (8.4-10.2) mg/dL Total Bilirubin (0.2-1.3) mg/dL AST (17-59) U/L ALT (4-49) U/L Alkaline Phosphatase (38-126) U/L Ammonia <9 (<30) umol/L Creatine Kinase (55-170) U/L Troponin I <0.012 (0.000-0.034) ng/mL Total Protein (6.3-8.2) g/dL Albumin (3.5-5.0) g/dL Coronavirus (PCR) Not Detected (Not Detectd) Disposition Clinical Impression: Weakness, Hyponatremia Disposition: ADMITTED IP TO THIS [facility] Condition: Stable Is patient prescribed a controlled substance at d/c from ED?: No Decision to Admit Reason: Admit from EC Decision Date: 02/24/21 Decision Time: 21:37
[2021-02-24 23:16] LABS: Appearance,Urine Clear (Clear); Bilirubin,Urine Negative (Negative); Blood,Urine Negative (Negative); Color,Urine Yellow; Glucose,Urine (UA) Negative (Negative); Ketones,Urine Negative (Negative); Leukocyte Esterase,Urine Negative (Negative); Nitrite,Urine Negative (Negative); PH, Urine 5.5 (5.0-8.0); Protein,Urine Negative (Negative); Specific Gravity,Urine 1.011 (1.001-1.035); Urobilinogen,Urine <2.0 mg/dL (<2.0)
[2021-02-25] LABS: Amphetamine Screen,Urine Not Detected (NotDetected); Barbiturate Screen,Urine Not Detected (NotDetected); Benzodiazepines Screen,Urine Not Detected (NotDetected); Cocaine Screen,Urine Not Detected (NotDetected); Methadone Screen, Urine Not Detected (NotDetected); Opiate Screen,Urine Not Detected (NotDetected); Oxycodone Screen, Urine Not Detected (NotDetected); Phencyclidine Screen,Urine Not Detected (NotDetected); Tricyclic Antidepressant,Urine Not Detected (NotDetected); Urn Cannabinoid Scrn Detected (NotDetected)
[2021-02-25] MEDS: PANTOPRAZOLE 40 MG TABLET PO SCH ×2 (00:27→07:55)
[2021-02-25] MEDS: METOPROLOL TARTRATE 25 MG TAB PO SCH ×3 (00:27→23:37)
[2021-02-25] MEDS: SODIUM CHLORIDE 0.9% 1,000 ML IV SCH ×4 (00:28→23:58)
[2021-02-25] MEDS: MIRTAZAPINE 15 MG TAB PO SCH ×2 (00:30→23:37)
[2021-02-25] MEDS: RIVAROXABAN 2.5 MG TABLET PO SCH ×3 (00:51→23:37)
[2021-02-25] MEDS: MELATONIN 3 MG TABLET PO PRN ×2 (00:51→23:37)
[2021-02-25 01:20] LABS: African American GFR (CKD) >90 (>60 ml/min/1.73 sqM); Anion Gap 12 mmol/L; Blood Urea Nitrogen 25 mg/dL (9-20); Calcium 8.8 mg/dL (8.4-10.2); Carbon Dioxide 24 mmol/L (22-30); Chloride 88 mmol/L (98-107); Glucose 156 mg/dL (74-99); Non-African American GFR(CKD) 89 (>60 ml/min/1.73 sqM); Potassium 4.3 mmol/L (3.5-5.1); Sodium 124 mmol/L (137-145)
[2021-02-25 06:16] LABS: Basophils # (A) 0.1 k/uL (0-0.2); Basophils % (A) 0 %; Eosinophils # (A) 0.1 k/uL (0-0.7); Eosinophils % (A) 1 %; HCT 36.8 % (39.0-53.0); HGB 12.6 gm/dL (13.0-17.5); Lymphocytes # (A) 1.3 k/uL (1.0-4.8); Lymphocytes % (A) 12 %; MCH 33.2 pg (25.0-35.0); MCHC 34.4 g/dL (31.0-37.0); MCV 96.7 fL (80.0-100.0); Mean Platelet Volume 7.9; Monocytes # (A) 1.1 k/uL (0-1.0); Monocytes % (A) 11 %; Neutrophils # (A) 7.5 k/uL (1.3-7.7); Neutrophils % (A) 72 %; Platelet Count 243 k/uL (150-450); RDW 13.7 % (11.5-15.5); WBC 10.4 k/uL (3.8-10.6)
[2021-02-25 06:44] LABS: African American GFR (CKD) >90 (>60 ml/min/1.73 sqM); Anion Gap 13 mmol/L; Blood Urea Nitrogen 23 mg/dL (9-20); Calcium 8.6 mg/dL (8.4-10.2); Carbon Dioxide 22 mmol/L (22-30); Chloride 92 mmol/L (98-107); Glucose 104 mg/dL (74-99); Non-African American GFR(CKD) >90 (>60 ml/min/1.73 sqM); Potassium 5.1 mmol/L (3.5-5.1); Sodium 127 mmol/L (137-145)
[2021-02-25] MEDS: traMADol 50 MG TAB PO PRN ×3 (07:55→19:54)
[2021-02-25] MEDS: ASPIRIN 81 MG PO SCH (07:55)
[2021-02-25 13:04] LABS: Basophils % (A) 0 %; Eosinophils % (A) 0 %; HCT 37.4 % (39.0-53.0); Lymphocytes # (A) 1.1 k/uL (1.0-4.8); Lymphocytes % (A) 11 %; MCH 33.1 pg (25.0-35.0); MCHC 34.6 g/dL (31.0-37.0); MCV 95.7 fL (80.0-100.0); Mean Platelet Volume 7.7; Monocytes # (A) 0.9 k/uL (0-1.0); Monocytes % (A) 9 %; Neutrophils # (A) 7.3 k/uL (1.3-7.7); Neutrophils % (A) 75 %; Platelet Count 257 k/uL (150-450); RBC 3.91 m/uL (4.30-5.90); RDW 13.7 % (11.5-15.5); WBC 9.7 k/uL (3.8-10.6)
--- NOTE | 2021-02-25 14:58 | P.HPIM ---
History of Present Illness 70-year-old male was brought in with concerns of altered mental status although when I valid the patient patient is alert oriented 3 able to provide me good history patient was also having increasing weakness patient is found to be hyponatremic. Patient denied any fever chills patient is on diuretics which is Lasix and Aldactone. Patient denied any dysuria Patient had left above-knee amputation, and also in the right foot. Left foot has an ulcer for which patient follows up in the Wound Care and ulcer doesn't look infected. Patient is on anti-correlation because of which it's bleeding. Patient was also company of right hip pain which is mild to moderate severity, had a recent right hip x-ray which was within normal limits patient may have osteoarthritis of the right knee. Patient does have leukocytosis. Review of Systems REVIEW OF SYSTEMS: CONSTITUTIONAL: No fever, no malaise, no fatigue. HEENT: No recent visual problems or hearing problems. Denied any sore throat. CARDIOVASCULAR: No chest pain, orthopnea, PND, no palpitations, no syncope. PULMONARY: No shortness of breath, no cough, no hemoptysis. GASTROINTESTINAL: No diarrhea, no nausea, no vomiting, no abdominal pain. NEUROLOGICAL: No headaches, no weakness, no numbness. HEMATOLOGICAL: Denies any bleeding or petechiae. GENITOURINARY: Denies any burning micturition, frequency, or urgency. MUSCULOSKELETAL/RHEUMATOLOGICAL: Right hip pain ENDOCRINE: Denies any polyuria or polydipsia. The rest of the 14-point review of systems is negative. Past Medical History Past Medical History: Coronary Artery Disease (CAD), CVA/TIA, Deep Vein Thrombosis (DVT), Hyperlipidemia, Hypertension, Vascular Disorder Additional Past Medical History / Comment(s): right leg DVT, PVD, TIA 2015, Left leg AKA, alcoholism History of Any Multi-Drug Resistant Organisms: MRSA Date of last positivie culture/infection: 01/05/21 MDRO Source:: RIGHT Foot Past Surgical History: Coronary Bypass/CABG, Heart Catheterization, Joint Replacement, Orthopedic Surgery Additional Past Surgical History / Comment(s): left knee replacement, left foot surgery, stent to right leg, CABG 12/2014, 4 bypass, aortogram, WOUND CLINIC, SKIN GRAFTING LT LEG, right hip replacement, left leg above knee amputation Past Anesthesia/Blood Transfusion Reactions: No Reported Reaction Additional Past Anesthesia/Blood Transfusion Reaction / Comment(s): DAUGHTER- DANIELLE Past Psychological History: Anxiety, Depression Additional Psychological History / Comment(s): Lives home alone. Smoking Status: Former smoker Past Alcohol Use History: Daily Additional Past Alcohol Use History / Comment(s): Pt started smoking in 1965 and was down to 4 cigarettes a day, quit smoking January 2021 Past Drug Use History: None Reported Additional Drug Use History / Comment(s): HX OF DAILY MARIJUANA-edibles or smoked . - Past Family History Father Family Medical History: Myocardial Infarction ([place]) Additional Family Medical History / Comment(s): Father of a [place] in his 70s. Mother Family Medical History: No Reported History Additional Family Medical History / Comment(s): Mother in her 70s. She was obese. Medications and Allergies Home Medications Medication Instructions Recorded Confirmed Type Aspirin EC [Ecotrin Low Dose] 81 mg PO DAILY@0700 08/31/19 02/24/21 History Acetaminophen Tab [Tylenol] 650 mg PO Q6H PRN 11/09/19 02/24/21 History Pantoprazole Sodium [Protonix] 40 mg PO DAILY 11/09/19 02/24/21 History Atorvastatin [Lipitor] 40 mg PO HS 02/05/20 02/24/21 History Furosemide [Lasix] 40 mg PO DAILY@0700 02/05/20 02/24/21 History Melatonin 3 mg PO HS PRN 06/01/20 02/24/21 History Metoprolol Tartrate [Lopressor] 25 mg PO BID 06/01/20 02/24/21 History Spironolactone 100 mg PO DAILY 06/01/20 02/24/21 History Mirtazapine [Remeron] 15 mg PO HS 02/24/21 02/24/21 History Rivaroxaban [Xarelto] 2.5 mg PO BID 02/24/21 02/24/21 History traMADol HCL [Ultram] 50 mg PO DAILY PRN 02/24/21 02/24/21 History Allergies Allergy/AdvReac Type Severity Reaction Status Date / Time No Known Allergies Allergy Verified 02/24/21 17:54 Physical Exam Vitals: Vital Signs Temp Pulse Pulse Resp BP BP Pulse Ox 02/25/21 14:39 97.6 F 68 16 120/72 98 02/25/21 13:34 97.9 F 70 18 124/86 96 04/09/21 13:00 70 18 02/25/21 09:40 97.9 F 78 22 96 02/25/21 06:00 90 18 124/86 96 02/25/21 01:00 66 18 120/66 96 02/24/21 22:49 60 15 116/65 100 02/24/21 19:47 67 18 124/73 98 02/24/21 17:55 97.4 F L 67 18 125/73 100 Intake and Output 02/24/21 02/25/21 02/25/21 22:59 06:59 14:59 Other: Weight 65.771 kg 65.771 kg PHYSICAL EXAMINATION: GENERAL: The patient is alert and oriented x3, not in any acute distress. Well developed, well nourished. HEENT: Pupils are round and equally reacting to light. EOMI. No scleral icterus. No conjunctival pallor. Normocephalic, atraumatic. No pharyngeal erythema. No thyromegaly. CARDIOVASCULAR: S1 and S2 present. No murmurs, rubs, or gallops. PULMONARY: Chest is clear to auscultation, no wheezing or crackles. ABDOMEN: Soft, nontender, nondistended, normoactive bowel sounds. No palpable organomegaly. MUSCULOSKELETAL: No joint swelling or deformity. EXTREMITIES: No cyanosis, clubbing, or pedal edema. Patient has a bony amputation on the left side right foot peripheral vascular disease NEUROLOGICAL: Gross neurological examination did not reveal any focal deficits. Does have significant generalized weakness SKIN: An ulcer in the right foot which which doesn't appear to be infected Results CBC & Chem 7: 02/25/21 11:51 02/25/21 04:35 Labs: Abnormal Lab Results - Last 24 Hours (Table) 02/24/21 02/24/21 02/24/21 Range/Units 19:23 19:23 19:23 WBC 13.0 H (3.8-10.6) k/uL RBC 3.78 L (4.30-5.90) m/uL Hgb 12.8 L (13.0-17.5) gm/dL Hct 35.7 L (39.0-53.0) % Neutrophils # 10.1 H (1.3-7.7) k/uL Monocytes # 1.1 H (0-1.0) k/uL PT 12.6 H (9.0-12.0) sec INR 1.2 H (<1.2) APTT 39.1 H (22.0-30.0) sec Sodium 123 L (137-145) mmol/L Chloride 87 L (98-107) mmol/L BUN 25 H (9-20) mg/dL Glucose 126 H (74-99) mg/dL Alkaline Phosphatase 150 H (38-126) U/L Creatine Kinase 49 L (55-170) U/L Total Protein 5.9 L (6.3-8.2) g/dL Albumin 3.0 L (3.5-5.0) g/dL U Marijuana (THC) Screen (NotDetected) 02/24/21 02/25/21 02/25/21 Range/Units 23:00 00:21 04:35 WBC (3.8-10.6) k/uL RBC 3.80 L (4.30-5.90) m/uL Hgb 12.6 L (13.0-17.5) gm/dL Hct 36.8 L (39.0-53.0) % Neutrophils # (1.3-7.7) k/uL Monocytes # 1.1 H (0-1.0) k/uL PT (9.0-12.0) sec INR (<1.2) APTT (22.0-30.0) sec Sodium 124 L (137-145) mmol/L Chloride 88 L (98-107) mmol/L BUN 25 H (9-20) mg/dL Glucose 156 H (74-99) mg/dL Alkaline Phosphatase (38-126) U/L Creatine Kinase (55-170) U/L Total Protein (6.3-8.2) g/dL Albumin (3.5-5.0) g/dL U Marijuana (THC) Screen Detected H (NotDetected) 02/25/21 02/25/21 Range/Units 04:35 11:51 WBC (3.8-10.6) k/uL RBC 3.91 L (4.30-5.90) m/uL Hgb (13.0-17.5) gm/dL Hct 37.4 L (39.0-53.0) % Neutrophils # (1.3-7.7) k/uL Monocytes # (0-1.0) k/uL PT (9.0-12.0) sec INR (<1.2) APTT (22.0-30.0) sec Sodium 127 L (137-145) mmol/L Chloride 92 L (98-107) mmol/L BUN 23 H (9-20) mg/dL Glucose 104 H (74-99) mg/dL Alkaline Phosphatase (38-126) U/L Creatine Kinase (55-170) U/L Total Protein (6.3-8.2) g/dL Albumin (3.5-5.0) g/dL U Marijuana (THC) Screen (NotDetected) Thrombosis Risk Factor Assmnt - Choose All That Apply Other Risk Factors: Yes Each Risk Factor Represents 2 Points: Age 61-74 years Each Risk Factor Represents 3 Points: History of DVT/PE Thrombosis Risk Factor Assessment Total Risk Factor Score: 5 Thrombosis Risk Factor Assessment Level: High Risk Assessment and Plan Plan: -Hyponatremia: Secondary to diuretics patient was started on IV fluids diuretics will be held. -Right hip pain probably osteoarthritis of the right knee pain management with the tramadol -Peripheral vascular disease quit smoking few months ago -Noninfected ulcer on the right foot follow-up with wound care -Carotid artery disease -History of DVT in the past, patient is on anticoagulation which is being continued -Hyperlipidemia -Hypertension -Peripheral vascular disease -DVT prophylaxis patient is already on anticoagulation -depression
[2021-02-25] MEDS: ATORVASTATIN 40 MG TAB PO SCH (23:36)
[2021-02-25] MEDS: ACETAMINOPHEN TAB 325 MG TAB PO PRN (23:37)
[2021-02-26] MEDS: ASPIRIN 81 MG PO SCH (07:46)
[2021-02-26] MEDS: traMADol 50 MG TAB PO PRN (07:46)
[2021-02-26] MEDS: METOPROLOL TARTRATE 25 MG TAB PO SCH ×2 (07:46→20:33)
[2021-02-26] MEDS: PANTOPRAZOLE 40 MG TABLET PO SCH (07:46)
[2021-02-26] MEDS: RIVAROXABAN 2.5 MG TABLET PO SCH ×2 (07:47→20:34)
[2021-02-26] MEDS: SODIUM CHLORIDE 0.9% 1,000 ML IV SCH ×2 (07:48→23:46)
[2021-02-26 07:57] LABS: African American GFR (CKD) >90 (>60 ml/min/1.73 sqM); Anion Gap 6 mmol/L; Blood Urea Nitrogen 10 mg/dL (9-20); Calcium 7.9 mg/dL (8.4-10.2); Carbon Dioxide 23 mmol/L (22-30); Chloride 101 mmol/L (98-107); Glucose 114 mg/dL (74-99); Non-African American GFR(CKD) >90 (>60 ml/min/1.73 sqM); Potassium 4.3 mmol/L (3.5-5.1); Sodium 130 mmol/L (137-145)
[2021-02-26] MEDS ORDERED: traMADol 50 MG TAB PO STA (15:46)
--- NOTE | 2021-02-26 16:32 | P.DS ---
Providers Date of admission: 02/24/21 21:39 Attending physician: Lisa Aggarwal Primary care physician: [facility] Hospital Course: 70-year-old male was brought in with concerns of altered mental status although when I valid the patient patient is alert oriented 3 able to provide me good history patient was also having increasing weakness patient is found to be hyponatremic. Patient denied any fever chills patient is on diuretics which is Lasix and Aldactone. Patient denied any dysuria Patient had left above-knee amputation, and also in the right foot. Left foot has an ulcer for which patient follows up in the Wound Care and ulcer doesn't look infected. Patient is on anti-correlation because of which it's bleeding. Patient was also company of right hip pain which is mild to moderate severity, had a recent right hip x-ray which was within normal limits patient may have osteoarthritis of the right knee. Patient does have leukocytosis. 02/26/2021 Patient is still complaining of pain in the right hip area although fairly well controlled with the tramadol workup for the right hip is negative. Patient lives by himself so as an nursing staff to set him up and make sure patient can manage himself at home if not we will consult physical therapy and occupational therapy otherwise patient's sodium sodium did improve and his Lasix and Aldactone are being held because of which I believe his sodium will continue to improve repeat sodium is ordered for couple days and patient will be discharged today after assessing his functionality per nursing staff PHYSICAL EXAMINATION: GENERAL: The patient is alert and oriented x3, not in any acute distress. Well developed, well nourished. HEENT: Pupils are round and equally reacting to light. EOMI. No scleral icterus. No conjunctival pallor. Normocephalic, atraumatic. No pharyngeal erythema. No thyromegaly. CARDIOVASCULAR: S1 and S2 present. No murmurs, rubs, or gallops. PULMONARY: Chest is clear to auscultation, no wheezing or crackles. ABDOMEN: Soft, nontender, nondistended, normoactive bowel sounds. No palpable organomegaly. MUSCULOSKELETAL: No joint swelling or deformity. EXTREMITIES: No cyanosis, clubbing, or pedal edema. Patient has a bony amputation on the left side right foot peripheral vascular disease NEUROLOGICAL: Gross neurological examination did not reveal any focal deficits. Does have significant generalized weakness SKIN: An ulcer in the right foot which which doesn't appear to be infected Assessment and Plan Plan: -Hyponatremia: Secondary to diuretics patient was started on IV fluids diuretics will be held. Improved patient probably can be discharged today. -Right hip pain probably osteoarthritis of the right knee pain management with the tramadol -Peripheral vascular disease quit smoking few months ago -Noninfected ulcer on the right foot follow-up with wound care -Carotid artery disease -History of DVT in the past, patient is on anticoagulation which is being continued -Hyperlipidemia -Hypertension -Peripheral vascular disease -DVT prophylaxis patient is already on anticoagulation -depression Patient will be discharged today if he is able to function fairly well to manage himself at home and this will be assessed by the nursing staff. Patient was given prescription for tramadol. Patient Condition at Discharge: Stable Plan - Discharge Summary Discharge Rx Participant: Yes New Discharge Prescriptions: Continue Aspirin EC [Ecotrin Low Dose] 81 mg PO DAILY@0700 Acetaminophen Tab [Tylenol] 650 mg PO Q6H PRN PRN Reason: Pain Pantoprazole Sodium [Protonix] 40 mg PO DAILY Atorvastatin [Lipitor] 40 mg PO HS Melatonin 3 mg PO HS PRN PRN Reason: Insomnia Metoprolol Tartrate [Lopressor] 25 mg PO BID traMADol HCL [Ultram] 50 mg PO DAILY PRN PRN Reason: Pain Mirtazapine [Remeron] 15 mg PO HS Rivaroxaban [Xarelto] 2.5 mg PO BID Discontinued Furosemide [Lasix] 40 mg PO DAILY@0700 Spironolactone 100 mg PO DAILY Discharge Medication List Aspirin EC [Ecotrin Low Dose] 81 mg PO DAILY@0700 08/31/19 [History] Acetaminophen Tab [Tylenol] 650 mg PO Q6H PRN 11/09/19 [History] Pantoprazole Sodium [Protonix] 40 mg PO DAILY 11/09/19 [History] Atorvastatin [Lipitor] 40 mg PO HS 02/05/20 [History] Melatonin 3 mg PO HS PRN 06/01/20 [History] Metoprolol Tartrate [Lopressor] 25 mg PO BID 06/01/20 [History] Mirtazapine [Remeron] 15 mg PO HS 02/24/21 [History] Rivaroxaban [Xarelto] 2.5 mg PO BID 02/24/21 [History] traMADol HCL [Ultram] 50 mg PO DAILY PRN 02/24/21 [History] Follow up Appointment(s)/Referral(s): Rachel Plunkett MD [Primary Care Provider] - 3 Days Ambulatory/Diagnostic Orders: Basic Metabolic Panel [LAB.AMB] Time Frame: 3 Days, Location: None Selected Discharge Disposition: HOME SELF-CARE
[2021-02-26] MEDS: ACETAMINOPHEN TAB 325 MG TAB PO PRN ×2 (17:53→20:39)
[2021-02-26] MEDS: MIRTAZAPINE 15 MG TAB PO SCH (20:33)
[2021-02-26] MEDS: ATORVASTATIN 40 MG TAB PO SCH (20:33)
[2021-02-27] MEDS: METOPROLOL TARTRATE 25 MG TAB PO SCH ×2 (07:54→20:23)
[2021-02-27] MEDS: ASPIRIN 81 MG PO SCH (07:54)
[2021-02-27] MEDS: RIVAROXABAN 2.5 MG TABLET PO SCH ×2 (07:55→20:23)
[2021-02-27] MEDS: PANTOPRAZOLE 40 MG TABLET PO SCH (07:55)
[2021-02-27] MEDS: traMADol 50 MG TAB PO PRN ×2 (08:00→21:02)
[2021-02-27] MEDS: SODIUM CHLORIDE 0.9% 1,000 ML IV SCH ×2 (08:44→20:25)
[2021-02-27] MEDS: ACETAMINOPHEN TAB 325 MG TAB PO PRN ×2 (10:08→17:43)
--- NOTE | 2021-02-27 15:15 | P.PN ---
Subjective 70-year-old male was brought in with concerns of altered mental status although when I valid the patient patient is alert oriented 3 able to provide me good history patient was also having increasing weakness patient is found to be hyponatremic. Patient denied any fever chills patient is on diuretics which is Lasix and Aldactone. Patient denied any dysuria Patient had left above-knee amputation, and also in the right foot. Left foot has an ulcer for which patient follows up in the Wound Care and ulcer doesn't look infected. Patient is on anti-correlation because of which it's bleeding. Patient was also company of right hip pain which is mild to moderate severity, had a recent right hip x-ray which was within normal limits patient may have osteoarthritis of the right knee. Patient does have leukocytosis. 02/26/2021 Patient is still complaining of pain in the right hip area although fairly well controlled with the tramadol workup for the right hip is negative. Patient lives by himself so as an nursing staff to set him up and make sure patient can manage himself at home if not we will consult physical therapy and occupational therapy otherwise patient's sodium sodium did improve and his Lasix and Aldactone are being held because of which I believe his sodium will continue to improve repeat sodium is ordered for couple days and patient will be discharged today after assessing his functionality per nursing staff. 02/27/2021 Patient is unable to take care of himself patient has hard time getting out of the bed because of that reason physical therapy and occupational therapy were consulted. PT and OT will evaluate the patient tomorrow depending on the evaluation his disposition will be decided. Constitutional: Denied any fatigue denied any fever. Cardio vascular: denied any chest pain, palpitations Gastrointestinal denied any nausea vomiting Pulmonary: Denied any shortness of breath cough Neurologic denied any new focal deficits All inpatient medications were reviewed and appropriate changes in these medications as dictated in the interval history and assessment and plan. Objective - Vital Signs Vital signs: Vital Signs Temp 97.9 F 02/27/21 12:31 Pulse 69 02/27/21 12:31 Resp 16 02/27/21 12:31 BP 122/68 02/27/21 12:31 Pulse Ox 96 02/27/21 12:31 Intake & Output 02/26/21 02/27/21 02/27/21 18:59 06:59 18:59 Intake Total 100 Balance 100 Intake: Oral 100 Other: Voiding Method Toilet Urinal Urinal # Voids 3 - Exam PHYSICAL EXAMINATION: GENERAL: The patient is alert and oriented x3, not in any acute distress. Well developed, well nourished. HEENT: Pupils are round and equally reacting to light. EOMI. No scleral icterus. No conjunctival pallor. Normocephalic, atraumatic. No pharyngeal erythema. No thyromegaly. CARDIOVASCULAR: S1 and S2 present. No murmurs, rubs, or gallops. PULMONARY: Chest is clear to auscultation, no wheezing or crackles. ABDOMEN: Soft, nontender, nondistended, normoactive bowel sounds. No palpable organomegaly. MUSCULOSKELETAL: No joint swelling or deformity. EXTREMITIES: No cyanosis, clubbing, or pedal edema. Patient has a bony amputation on the left side right foot peripheral vascular disease NEUROLOGICAL: Gross neurological examination did not reveal any focal deficits. Does have significant generalized weakness SKIN: An ulcer in the right foot which which doesn't appear to be infected - Labs CBC & Chem 7: 02/25/21 11:51 02/26/21 06:39 Assessment and Plan Plan: -Hyponatremia: Improved Secondary to diuretics patient was started on IV fluids diuretics are being held. -Right hip pain probably osteoarthritis of the right knee pain management with the tramadol -Peripheral vascular disease quit smoking few months ago -Noninfected ulcer on the right foot follow-up with wound care -Carotid artery disease -History of DVT in the past, patient is on anticoagulation which is being continued -Hyperlipidemia -Hypertension -Peripheral vascular disease -DVT prophylaxis patient is already on anticoagulation -depression -Generalized deconditioning: Is related muscle atrophy, patient will be ev aluated with physical therapy and occupational therapy possibly of discharge tomorrow discharge disposition depending on PT and OT evaluation
[2021-02-27] MEDS: MIRTAZAPINE 15 MG TAB PO SCH (20:23)
[2021-02-27] MEDS: ATORVASTATIN 40 MG TAB PO SCH (20:23)
[2021-02-27] MEDS ORDERED: traMADol 50 MG TAB PO SCH (21:00)
[2021-02-28] MEDS: MELATONIN 3 MG TABLET PO PRN ×2 (02:43→21:42)
[2021-02-28] MEDS: ACETAMINOPHEN TAB 325 MG TAB PO PRN ×3 (04:40→21:42)
[2021-02-28] MEDS: SODIUM CHLORIDE 0.9% 1,000 ML IV SCH ×3 (04:56→22:54)
[2021-02-28 05:05] LABS: African American GFR (CKD) >90 (>60 ml/min/1.73 sqM); Anion Gap 7 mmol/L; Blood Urea Nitrogen 5 mg/dL (9-20); Calcium 8.1 mg/dL (8.4-10.2); Carbon Dioxide 20 mmol/L (22-30); Chloride 104 mmol/L (98-107); Glucose 113 mg/dL (74-99); Non-African American GFR(CKD) >90 (>60 ml/min/1.73 sqM); Potassium 4.7 mmol/L (3.5-5.1); Sodium 131 mmol/L (137-145)
[2021-02-28] MEDS: PANTOPRAZOLE 40 MG TABLET PO SCH (07:29)
[2021-02-28] MEDS: RIVAROXABAN 2.5 MG TABLET PO SCH ×2 (07:29→21:43)
[2021-02-28] MEDS: ASPIRIN 81 MG PO SCH (07:29)
[2021-02-28] MEDS: METOPROLOL TARTRATE 25 MG TAB PO SCH ×2 (07:29→21:42)
[2021-02-28] MEDS: traMADol 50 MG TAB PO PRN ×2 (07:34→19:38)
[2021-02-28 12:42] VITALS: RESP 18
--- NOTE | 2021-02-28 14:17 | P.DS ---
Providers Date of admission: 02/24/21 21:39 Expected date of discharge: 02/28/21 Attending physician: Lisa Aggarwal Primary care physician: Rachel Plunkett Hospital Course: Final diagnosis -Hyponatremia: Secondary to diuretics, improved -Right hip pain probably osteoarthritis of the right knee -Peripheral vascular disease quit smoking few months ago -Noninfected ulcer on the right foot follow-up with wound care Dr. Schneider's office as he has been -Carotid artery disease -History of DVT in the past, patient is on anticoagulation which is being continued -Hyperlipidemia -Hypertension -Peripheral vascular disease -DVT prophylaxis -depression -No code Discharge disposition Patient is being discharged in a stable condition with guarded prognosis to [facility] for continued PT/OT therapy. Patient will follow-up with Dr. Rachel Plunkett upon discharge. Total time taken is greater than 35 minutes. Hospital course 70-year-old male was brought in with concerns of altered mental status although when I valid the patient patient is alert oriented 3 able to provide me good history patient was also having increasing weakness patient is found to be hyponatremic. Patient denied any fever chills patient is on diuretics which is Lasix and Aldactone. Patient denied any dysuria Patient had left above-knee amputation, and also in the right foot. Left foot has an ulcer for which patient follows up in the Wound Care and ulcer doesn't look infected. Patient is on anti-correlation because of which it's bleeding. Patient was also company of right hip pain which is mild to moderate severity, had a recent right hip x-ray which was within normal limits patient may have osteoarthritis of the right knee. Patient does have leukocytosis. 02/26/2021 Patient is still complaining of pain in the right hip area although fairly well controlled with the tramadol workup for the right hip is negative. Patient lives by himself so as an nursing staff to set him up and make sure patient can manage himself at home if not we will consult physical therapy and occupational therapy otherwise patient's sodium sodium did improve and his Lasix and Aldactone are being held because of which I believe his sodium will continue to improve repeat sodium is ordered for couple days and patient will be discharged today after assessing his functionality per nursing staff 02/27/2021 Patient is seen and evaluated this morning and was seen by PT/OT therapy as patient continued to be weak and recommended subacute rehab for continued strength and mobility. Social work consulted for patient to go to [facility] an authorization was sent and pending at this time. Patient had Covid 19 testing which was negative. Currently no reports of chest pain, shortness of breath, or palpitations. Patient is afebrile. No reports of nausea or vomiting and patient is tolerating diet. PHYSICAL EXAMINATION: GENERAL: The patient is alert and oriented x3, not in any acute distress. Well developed, well nourished. HEENT: Pupils are round and equally reacting to light. EOMI. No scleral icterus. No conjunctival pallor. Normocephalic, atraumatic. No pharyngeal erythema. No thyromegaly. CARDIOVASCULAR: S1 and S2 present. No murmurs, rubs, or gallops. PULMONARY: Chest is clear to auscultation, no wheezing or crackles. ABDOMEN: Soft, nontender, nondistended, normoactive bowel sounds. No palpable organomegaly. MUSCULOSKELETAL: No joint swelling or deformity. EXTREMITIES: No cyanosis, clubbing, or pedal edema. Patient has a bony amputation on the left side right foot peripheral vascular disease NEUROLOGICAL: Gross neurological examination did not reveal any focal deficits. Does have significant generalized weakness SKIN: An ulcer in the right foot which which doesn't appear to be infected and follows with the wound center with dressing changes every other day with the use of silver and dressings Please refer to medication reconciliation sheet for a list of medications. Patient Condition at Discharge: Stable Plan - Discharge Summary Discharge Rx Participant: Yes New Discharge Prescriptions: New traMADol HCl [Ultram] 50 mg PO BID PRN #6 tab PRN Reason: Pain Continue Aspirin EC [Ecotrin Low Dose] 81 mg PO DAILY@0700 Acetaminophen Tab [Tylenol] 650 mg PO Q6H PRN PRN Reason: Pain Pantoprazole Sodium [Protonix] 40 mg PO DAILY Atorvastatin [Lipitor] 40 mg PO HS Melatonin 3 mg PO HS PRN PRN Reason: Insomnia Metoprolol Tartrate [Lopressor] 25 mg PO BID Rivaroxaban [Xarelto] 2.5 mg PO BID Mirtazapine [Remeron] 15 mg PO HS #4 tab Discontinued Furosemide [Lasix] 40 mg PO DAILY@0700 Spironolactone 100 mg PO DAILY traMADol HCL [Ultram] 50 mg PO DAILY PRN PRN Reason: Pain Discharge Medication List Aspirin EC [Ecotrin Low Dose] 81 mg PO DAILY@0700 08/31/19 [History] Acetaminophen Tab [Tylenol] 650 mg PO Q6H PRN 11/09/19 [History] Pantoprazole Sodium [Protonix] 40 mg PO DAILY 11/09/19 [History] Atorvastatin [Lipitor] 40 mg PO HS 02/05/20 [History] Melatonin 3 mg PO HS PRN 06/01/20 [History] Metoprolol Tartrate [Lopressor] 25 mg PO BID 06/01/20 [History] Rivaroxaban [Xarelto] 2.5 mg PO BID 02/24/21 [History] Mirtazapine [Remeron] 15 mg PO HS #4 tab 02/28/21 [Rx] traMADol HCl [Ultram] 50 mg PO BID PRN #6 tab 02/28/21 [Rx] Follow up Appointment(s)/Referral(s): Rachel Plunkett MD [Primary Care Provider] - 3 Days Ambulatory/Diagnostic Orders: Basic Metabolic Panel [LAB.AMB] Time Frame: 3 Days, Location: None Selected Activity/Diet/Wound Care/Special Instructions: Awaiting insurance auth, Covid testing Patient is going to [facility] as tolerated Continue with wound care with dressing changes every 48 hours unless the dressing is soiled of the right foot and local wound care. Patient follows with Dr. Patricia in the outpatient setting at the wound center Continue current heart healthy diet Discharge Disposition: TRANSFER TO SNF/ECF
[2021-02-28] MEDS: ATORVASTATIN 40 MG TAB PO SCH (21:42)
[2021-02-28] MEDS: MIRTAZAPINE 15 MG TAB PO SCH (21:43)
[2021-03-01] MEDS: ACETAMINOPHEN TAB 325 MG TAB PO PRN (04:39)
[2021-03-01 05:32] VITALS: BP 132/75; PULSE 72; TEMP 98.3
--- NOTE | 2021-03-01 08:48 | P.DS ---
Providers Date of admission: 02/24/21 21:39 Expected date of discharge: 03/01/21 Attending physician: Lisa Aggarawl Primary care physician: Rachel Plunkett Hospital Course: Final Diagnosis -Hyponatremia: Secondary to diuretics, improved -Right hip pain probably osteoarthritis of the right knee -Peripheral vascular disease quit smoking few months ago -Noninfected ulcer on the right foot follow-up with wound care Dr. Schneider's office as he has been -Carotid artery disease -History of DVT in the past, patient is on anticoagulation which is being continued -Hyperlipidemia -Hypertension -Peripheral vascular disease -DVT prophylaxis -depression -No code Discharge disposition Patient is being discharged in a stable condition with guarded prognosis to [facility] for continued PT/OT therapy. Patient will follow-up with Dr. Rachel Plunkett upon discharge. Total time taken is greater than 35 minutes. Hospital course 70-year-old male was brought in with concerns of altered mental status although when I valid the patient patient is alert oriented 3 able to provide me good history patient was also having increasing weakness patient is found to be hyponatremic. Patient denied any fever chills patient is on diuretics which is Lasix and Aldactone. Patient denied any dysuria Patient had left above-knee amputation, and also in the right foot. Left foot has an ulcer for which patient follows up in the Wound Care and ulcer doesn't look infected. Patient is on anti-correlation because of which it's bleeding. Patient was also company of right hip pain which is mild to moderate severity, had a recent right hip x-ray which was within normal limits patient may have osteoarthritis of the right knee. Patient does have leukocytosis. 02/27/2021 Patient is still complaining of pain in the right hip area although fairly well controlled with the tramadol workup for the right hip is negative. Patient lives by himself so as an nursing staff to set him up and make sure patient can manage himself at home if not we will consult physical therapy and occupational therapy otherwise patient's sodium sodium did improve and his Lasix and Aldactone are being held because of which I believe his sodium will continue to improve repeat sodium is ordered for couple days and patient will be discharged today after assessing his functionality per nursing staff 02/28/2021 Patient is seen and evaluated this morning and was seen by PT/OT therapy as patient continued to be weak and recommended subacute rehab for continued strength and mobility. Social work consulted for patient to go to [facility] an authorization was sent and pending at this time. Patient had Covid 19 testing which was negative. 03/01/2021 Patient has received insurance authorization for [facility] and will be discharged there today for continued PT/OT therapy. On exam vital signs are stable. Temp is 98.3F, pulse is 72, respirations are 18, blood pressure is 132/75, oxygen saturation is 98% on room air. Currently no reports of chest pain, shortness of breath, or palpitations. Patient is afebrile. No reports of nausea or vomiting and patient is tolerating diet. PHYSICAL EXAMINATION: GENERAL: The patient is alert and oriented x3, not in any acute distress. Well developed, well nourished. HEENT: Pupils are round and equally reacting to light. EOMI. No scleral icterus. No conjunctival pallor. Normocephalic, atraumatic. No pharyngeal erythema. No thyromegaly. CARDIOVASCULAR: S1 and S2 present. No murmurs, rubs, or gallops. PULMONARY: Chest is clear to auscultation, no wheezing or crackles. ABDOMEN: Soft, nontender, nondistended, normoactive bowel sounds. No palpable organomegaly. MUSCULOSKELETAL: No joint swelling or deformity. EXTREMITIES: No cyanosis, clubbing, or pedal edema. Patient has a bony amputation on the left side right foot peripheral vascular disease NEUROLOGICAL: Gross neurological examination did not reveal any focal deficits. Does have significant generalized weakness SKIN: An ulcer in the right foot which which doesn't appear to be infected and follows with the wound center with dressing changes every other day with the use of silver and dressings Please refer to medication reconciliation sheet for a list of medications. Patient Condition at Discharge: Stable Plan - Discharge Summary Discharge Rx Participant: Yes New Discharge Prescriptions: New traMADol HCl [Ultram] 50 mg PO BID PRN #6 tab PRN Reason: Pain Continue Aspirin EC [Ecotrin Low Dose] 81 mg PO DAILY@0700 Acetaminophen Tab [Tylenol] 650 mg PO Q6H PRN PRN Reason: Pain Pantoprazole Sodium [Protonix] 40 mg PO DAILY Atorvastatin [Lipitor] 40 mg PO HS Melatonin 3 mg PO HS PRN PRN Reason: Insomnia Metoprolol Tartrate [Lopressor] 25 mg PO BID Rivaroxaban [Xarelto] 2.5 mg PO BID Mirtazapine [Remeron] 15 mg PO HS #4 tab Discontinued Furosemide [Lasix] 40 mg PO DAILY@0700 Spironolactone 100 mg PO DAILY traMADol HCL [Ultram] 50 mg PO DAILY PRN PRN Reason: Pain Discharge Medication List Aspirin EC [Ecotrin Low Dose] 81 mg PO DAILY@0700 08/31/19 [History] Acetaminophen Tab [Tylenol] 650 mg PO Q6H PRN 11/09/19 [History] Pantoprazole Sodium [Protonix] 40 mg PO DAILY 11/09/19 [History] Atorvastatin [Lipitor] 40 mg PO HS 02/05/20 [History] Melatonin 3 mg PO HS PRN 06/01/20 [History] Metoprolol Tartrate [Lopressor] 25 mg PO BID 06/01/20 [History] Rivaroxaban [Xarelto] 2.5 mg PO BID 02/24/21 [History] Mirtazapine [Remeron] 15 mg PO HS #4 tab 02/28/21 [Rx] traMADol HCl [Ultram] 50 mg PO BID PRN #6 tab 02/28/21 [Rx] Follow up Appointment(s)/Referral(s): Rachel Plunkett MD [Primary Care Provider] - 3 Days Ambulatory/Diagnostic Orders: Basic Metabolic Panel [LAB.AMB] Time Frame: 3 Days, Location: None Selected Activity/Diet/Wound Care/Special Instructions: Awaiting insurance auth Patient is going to [facility] Activity as tolerated Continue with wound care with dressing changes every 48 hours unless the dressing is soiled of the right foot and local wound care. Patient follows with Dr. Patricia in the outpatient setting at the wound center Continue current heart healthy diet Discharge Disposition: TRANSFER TO SNF/ECF
[2021-03-01] MEDS: METOPROLOL TARTRATE 25 MG TAB PO SCH (08:50)
[2021-03-01] MEDS: ASPIRIN 81 MG PO SCH (08:50)
[2021-03-01] MEDS: PANTOPRAZOLE 40 MG TABLET PO SCH (08:50)
[2021-03-01] MEDS: traMADol 50 MG TAB PO PRN (08:50)
[2021-03-01] MEDS: RIVAROXABAN 2.5 MG TABLET PO SCH (08:50)
== END 2021-03-01 11:40 | DRG 641 ==
LOC: EC 17:50 → 5NMEDONC 21:39
PROVIDERS: ADMIT Hospitalist; ATTEND Hospitalist
DX: E87.1 Hypo-osmolality and hyponatremia (principal); L97.519 Non-pressure chronic ulcer of other part of right foot with unspecified severity; Z89.612 Acquired absence of left leg above knee; I73.9 Peripheral vascular disease, unspecified; F10.21 Alcohol dependence, in remission; Z66 Do not resuscitate; Z20.822 Contact with and (suspected) exposure to COVID-19; T50.1X5A Adverse effect of loop [high-ceiling] diuretics, initial encounter; E78.5 Hyperlipidemia, unspecified; D72.829 Elevated white blood cell count, unspecified; I10 Essential (primary) hypertension; I25.10 Atherosclerotic heart disease of native coronary artery without angina pectoris; M17.11 Unilateral primary osteoarthritis, right knee; F32.9 Major depressive disorder, single episode, unspecified; F41.9 Anxiety disorder, unspecified; R47.81 Slurred speech; Z79.82 Long term (current) use of aspirin; Z79.01 Long term (current) use of anticoagulants; Z79.899 Other long term (current) drug therapy; Z96.652 Presence of left artificial knee joint; Z96.641 Presence of right artificial hip joint; Z95.1 Presence of aortocoronary bypass graft; Z95.828 Presence of other vascular implants and grafts; Z86.718 Personal history of other venous thrombosis and embolism; Z86.73 Personal history of transient ischemic attack (TIA), and cerebral infarction without residual deficits; Z87.891 Personal history of nicotine dependence; Z86.14 Personal history of Methicillin resistant Staphylococcus aureus infection; Z98.890 Other specified postprocedural states; Y92.009 Unspecified place in unspecified non-institutional (private) residence as the place of occurrence of the external cause; Z82.49 Family history of ischemic heart disease and other diseases of the circulatory system; Z83.49 Family history of other endocrine, nutritional and metabolic diseases
CPT/HCPCS: 36415; 70450; 71046; 80048; 80053; 80306; 81003; 82140; 82550; 84484; 85025; 85610; 85730; 87635; 93005; 99285

== ENCOUNTER 2021-03-03 13:57 | Inpatient (IN) | payer MEDICARE, OTHER ==
[2021-03-03] MEDS ORDERED: ACETAMINOPHEN TAB 500 MG TAB PO STA (14:33)
[2021-03-03] MEDS ORDERED: HYDROmorphone 0.5 MG/0.5 ML SYRINGE IVP STA (14:34)
--- NOTE | 2021-03-03 14:36 | ED ---
General Adult HPI - General Chief complaint: Recheck/Abnormal Lab/Rx Stated complaint: Leg Infection Time Seen by Provider: 03/03/21 14:21 Source: EMS Mode of arrival: EMS Limitations: no limitations - History of Present Illness Initial comments: 70-year-old male with a complicated past medical history including CAD, hyperlipidemia, hypertension, DVT on Xarelto, , PVD, TIA, left leg AKA, MRSA osteomyelitis of the right foot presents to the emergency room for a chief complaint of fever. Patient was sent from the shelter for concerns of right foot infection. Patient has had an ongoing infection however patient states it is starting to hurt again. Patient states he also had increasing right hip pain. He has a history of hip fracture 2 years ago. States that his hip has increased in pain for the past 3 days. Patient does not bear weight on the hip as his baseline.Patient has no other complaints at this time including shortness of breath, chest pain, abdominal pain, nausea or vomiting, headache, or visual changes. - Related Data Home Medications Medication Instructions Recorded Confirmed Aspirin EC [Ecotrin Low Dose] 81 mg PO DAILY@0700 08/31/19 03/03/21 Acetaminophen Tab [Tylenol] 650 mg PO Q6H PRN 11/09/19 03/03/21 Pantoprazole Sodium [Protonix] 40 mg PO DAILY 11/09/19 03/03/21 Atorvastatin [Lipitor] 40 mg PO HS 02/05/20 03/03/21 Melatonin 3 mg PO HS PRN 06/01/20 03/03/21 Metoprolol Tartrate [Lopressor] 25 mg PO BID 06/01/20 03/03/21 Rivaroxaban [Xarelto] 2.5 mg PO BID 02/24/21 03/03/21 Previous Rx's Medication Instructions Recorded Mirtazapine [Remeron] 15 mg PO HS #4 tab 02/28/21 traMADol HCl [Ultram] 50 mg PO BID PRN #6 tab 02/28/21 Allergies Allergy/AdvReac Type Severity Reaction Status Date / Time No Known Allergies Allergy Verified 03/03/21 16:07 Review of Systems ROS Statement: Those systems with pertinent positive or pertinent negative responses have been documented in the HPI. ROS Other: All systems not noted in ROS Statement are negative. Past Medical History Past Medical History: Coronary Artery Disease (CAD), CVA/TIA, Deep Vein Thrombosis (DVT), Hyperlipidemia, Hypertension, Vascular Disorder Additional Past Medical History / Comment(s): right leg DVT, PVD, TIA 2016, Left leg AKA, alcoholism History of Any Multi-Drug Resistant Organisms: MRSA Date of last positivie culture/infection: 02/16/21 MDRO Source:: RIGHT Foot Past Surgical History: Coronary Bypass/CABG, Heart Catheterization, Joint Replacement, Orthopedic Surgery Additional Past Surgical History / Comment(s): left knee replacement, left foot surgery, stent to right leg, CABG 12/2014, 4 bypass, aortogram, WOUND CLINIC, SKIN GRAFTING LT LEG, right hip replacement, left leg above knee amputation Past Anesthesia/Blood Transfusion Reactions: No Reported Reaction Additional Past Anesthesia/Blood Transfusion Reaction / Comment(s): DAUGHTER- PONV Past Psychological History: Anxiety, Depression Smoking Status: Former smoker Past Alcohol Use History: Daily Past Drug Use History: None Reported - Past Family History Father Family Medical History: Myocardial Infarction ([place]) Additional Family Medical History / Comment(s): Father of a [place] in his 70s. Mother Family Medical History: No Reported History Additional Family Medical History / Comment(s): Mother in her 70s. She was obese. General Exam - General Exam Comments Initial Comments: Right lower extremity: Patient does have chronic muscle atrophy of the right leg noted. He has a wound noted to the lateral aspect of the right foot around the fifth MTP joint with a surrounding cellulitis. Hip range of motion is limited to about 45 flexion, extension to neutral position. This does elicit pain. Capillary refill less than 2 seconds in the right lower extremity. Limitations: no limitations General appearance: alert, in no apparent distress Head exam: Present: atraumatic, normocephalic, normal inspection Eye exam: Present: normal appearance, PERRL, EOMI. Absent: scleral icterus, conjunctival injection, periorbital swelling ENT exam: Present: normal exam, mucous membranes moist Neck exam: Present: normal inspection, full ROM. Absent: tenderness Respiratory exam: Present: normal lung sounds bilaterally. Absent: respiratory distress, wheezes Cardiovascular Exam: Present: regular rate, normal rhythm, normal heart sounds GI/Abdominal exam: Present: soft, normal bowel sounds. Absent: distended, tenderness, guarding, rebound, rigid Course Vital Signs 03/03/21 03/03/21 14:04 16:15 Temperature 100.7 F H Pulse Rate 82 90 Respiratory 18 18 Rate Blood Pressure 130/76 121/72 O2 Sat by Pulse 96 94 L Oximetry EKG Findings - EKG Comments: EKG Findings:: Sinus tachycardia, ventricular rate 101, W[place] interval 130, QTC 438 Medical Decision Making - Medical Decision Making Vitals are stable. Patient does have a fever of 100.7. CBC does reveal leukocytosis of 22 with a left shift. CRP almost 200. Lactic acid 1.9. Patient does have hyponatremia noted of 127 which does appear chronic for patient. X-ray of the foot was obtained given wound and there is possible osteomyelitis. Patient also is complaining of right hip pain, with limited range of motion at this time cannot exclude septic arthritis. [facility] was [facility] as this is to be saw in 2019 for fracture. Discussed case with cold who is agreeable to starting patient on vancomycin and Rocephin, will see patient in the morning, requesting medicine admit. I did discuss with Dr. Vargas who does accept admission, requests infectious disease consultation. Of note patient also has a chest x-ray showing interval development of a p leural effusion, correlate for pneumonia. Patient does not have any upper respiratory symptoms, Covid negative. - Lab Data Result diagrams: 03/03/21 14:57 03/03/21 14:57 Lab Results 03/03/21 03/03/21 03/03/21 Range/Units 14:57 14:57 14:57 WBC 22.1 H (3.8-10.6) k/uL RBC 3.65 L (4.30-5.90) m/uL Hgb 12.1 L (13.0-17.5) gm/dL Hct 34.3 L (39.0-53.0) % MCV 93.8 (80.0-100.0) fL MCH 33.1 (25.0-35.0) pg MCHC 35.2 (31.0-37.0) g/dL RDW 13.6 (11.5-15.5) % Plt Count 429 (150-450) k/uL MPV 7.6 Neutrophils % 92 % Lymphocytes % 3 % Monocytes % 4 % Eosinophils % 0 % Basophils % 0 % Neutrophils # 20.2 H (1.3-7.7) k/uL Lymphocytes # 0.7 L (1.0-4.8) k/uL Monocytes # 1.0 (0-1.0) k/uL Eosinophils # 0.0 (0-0.7) k/uL Basophils # 0.0 (0-0.2) k/uL Sodium 127 L (137-145) mmol/L Potassium 4.4 (3.5-5.1) mmol/L Chloride 95 L (98-107) mmol/L Carbon Dioxide 23 (22-30) mmol/L Anion Gap 9 mmol/L BUN 8 L (9-20) mg/dL Creatinine 0.50 L (0.66-1.25) mg/dL Est GFR (CKD-EPI)AfAm >90 (>60 ml/min/1.73 sqM) Est GFR (CKD-EPI)NonAf >90 (>60 ml/min/1.73 sqM) Glucose 139 H (74-99) mg/dL Plasma Lactic Acid Taurus 1.9 (0.7-2.0) mmol/L Calcium 8.5 (8.4-10.2) mg/dL Total Bilirubin 1.0 (0.2-1.3) mg/dL AST 58 (17-59) U/L ALT 24 (4-49) U/L Alkaline Phosphatase 163 H (38-126) U/L C-Reactive Protein 196.0 H (<10.0) mg/L Total Protein 5.5 L (6.3-8.2) g/dL Albumin 2.6 L (3.5-5.0) g/dL Coronavirus (PCR) (Not Detectd) 03/03/21 Range/Units 14:57 WBC (3.8-10.6) k/uL RBC (4.30-5.90) m/uL Hgb (13.0-17.5) gm/dL Hct (39.0-53.0) % MCV (80.0-100.0) fL MCH (25.0-35.0) pg MCHC (31.0-37.0) g/dL RDW (11.5-15.5) % Plt Count (150-450) k/uL MPV Neutrophils % % Lymphocytes % % Monocytes % % Eosinophils % % Basophils % % Neutrophils # (1.3-7.7) k/uL Lymphocytes # (1.0-4.8) k/uL Monocytes # (0-1.0) k/uL Eosinophils # (0-0.7) k/uL Basophils # (0-0.2) k/uL Sodium (137-145) mmol/L Potassium (3.5-5.1) mmol/L Chloride (98-107) mmol/L Carbon Dioxide (22-30) mmol/L Anion Gap mmol/L BUN (9-20) mg/dL Creatinine (0.66-1.25) mg/dL Est GFR (CKD-EPI)AfAm (>60 ml/min/1.73 sqM) Est GFR (CKD-EPI)NonAf (>60 ml/min/1.73 sqM) Glucose (74-99) mg/dL Plasma Lactic Acid Taurus (0.7-2.0) mmol/L Calcium (8.4-10.2) mg/dL Total Bilirubin (0.2-1.3) mg/dL AST (17-59) U/L ALT (4-49) U/L Alkaline Phosphatase (38-126) U/L C-Reactive Protein (<10.0) mg/L Total Protein (6.3-8.2) g/dL Albumin (3.5-5.0) g/dL Coronavirus (PCR) Not Detected (Not Detectd) Disposition Clinical Impression: Hip pain, Osteomyelitis of right foot, Hyponatremia, Leukocytosis, Elevated C-reactive protein (CRP) Disposition[facility] Condition: Fair Is patient prescribed a controlled substance at d/c from ED?: No Referrals: Reno Doe MD [Primary Care Provider] - 1-2 days Time of Disposition: 16:46
[2021-03-03] MEDS ORDERED: SODIUM CHLORIDE 0.9% 500 ML 500 ML IV SCH (14:45)
[2021-03-03 15:19] LABS: Basophils % (A) 0 %; Eosinophils % (A) 0 %; HCT 34.3 % (39.0-53.0); HGB 12.1 gm/dL (13.0-17.5); Lymphocytes # (A) 0.7 k/uL (1.0-4.8); Lymphocytes % (A) 3 %; MCH 33.1 pg (25.0-35.0); MCHC 35.2 g/dL (31.0-37.0); MCV 93.8 fL (80.0-100.0); Mean Platelet Volume 7.6; Monocytes % (A) 4 %; Neutrophils # (A) 20.2 k/uL (1.3-7.7); Neutrophils % (A) 92 %; Platelet Count 429 k/uL (150-450); RBC 3.65 m/uL (4.30-5.90); RDW 13.6 % (11.5-15.5); WBC 22.1 k/uL (3.8-10.6)
[2021-03-03 15:32] LABS: ALT 24 U/L (4-49); AST 58 U/L (17-59); African American GFR (CKD) >90 (>60 ml/min/1.73 sqM); Albumin 2.6 g/dL (3.5-5.0); Alkaline Phosphatase 163 U/L (38-126); Anion Gap 9 mmol/L; Blood Urea Nitrogen 8 mg/dL (9-20); Calcium 8.5 mg/dL (8.4-10.2); Carbon Dioxide 23 mmol/L (22-30); Chloride 95 mmol/L (98-107); Glucose 139 mg/dL (74-99); Non-African American GFR(CKD) >90 (>60 ml/min/1.73 sqM); Potassium 4.4 mmol/L (3.5-5.1); Sodium 127 mmol/L (137-145); Total Protein 5.5 g/dL (6.3-8.2)
--- NOTE | 2021-03-03 15:44 | XR ---
EXAMINATION TYPE: XR chest 2V DATE OF EXAM: 03/03/2021 COMPARISON: Chest x-ray 02/24/2021 HISTORY: Fever, abnormal chest x-ray TECHNIQUE: Frontal and lateral views of the chest are obtained. FINDINGS: There has been interval development of blunting of the posterior costophrenic angles. Angelia ent is post median sternotomy. Coronary artery calcifications present. Cardiac mediastinal silhouette is stable. No evident pneumothorax. Prominent lung volumes suggest underlying COPD. IMPRESSION: Interval development of pleural effusions, correlate for pneumonia.
--- NOTE | 2021-03-03 15:45 | XR ---
Right foot HISTORY: Infection 3 views the right foot There is bone destruction of the distal fifth metatarsal extending to the level of the metatarsophala ngeal joint, lucencies present within the soft tissues. Bone mineralization overall is reduced. There are extended digits, the distal aspect of the first and third digits show bone destruction. There is soft tissue swelling. Vascular calcifications are noted. There is a plantar calcaneal spur. Distorti on of the proximal phalanx of the first digit is noted indeterminate age and etiology IMPRESSION: Findings may be indicative of underlying osteomyelitis.
--- NOTE | 2021-03-03 15:49 | XR ---
EXAMINATION TYPE: XR Hip RT and AP Pelvis DATE OF EXAM: 03/03/2021 COMPARISON: Prior exam dated 10/13/2019 HISTORY: Pain, fever TECHNIQUE: A single AP view of the pelvis is obtained. Two views of the right hip are obtained. FINDINGS: There is no acute fracture/dislocation evident in the pelvis. Patient is status post right hip arthroplasty. There is an iliac stent noted on the right. Dense vasc ular calcifications are present. Left iliac stent is also present. Patient is rotated. Some lucency p resent along the femoral component of the hip prosthesis is noted on the oblique view similar to prio r exam. Bone mineralization is reduced. Degenerative disc changes are present in the visualized spine . IMPRESSION: There is no acute fracture or dislocation in the pelvis or right hip.
[2021-03-03] MEDS ORDERED: cefTRIAXone IN SWFI 1,000 MG/10 ML SYRINGE IVP STA (15:56)
[2021-03-03] MEDS ORDERED: VANCOMYCIN IV PER PHARMACY 1 EACH MISC MISCELLANE PRN (16:42)
[2021-03-03] MEDS ORDERED: NALOXONE 0.4 MG/ML 1 ML VIAL IV PRN (16:47)
[2021-03-03] MEDS: SODIUM CHLORIDE 0.9% 1,000 ML IV SCH (17:06)
[2021-03-03] MEDS ORDERED: VANCOMYCIN 1,500 MG in SODIUM CHLORIDE 0.9% 250 ML IVPB ONE (17:15)
[2021-03-03] MEDS: METOPROLOL TARTRATE 25 MG TAB PO SCH (20:14)
[2021-03-03] MEDS: MELATONIN 3 MG TABLET PO PRN (20:14)
[2021-03-03] MEDS: MIRTAZAPINE 15 MG TAB PO SCH (20:14)
[2021-03-03] MEDS: ATORVASTATIN 40 MG TAB PO SCH (20:15)
[2021-03-03 22:33] LABS: Appearance,Urine Clear (Clear); Bilirubin,Urine Negative (Negative); Blood,Urine Negative (Negative); Color,Urine Yellow; Glucose,Urine (UA) Negative (Negative); Ketones,Urine Negative (Negative); Leukocyte Esterase,Urine Negative (Negative); Nitrite,Urine Negative (Negative); Protein,Urine Negative (Negative); Specific Gravity,Urine 1.004 (1.001-1.035)
[2021-03-03] MEDS: VANCOMYCIN 1,250 MG in SODIUM CHLORIDE 0.9% 250 ML IVPB SCH (22:59)
[2021-03-04] MEDS: ASPIRIN 81 MG PO SCH (07:41)
[2021-03-04] MEDS: METOPROLOL TARTRATE 25 MG TAB PO SCH ×2 (07:41→19:39)
[2021-03-04] MEDS: PANTOPRAZOLE 40 MG TABLET PO SCH (07:41)
[2021-03-04 08:10] LABS: African American GFR (CKD) >90 (>60 ml/min/1.73 sqM); Non-African American GFR(CKD) >90 (>60 ml/min/1.73 sqM)
[2021-03-04] MEDS: HYDROmorphone 0.5 MG/0.5 ML SYRINGE IVP PRN ×2 (08:51→15:46)
--- NOTE | 2021-03-04 09:01 | P.CNOR ---
History of Present Illness - [facility] Consult date: 03/04/21 Consult reason: joint pain (Right hip pain) History of present illness: Patient is a 70-year-old male who was admitted to [facility] yesterday afternoon with regards to concerns of sepsis. Patient has a very detailed medical history and multiple medical comorbidities. Patient is a chronic wound on his right foot. He has seen multiple medical doctors with regards to this, he seen both vascular surgery and is followed in the wound care clinic. He's also had pain work done to the right lower extremity. Patient was recently in the hospital about a week ago with regards to weakness, he spent a few days here and was discharged to rehab. Patient states that over the last month or so he has not felt greatest with regards to his general health. He has been Hospital rehab since then. He does live in an apartment by himself, he spends most the time in his wheelchair. He has a history of hitbl-[id number]-[id number] hip rotation on the left side that was done about 6 months ago by the vascular service at [facility]. He has had multiple vein procedures and wound debridements of the right lower extremity. Patient has a history of a previous right femoral neck fracture back in August 2019, he underwent surgery by Dr. Malcolm and had a right hip hemiarthroplasty placed. Patient has done fairly well with that over the last few years. He states that he hip has started to bother him over the last few weeks. Barney stated above, patient doesn't get around and exercise at all. He spends most of his time in a wheelchair. Patient was admitted to the hospital under internal medicine, our orthopedic team and infectious disease were consulted. There was concern of infection in volving the right hip hardware. Initial labs demonstrated an elevated white blood cell count and CRP. He was started on IV antibiotics and made nothing by mouth at admission. Patient was evaluated today at bedside by myself and Dr. Malcolm. He notes most of discomfort on the lateral aspect of the hip, this is mainly with movement actively. He states that as of yesterday after receiving a series of x-rays which required the hip to be placed in a few different positions, his hip is felt a lot better. He denies any recent trauma to the area, this including falls. He denies any other orthopedic complaints at this time. Review of Systems Constitutional: Reports as per HPI Past Medical History Past Medical History: Coronary Artery Disease (CAD), CVA/TIA, Deep Vein Thrombosis (DVT), Hyperlipidemia, Hypertension, Vascular Disorder Additional Past Medical History / Comment(s): right leg DVT, PVD, TIA 2015, Left leg AKA, alcoholism drinks 3 beers a day. Last drink on 02/24/21 History of Any Multi-Drug Resistant Organisms: MRSA Year Discovered:: 02/16/21 MDRO Source:: RIGHT Foot Past Surgical History: Coronary Bypass/CABG, Heart Catheterization, Joint Replacement, Orthopedic Surgery Additional Past Surgical History / Comment(s): left knee replacement, left foot surgery, stent to right leg, CABG 12/2014, 4 bypass, aortogram, WOUND CLINIC, SKIN GRAFTING LT LEG, right hip replacement, left leg above knee amputation Past Anesthesia/Blood Transfusion Reactions: No Reported Reaction Additional Past Anesthesia/Blood Transfusion Reaction / Comm: DAUGHTER-PONV Past Psychological History: Anxiety, Depression Additional Psychological History / Comment(s): Lives home alone. Smoking Status: Former smoker Past Alcohol Use History: Daily Additional Past Alcohol Use History / Comment(s): Pt started smoking in 1965 and was down to 4 cigarettes a day, quit smoking January 2021 Past Drug Use History: None Reported Additional Drug Use History / Comment(s): HX OF DAILY MARIJUANA-edibles or smoked . - Past Family History Father Family Medical History: Myocardial Infarction ([place]) Additional Family Medical History / Comment(s): Father of a [place] in his 70s. Mother Family Medical History: No Reported History Additional Family Medical History / Comment(s): Mother in her 70s. She was obese. Medications and Allergies Home Medications Medication Instructions Recorded Confirmed Type Aspirin EC [Ecotrin Low Dose] 81 mg PO DAILY@0700 08/31/19 03/03/21 History Acetaminophen Tab [Tylenol] 650 mg PO Q6H PRN 11/09/19 03/03/21 History Pantoprazole Sodium [Protonix] 40 mg PO DAILY 11/09/19 03/03/21 History Atorvastatin [Lipitor] 40 mg PO HS 02/05/20 03/03/21 History Melatonin 3 mg PO HS PRN 06/01/20 03/03/21 History Metoprolol Tartrate [Lopressor] 25 mg PO BID 06/01/20 03/03/21 History Rivaroxaban [Xarelto] 2.5 mg PO BID 02/24/21 03/03/21 History Mirtazapine [Remeron] 15 mg PO HS #4 tab 02/28/21 03/03/21 Rx traMADol HCl [Ultram] 50 mg PO BID PRN #6 tab 02/28/21 03/03/21 Rx Allergies Allergy/AdvReac Type Severity Reaction Status Date / Time No Known Allergies Allergy Verified 03/03/21 16:07 Physical Examination Right lower extremity: Lateral hip incision of the right lower extremity is well-healed, there is no erythema, there is no fluctuance appreciated, there is no open lesions. There is minimal discomfort with palpation in that area. He is nontender with palpation throughout the mid femur, knee, lower leg, foot or ankle. There are no other open lesions present of the right femur or right knee. There is an obvious wound on the lateral aspect of the right foot, there is packing present. Patient has minimal discomfort of the right hip with passive hip flexion, internal and external rotation. Straight leg raise reproduces no acute pain. Flexion and extension are intact at the knee, this reproduces no pain. There is no effusion present over the knee. Calf is soft, no tenderness with palpation. The compartments of the upper and lower leg remained soft and compressible Sensory exam to light touch throughout the extremity is intact. Skin is warm to touch. Results - Labs Labs: Abnormal Lab Results - Last 24 Hours (Table) 03/03/21 03/03/21 03/04/21 Range/Units 14:57 14:57 07:32 WBC 22.1 H (3.8-10.6) k/uL RBC 3.65 L (4.30-5.90) m/uL Hgb 12.1 L (13.0-17.5) gm/dL Hct 34.3 L (39.0-53.0) % Neutrophils # 20.2 H (1.3-7.7) k/uL Lymphocytes # 0.7 L (1.0-4.8) k/uL Sodium 127 L (137-145) mmol/L Chloride 95 L (98-107) mmol/L BUN 8 L (9-20) mg/dL Creatinine 0.50 L 0.49 L (0.66-1.25) mg/dL Glucose 139 H (74-99) mg/dL Alkaline Phosphatase 163 H (38-126) U/L C-Reactive Protein 196.0 H (<10.0) mg/L Total Protein 5.5 L (6.3-8.2) g/dL Albumin 2.6 L (3.5-5.0) g/dL H & H 03/03/21 Range/Units 14:57 Hgb 12.1 L (13.0-17.5) gm/dL Hct 34.3 L (39.0-53.0) % Result Diagrams: 03/03/21 14:57 03/04/21 07:32 - Diagnostic results Hip x-ray: report reviewed, image reviewed (X-ray images of the right hip demonstrate stable right hip hemiarthroplasty components. No obvious lucencies appreciated.) Assessment and Plan Assessment: Right hip pain History of right femoral neck fracture with right hip hemiarthroplasty, stable components Right foot wound, likely osteomyelitis Leukocytosis with elevated CRP Plan: At this time, we feel that there is a low concern for a septic arthropathy involving the right hip and components. I believe most of the patient's symptoms involving the right hip are due to his lack of activity and general health. Consults have been placed for vascular surgery to evaluate patient for the right foot wound and likely osteomyelitis. Patient's lab abnormalities are likely contributory from his chronic right lower extremity diagnosis Continue nothing by mouth diet at this time until vascular surgery has evaluated the patient Appreciate internal medicine and infectious disease recommendations GI and DVT prophylaxis per primary medical service We'll be available for any further questions regarding this patient Time with Patient: Less than 30
[2021-03-04] MEDS: VANCOMYCIN 1,250 MG in SODIUM CHLORIDE 0.9% 250 ML IVPB SCH ×2 (11:01→19:33)
--- NOTE | 2021-03-04 13:18 | P.GSCN ---
History of Present Illness Consult date: 03/04/21 Reason for Consult: Right foot wound, possible osteomyelitis Requesting physician: Jese Andres History of present illness: The pleasant 70-year-old male who was admitted to the hospital yesterday afternoon with concerns of infection. He has a past medical history that includes coronary artery disease, hyperlipidemia, hypertension, deep vein thrombosis on Cymbalta, peripheral vascular disease, peripheral arterial disease, TIA, left leg AKA9 May 2020) and a chronic wound to the right foot for which she has been following with the outpatient wound center. Patient is also known to Dr. Olguin who has seen him for peripheral arterial disease, and has performed a left dpyex-jfz-sxrf amputation in May 2020. He states he has had the wound to his right foot for approximately 5 months. He has not seen Dr. Christiano de oliveira in 2-3 months. He denies any significant pain to the right foot, states he does have some neuropathy. Denies any history of diabetes. He states he has no fever, chills, abdominal pain, nausea, vomiting, chest pain, or shortness of breath. X-ray of the right foot shows bone destruction of the distal fifth metatarsal extending to the level of the metatarsal pharyngeal joint, lucencies present within the soft tissues. Bone mineralization overall is reduced. There is extended digits the distal aspect of the first and third digit show bone destruction. There is soft tissue swelling. Vascular calcifications noted. There is plantar calcaneal spur. Distortion of the proximal phalanx of the first digit is noted indeterminate age and etiology. Findings may be indicative of underlying osteomyelitis. Review of Systems A 14 point review systems was completed all pertinent positives and negatives as stated in the HPI Past Medical History Past Medical History: Coronary Artery Disease (CAD), CVA/TIA, Deep Vein Throm bosis (DVT), Hyperlipidemia, Hypertension, Vascular Disorder Additional Past Medical History / Comment(s): right leg DVT, PVD, TIA 2015, Left leg AKA, alcoholism drinks 3 beers a day. Last drink on 02/24/21 History of Any Multi-Drug Resistant Organisms: MRSA Year Discovered:: 03/02/21 MDRO Source:: RIGHT Foot Past Surgical History: Coronary Bypass/CABG, Heart Catheterization, Joint Replacement, Orthopedic Surgery Additional Past Surgical History / Comment(s): left knee replacement, left foot surgery, stent to right leg, CABG 12/2014, 4 bypass, aortogram, WOUND CLINIC, SKIN GRAFTING LT LEG, right hip replacement, left leg above knee amputation Past Anesthesia/Blood Transfusion Reactions: No Reported Reaction Additional Past Anesthesia/Blood Transfusion Reaction / Comm: DAUGHTER-PONV Past Psychological History: Anxiety, Depression Additional Psychological History / Comment(s): Lives home alone. Smoking Status: Former smoker Past Alcohol Use History: Daily Additional Past Alcohol Use History / Comment(s): Pt started smoking in 1965 and was down to 4 cigarettes a day, quit smoking January 2021 Past Drug Use History: None Reported Additional Drug Use History / Comment(s): HX OF DAILY MARIJUANA-edibles or smoked . - Past Family History Father Family Medical History: Myocardial Infarction ([place]) Additional Family Medical History / Comment(s): Father of a [place] in his 70s. Mother Family Medical History: No Reported History Additional Family Medical History / Comment(s): Mother in her 70s. She was obese. Medications and Allergies Home Medications Medication Instructions Recorded Confirmed Type Aspirin EC [Ecotrin Low Dose] 81 mg PO DAILY@0700 08/31/19 03/03/21 History Acetaminophen Tab [Tylenol] 650 mg PO Q6H PRN 11/09/19 03/03/21 History Pantoprazole Sodium [Protonix] 40 mg PO DAILY 11/09/19 03/03/21 History Atorvastatin [Lipitor] 40 mg PO HS 02/05/20 03/03/21 History Melatonin 3 mg PO HS PRN 06/01/20 03/03/21 History Metoprolol Tartrate [Lopressor] 25 mg PO BID 06/01/20 03/03/21 History Rivaroxaban [Xarelto] 2.5 mg PO BID 02/24/21 03/03/21 History Mirtazapine [Remeron] 15 mg PO HS #4 tab 02/28/21 03/03/21 Rx traMADol HCl [Ultram] 50 mg PO BID PRN #6 tab 02/28/21 03/03/21 Rx Allergies Allergy/AdvReac Type Severity Reaction Status Date / Time No Known Allergies Allergy Verified 03/03/21 16:07 Surgical - Exam Vital Signs Temp Pulse Resp BP Pulse Ox 100.7 F H 82 18 130/76 96 03/03/21 14:04 03/03/21 14:04 03/03/21 14:04 03/03/21 14:04 03/03/21 14:04 General appearance: The patient is alert, oriented, in no acute distress. HET: Head is normocephalic and atraumatic. Neck: Supple without lymphadenopathy. Trachea midline. Heart: S1 S2. Regular rate and rhythm. Lungs: No crackles or wheezes are heard. Abdomen: Soft, nontender, nondistended. Extremities: Sooha-fcd-mfoq amputation. Right lower extremity with palpable femoral popliteal and posterior tibialis pulses. Patient has dressing to the right lower extremity and at this time will not left medial undress. Neurological: No focal deficits. Alert and oriented 3. Results - Labs 03/03/21 14:57 03/04/21 07:32 Abnormal Lab Results - Last 24 Hours (Table) 03/03/21 03/03/21 03/04/21 Range/Units 14:57 14:57 07:32 WBC 22.1 H (3.8-10.6) k/uL RBC 3.65 L (4.30-5.90) m/uL Hgb 12.1 L (13.0-17.5) gm/dL Hct 34.3 L (39.0-53.0) % Neutrophils # 20.2 H (1.3-7.7) k/uL Lymphocytes # 0.7 L (1.0-4.8) k/uL Sodium 127 L (137-145) mmol/L Chloride 95 L (98-107) mmol/L BUN 8 L (9-20) mg/dL Creatinine 0.50 L 0.49 L (0.66-1.25) mg/dL Glucose 139 H (74-99) mg/dL Alkaline Phosphatase 163 H (38-126) U/L C-Reactive Protein 196.0 H (<10.0) mg/L Total Protein 5.5 L (6.3-8.2) g/dL Albumin 2.6 L (3.5-5.0) g/dL Diabetes panel 03/03/21 03/04/21 Range/Units 14:57 07:32 Sodium 127 L (137-145) mmol/L Potassium 4.4 (3.5-5.1) mmol/L Chloride 95 L (98-107) mmol/L Carbon Dioxide 23 (22-30) mmol/L BUN 8 L (9-20) mg/dL Creatinine 0.50 L 0.49 L (0.66-1.25) mg/dL Glucose 139 H (74-99) mg/dL Calcium 8.5 (8.4-10.2) mg/dL AST 58 (17-59) U/L ALT 24 (4-49) U/L Alkaline Phosphatase 163 H (38-126) U/L Total Protein 5.5 L (6.3-8.2) g/dL Albumin 2.6 L (3.5-5.0) g/dL Calcium panel 03/03/21 Range/Units 14:57 Calcium 8.5 (8.4-10.2) mg/dL Albumin 2.6 L (3.5-5.0) g/dL Pituitary panel 03/03/21 03/04/21 Range/Units 14:57 07:32 Sodium 127 L (137-145) mmol/L Potassium 4.4 (3.5-5.1) mmol/L Chloride 95 L (98-107) mmol/L Carbon Dioxide 23 (22-30) mmol/L BUN 8 L (9-20) mg/dL Creatinine 0.50 L 0.49 L (0.66-1.25) mg/dL Glucose 139 H (74-99) mg/dL Calcium 8.5 (8.4-10.2) mg/dL Adrenal panel 03/03/21 03/04/21 Range/Units 14:57 07:32 Sodium 127 L (137-145) mmol/L Potassium 4.4 (3.5-5.1) mmol/L Chloride 95 L (98-107) mmol/L Carbon Dioxide 23 (22-30) mmol/L BUN 8 L (9-20) mg/dL Creatinine 0.50 L 0.49 L (0.66-1.25) mg/dL Glucose 139 H (74-99) mg/dL Calcium 8.5 (8.4-10.2) mg/dL Total Bilirubin 1.0 (0.2-1.3) mg/dL AST 58 (17-59) U/L ALT 24 (4-49) U/L Alkaline Phosphatase 163 H (38-126) U/L Total Protein 5.5 L (6.3-8.2) g/dL Albumin 2.6 L (3.5-5.0) g/dL - Imaging Additional studies: X-ray of the right foot shows bone destruction of the distal fifth metatarsal extending to the level of the metatarsal pharyngeal joint, lucencies present within the soft tissues. Bone mineralization overall is reduced. There is extended digits the distal aspect of the first and third digit show bone destruction. There is soft tissue swelling. Vascular calcifications noted. There is plantar calcaneal spur. Distortion of the proximal phalanx of the first digit is noted indeterminate age and etiology. Findings may be indicative of underlying osteomyelitis. Assessment and Plan Assessment: 1. Right foot nonhealing wound 2. History of peripheral arterial disease 3. History of left nfmxh-fvo-whxf amputation 4. X-ray showing possibility of osteomyelitis of the right foot 5. Leukocytosis 6. Hypertension 7. Hyperlipidemia 8. Coronary artery disease Plan: 1. Symptomatic and supportive care 2. Arterial Doppler ultrasound ordered 3. IV antibiotics per infectious disease 4. Consult wound care Thank you for this consultation, we will continue to follow The impression and plan of care has been dictated as directed. Dr. Issa I performed a history and examination of this patient, discussed the same with the dictator. I agree with the dictator's note ,documented as a scribe. Any additional findings or plans will be noted.
[2021-03-04 14:11] VITALS: BMI 21.8
[2021-03-04] MEDS: AMPICILLIN-SULBACTAM 3 GM in SODIUM CHLORIDE 0.9% 100 ML IVPB SCH ×2 (17:27→23:53)
[2021-03-04] MEDS: SODIUM CHLORIDE 0.9% 1,000 ML IV SCH (18:10)
[2021-03-04] MEDS: ATORVASTATIN 40 MG TAB PO SCH (19:39)
[2021-03-04] MEDS: traMADol 50 MG TAB PO PRN (19:39)
[2021-03-04] MEDS: MIRTAZAPINE 15 MG TAB PO SCH (19:39)
--- NOTE | 2021-03-04 20:04 | P.HPIM ---
History of Present Illness H&P Date: 03/04/21 Chief Complaint: Right foot pain Patient is a 70-year-old male with a known history of coronary artery disease status post CABG, history of CVA/TIA, hypertension, hyperlipidemia, right leg DVT was on Xarelto, peripheral vascular disease, history of right foot MRSA osteomyelitis left leg above-knee amputation and daily alcohol use and previous history of smoking who was admitted to the hospital recently due to right hip pain and right foot ulcer. Patient was discharged to rehab on 03/01/2021. Patient presented back to ER due to complaints of fever and concern for right foot infection. Patient states that he has been having ongoing infection of the right foot and starting to hurt more for the past few days. Patient is also having right hip pain. Patient is unable to bear weight on right hip at baseline. No complaints of chest pain or shortness breath. No nausea vomiting or abdominal pain. No diarrhea or dysuria. Laboratory data showed WBC 22.1, hemoglobin 12.1 and platelets 429 Sodium 127 potassium 4.4 chloride 95 BUN 18 creatinine 0.5 alk phos 163 CRP 196 albumin 2.6 and UA negative for infection COVID-19 PCR not detected. Chest x-ray showed interval development of pleural effusions. Correlate for pneumonia. Right foot x-ray showed findings may indicate underlying osteomyelitis. Hip and pelvis x-ray no showed no acute fracture or dislocation of the pelvis and right hip. Right lower extremity duplex scan was ordered. Review of Systems Constitutional: Patient does have fever and chills. . No generalized weakness or weight loss. Abdomen: Patient denied nausea vomiting and diarrhea and abdominal pain. Cardiovascular: Patient denies any chest pain or short of breath no palpitations. Respiratory: patient denied any cough or sputum production. No shortness of breath Neurologic: Patient denied any numbness or tingling headache. Musculoskeletal: Right foot pain and nonhealing ulcer.. Skin: Negative Psychiatric: Negative Endocrine: No heat or cold intolerance. No recent weight gain. Genitourinary: No dysuria or hematuria. All other 14 point ROS negative except the above Past Medical History Past Medical History: Coronary Artery Disease (CAD), CVA/TIA, Deep Vein Throm bosis (DVT), Hyperlipidemia, Hypertension, Vascular Disorder Additional Past Medical History / Comment(s): right leg DVT, PVD, TIA 2015, Left leg AKA, alcoholism drinks 3 beers a day. Last drink on 02/24/21 History of Any Multi-Drug Resistant Organisms: MRSA Date of last positivie culture/infection: 03/02/21 MDRO Source:: RIGHT Foot Past Surgical History: Coronary Bypass/CABG, Heart Catheterization, Joint Replacement, Orthopedic Surgery Additional Past Surgical History / Comment(s): left knee replacement, left foot surgery, stent to right leg, CABG 12/2014, 4 bypass, aortogram, WOUND CLINIC, SKIN GRAFTING LT LEG, right hip replacement, left leg above knee amputation Past Anesthesia/Blood Transfusion Reactions: No Reported Reaction Additional Past Anesthesia/Blood Transfusion Reaction / Comment(s): DAUGHTER- PONV Past Psychological History: Anxiety, Depression Additional Psychological History / Comment(s): Lives home alone. Smoking Status: Former smoker Past Alcohol Use History: Daily Additional Past Alcohol Use History / Comment(s): Pt started smoking in 1965 and was down to 4 cigarettes a day, quit smoking January 2021 Past Drug Use History: None Reported Additional Drug Use History / Comment(s): HX OF DAILY MARIJUANA-edibles or smoked . - Past Family History Father Family Medical History: Myocardial Infarction ([place]) Additional Family Medical History / Comment(s): Father of a [place] in his 70s. Mother Family Medical History: No Reported History Additional Family Medical History / Comment(s): Mother in her 70s. She was obese. Medications and Allergies Home Medications Medication Instructions Recorded Confirmed Type Aspirin EC [Ecotrin Low Dose] 81 mg PO DAILY@0700 08/31/19 03/03/21 History Acetaminophen Tab [Tylenol] 650 mg PO Q6H PRN 11/09/19 03/03/21 History Pantoprazole Sodium [Protonix] 40 mg PO DAILY 11/09/19 03/03/21 History Atorvastatin [Lipitor] 40 mg PO HS 02/05/20 03/03/21 History Melatonin 3 mg PO HS PRN 06/01/20 03/03/21 History Metoprolol Tartrate [Lopressor] 25 mg PO BID 06/01/20 03/03/21 History Rivaroxaban [Xarelto] 2.5 mg PO BID 02/24/21 03/03/21 History Mirtazapine [Remeron] 15 mg PO HS #4 tab 02/28/21 03/03/21 Rx traMADol HCl [Ultram] 50 mg PO BID PRN #6 tab 02/28/21 03/03/21 Rx Allergies Allergy/AdvReac Type Severity Reaction Status Date / Time No Known Allergies Allergy Verified 03/03/21 16:07 Physical Exam Vitals: Vital Signs Temp Pulse Resp BP Pulse Ox 03/04/21 19:05 99.8 F H 81 17 110/68 91 L 03/04/21 14:00 99.3 F 81 16 107/57 90 L 03/04/21 07:46 99.8 F H 87 16 117/67 93 L 03/04/21 02:00 98.8 F 85 16 134/70 93 L 03/03/21 20:15 16 03/03/21 19:53 97.3 F L 78 16 123/77 94 L Intake and Output 03/04/21 03/04/21 03/04/21 06:59 14:59 22:59 Output Total 600 Balance -600 Output: Urine 600 Other: # Voids 4 2 Weight 67.132 kg PHYSICAL EXAMINATION: Patient is lying in the bed comfortably, no acute distress, awake alert and oriented.. HEENT: Normocephalic. Neck is supple. Pupils reactive. Nostrils clear. Oral cavity is moist. Ears reveal no drainage. Neck reveals no JVD, carotid bruits, or thyromegaly. CHEST EXAMINATION: Trachea is central. Symmetrical expansion. Bibasilar diminished air entry and coarse sounds.. CARDIAC: Normal S1, S2 with no gallops. No murmurs ABDOMEN: Soft. Bowel sounds normal. No organomegaly. No abdominal bruits. Extremities: . Right foot ulcer. Left AKA No clubbing or cyanosis Neurologically awake, alert, oriented x3 with well-coordinated movements. No focal deficits noted Skin: No rash or skin lesions. Psychiatric: Coperative. Nonsuicidal Musculoskeletal: No joint swelling or deformity. Normal range of motion. Results CBC & Chem 7: 03/03/21 14:57 03/04/21 07:32 Labs: Abnormal Lab Results - Last 24 Hours (Table) 03/04/21 03/04/21 Range/Units 07:32 07:43 Creatinine 0.49 L (0.66-1.25) mg/dL C-Reactive Protein 21.1 H (<1.0) mg/dL Microbiology - Last 24 Hours (Table) 03/03/21 14:57 Blood Culture Gram Stain - Preliminary Blood 03/03/21 14:35 Blood Culture Gram Stain - Preliminary Blood 03/03/21 14:35 Blood Culture - Final Blood 03/03/21 14:57 Blood Culture - Final Blood Thrombosis Risk Factor Assmnt - DVT/VTE Prophylaxis DVT/VTE Prophylaxis: Pharmacologic Prophylaxis ordered - Choose All That Apply Each Risk Factor Represents 2 Points: Age 61-74 years Each Risk Factor Represents 3 Points: History of DVT/PE Thrombosis Risk Factor Assessment Total Risk Factor Score: 5 Thrombosis Risk Factor Assessment Level: High Risk Assessment and Plan Assessment: Right foot ulcer with nonhealing wound. Possible osteomyelitis as per x-ray of the right foot. Sepsis secondary above Hypovolemic hyponatremia Peripheral vascular disease with history of left AKA Right hip pain likely due to osteoarthritis Coronary artery disease history of CABG Alcohol use on daily basis 3 beers per day Hypertension Hyperlipidemia History of DVT Anxiety/depression Previous history of smoking History of right hip replacement DVT prophylaxis patient is already on Xarelto Plan: Patient will be continued on antibiotics in the form of vancomycin and Unasyn was added. ID and vascular surgery and orthopedic surgery was consulted. Continue with wound care and follow-up culture reports. Continue with pain management. Continue the home medications and follow-up closely. Time with Patient: Greater than 30
[2021-03-04] MEDS: RIVAROXABAN 2.5 MG TABLET PO SCH (20:48)
--- NOTE | 2021-03-05 02:59 | CONS ---
CONSULTATION DATE OF SERVICE: 03/04/2021 REASON FOR CONSULTATION: 1. Right foot infection. 2. Bacteremia. HISTORY OF PRESENT ILLNESS: The patient is a 70-year-old lady with multiple comorbidities including coronary artery disease, CVA, TIA and right leg DVT. 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 Patient has been brought into the ER at [facility] yesterday for evaluation of fever and concern for right foot infection and this patient apparently has developed a wound on the right foot lateral border, which has been going on for the last few days. The patient denies any history of any trouble with tight-fitting shoes. The patient is mostly bent with some pressure on the lateral aspect of the right foot with subsequent developing the wound on the lateral border at the base of the fifth toe which is painful. The patient describes the pain to be throbbing, intensity almost 10/10 with no radiation. Denies any drainage from his right foot lateral border wound. The patient also complaining of pain to the right hip area for the same duration, more of a dull aching, at times sharp and worse with movement of the hip area. With these symptoms, the patient was evaluated by the ER physician. On arrival to the ER, the patient did have a fever of 100.7 degrees Fahrenheit. The patient was not tachycardic. However, he did have elevated white count 22.1, sedimentation rate 106, creatinine 0.50 with a CRP of 196. Urine was negative. The patient did have x-rays of the right foot with evidence of the osteomyelitis wall of the fifth metatarsal. The patient was started on vancomycin. Infectious Disease was consulted for further management. The patient's blood culture came back positive with Gram-positive cocci this morning. REVIEW OF SYSTEMS: Positive points have been mentioned in HPI. Rest of the systems are negative. PAST MEDICAL HISTORY: Coronary artery disease, CVA, TIA and DVT, hypertension, hyperlipidemia. PAST SURGICAL HISTORY: Coronary artery bypass grafting, heart catheterization, left knee replacement, right hip replacement, left above-knee amputation. SOCIAL HISTORY: No history of smoking, drinking or drug use. FAMILY HISTORY: No pertinent findings noticed. ALLERGIES: No known drug allergies. MEDICATIONS: The patient is currently on Tylenol, aspirin, Lipitor, Dilaudid, melatonin, Lopressor, Remeron, Narcan, Protonix, Xarelto, Ultram and vancomycin. PHYSICAL EXAMINATION: Blood pressure 110/68 with a pulse of 81, temperature 99.8. He is 91% on room air. General description is an elderly male lying in bed in no distress. No tachypnea or accessory muscles of respiration use. HEENT: Examination shows slight pallor. No scleral icterus. Oral mucous membranes dry. NECK trachea central. No thyromegaly. LUNGS: Unlabored breathing. Clear to auscultation anteriorly. No wheeze or crackles. HEART S1, S2. Regular rate and rhythm. ABDOMEN: Soft, no tenderness. No guarding. No rigidity. EXTREMITIES: No edema of the feet. SKIN examination: Right foot lateral border did have a wound with some necrotic base and foul smelling drainage to the wound extending down to the bone. Cultures were obtained. NEUROLOGICAL: Patient is awake, alert, oriented times three. Mood and affect normal. LABS: Hemoglobin is 12.1, white count 22.1. BUN of 8, creatinine 0.50, with an elevated CRP and sed rate. X-rays of the foot mentioned above. DIAGNOSTIC IMPRESSION AND PLAN: Patient admitted to the hospital with right foot lateral border wound in this patient who did have a fever, elevated white count meeting criteria for sepsis versus right foot wound infection which is more of a pressure ulcer with secondary cellulitis, underlying osteomyelitis with a previous history of MRSA infection, could be more likely MRSA. PLAN: 1. Await vascular surgery evaluation for debridement and deep culture, may need amputation of the fifth toe . 2. Local culture has been obtained to guide antibiotic therapy. 3. Blood cultures will be repeated to document clearance of bacteremia. 4. Vancomycin, pharmacy to dose, target of 15 while watching kidney function closely. 5. We will follow on clinical condition and culture to further adjust medication if needed. Thank you for this consultation. We will follow this patient along with you. MMODL / IJN: [id number] / MTDD
[2021-03-05] MEDS: AMPICILLIN-SULBACTAM 3 GM in SODIUM CHLORIDE 0.9% 100 ML IVPB SCH ×2 (04:44→09:42)
[2021-03-05] MEDS: VANCOMYCIN 1,250 MG in SODIUM CHLORIDE 0.9% 250 ML IVPB SCH (05:50)
[2021-03-05 09:18] LABS: African American GFR (CKD) >90 (>60 ml/min/1.73 sqM); Anion Gap 8 mmol/L; Blood Urea Nitrogen 8 mg/dL (9-20); Calcium 8.1 mg/dL (8.4-10.2); Carbon Dioxide 21 mmol/L (22-30); Chloride 100 mmol/L (98-107); Glucose 72 mg/dL (74-99); Non-African American GFR(CKD) >90 (>60 ml/min/1.73 sqM); Potassium 4.2 mmol/L (3.5-5.1); Sodium 129 mmol/L (137-145)
[2021-03-05] MEDS: traMADol 50 MG TAB PO PRN ×2 (09:40→15:15)
[2021-03-05] MEDS: ACETAMINOPHEN TAB 325 MG TAB PO PRN ×3 (09:41→20:58)
[2021-03-05] MEDS: PANTOPRAZOLE 40 MG TABLET PO SCH (09:43)
[2021-03-05] MEDS: ASPIRIN 81 MG PO SCH (09:43)
[2021-03-05] MEDS: METOPROLOL TARTRATE 25 MG TAB PO SCH ×2 (09:43→20:54)
[2021-03-05] MEDS: RIVAROXABAN 2.5 MG TABLET PO SCH ×2 (09:43→20:54)
[2021-03-05] MEDS ORDERED: SENNOSIDES 8.6 MG TAB PO PRN (09:49)
--- NOTE | 2021-03-05 10:42 | P.PN ---
Subjective Progress Note Date: 03/05/21 Arun is seen and examined. Feels better than previously. He continues to not want any further sort of amputation. He would rather 'let his leg rott off' than go through further amputation. Objective - Vital Signs Vital signs: Vital Signs Temp 98.9 F 03/05/21 08:00 Pulse 81 03/05/21 08:00 Resp 16 03/05/21 08:00 BP 129/69 03/05/21 08:00 Pulse Ox 95 03/05/21 08:00 Intake & Output 03/04/21 03/05/21 03/05/21 18:59 06:59 18:59 Output Total 275 Balance -275 Weight 67.132 kg Output: Urine 275 Other: # Voids 2 - Exam Gen. is a pleasant cooperative male in no acute distress. Poor dentition. Heart regular this time. Lungs are clear bilaterally. Abdomen is soft. Left upper extremity above-knee amputation well healed. Right lower extremity wound clean, dry. Packing in place. - Labs CBC & Chem 7: 03/03/21 14:57 03/05/21 07:49 Labs: Abnormal Lab Results - Last 24 Hours (Table) 03/04/21 03/04/21 03/05/21 Range/Units 07:43 10:02 07:49 ESR 106 H (0-20) mm/Hr Sodium 129 L (137-145) mmol/L Carbon Dioxide 21 L (22-30) mmol/L BUN 8 L (9-20) mg/dL Creatinine 0.43 L (0.66-1.25) mg/dL Glucose 72 L (74-99) mg/dL Calcium 8.1 L (8.4-10.2) mg/dL C-Reactive Protein 21.1 H (<1.0) mg/dL Microbiology - Last 24 Hours (Table) 03/04/21 13:30 Gram Stain - Preliminary Foot - Right Wound Culture - Preliminary 03/03/21 14:35 Blood Culture Gram Stain - Preliminary Blood Blood Culture - Preliminary Presumptive MRSA 03/03/21 14:57 Blood Culture Gram Stain - Preliminary Blood Blood Culture - Preliminary Presumptive MRSA 03/04/21 13:30 Anaerobic Culture - Preliminary Foot - Right 03/03/21 14:35 Blood Culture - Final Blood 03/03/21 14:57 Blood Culture - Final Blood Assessment and Plan Assessment: 1. Right foot nonhealing wound, now with bacteremia 2. 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 History of left [id number] amputation 4. Right foot osteomyelitis 5. Leukocytosis 6. Hypertension 7. Hyperlipidemia 8. Coronary artery disease Plan: Long discussion was had with the patient and his daughter over the phone. The patient continues to not want any further amputation. We did discuss the outcomes not going forward with this. There is no further revascularization attempts available. Continue IV antibiotics at this time. We also discussed the possibility of tight care versus hospice, the patient states at this time he is not willing to have that discussion. Discussed the need for goals of care going forward. He states he wants to be at home in his apartment. His daughter was going to come to visit him later today and there were discussed further the options.
[2021-03-05 11:19] LABS: Basophils # (A) 0.03 X 10*3/uL (0.00-0.10); Basophils % (A) 0.3 %; Eosinophils # (A) 0.07 X 10*3/uL (0.04-0.35); Eosinophils % (A) 0.7 %; Lymphocytes # (A) 1.28 X 10*3/uL (0.90-5.00); Lymphocytes % (A) 12.4 %; MCH 31.5 pg (27.0-32.0); MCHC 32.3 g/dL (32.0-37.0); MCV 97.8 fL (80.0-97.0); Monocytes # (A) 1.13 X 10*3/uL (0.20-1.00); Neutrophils # (A) 7.71 X 10*3/uL (1.80-7.70); Neutrophils % (A) 74.7 %; Platelet Count 418 X 10*3/uL (140-440); RBC 3.17 X 10*6/uL (4.40-5.60); WBC 10.31 X 10*3/uL (4.50-10.00)
[2021-03-05 13:20] LABS: Erythrocyte Sedimentation Rate 126 mm/Hr (0-20)
[2021-03-05] MEDS ORDERED: VANCOMYCIN TROUGH DUE 1 EACH MISC MISCELLANE ONE (15:00)
[2021-03-05] MEDS: SODIUM CHLORIDE 0.9% 1,000 ML IV SCH (16:19)
[2021-03-05] MEDS: VANCOMYCIN 1,000 MG in SODIUM CHLORIDE 0.9% 250 ML IVPB SCH (16:20)
--- NOTE | 2021-03-05 18:13 | PN ---
PROGRESS NOTE DATE OF SERVICE: 03/05/2021 REASON FOR FOLLOWUP: MRSA bacteremia secondary to right foot osteomyelitis. INTERVAL HISTORY: Patient is currently afebrile, breathing comfortably. No chest pain. No cough. No abdominal pain. No diarrhea. Still complaining of pain to the foot as well as the hip area. No worsening though. PHYSICAL EXAMINATION: Blood pressure 112/66, pulse of 87, temperature 97.4. He is 95% on room air. General description: The patient is an elderly male lying in bed in no distress. Respiratory system: Unlabored breathing, clear to auscultation anteriorly. Heart S1, S2. Regular rate. ABDOMEN: Soft. No tenderness. Right foot is currently dressed up. No obvious drainage on the dressing. LABS: Hemoglobin is 10.3, white count 10. BUN 8, creatinine 0.43, vanco trough 24. Blood culture with presumptive MRSA. DIAGNOSTIC IMPRESSION AND PLAN: Patient with MRSA bacteremia, source is right foot lateral border wound with underlying osteomyelitis. The patient is covered with vancomycin. We will discontinue the Unasyn. Will benefit from debridement or amputation which unfortunately, the patient is refusing. Continue supportive care. MMODL / IJN: [id number] /
[2021-03-05] MEDS: ATORVASTATIN 40 MG TAB PO SCH (20:54)
[2021-03-05] MEDS: MIRTAZAPINE 15 MG TAB PO SCH (20:54)
[2021-03-06] MEDS: VANCOMYCIN 1,000 MG in SODIUM CHLORIDE 0.9% 250 ML IVPB SCH ×3 (01:11→23:18)
[2021-03-06 07:36] LABS: African American GFR (CKD) >90 (>60 ml/min/1.73 sqM); Non-African American GFR(CKD) >90 (>60 ml/min/1.73 sqM)
[2021-03-06] MEDS: RIVAROXABAN 2.5 MG TABLET PO SCH ×2 (09:43→20:38)
[2021-03-06] MEDS: PANTOPRAZOLE 40 MG TABLET PO SCH (09:43)
[2021-03-06] MEDS: ASPIRIN 81 MG PO SCH (09:43)
[2021-03-06] MEDS: METOPROLOL TARTRATE 25 MG TAB PO SCH ×2 (09:43→20:38)
[2021-03-06] MEDS: traMADol 50 MG TAB PO PRN (09:45)
[2021-03-06] MEDS: HYDROmorphone 0.5 MG/0.5 ML SYRINGE IVP PRN ×2 (15:59→20:42)
[2021-03-06] MEDS: SODIUM CHLORIDE 0.9% 1,000 ML IV SCH (18:26)
[2021-03-06] MEDS: MIRTAZAPINE 15 MG TAB PO SCH (20:38)
[2021-03-06] MEDS: ATORVASTATIN 40 MG TAB PO SCH (20:38)
[2021-03-07] MEDS: HYDROmorphone 0.5 MG/0.5 ML SYRINGE IVP PRN ×4 (00:09→16:08)
[2021-03-07] MEDS: MELATONIN 3 MG TABLET PO PRN (00:09)
[2021-03-07 08:10] LABS: Basophils # (A) 0.1 k/uL (0-0.2); Basophils % (A) 1 %; Eosinophils # (A) 0.1 k/uL (0-0.7); Eosinophils % (A) 1 %; HGB 11.7 gm/dL (13.0-17.5); Hypochromasia Slight; Lymphocytes # (A) 1.6 k/uL (1.0-4.8); Lymphocytes % (A) 13 %; MCH 32.3 pg (25.0-35.0); MCHC 33.3 g/dL (31.0-37.0); MCV 96.9 fL (80.0-100.0); Mean Platelet Volume 7.5; Monocytes % (A) 8 %; Neutrophils # (A) 9.8 k/uL (1.3-7.7); Neutrophils % (A) 77 %; Platelet Count 569 k/uL (150-450); RBC 3.61 m/uL (4.30-5.90); RDW 13.6 % (11.5-15.5); WBC 12.7 k/uL (3.8-10.6)
[2021-03-07 08:18] LABS: African American GFR (CKD) >90 (>60 ml/min/1.73 sqM); Anion Gap 7 mmol/L; Blood Urea Nitrogen 5 mg/dL (9-20); Calcium 8.5 mg/dL (8.4-10.2); Carbon Dioxide 24 mmol/L (22-30); Chloride 101 mmol/L (98-107); Glucose 104 mg/dL (74-99); Non-African American GFR(CKD) >90 (>60 ml/min/1.73 sqM); Potassium 4.9 mmol/L (3.5-5.1); Sodium 132 mmol/L (137-145)
[2021-03-07] MEDS: traMADol 50 MG TAB PO PRN ×2 (08:38→21:49)
[2021-03-07] MEDS: ACETAMINOPHEN TAB 325 MG TAB PO PRN ×2 (08:39→16:08)
[2021-03-07] MEDS: PANTOPRAZOLE 40 MG TABLET PO SCH (08:40)
[2021-03-07] MEDS: METOPROLOL TARTRATE 25 MG TAB PO SCH ×2 (08:40→21:49)
[2021-03-07] MEDS: ASPIRIN 81 MG PO SCH (08:41)
[2021-03-07] MEDS: RIVAROXABAN 2.5 MG TABLET PO SCH ×2 (08:41→21:58)
[2021-03-07] MEDS: VANCOMYCIN 1,000 MG in SODIUM CHLORIDE 0.9% 250 ML IVPB SCH ×2 (08:45→16:09)
--- NOTE | 2021-03-07 11:39 | P.PN ---
Subjective Progress Note Date: 03/07/21 Principal diagnosis: Right lower extremity foot wound with infection, peripheral arterial disease Seen and examined sitting up in the recliner. He states he is doing well overall. However, he did state that he started bleeding from his prior amputation stump last evening. He said this has never happened before. He continues IV antibiotics. Denies any fevers or chills. States his right foot does have some discomfort. He continues to state he does not want any further v ascular surgical intervention including amputation and debridement. Objective - Vital Signs Vital signs: Vital Signs Temp 98.6 F 03/07/21 07:55 Pulse 69 03/07/21 07:55 Resp 18 03/07/21 07:55 BP 121/73 03/07/21 07:55 Pulse Ox 92 L 03/07/21 07:55 Intake & Output 03/06/21 03/07/21 03/07/21 18:59 06:59 18:59 Other: Voiding Method Urinal # Voids 3 - Exam General appearance: The patient is alert, oriented, in no acute distress. HET: Head is normocephalic and atraumatic. Neck: Supple without lymphadenopathy. Trachea midline. Extremities: Right lower extremity dressing clean dry and intact. Left amputation stump with 3 mm hole along the suture line, with bloody and purulent drainage. Culture obtained. Neurological: No focal deficits. Alert and oriented 3 - Labs CBC & Chem 7: 03/07/21 07:19 03/07/21 07:19 Labs: Abnormal Lab Results - Last 24 Hours (Table) 03/07/21 03/07/21 Range/Units 07:19 07:19 WBC 12.7 H (3.8-10.6) k/uL RBC 3.61 L (4.30-5.90) m/uL Hgb 11.7 L (13.0-17.5) gm/dL Hct 35.0 L (39.0-53.0) % Plt Count 569 H (150-450) k/uL Neutrophils # 9.8 H (1.3-7.7) k/uL Sodium 132 L (137-145) mmol/L BUN 5 L (9-20) mg/dL Creatinine 0.48 L (0.66-1.25) mg/dL Glucose 104 H (74-99) mg/dL Microbiology - Last 24 Hours (Table) 03/04/21 13:30 Gram Stain - Final Foot - Right Wound Culture - Final Methicillin resist S. aureus Assessment and Plan Assessment: 1. Right foot nonhealing wound, now with bacteremia 2. 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 History of left [id number] amputation, new open wound 4. Right foot osteomyelitis 5. Leukocytosis 6. Hypertension 7. Hyperlipidemia 8. Coronary artery disease Plan: 1. Symptomatic and supportive care 2. Arterial Doppler ultrasound ordered and reviewed 3. IV antibiotics per infectious disease 4. Consult wound care Again discussed with patient regarding treatment options, patient is refusing any form of vascular surgical intervention with amputation or debridement. Discussed that he now also has a new opening of his left amputation stump with bloody drainage and pus. Culture sent. He again states he just wants to go home and . Discussed again with him options of hospice and palliative care. Will discuss with primary care. Thank you for this consultation, we will continue to follow The impression and plan of care has been dictated as directed. Dr. Issa I performed a history and examination of this patient, discussed the same with the dictator. I agree with the dictator's note ,documented as a scribe. Any additional findings or plans will be noted.
--- NOTE | 2021-03-07 15:57 | PN ---
PROGRESS NOTE DATE OF SERVICE: 03/07/2021 REASON FOR FOLLOWUP: MRSA bacteremia and right foot infection. INTERVAL HISTORY: The patient is currently afebrile. The patient seemed to be slightly upset and seemed to be depressed as well. The patient noticed to have drainage from his left AKA stump and the patient did have previous surgery for infection. Vascular Surgery HYDRATOR has taken culture from that area. The patient denies having any chest pain, shortness of breath or cough. No abdominal pain or diarrhea. PHYSICAL EXAMINATION: Blood pressure 122/79, pulse of 77, temperature 98.3. He is 94% on room air. General description is an elderly male up in the chair in no distress. RESPIRATORY SYSTEM: Unlabored breathing, clear to auscultation anteriorly. HEART: S1, S2. Regular rate and rhythm. ABDOMEN: Soft, no tenderness. Right foot and left AKA stump currently dressed. No drainage on the dressing. LABS: Hemoglobin 11.7, white count 12.7, BUN of 5, creatinine 0.48. Blood cultures 03/03 positive MRSA. Culture from the right foot is also showing MRSA. DIAGNOSTIC IMPRESSION AND PLAN: Patient with MRSA bacteremia secondary to right foot osteomyelitis. The patient has refused surgery which may have benefit him now with evidence of drainage from his left AKA stump. Vascular Surgery is on the case, await further recommendation. Continue with vancomycin. Blood cultures daily to document clearance of bacteremia. The patient may benefit from psych evaluation. This was communicated to the patient's RN. LUIS ANTONIO / OWEN: [id number] / ITZ
[2021-03-07] MEDS: SODIUM CHLORIDE 0.9% 1,000 ML IV SCH (16:09)
[2021-03-07] MEDS: MIRTAZAPINE 15 MG TAB PO SCH (21:49)
[2021-03-07] MEDS: ATORVASTATIN 40 MG TAB PO SCH (21:58)
--- NOTE | 2021-03-07 23:21 | P.PN ---
Subjective Progress Note Date: 03/05/21 Principal diagnosis: Right foot osteomyelitis Bacteremia Patient is a 70-year-old male with a known history of coronary artery disease status post CABG, history of CVA/TIA, hypertension, hyperlipidemia, right leg DVT was on Xarelto, peripheral vascular disease, history of right foot MRSA osteomyelitis left leg above-knee amputation and daily alcohol use and previous history of smoking who was admitted to the hospital recently due to right hip pain and right foot ulcer. Patient was discharged to rehab on 03/01/2021. Patient presented back to ER due to complaints of fever and concern for right foot infection. Patient states that he has been having ongoing infection of the right foot and starting to hurt more for the past few days. Patient is also having right hip pain. Patient is unable to bear weight on right hip at baseline. No complaints of chest pain or shortness breath. No nausea vomiting or abdominal pain. No diarrhea or dysuria. Laboratory data showed WBC 22.1, hemoglobin 12.1 and platelets 429 Sodium 127 potassium 4.4 chloride 95 BUN 18 creatinine 0.5 alk phos 163 CRP 196 albumin 2.6 and UA negative for infection COVID-19 PCR not detected. Chest x-ray showed interval development of pleural effusions. Correlate for pneumonia. Right foot x-ray showed findings may indicate underlying osteomyelitis. Hip and pelvis x-ray no showed no acute fracture or dislocation of the pelvis and right hip. Right lower extremity duplex scan was ordered. 03/05/2021 Patient is currently lying in bed awake alert oriented x3. Seems to be agitated and anxious. Still complains of right foot pain. Continued on antibiotics off vancomycin. ID is on board. Wound cultures are growing MRSA and also blood cultures positive for MRSA. Patient refused to get amputation of the right foot as recommended by vascular surgery. Currently afebrile. No nausea vomiting or abdominal pain. Tolerating oral diet. Continued on wound care. Current medications reviewed. Objective - Vital Signs Vital signs: Vital Signs Temp 97.4 F L 03/05/21 14:00 Pulse 87 03/05/21 14:00 Resp 16 03/05/21 14:00 BP 112/66 03/05/21 14:00 Pulse Ox 95 03/05/21 14:00 Intake & Output 03/04/21 03/05/21 03/05/21 18:59 06:59 18:59 Output Total 275 Balance -275 Weight 67.132 kg Output: Urine 275 Other: # Voids 2 - Exam PHYSICAL EXAMINATION: Patient is lying in the bed comfortably, no acute distress, awake alert and oriented.. HEENT: Normocephalic. Neck is supple. Pupils reactive. Nostrils clear. Oral cavity is moist. Ears reveal no drainage. Neck reveals no JVD, carotid bruits, or thyromegaly. CHEST EXAMINATION: Trachea is central. Symmetrical expansion. Bibasilar diminished air entry and coarse sounds.. CARDIAC: Normal S1, S2 with no gallops. No murmurs ABDOMEN: Soft. Bowel sounds normal. No organomegaly. No abdominal bruits. Extremities: . Right foot ulcer. Left AKA No clubbing or cyanosis Neurologically awake, alert, oriented x3 with well-coordinated movements. No focal deficits noted Skin: No rash or skin lesions. Psychiatric: Coperative. Nonsuicidal Musculoskeletal: No joint swelling or deformity. Normal range of motion. - Labs CBC & Chem 7: 03/07/21 07:19 03/07/21 07:19 Labs: Abnormal Lab Results - Last 24 Hours (Table) 03/04/21 03/05/21 03/05/21 Range/Units 10:02 07:49 07:49 WBC 10.31 H (4.50-10.00) X 10*3/uL RBC 3.17 L (4.40-5.60) X 10*6/uL Hgb 10.0 L (13.0-17.0) g/dL Hct 31.0 L (39.6-50.0) % MCV 97.8 H (80.0-97.0) fL Immature Gran # 0.09 H (0.00-0.04) X 10*3/uL Neutrophils # 7.71 H (1.80-7.70) X 10*3/uL Monocytes # 1.13 H (0.20-1.00) X 10*3/uL ESR 106 H 126 H (0-20) mm/Hr Sodium 129 L (137-145) mmol/L Carbon Dioxide 21 L (22-30) mmol/L BUN 8 L (9-20) mg/dL Creatinine 0.43 L (0.66-1.25) mg/dL Glucose 72 L (74-99) mg/dL Calcium 8.1 L (8.4-10.2) mg/dL Microbiology - Last 24 Hours (Table) 03/04/21 13:30 Gram Stain - Preliminary Foot - Right Wound Culture - Preliminary 03/03/21 14:35 Blood Culture Gram Stain - Preliminary Blood Blood Culture - Preliminary Presumptive MRSA 03/03/21 14:57 Blood Culture Gram Stain - Preliminary Blood Blood Culture - Preliminary Presumptive MRSA 03/04/21 13:30 Anaerobic Culture - Preliminary Foot - Right Assessment and Plan Assessment: Right foot ulcer with nonhealing wound. Possible osteomyelitis as per x-ray of the right foot. Gram-positive bacteremia Sepsis secondary above Hypovolemic hyponatremia Peripheral vascular disease with history of left AKA Right hip pain likely due to osteoarthritis Coronary artery disease history of CABG Alcohol use on daily basis 3 beers per day Hypertension Hyperlipidemia History of DVT Anxiety/depression Previous history of smoking History of right hip replacement DVT prophylaxis patient is already on Xarelto Plan: Patient will be continued on antibiotics in the form of vancomycin and Unasyn was added. ID and vascular surgery and orthopedic surgery is following. Patient is refusing to get any intervention. Vascular surgery recommends right foot amputation. Continue with wound care and follow-up culture reports. Continue with pain management. Continue the home medications and follow-up closely. Time with Patient: Greater than 30
--- NOTE | 2021-03-07 23:22 | P.PN ---
Subjective Progress Note Date: 03/06/21 Principal diagnosis: Right foot osteomyelitis Bacteremia Patient is a 70-year-old male with a known history of coronary artery disease status post CABG, history of CVA/TIA, hypertension, hyperlipidemia, right leg DVT was on Xarelto, peripheral vascular disease, history of right foot MRSA osteomyelitis left leg above-knee amputation and daily alcohol use and previous history of smoking who was admitted to the hospital recently due to right hip pain and right foot ulcer. Patient was discharged to rehab on 03/01/2021. Patient presented back to ER due to complaints of fever and concern for right foot infection. Patient states that he has been having ongoing infection of the right foot and starting to hurt more for the past few days. Patient is also having right hip pain. Patient is unable to bear weight on right hip at baseline. No complaints of chest pain or shortness breath. No nausea vomiting or abdominal pain. No diarrhea or dysuria. Laboratory data showed WBC 22.1, hemoglobin 12.1 and platelets 429 Sodium 127 potassium 4.4 chloride 95 BUN 18 creatinine 0.5 alk phos 163 CRP 196 albumin 2.6 and UA negative for infection COVID-19 PCR not detected. Chest x-ray showed interval development of pleural effusions. Correlate for pneumonia. Right foot x-ray showed findings may indicate underlying osteomyelitis. Hip and pelvis x-ray no showed no acute fracture or dislocation of the pelvis and right hip. Right lower extremity duplex scan was ordered. 03/05/2021 Patient is currently lying in bed awake alert oriented x3. Seems to be agitated and anxious. Still complains of right foot pain. Continued on antibiotics off vancomycin. ID is on board. Wound cultures are growing MRSA and also blood cultures positive for MRSA. Patient refused to get amputation of the right foot as recommended by vascular surgery. Currently afebrile. No nausea vomiting or abdominal pain. Tolerating oral diet. Continued on wound care. 03/06/2021 Patient is still complaining of right foot pain. No complaints of chest pain or shortness of breath. Patient has been afebrile. Continued on antibiotic at home vancomycin. Wound cultures and blood cultures grew MRSA. ID is on board. Patient does not want any surgical intervention. Continued on wound care. Lab data reviewed. Patient wants to be discharged home. Otherwise still bacteremic likely from the right foot osteomyelitis. Current medications reviewed. Objective - Vital Signs Vital signs: Vital Signs Temp 99.1 F 03/06/21 14:00 Pulse 77 03/06/21 14:00 Resp 16 03/06/21 14:00 BP 117/71 03/06/21 14:00 Pulse Ox 93 L 03/06/21 14:00 Intake & Output 03/05/21 03/06/21 03/06/21 18:59 06:59 18:59 Other: Voiding Method Urinal # Voids 3 4 # Bowel Movements 1 - Exam PHYSICAL EXAMINATION: Patient is lying in the bed comfortably, no acute distress, awake alert and oriented.. HEENT: Normocephalic. Neck is supple. Pupils reactive. Nostrils clear. Oral cavity is moist. Ears reveal no drainage. Neck reveals no JVD, carotid bruits, or thyromegaly. CHEST EXAMINATION: Trachea is central. Symmetrical expansion. Bibasilar diminished air entry and coarse sounds.. CARDIAC: Normal S1, S2 with no gallops. No murmurs ABDOMEN: Soft. Bowel sounds normal. No organomegaly. No abdominal bruits. Extremities: . Right foot ulcer. Left AKA No clubbing or cyanosis Neurologically awake, alert, oriented x3 with well-coordinated movements. No focal deficits noted Skin: No rash or skin lesions. Psychiatric: Coperative. Nonsuicidal Musculoskeletal: No joint swelling or deformity. Normal range of motion. - Labs CBC & Chem 7: 03/07/21 07:19 03/07/21 07:19 Labs: Abnormal Lab Results - Last 24 Hours (Table) 03/06/21 Range/Units 06:00 Creatinine 0.49 L (0.66-1.25) mg/dL Microbiology - Last 24 Hours (Table) 03/03/21 14:35 Blood Culture Gram Stain - Final Blood Blood Culture - Final Methicillin resist S. aureus 03/03/21 14:57 Blood Culture Gram Stain - Final Blood Blood Culture - Final Methicillin resist S. aureus 03/04/21 13:30 Gram Stain - Preliminary Foot - Right Wound Culture - Preliminary Presumptive MRSA Assessment and Plan Assessment: Right foot ulcer with nonhealing wound. Possible osteomyelitis as per x-ray of the right foot. Gram-positive bacteremia Sepsis secondary above Hypovolemic hyponatremia Peripheral vascular disease with history of left AKA Right hip pain likely due to osteoarthritis Coronary artery disease history of CABG Alcohol use on daily basis 3 beers per day Hypertension Hyperlipidemia History of DVT Anxiety/depression Previous history of smoking History of right hip replacement DVT prophylaxis patient is already on Xarelto Plan: Patient will be continued on antibiotics in the form of vancomycin and Unasyn w as added. ID and vascular surgery and orthopedic surgery is following. Patient is refusing to get any intervention. Vascular surgery recommends right foot amputation. Continue with wound care and follow-up culture reports. Continue with pain management. Continue the home medications and follow-up closely. Time with Patient: Greater than 30
--- NOTE | 2021-03-07 23:25 | P.PN ---
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 Patient was discharged to rehab on 03/01/2021. Patient presented back to ER due to complaints of fever and concern for right foot infection. Patient states that he has been having ongoing infection of the right foot and starting to hurt more for the past few days. Patient is also having right hip pain. Patient is unable to bear weight on right hip at baseline. No complaints of chest pain or shortness breath. No nausea vomiting or abdominal pain. No diarrhea or dysuria. Laboratory data showed WBC 22.1, hemoglobin 12.1 and platelets 429 Sodium 127 potassium 4.4 chloride 95 BUN 18 creatinine 0.5 alk phos 163 CRP 196 albumin 2.6 and UA negative for infection COVID-19 PCR not detected. Chest x-ray showed interval development of pleural effusions. Correlate for pneumonia. Right foot x-ray showed findings may indicate underlying osteomyelitis. Hip and pelvis x-ray no showed no acute fracture or dislocation of the pelvis and right hip. Right lower extremity duplex scan was ordered. 03/05/2021 Patient is currently lying in bed awake alert oriented x3. Seems to be agitated and anxious. Still complains of right foot pain. Continued on antibiotics off vancomycin. ID is on board. Wound cultures are growing MRSA and also blood cultures positive for MRSA. Patient refused to get amputation of the right foot as recommended by vascular surgery. Currently afebrile. No nausea vomiting or abdominal pain. Tolerating oral diet. Continued on wound care. 03/06/2021 Patient is still complaining of right foot pain. No complaints of chest pain or shortness of breath. Patient has been afebrile. Continued on antibiotic at home vancomycin. Wound cultures and blood cultures grew MRSA. ID is on board. Patient does not want any surgical intervention. Continued on wound care. Lab data reviewed. Patient wants to be discharged home. Otherwise still bacteremic likely from the right foot osteomyelitis. 03/07/2021 Patient is refusing to get right foot surgery. Continued on wound care. Complains of right foot surgery. Arterial duplex scan was done. Patient does not want any vascular surgical intervention including amputation and debridement. Continued on vancomycin due to MRSA bacteremia. Repeat blood cultures were ordered. ID is following.. Patient does not want amputation or debridement recommended but vascular surgery. Palliative care service will be consulted for evaluation. Prognosis is guarded at this time. Current medications reviewed. Objective - Vital Signs Vital signs: Vital Signs Temp 98.6 F 03/07/21 19:40 Pulse 79 03/07/21 19:40 Resp 14 03/07/21 19:40 BP 119/67 03/07/21 19:40 Pulse Ox 94 L 03/07/21 19:40 Intake & Output 03/07/21 03/07/21 03/08/21 06:59 18:59 06:59 Other: Voiding Method Urinal # Voids 3 3 - Exam PHYSICAL EXAMINATION: Patient is lying in the bed comfortably, no acute distress, awake alert and oriented.. HEENT: Normocephalic. Neck is supple. Pupils reactive. Nostrils clear. Oral cavity is moist. Ears reveal no drainage. Neck reveals no JVD, carotid bruits, or thyromegaly. CHEST EXAMINATION: Trachea is central. Symmetrical expansion. Bibasilar diminished air entry and coarse sounds.. CARDIAC: Normal S1, S2 with no gallops. No murmurs ABDOMEN: Soft. Bowel sounds normal. No organomegaly. No abdominal bruits. Extremities: . Right foot ulcer. Left AKA No clubbing or cyanosis Neurologically awake, alert, oriented x3 with well-coordinated movements. No focal deficits noted Skin: No rash or skin lesions. Psychiatric: Coperative. Nonsuicidal Musculoskeletal: No joint swelling or deformity. Normal range of motion. - Labs CBC & Chem 7: 03/07/21 07:19 03/07/21 07:19 Labs: Abnormal Lab Results - Last 24 Hours (Table) 03/07/21 03/07/21 Range/Units 07:19 07:19 WBC 12.7 H (3.8-10.6) k/uL RBC 3.61 L (4.30-5.90) m/uL Hgb 11.7 L (13.0-17.5) gm/dL Hct 35.0 L (39.0-53.0) % Plt Count 569 H (150-450) k/uL Neutrophils # 9.8 H (1.3-7.7) k/uL Sodium 132 L (137-145) mmol/L BUN 5 L (9-20) mg/dL Creatinine 0.48 L (0.66-1.25) mg/dL Glucose 104 H (74-99) mg/dL Microbiology - Last 24 Hours (Table) 03/07/21 10:35 Wound Culture - Preliminary Leg - Left 03/07/21 13:18 Anaerobic Culture - Preliminary Leg - Left 03/04/21 13:30 Gram Stain - Final Foot - Right Wound Culture - Final Methicillin resist S. aureus Assessment and Plan Assessment: Right foot ulcer with nonhealing wound. Possible osteomyelitis as per x-ray of the right foot. Gram-positive bacteremia Sepsis secondary above Hypovolemic hyponatremia Peripheral vascular disease with history of left AKA Right hip pain likely due to osteoarthritis Coronary artery disease history of CABG Alcohol use on daily basis 3 beers per day Hypertension Hyperlipidemia History of DVT Anxiety/depression Previous history of smoking History of right hip replacement DVT prophylaxis patient is already on Xarelto Plan: Patient will be continued on antibiotics in the form of vancomycin. ID and vascular surgery and orthopedic surgery is following. Patient is refusing to get any intervention. Vascular surgery recommends right foot amputation. Continue with wound care and follow-up repeat culture reports. Continue with pain management. Palliative care service was consulted.. Time with Patient: Greater than 30
[2021-03-08] MEDS: HYDROmorphone 0.5 MG/0.5 ML SYRINGE IVP PRN ×3 (02:49→15:47)
[2021-03-08] MEDS: VANCOMYCIN 1,000 MG in SODIUM CHLORIDE 0.9% 250 ML IVPB SCH ×2 (04:23→15:47)
[2021-03-08 06:42] LABS: African American GFR (CKD) >90 (>60 ml/min/1.73 sqM); Non-African American GFR(CKD) >90 (>60 ml/min/1.73 sqM)
[2021-03-08] MEDS: RIVAROXABAN 2.5 MG TABLET PO SCH ×2 (09:21→20:37)
[2021-03-08] MEDS: traMADol 50 MG TAB PO PRN ×2 (09:22→20:38)
[2021-03-08] MEDS: ACETAMINOPHEN TAB 325 MG TAB PO PRN ×2 (09:22→20:37)
[2021-03-08] MEDS: PANTOPRAZOLE 40 MG TABLET PO SCH (09:22)
[2021-03-08] MEDS: ASPIRIN 81 MG PO SCH (09:23)
[2021-03-08] MEDS: METOPROLOL TARTRATE 25 MG TAB PO SCH ×2 (09:23→20:37)
--- NOTE | 2021-03-08 10:22 | P.CONS ---
History of Present Illness - Reason for Consult Consult date: 03/08/21 wound care - History of Present Illness This is a 70-year-old patient known to the wound care center who was having hyperbaric oxygen therapy treatment prior to his last hospitalization for grade 3 diabetic foot ulcer. He has been utilizing absorptive silver to the right lateral foot ulceration and the right lateral fourth toe ulceration. At this time patient has a new ulceration to the left frrdk-pki-lrya amputation with sanguinous drainage. He is currently on IV antibiotics. Original cause of wound was Pressure Injury. The wound is currently classified as a Full Thickness With Exposed Support Structures wound with etiology of Arterial Insufficiency Ulcer and is located on the Right,Lateral Foot. The wound measures 0.8cm length x 0.8cm width x 1.3cm depth; 0.503cm^2 area and 0.653cm^3 volume. There is bone exposed. There is no tunneling or undermining noted. There is a small amount of serosanguineous drainage noted. The wound margin is distinct with the outline attached to the wound base. There is large (67-100%) red granulation within the wound bed. There is a small (1-33%) amount of necrotic tissue within the wound bed including Adherent Slough. The periwound skin appearance had no abnormalities noted for color. The periwound skin appearance exhibited: Callus, Scarring, Maceration. The periwound skin appearance did not exhibit: Crepitus, Excoriation, Induration, Rash, Dry/Scaly. Periwound temperature was noted as No Abnormality. Original cause of wound was Not Known. The wound is currently c lassified as a Full Thickness Without Exposed Support Structures wound with etiologies of Arterial Insufficiency Ulcer and Pressure Ulcer and is located on the Right,Lateral Toe Fourth. The wound measures 0.4cm length x 0.3cm width x 0.2cm depth; 0.094cm^2 area and 0.019cm^3 volume. There is no tunneling or undermining noted. There is a small amount of serous drainage noted. The wound margin is indistinct and nonvisible. There is large (67-100%) pink granulation within the wound bed. There is a small (1-33%) amount of necrotic tissue within the wound bed including Adherent Slough. The periwound skin appearance exhibited: Maceration. The periwound skin appearance did not exhibit: Callus, Crepitus, Excoriation, Induration, Rash, Scarring, Dry/Scaly, Atrophie Kerry, Cyanosis, Ecchymosis, Hemosiderin Staining, Mottled, Pallor, Rubor, Erythema. She has no history significant for previous smoking, peripheral arterial disease, left [id number] amputation. Review Of Systems: Constitutional: No fever, no chills, no night sweats. No weight change. No weakness, fatigue or lethargy. No daytime sleepiness. Integumentary:reports wounds, no lesions. No rash or pruritus. No unusual br uising. No change in hair or nails. Physical exam: General Appearance: Alert, cooperative, no distress, appears stated age. Skin: See HPI all other Skin color, texture, tugor normal, no rashes or lesions. Neurologic: Alert oriented x3 Assessment: 1. Atherosclerosis of [place] arteries of right leg with ulceration of other part of foot 2. 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 Apply absorptive silver to right lateral foot right fourth toe and left amputation site ulcerations, saline moistened gauze, dry gauze, rolled gauze secured paper tape wrap with Pedro wrap. Change Sunday upon discharge patient to return to the wound care center to continue with wound treatment. Thank you for the consultation any questions please contact the wound care center DNP note has been reviewed and discussed with Dr. Schneider and the impression and plan of care has been directed as dictated. Past Medical History Past Medical History: Coronary Artery Disease (CAD), CVA/TIA, Deep Vein Thrombosis (DVT), Hyperlipidemia, Hypertension, Vascular Disorder Additional Past Medical History / Comment(s): right leg DVT, PVD, TIA 2015, Left leg AKA, alcoholism drinks 3 beers a day. Last drink on 02/24/21 History of Any Multi-Drug Resistant Organisms: MRSA Year Discovered:: 03/02/21 MDRO Source:: RIGHT Foot Past Surgical History: Coronary Bypass/CABG, Heart Catheterization, Joint Replacement, Orthopedic Surgery Additional Past Surgical History / Comment(s): left knee replacement, left foot surgery, stent to right leg, CABG 12/2014, 4 bypass, aortogram, WOUND CLINIC, SKIN GRAFTING LT LEG, right hip replacement, left leg above knee amputation Past Anesthesia/Blood Transfusion Reactions: No Reported Reaction Additional Past Anesthesia/Blood Transfusion Reaction / Comm: DAUGHTER-PONV Past Psychological History: Anxiety, Depression Additional Psychological History / Comment(s): Lives home alone. Smoking Status: Former smoker Past Alcohol Use History: Daily Additional Past Alcohol Use History / Comment(s): Pt started smoking in 1965 and was down to 4 cigarettes a day, quit smoking January 2021 Past Drug Use History: None Reported Additional Drug Use History / Comment(s): HX OF DAILY MARIJUANA-edibles or smoked . - Past Family History Father Family Medical History: Myocardial Infarction (HI) Additional Family Medical History / Comment(s): Father of a HI in his 70s. Mother Family Medical History: No Reported History Additional Family Medical History / Comment(s): Mother in her 70s. She was obese. Medications and Allergies Home Medications Medication Instructions Recorded Confirmed Type Aspirin EC [Ecotrin Low Dose] 81 mg PO DAILY@0700 08/31/19 03/03/21 History Acetaminophen Tab [Tylenol] 650 mg PO Q6H PRN 11/09/19 03/03/21 History Pantoprazole Sodium [Protonix] 40 mg PO DAILY 11/09/19 03/03/21 History Atorvastatin [Lipitor] 40 mg PO HS 02/05/20 03/03/21 History Melatonin 3 mg PO HS PRN 06/01/20 03/03/21 History Metoprolol Tartrate [Lopressor] 25 mg PO BID 06/01/20 03/03/21 History Rivaroxaban [Xarelto] 2.5 mg PO BID 02/24/21 03/03/21 History Mirtazapine [Remeron] 15 mg PO HS #4 tab 02/28/21 03/03/21 Rx traMADol HCl [Ultram] 50 mg PO BID PRN #6 tab 02/28/21 03/03/21 Rx Allergies Allergy/AdvReac Type Severity Reaction Status Date / Time No Known Allergies Allergy Verified 03/03/21 16:07 Physical Exam Vitals: Vital Signs Temp Pulse Resp BP Pulse Ox 03/08/21 08:00 98.7 F 84 18 111/65 92 L 03/08/21 00:57 99.2 F 80 15 118/68 95 03/07/21 19:40 98.6 F 79 14 119/67 94 L 03/07/21 14:49 98.3 F 77 18 122/79 94 L Intake and Output 03/07/21 03/08/21 03/08/21 22:59 06:59 14:59 Output Total 200 Balance -200 Output: Urine 200 Other: Voiding Method Diaper # Voids 3 Results CBC & Chem 7: 03/07/21 07:19 03/08/21 05:43 Labs: Microbiology - Last 24 Hours (Table) 03/04/21 13:30 Anaerobic Culture - Final Foot - Right Anaerobic Gm Negative Bacilli 03/07/21 10:35 Gram Stain - Preliminary Leg - Left Wound Culture - Preliminary 03/07/21 13:18 Anaerobic Culture - Preliminary Leg - Left Assessment and Plan (1) Atherosclerosis of [place] arteries of right leg with ulceration of other part of foot Current Visit: Yes Status: Acute Code(s): I70.235 - ATHSCL LOWER [place] ARTERIES OF RIGHT LEG W ULCER OTH PRT FOOT SNOMED Code(s): 555719606 (2) Non-pressure chronic ulcer of other part of right foot with bone involvement without evidence of necrosis Current Visit: Yes Status: Acute Code(s): L97.516 - NON-PRS CHR ULC OTH PRT R FOOT WITH BNE INVL W/O EVD OF NECR SNOMED Code(s): 754891641 (3) Non-pressure chronic ulcer of left thigh with fat layer exposed Current Visit: Yes Status: Acute Code(s): L97.122 - NON-PRESSURE CHRONIC ULCER OF LEFT THIGH W FAT LAYER EXPOSED SNOMED Code(s): 411301601 (4) PAD (peripheral artery disease) Current Visit: No Status: Chronic Code(s): I73.9 - PERIPHERAL VASCULAR DISEASE, UNSPECIFIED SNOMED Code(s): 635081341
--- NOTE | 2021-03-08 16:09 | P.PN ---
Subjective Progress Note Date: 03/08/21 Principal diagnosis: Right lower extremity foot wound with infection, peripheral arterial disease Seen and examined lying in his bed. Bleeding from the left stump has decreased significantly. Cultures are pending. No acute changes through the night. Patient is still adamant about no surgical debridement or amputation. Objective - Vital Signs Vital signs: Vital Signs Temp 98.7 F 03/08/21 08:00 Pulse 84 03/08/21 08:00 Resp 18 03/08/21 08:00 BP 111/65 03/08/21 08:00 Pulse Ox 92 L 03/08/21 08:00 Intake & Output 03/07/21 03/08/21 03/08/21 18:59 06:59 18:59 Output Total 200 Balance -200 Output: Urine 200 Other: Voiding Method Diaper # Voids 3 - Exam General appearance: The patient is alert, oriented, in no acute distress. HET: Head is normocephalic and atraumatic. Neck: Supple without lymphadenopathy. Trachea midline. Extremities: Right lower extremity dressing clean dry and intact. Left amputati on stump with 3 mm hole along the suture line the scant amount of serosanguineous drainage.. Neurological: No focal deficits. Alert and oriented 3 - Labs CBC & Chem 7: 03/07/21 07:19 03/08/21 05:43 Labs: Microbiology - Last 24 Hours (Table) 03/04/21 13:30 Anaerobic Culture - Final Foot - Right Anaerobic Gm Negative Bacilli 03/07/21 10:35 Gram Stain - Preliminary Leg - Left Wound Culture - Preliminary 03/07/21 13:18 Anaerobic Culture - Preliminary Leg - Left Assessment and Plan Assessment: 1. Right foot nonhealing wound, now with bacteremia 2. 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 History of left [id number] amputation, new open wound 4. Right foot osteomyelitis 5. Leukocytosis 6. Hypertension 7. Hyperlipidemia 8. Coronary artery disease Plan: 1. Symptomatic and supportive care 2. Arterial Doppler ultrasound ordered and reviewed 3. IV antibiotics per infectious disease 4. Consult wound care Again discussed with patient regarding treatment options, patient is refusing any form of vascular surgical intervention with amputation or debridement. Primary medicine have consult with palliative care to discuss and provide information to the patient. Thank you for this consultation, we will be on standby the patient decides he was like any vascular surgical intervention. The impression and plan of care has been dictated as directed. I performed a history and examination of this patient, discussed the same with the dictator. I agree with the dictator's note ,documented as a scribe. Any additional findings or plans will be noted.
[2021-03-08] MEDS: SODIUM CHLORIDE 0.9% 1,000 ML IV SCH (18:22)
[2021-03-08] MEDS: ATORVASTATIN 40 MG TAB PO SCH (20:37)
[2021-03-08] MEDS: MIRTAZAPINE 15 MG TAB PO SCH (20:38)
[2021-03-09] MEDS: metroNIDAZOLE 500 MG TAB PO SCH ×4 (00:44→21:52)
[2021-03-09] MEDS: VANCOMYCIN 1,000 MG in SODIUM CHLORIDE 0.9% 250 ML IVPB SCH ×2 (00:46→10:42)
--- NOTE | 2021-03-09 01:42 | PN ---
PROGRESS NOTE DATE OF SERVICE: 03/08/2021 REASON FOR FOLLOWUP: MRSA bacteremia secondary to right foot infection. INTERVAL HISTORY: Patient is currently afebrile. The patient is still complaining of pain mostly in the right hip pain followed by the right foot wound and left BKA stump area. The patient denies any chest pain or shortness of breath or cough. No nausea, vomiting. No abdominal pain or diarrhea. PHYSICAL EXAMINATION: Blood pressure 113/70 with a pulse of 73, temperature 98.4. He is 94% on room air. General description: The patient is an elderly male lying in bed in no distress. Respiratory system: Unlabored breathing, clear to auscultation anteriorly. Heart S1, S2. Regular rate and rhythm. Abdomen soft, no tenderness. Wounds are currently dressed. No drainage on the dressing. LABS: White count slightly up to 12,000. DIAGNOSTIC IMPRESSION/PLAN: Patient with right foot osteomyelitis. Local culture positive for MRSA. Patient will need surgical debridement or at least amputation of the toe. Vascular surgery has been consulted. He will continue vancomycin. In view of the anaerobes growing in the culture, we will add Flagyl and will monitor clinical course closely. Continue supportive care. MMODL / IJN: [id number] /
[2021-03-09] MEDS: traMADol 50 MG TAB PO PRN ×2 (08:05→21:52)
[2021-03-09] MEDS: ASPIRIN 81 MG PO SCH (08:06)
[2021-03-09] MEDS: PANTOPRAZOLE 40 MG TABLET PO SCH (08:06)
[2021-03-09] MEDS: RIVAROXABAN 2.5 MG TABLET PO SCH ×2 (08:06→21:58)
[2021-03-09] MEDS: METOPROLOL TARTRATE 25 MG TAB PO SCH ×2 (08:06→21:52)
--- NOTE | 2021-03-09 08:55 | P.ARTDOP ---
Arterial Doppler LOWER EXTREMITY ARTERIAL DOPPLER: DATE OF SERVICE: 03/04/2021 Reason for study: Ulcer right foot. Doppler waveforms: Multiphasic at the right femoral and the left femoral. Status post left sided amputation. Atypical at the right popliteal and monophasic below.. Pulse volume recording: []. Pressure gradients: No pressures recorded. Ankle-brachial indices: Not measured due to extensive stenting. Toe brachial indices: No pressure measured on the right, [] on the left Impression: Suggests severe right fem-pop disease..
[2021-03-09] MEDS ORDERED: VANCOMYCIN TROUGH DUE 1 EACH MISC MISCELLANE ONE (09:00)
[2021-03-09 10:32] LABS: African American GFR (CKD) >90 (>60 ml/min/1.73 sqM); Non-African American GFR(CKD) 89 (>60 ml/min/1.73 sqM)
[2021-03-09] MEDS ORDERED: VANCOMYCIN IV PER PHARMACY 1 EACH MISC MISCELLANE PRN (10:53)
[2021-03-09] MEDS: ACETAMINOPHEN TAB 325 MG TAB PO PRN (16:14)
[2021-03-09] MEDS: ATORVASTATIN 40 MG TAB PO SCH (21:52)
[2021-03-09] MEDS: MIRTAZAPINE 15 MG TAB PO SCH (21:52)
--- NOTE | 2021-03-09 23:59 | P.PN ---
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 Patient was discharged to rehab on 03/01/2021. Patient presented back to ER due to complaints of fever and concern for right foot infection. Patient states that he has been having ongoing infection of the right foot and starting to hurt more for the past few days. Patient is also having right hip pain. Patient is unable to bear weight on right hip at baseline. No complaints of chest pain or shortness breath. No nausea vomiting or abdominal pain. No diarrhea or dysuria. Laboratory data showed WBC 22.1, hemoglobin 12.1 and platelets 429 Sodium 127 potassium 4.4 chloride 95 BUN 18 creatinine 0.5 alk phos 163 CRP 196 albumin 2.6 and UA negative for infection COVID-19 PCR not detected. Chest x-ray showed interval development of pleural effusions. Correlate for pneumonia. Right foot x-ray showed findings may indicate underlying osteomyelitis. Hip and pelvis x-ray no showed no acute fracture or dislocation of the pelvis and right hip. Right lower extremity duplex scan was ordered. 03/05/2021 Patient is currently lying in bed awake alert oriented x3. Seems to be agitated and anxious. Still complains of right foot pain. Continued on antibiotics off vancomycin. ID is on board. Wound cultures are growing MRSA and also blood cultures positive for MRSA. Patient refused to get amputation of the right foot as recommended by vascular surgery. Currently afebrile. No nausea vomiting or abdominal pain. Tolerating oral diet. Continued on wound care. 03/06/2021 Patient is still complaining of right foot pain. No complaints of chest pain or shortness of breath. Patient has been afebrile. Continued on antibiotic at home vancomycin. Wound cultures and blood cultures grew MRSA. ID is on board. Patient does not want any surgical intervention. Continued on wound care. Lab data reviewed. Patient wants to be discharged home. Otherwise still bacteremic likely from the right foot osteomyelitis. 03/07/2021 Patient is refusing to get right foot surgery. Continued on wound care. Complains of right foot surgery. Arterial duplex scan was done. Patient does not want any vascular surgical intervention including amputation and debridement. Continued on vancomycin due to MRSA bacteremia. Repeat blood cultures were ordered. ID is following.. Patient does not want amputation or debridement recommended but vascular surgery. Palliative care service will be consulted for evaluation. Prognosis is guarded at this time. 03/08/2021 Patient is refusing surgery. Continued on antibiotics above vancomycin due to MRSA bacteremia. ID is on board. Recommends debridement or amputation of the toes. Vascular surgery is on board. Patient does not want to go for any intervention including debridement. Will discuss with his legal guardian/daughter for further management goals. Otherwise patient has been afebrile. Repeat cultures have been negative. ID and vascular surgery is on board. Wound care consult. Current medications reviewed. Objective - Vital Signs Vital signs: Vital Signs Temp 99.4 F 03/08/21 19:15 Pulse 76 03/08/21 19:15 Resp 14 03/08/21 19:15 BP 113/70 03/08/21 19:15 Pulse Ox 94 L 03/08/21 19:15 Intake & Output 03/08/21 03/08/21 03/09/21 06:59 18:59 06:59 Output Total 200 Balance -200 Weight 67.132 kg Output: Urine 200 Other: Voiding Method Diaper Incontinent Incontinent # Voids 3 - Exam PHYSICAL EXAMINATION: Patient is lying in the bed comfortably, no acute distress, awake alert and oriented.. HEENT: Normocephalic. Neck is supple. Pupils reactive. Nostrils clear. Oral cavity is moist. Ears reveal no drainage. Neck reveals no JVD, carotid bruits, or thyromegaly. CHEST EXAMINATION: Trachea is central. Symmetrical expansion. Bibasilar diminished air entry and coarse sounds.. CARDIAC: Normal S1, S2 with no gallops. No murmurs ABDOMEN: Soft. Bowel sounds normal. No organomegaly. No abdominal bruits. Extremities: . Right foot ulcer. Left AKA No clubbing or cyanosis Neurologically awake, alert, oriented x3 with well-coordinated movements. No focal deficits noted Skin: No rash or skin lesions. Psychiatric: Coperative. Nonsuicidal Musculoskeletal: No joint swelling or deformity. Normal range of motion. - Labs CBC & Chem 7: 03/07/21 07:19 03/09/21 09:38 Labs: Microbiology - Last 24 Hours (Table) 03/07/21 12:21 Blood Culture - Preliminary Blood No Growth after 24 hours 03/04/21 13:30 Anaerobic Culture - Final Foot - Right Anaerobic Gm Negative Bacilli 03/07/21 10:35 Gram Stain - Preliminary Leg - Left Wound Culture - Preliminary 03/07/21 13:18 Anaerobic Culture - Preliminary Leg - Left Assessment and Plan Assessment: Right foot ulcer with nonhealing wound. Possible osteomyelitis as per x-ray of the right foot. Gram-positive bacteremia Sepsis secondary above Hypovolemic hyponatremia Peripheral vascular disease with history of left AKA Right hip pain likely due to osteoarthritis Coronary artery disease history of CABG Alcohol use on daily basis 3 beers per day Hypertension Hyperlipidemia History of DVT Anxiety/depression Previous history of smoking History of right hip replacement DVT prophylaxis patient is already on Xarelto Plan: Patient will be continued on antibiotics in the form of vancomycin. ID and vascular surgery and orthopedic surgery is following. Patient is refusing to get any intervention. Vascular surgery recommends right foot amputation. Continue with wound care and follow-up repeat culture reports. Continue with pain management. Palliative care service was consulted.. Time with Patient: Greater than 30
--- NOTE | 2021-03-10 00:03 | P.PN ---
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 Patient was discharged to rehab on 03/01/2021. Patient presented back to ER due to complaints of fever and concern for right foot infection. Patient states that he has been having ongoing infection of the right foot and starting to hurt more for the past few days. Patient is also having right hip pain. Patient is unable to bear weight on right hip at baseline. No complaints of chest pain or shortness breath. No nausea vomiting or abdominal pain. No diarrhea or dysuria. Laboratory data showed WBC 22.1, hemoglobin 12.1 and platelets 429 Sodium 127 potassium 4.4 chloride 95 BUN 18 creatinine 0.5 alk phos 163 CRP 196 albumin 2.6 and UA negative for infection COVID-19 PCR not detected. Chest x-ray showed interval development of pleural effusions. Correlate for pneumonia. Right foot x-ray showed findings may indicate underlying osteomyelitis. Hip and pelvis x-ray no showed no acute fracture or dislocation of the pelvis and right hip. Right lower extremity duplex scan was ordered. 03/05/2021 Patient is currently lying in bed awake alert oriented x3. Seems to be agitated and anxious. Still complains of right foot pain. Continued on antibiotics off vancomycin. ID is on board. Wound cultures are growing MRSA and also blood cultures positive for MRSA. Patient refused to get amputation of the right foot as recommended by vascular surgery. Currently afebrile. No nausea vomiting or abdominal pain. Tolerating oral diet. Continued on wound care. 03/06/2021 Patient is still complaining of right foot pain. No complaints of chest pain or shortness of breath. Patient has been afebrile. Continued on antibiotic at home vancomycin. Wound cultures and blood cultures grew MRSA. ID is on board. Patient does not want any surgical intervention. Continued on wound care. Lab data reviewed. Patient wants to be discharged home. Otherwise still bacteremic likely from the right foot osteomyelitis. 03/07/2021 Patient is refusing to get right foot surgery. Continued on wound care. Complains of right foot surgery. Arterial duplex scan was done. Patient does not want any vascular surgical intervention including amputation and debridement. Continued on vancomycin due to MRSA bacteremia. Repeat blood cultures were ordered. ID is following.. Patient does not want amputation or debridement recommended but vascular surgery. Palliative care service will be consulted for evaluation. Prognosis is guarded at this time. 03/08/2021 Patient is refusing surgery. Continued on antibiotics above vancomycin due to MRSA bacteremia. ID is on board. Recommends debridement or amputation of the toes. Vascular surgery is on board. Patient does not want to go for any intervention including debridement. Will discuss with his legal guardian/daughter for further management goals. Otherwise patient has been afebrile. Repeat cultures have been negative. ID and vascular surgery is on board. Wound care consult. 03/09/2021 Patient is currently lying in bed comfortably. Pain is controlled. Continued on antibiotics in the form of vancomycin. Dose is on hold due to elevated tr ough level to 33.7. Discussed with his daughter who is his legal guardian. Her daughter would like to which is continue with his decision. If the patient continues to refuse any surgical intervention, plan for discharge to extended facility with hospice care consult. Antibiotic course as per ID recommendations. Arterial duplex showed severe right femoropopliteal disease. Patient has been afebrile and saturating well on room air. Repeat blood cultures have been negative so far. Current medications reviewed. Objective - Vital Signs Vital signs: Vital Signs Temp 98.8 F 03/09/21 15:17 Pulse 91 03/09/21 15:17 Resp 18 03/09/21 15:17 BP 117/71 03/09/21 15:17 Pulse Ox 93 L 03/09/21 15:17 Intake & Output 03/09/21 03/09/21 03/10/21 06:59 18:59 06:59 Output Total 725 Balance -725 Output: Urine 725 Other: Voiding Method Incontinent Urinal # Voids 1 - Exam PHYSICAL EXAMINATION: Patient is lying in the bed comfortably, no acute distress, awake alert and oriented.. HEENT: Normocephalic. Neck is supple. Pupils reactive. Nostrils clear. Oral cavity is moist. Ears reveal no drainage. Neck reveals no JVD, carotid bruits, or thyromegaly. CHEST EXAMINATION: Trachea is central. Symmetrical expansion. Bibasilar diminished air entry and coarse sounds.. CARDIAC: Normal S1, S2 with no gallops. No murmurs ABDOMEN: Soft. Bowel sounds normal. No organomegaly. No abdominal bruits. Extremities: . Right foot ulcer. Left AKA No clubbing or cyanosis Neurologically awake, alert, oriented x3 with well-coordinated movements. No focal deficits noted Skin: No rash or skin lesions. Psychiatric: Coperative. Nonsuicidal Musculoskeletal: No joint swelling or deformity. Normal range of motion. - Labs CBC & Chem 7: 03/07/21 07:19 03/09/21 09:38 Labs: Abnormal Lab Results - Last 24 Hours (Table) 03/09/21 Range/Units 09:38 Vancomycin Trough 33.7 H* ug/mL Microbiology - Last 24 Hours (Table) 03/07/21 10:35 Gram Stain - Preliminary Leg - Left Wound Culture - Preliminary Presumptive MRSA 03/07/21 13:18 Anaerobic Culture - Preliminary Leg - Left 03/07/21 12:21 Blood Culture - Preliminary Blood No Growth after 48 hours 03/08/21 05:43 Blood Culture - Preliminary Blood No Growth after 24 hours Assessment and Plan Assessment: Right foot ulcer with nonhealing wound. Possible osteomyelitis as per x-ray of the right foot. Gram-positive bacteremia Sepsis secondary above Hypovolemic hyponatremia Peripheral vascular disease with history of left AKA Right hip pain likely due to osteoarthritis Coronary artery disease history of CABG Alcohol use on daily basis 3 beers per day Hypertension Hyperlipidemia History of DVT Anxiety/depression Previous history of smoking History of right hip replacement DVT prophylaxis patient is already on Xarelto Plan: Patient will be continued on antibiotics in the form of vancomycin. ID and vascular surgery and orthopedic surgery is following. Patient is refusing to get any intervention. Vascular surgery recommends right foot amputation. Continue with wound care and follow-up repeat culture reports. Continue with pain management. Palliative care service was consulted.. Time with Patient: Greater than 30
--- NOTE | 2021-03-10 00:04 | PN ---
PROGRESS NOTE DATE OF SERVICE: 03/09/2021 REASON FOR FOLLOWUP: MRSA bacteremia right 5th toe osteomyelitis and left BKA infection. INTERVAL HISTORY: Patient is currently afebrile. Still complaining of pain to the right foot and left BK stump and right hip area. The patient denies having any chest pain, shortness of breath or cough. No abdominal pain. No diarrhea. PHYSICAL EXAMINATION: Blood pressure 113/66, pulse of 73. Temperature is 97.9. He is 95% on room air. General description: The patient is an elderly male lying in bed in no distress. Respiratory system: Unlabored breathing. Clear to auscultation anteriorly. Heart is S1, S2. Regular rate and rhythm. Abdomen soft. Right foot is currently dressed up. No obvious drainage on the dressing. LAB: Creatinine is normal. Vancomycin trough was elevated. DIAGNOSTIC IMPRESSION AND PLAN: Patient with MRSA bacteremia, source is likely multifactorial in this patient who did have a right fifth osteomyelitis with left BKA stump infection. The patient's vancomycin dose to be adjusted to keep the trough around 15. Blood cultures repeat to document clearance of the bacteremia. Patient unfortunately is refusing any surgical intervention and we may not be able to completely clear this infection without surgery. Hospice may be better option. Continue supportive care. MMODL / IJN: [id number] /
[2021-03-10] MEDS: SODIUM CHLORIDE 0.9% 1,000 ML IV SCH (04:42)
[2021-03-10 07:03] LABS: African American GFR (CKD) >90 (>60 ml/min/1.73 sqM); Anion Gap 5 mmol/L; Blood Urea Nitrogen 8 mg/dL (9-20); Calcium 8.1 mg/dL (8.4-10.2); Carbon Dioxide 25 mmol/L (22-30); Chloride 104 mmol/L (98-107); Glucose 105 mg/dL (74-99); Non-African American GFR(CKD) 86 (>60 ml/min/1.73 sqM); Potassium 3.9 mmol/L (3.5-5.1); Sodium 134 mmol/L (137-145)
[2021-03-10] MEDS: ASPIRIN 81 MG PO SCH (07:34)
[2021-03-10] MEDS: METOPROLOL TARTRATE 25 MG TAB PO SCH (07:34)
[2021-03-10] MEDS: metroNIDAZOLE 500 MG TAB PO SCH (07:34)
[2021-03-10] MEDS: PANTOPRAZOLE 40 MG TABLET PO SCH (07:35)
[2021-03-10] MEDS: RIVAROXABAN 2.5 MG TABLET PO SCH (07:35)
[2021-03-10 07:52] VITALS: RESP 16
[2021-03-10 09:16] LABS: Basophils # (A) 0.07 X 10*3/uL (0.00-0.10); Basophils % (A) 0.7 %; Eosinophils # (A) 0.12 X 10*3/uL (0.04-0.35); Eosinophils % (A) 1.2 %; HCT 31.4 % (39.6-50.0); Lymphocytes # (A) 1.78 X 10*3/uL (0.90-5.00); Lymphocytes % (A) 18.2 %; MCH 31.3 pg (27.0-32.0); MCHC 31.8 g/dL (32.0-37.0); MCV 98.4 fL (80.0-97.0); Mean Platelet Volume 9.9 fL (9.5-12.2); Monocytes # (A) 1.15 X 10*3/uL (0.20-1.00); Monocytes % (A) 11.7 %; Neutrophils # (A) 6.55 X 10*3/uL (1.80-7.70); Neutrophils % (A) 66.9 %; Platelet Count 642 X 10*3/uL (140-440); RBC 3.19 X 10*6/uL (4.40-5.60); RDW 14.1 % (11.5-14.5)
--- NOTE | 2021-03-10 10:37 | P.PN ---
Subjective Progress Note Date: 03/10/21 Patient seen and examined. Again discussed at length with him and his daughter regarding the overall plan and they continued to remain on board and do not want further surgical interventions. The foot wound is draining therefore no further surgical intervention at this spot. Again they are looking into hospice/palliative care which I agree is appropriate given his lack of desire for any surgical interventions recommended. Objective - Vital Signs Vital signs: Vital Signs Temp 98.3 F 03/10/21 07:51 Pulse 69 03/10/21 07:51 Resp 16 03/10/21 07:51 BP 149/77 03/10/21 07:51 Pulse Ox 97 03/10/21 07:51 Intake & Output 03/09/21 03/10/21 03/10/21 18:59 06:59 18:59 Output Total 625 Balance -625 Output: Urine 625 Other: Voiding Method Urinal Urinal Urinal # Voids 1 - Exam Gen. is a pleasant cooperative male in no acute distress. Poor dentition. Heart regular this time. Lungs are clear bilaterally. No respiratory distress Abdomen is soft. Left upper extremity above-knee amputation site with small draining wound Right lower extremity wound clean, dry. Packing in place. - Labs CBC & Chem 7: 03/10/21 06:06 03/10/21 06:06 Labs: Abnormal Lab Results - Last 24 Hours (Table) 03/09/21 03/10/21 03/10/21 Range/Units 09:38 06:06 06:06 RBC 3.19 L (4.40-5.60) X 10*6/uL Hgb 10.0 L (13.0-17.0) g/dL Hct 31.4 L (39.6-50.0) % MCV 98.4 H (80.0-97.0) fL MCHC 31.8 L (32.0-37.0) g/dL Plt Count 642 H (140-440) X 10*3/uL Immature Gran # 0.13 H (0.00-0.04) X 10*3/uL Monocytes # 1.15 H (0.20-1.00) X 10*3/uL Sodium 134 L (137-145) mmol/L BUN 8 L (9-20) mg/dL Glucose 105 H (74-99) mg/dL Calcium 8.1 L (8.4-10.2) mg/dL Vancomycin Trough 33.7 H* ug/mL Microbiology - Last 24 Hours (Table) 03/08/21 05:43 Blood Culture - Preliminary Blood No Growth after 48 hours 03/07/21 10:35 Gram Stain - Preliminary Leg - Left Wound Culture - Preliminary Presumptive MRSA 03/07/21 13:18 Anaerobic Culture - Preliminary Leg - Left 03/07/21 12:21 Blood Culture - Preliminary Blood No Growth after 48 hours Assessment and Plan Assessment: 1. Right foot nonhealing wound, now with bacteremia, recent blood culture negative 2. 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 History of left [id number] amputation 4. Right foot osteomyelitis 5. Leukocytosis 6. Hypertension 7. Hyperlipidemia 8. Coronary artery disease Plan: Continue with supportive care and patient's wishes.
[2021-03-10] MEDS: traMADol 50 MG TAB PO PRN (11:04)
--- NOTE | 2021-03-10 11:43 | P.DS ---
Providers Date of admission: 03/03/21 16:51 Expected date of discharge: 03/10/21 Attending physician: Wendy Mccain Consults: 03/03/21 16:48 Consult Physician Routine Consulting Provider: Diallo Malcolm Consult Reason/Comments: poss septic arthritis of R hip, osteo of R foot Do you want consulting provider notified?: Yes 03/03/21 16:49 Consult Physician Routine Consulting Provider: Darion Muniz Consult Reason/Comments: osteomyelitis of R foot, r/o right hip septic arthritis Do you want consulting provider notified?: Yes 03/04/21 08:18 Consult Physician Routine Consulting Provider: Hellen Olguin Consult Reason/Comments: Right foot wound, likely osteomyelitis right foot, sepsis Do you want consulting provider notified?: Yes Primary care physician: Reno Doe Hospital Course: Final diagnosis Right foot ulcer with nonhealing wound. Possible osteomyelitis as per x-ray of the right foot. Gram-positive bacteremia Sepsis secondary above Hypovolemic hyponatremia Peripheral vascular disease with history of left AKA Right hip pain likely due to osteoarthritis Coronary artery disease history of CABG Alcohol use on daily basis 3 beers per day Hypertension Hyperlipidemia History of DVT Anxiety/depression Previous history of smoking History of right hip replacement DVT prophylaxis patient is already on Xarelto Discharge disposition Patient is being discharged in a stable condition with guarded prognosis to [facility]. Patient will be signing on hospice services once back to [facility]. Patient will follow-up with Dr. Doe in the outpatient setting upon discharge. Patient is to continue oral Bactrim twice daily for the next 1 week and then may discontinue. Total time taken is greater than 35 minutes. 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 Patient was discharged to rehab on 03/01/2021. Patient presented back to ER due to complaints of fever and concern for right foot infection. Patient states that he has been having ongoing infection of the right foot and starting to hurt more for the past few days. Patient is also having right hip pain. Patient is unable to bear weight on right hip at baseline. No complaints of chest pain or shortness breath. No nausea vomiting or abdominal pain. No diarrhea or dysuria. Laboratory data showed WBC 22.1, hemoglobin 12.1 and platelets 429 Sodium 127 potassium 4.4 chloride 95 BUN 18 creatinine 0.5 alk phos 163 CRP 196 albumin 2.6 and UA negative for infection COVID-19 PCR not detected. Chest x-ray showed interval development of pleural effusions. Correlate for pneumonia. Right foot x-ray showed findings may indicate underlying osteomyelitis. Hip and pelvis x-ray no showed no acute fracture or dislocation of the pelvis and right hip. Right lower extremity duplex scan was ordered. 03/05/2021 Patient is currently lying in bed awake alert oriented x3. Seems to be agitated and anxious. Still complains of right foot pain. Continued on antibiotics off vancomycin. ID is on board. Wound cultures are growing MRSA and also blood cultures positive for MRSA. Patient refused to get amputation of the right foot as recommended by vascular surgery. Currently afebrile. No nausea vomiting or abdominal pain. Tolerating oral diet. Continued on wound care. 03/06/2021 Patient is still complaining of right foot pain. No complaints of chest pain or shortness of breath. Patient has been afebrile. Continued on antibiotic at home vancomycin. Wound cultures and blood cultures grew MRSA. ID is on board. Patient does not want any surgical intervention. Continued on wound care. Lab data reviewed. Patient wants to be discharged home. Otherwise still bacteremic likely from the right foot osteomyelitis. 03/07/2021 Patient is refusing to get right foot surgery. Continued on wound care. Complains of right foot surgery. Arterial duplex scan was done. Patient does not want any vascular surgical intervention including amputation and debridem ent. Continued on vancomycin due to MRSA bacteremia. Repeat blood cultures were ordered. ID is following.. Patient does not want amputation or debridement recommended but vascular surgery. Palliative care service will be consulted for evaluation. Prognosis is guarded at this time. 03/08/2021 Patient is refusing surgery. Continued on antibiotics above vancomycin due to MRSA bacteremia. ID is on board. Recommends debridement or amputation of the toes. Vascular surgery is on board. Patient does not want to go for any intervention including debridement. Will discuss with his legal guardi an/daughter for further management goals. Otherwise patient has been afebrile. Repeat cultures have been negative. ID and vascular surgery is on board. Wound care consult. 03/09/2021 Patient is currently lying in bed comfortably. Pain is controlled. Continued on antibiotics in the form of vancomycin. Dose is on hold due to elevated trough level to 33.7. Discussed with his daughter who is his legal guardian. Her daughter would like to which is continue with his decision. If the patient continues to refuse any surgical intervention, plan for discharge to extended facility with hospice care consult. Antibiotic course as per ID recommendations. Arterial duplex showed severe right femoropopliteal disease. Patient has been afebrile and saturating well on room air. Repeat blood culture s have been negative so far. This is a 64-year-old male who was recently admitted and was being closely monitored. 03/10/2021 Patient was seen and evaluated and follow-up continues to refuse any surgical intervention and is agreeable to hospice with return to [facility]. His daughter is agreeable to this as well. Patient will continue with local wound care Sunday as instructed and will continue with oral antibiotics in the form of Bactrim twice daily for the next 1 week and then may discontinue. Currently no reports of chest pain, shortness of breath, or palpitations. Patient is afebrile. No reports of nausea or vomiting and patient is tolerating diet. Patient will be going to [facility] today. Guarded prognosis On exam vital signs are stable. Cardio S1, S2 are muffled. Respiratory system shows diminished breath sounds at the bases with no wheezing or rhonchi noted. Abdomen is soft and nontender. Nervous system shows diffuse weakness. Please refer to medication reconciliation sheet for a list of medications. Patient Condition at Discharge: Poor Plan - Discharge Summary Discharge Rx Participant: Yes New Discharge Prescriptions: New Sulfamethox-Tmp 800-160Mg [Bactrim DS 800-160 mg] 1 tab PO Q12HR 7 Days #14 tab Sennosides [Senokot] 8.6 mg PO BID PRN tab PRN Reason: Constipation Continue Aspirin EC [Ecotrin Low Dose] 81 mg PO DAILY@0700 Acetaminophen Tab [Tylenol] 650 mg PO Q6H PRN PRN Reason: Pain Pantoprazole Sodium [Protonix] 40 mg PO DAILY Atorvastatin [Lipitor] 40 mg PO HS Melatonin 3 mg PO HS PRN PRN Reason: Insomnia Metoprolol Tartrate [Lopressor] 25 mg PO BID Rivaroxaban [Xarelto] 2.5 mg PO BID Mirtazapine [Remeron] 15 mg PO HS #4 tab traMADol HCl [Ultram] 50 mg PO BID PRN #6 tab PRN Reason: Pain Discharge Medication List Aspirin EC [Ecotrin Low Dose] 81 mg PO DAILY@0700 08/31/19 [History] Acetaminophen Tab [Tylenol] 650 mg PO Q6H PRN 11/09/19 [History] Pantoprazole Sodium [Protonix] 40 mg PO DAILY 11/09/19 [History] Atorvastatin [Lipitor] 40 mg PO HS 02/05/20 [History] Melatonin 3 mg PO HS PRN 06/01/20 [History] Metoprolol Tartrate [Lopressor] 25 mg PO BID 06/01/20 [History] Rivaroxaban [Xarelto] 2.5 mg PO BID 02/24/21 [History] Mirtazapine [Remeron] 15 mg PO HS #4 tab 02/28/21 [Rx] Sennosides [Senokot] 8.6 mg PO BID PRN tab 03/10/21 [Rx] Sulfamethox-Tmp 800-160Mg [Bactrim DS 800-160 mg] 1 tab PO Q12HR 7 Days #14 tab 03/10/21 [Rx] traMADol HCl [Ultram] 50 mg PO BID PRN #6 tab 03/10/21 [Rx] Follow up Appointment(s)/Referral(s): Reno Doe MD [Primary Care Provider] - 1-2 days Activity/Diet/Wound Care/Special Instructions: Patient is returning to [facility] Patient will sign on the hospice Continue with antibiotics in the form of Bactrim twice daily for the next 1 week and then may discontinue Activity as tolerated Continue current diet Wound Care Orders: Right foot ulcer/wound and left lower extremity apply silver, saline moistened gauze, dry gauze, and rolled gauze was secured paper tape and then wrapped with Pedro wrap and change Sunday/Sunday/Sunday or if becomes soiled Discharge Disposition: TRANSFER TO SNF/ECF
[2021-03-10] MEDS ORDERED: VANCOMYCIN 1,000 MG in SODIUM CHLORIDE 0.9% 250 ML IVPB ONE (12:00)
[2021-03-10 14:17] VITALS: BP 153/78; PULSE 94; TEMP 98.4
--- NOTE | 2021-03-10 15:03 | PN ---
PROGRESS NOTE DATE OF SERVICE: 03/10/2021 REASON FOR FOLLOWUP: MRSA bacteremia secondary to the right foot osteomyelitis and left BKA stump wound infection. INTERVAL HISTORY: Patient is currently afebrile. Patient is breathing comfortably. The patient did complain of pain to the right foot and left BKA stump, but no worsening. The patient denies having any chest pain or shortness of breath or cough. No abdominal pain. No diarrhea. PHYSICAL EXAMINATION: Blood pressure 149/77 with a pulse of 69, temperature 98.3, he is 95% on room air. General description is an elderly male up in the chair in no distress. Respiratory system: Unlabored breathing, clear to auscultation anteriorly. Heart S1, S2. Regular rate and rhythm. ABDOMEN: Soft, no tenderness. Wounds are currently dressed. No drainage on the dressing. LABS: Hemoglobin is 10.3, white count 9.0, BUN of 8, creatinine 0.91. Vancomycin trough is high. Repeat blood culture has been negative so far. DIAGNOSTIC IMPRESSION AND PLAN: Patient with Methicillin resistant Staphylococcus aureus bacteremia secondary to right foot osteomyelitis. Patient has refused any surgical intervention as per discussion with Dr. Olguin who has discussed in detail with the patient's daughter. They are looking for more palliative care and hospice and does not want any PICC line or IV antibiotic therapy. In that case, antibiotic may be switched over to Bactrim DS, to keep in mind that this is not the ideal treatment for any osteomyelitis or bacteremia with the patient refusing care that has been recommended to him and is going towards hospice, oral antibiotic may be appropriate. This was discussed with the nurse practitioner for admitting which is working on discharge. MMODL / IJN: [id number] /
--- NOTE | 2021-03-25 10:55 | CDI ---
Documentation Clarification Form Date: 03/25/21 From: Yesy Bocanegra Phone: Admit Date: 03/03/2021 04:51:00 PM Patient Name: Arun Recinos Visit Number: [id number] Discharge Date: 03/10/2021 02:36:00 PM ATTENTION: The Clinical Documentation Specialists (CDI) and [facility] Coding Staff appreciate your assistance in clarifying documentation. Please respond to the clarification below the line at the bottom and electronically sign. The CDI & [facility] Coding staff will review the response and follow-up if needed. Please note: Queries are made part of the Legal Health Record. If you have any questions, please contact the author of this message via ITS. Dr. Wendy Mccain, Osteomyelitis is documented in the Ed Note, H&P & DS. Additional clarification regarding the cause and acuity of the osteomyelitis is requested. History/Risk Factors: DM, ASPVD with right ulcer of foot and thigh Clinical Indicators: Cellulitis of right foot. Chronic muscle atrophy of right leg. Leukocytosis. Labs: WBC-22.1, Neutrophils-20.2, Lactic acid-1.9, Na-127, CRP-196.0 03/03 Right foot X-Ray Results: Findings may be indicative of underlying osteomyelitis Treatment: IV fluids, IV Rocephin, IV Vancomycin, pain meds, patient declined surgery for amputation Please clarify the acuity and etiology of the osteomyelitis, if known: Acuity: [ ] Acute osteomyelitis [ ] Chronic osteomyelitis [ ] Subacute osteomyelitis [ ] Unable to Determine Acute osteomyelitis MTDD
== END 2021-03-10 14:36 | DRG 872 ==
LOC: EC 13:57 → SUPCPDRO 13:57 → 4SSUR 16:51
PROVIDERS: ADMIT Internal Medicine; ATTEND Internal Medicine
DX: A41.02 Sepsis due to Methicillin resistant Staphylococcus aureus (principal); E87.1 Hypo-osmolality and hyponatremia; L03.115 Cellulitis of right lower limb; L97.122 Non-pressure chronic ulcer of left thigh with fat layer exposed; L97.516 Non-pressure chronic ulcer of other part of right foot with bone involvement without evidence of necrosis; J90 Pleural effusion, not elsewhere classified; M86.171 Other acute osteomyelitis, right ankle and foot; E11.69 Type 2 diabetes mellitus with other specified complication; E11.51 Type 2 diabetes mellitus with diabetic peripheral angiopathy without gangrene; E11.621 Type 2 diabetes mellitus with foot ulcer; Z89.612 Acquired absence of left leg above knee; I70.235 Atherosclerosis of native arteries of right leg with ulceration of other part of foot; Z51.5 Encounter for palliative care; Z20.822 Contact with and (suspected) exposure to COVID-19; E86.1 Hypovolemia; Z53.20 Procedure and treatment not carried out because of patient's decision for unspecified reasons; E78.5 Hyperlipidemia, unspecified; I10 Essential (primary) hypertension; I25.10 Atherosclerotic heart disease of native coronary artery without angina pectoris; M16.11 Unilateral primary osteoarthritis, right hip; M77.31 Calcaneal spur, right foot; F32.9 Major depressive disorder, single episode, unspecified; F41.9 Anxiety disorder, unspecified; Z79.82 Long term (current) use of aspirin; Z79.01 Long term (current) use of anticoagulants; Z79.899 Other long term (current) drug therapy; Z86.73 Personal history of transient ischemic attack (TIA), and cerebral infarction without residual deficits; Z87.81 Personal history of (healed) traumatic fracture; Z86.718 Personal history of other venous thrombosis and embolism; Z95.1 Presence of aortocoronary bypass graft; Z96.652 Presence of left artificial knee joint; Z96.641 Presence of right artificial hip joint; Z87.891 Personal history of nicotine dependence; Z86.14 Personal history of Methicillin resistant Staphylococcus aureus infection; Z72.89 Other problems related to lifestyle; Z98.890 Other specified postprocedural states; Z82.49 Family history of ischemic heart disease and other diseases of the circulatory system; Z83.49 Family history of other endocrine, nutritional and metabolic diseases
CPT/HCPCS: 36415; 71046; 73502; 80048; 80053; 80202; 81003; 82565; 83605; 85025; 85652; 86140; 87040; 87070; 87075; 87077; 87186; 87205; 87449; 87635; 93005; 93922; 96361; 96374; 96375; 99284